=== PATIENT | female | born 1945 | race Caucasian/White ===

== ENCOUNTER → 2018-09-30 | Outpatient (CLI) | payer MEDICARE ==
--- NOTE | 2018-09-30 14:51 | CT ---
EXAMINATION TYPE: CT sinus wo con DATE OF EXAM: 09/30/2018 COMPARISON: NONE HISTORY: Swelling, mass of nasal sinus CT DLP: 553 mGycm. Automated Exposure Control for Dose Reduction was Utilized. TECHNIQUE: CT scan of the sinuses is performed without contrast, axial images are obtained, coronal r eformatted images are also reviewed. FINDINGS: Asymmetric density seen along the left lateral hard palate could simply relate to the patient's tongu e asymmetrically placed although [id number] limits characterization. Direct visualization is recom mended to exclude mucosal neoplasm. There is moderate circumferential mucosal thickening on the left and mild circumferential mucosal thi ckening on the right with high density debris filling the dependent aspects of the maxillary sinuses such as on series 3 image 6. This high density suggests either internal hemorrhage or atypical infect ion such as fungal infection. There is scant mucosal thickening of the sphenoid sinus and moderate mu cosal thickening in the ethmoid sinuses and right frontal sinuses with high-density debris also seen in the right frontal sinus. The mastoid air cells are well aerated. Orbits are symmetric. Evaluation of intracranial structures are suboptimal. There is occlusion of the bilateral ostiomeatal complexes by mucosal thickening. Frontal recesses are also occluded. There is leftward nasal septal deviation. Right greater than left middle nasal turbin ate kerri bullosa are seen. Mild inferior nasal turbinate mucosal hypertrophy is seen on the right. No Oracio cells are seen. IMPRESSION: 1. 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 High density debris is present dependently within the maxillary sinuses and frontal sinus indicative of either internal hemorrhage or atypical i nfection such as a fungal infection. Overall there is moderate pansinusitis. 2. Direct visualization of the oral cavity is recommended to exclude left hard palate mass, only part ially visualized secondary to [id number].
== END ==
LOC: RADCTMAIN 14:10
PROVIDERS: ATTEND Family Medicine
DX: J32.4 Chronic pansinusitis (principal); J34.89 Other specified disorders of nose and nasal sinuses
CPT/HCPCS: 70486

== ENCOUNTER → 2018-12-23 | Outpatient (CLI) | payer MEDICARE ==
--- NOTE | 2018-12-23 12:59 | US ---
EXAMINATION TYPE: US venous doppler duplex LE RT DATE OF EXAM: 12/23/2018 12:49 PM COMPARISON: NONE CLINICAL HISTORY: R60.0 Localized edema. Right leg swelling x 3 years. No hx DVT. Pt not on blood thi nners. SIDE PERFORMED: Right TECHNIQUE: The lower extremity deep venous system is examined utilizing real time linear array sonog miroslava with graded compression, doppler sonography and color-flow sonography. VESSELS IMAGED: External Iliac Vein (EIV) Common Femoral Vein Deep Femoral Vein Greater Saphenous Vein * Femoral Vein Popliteal Vein Small Saphenous Vein * Proximal Calf Veins (* superficial vessels) Grayscale, color doppler, spectral doppler imaging performed of the deep veins of the right lower ext remity. There is normal flow, compressibility, vascular waveforms. Right Leg: No evidence of DVT in the right lower extremity. IMPRESSION: No sonographic evidence of deep venous thrombosis within the right lower extremity.
== END | disposition home or self-care (01) ==
LOC: RADUSWWP 11:46
PROVIDERS: ATTEND Internal Medicine
DX: R60.0 Localized edema (principal)

== ENCOUNTER 2019-05-17 00:22 | Emergency (ER) | payer MEDICARE ==
[2019-05-17 01:16] LABS: Basophils # (A) 0.1 k/uL (0-0.2); Basophils % (A) 0 %; Eosinophils # (A) 0.2 k/uL (0-0.7); Eosinophils % (A) 1 %; HCT 40.3 % (34.0-46.0); HGB 13.2 gm/dL (11.4-16.0); Lymphocytes # (A) 1.8 k/uL (1.0-4.8); Lymphocytes % (A) 9 %; MCH 29.4 pg (25.0-35.0); MCHC 32.7 g/dL (31.0-37.0); MCV 90.1 fL (80.0-100.0); Mean Platelet Volume 6.5; Monocytes % (A) 5 %; Neutrophils # (A) 17.4 k/uL (1.3-7.7); Neutrophils % (A) 84 %; Platelet Count 273 k/uL (150-450); RBC 4.47 m/uL (3.80-5.40); RDW 13.1 % (11.5-15.5); WBC 20.6 k/uL (3.8-10.6)
--- NOTE | 2019-05-17 01:19 | ED ---
Abdominal Pain HPI - General Chief Complaint: Abdominal Pain Stated Complaint: rt abd pain Time Seen by Provider: 05/17/19 00:40 Source: patient Mode of arrival: wheelchair Limitations: no limitations - History of Present Illness Initial Comments: This patient is a 73-year-old woman who presents to be evaluated for abdominal pain. She states that it started around 3 PM today. She did not have any injury. She was at rest when the pain started. Patient states the pain will be sharp and shooting, moderately severe, and it only lasts for a second or 2 and resolves. She has not discovered any factors that make it get better or worse. She is not having any associated symptoms. No change in bowel movements or urination. No pain up into the chest or any radiation down to the legs. MD Complaint: abdominal pain Onset/Timin -: hour(s) Location: LLQ Radiation: none Migration to: no migration Severity: moderate Quality: sharp Consistency: intermittent Improves With: nothing Worsens With: nothing Associated Symptoms: denies other symptoms - Related Data Home Medications Medication Instructions Recorded Confirmed Albuterol Sulfate [Ventolin HFA] 1 - 2 puff INHALATION Q6H PRN 05/17/19 05/17/19 Atorvastatin [Lipitor] 10 mg PO DAILY 05/17/19 05/17/19 Beclomethasone Dip 80 Mcg/Puff 1 puff INHALATION 05/17/19 [Qvar 80 mcg] Cholecalciferol [Vitamin D3 (25 1,000 unit PO DAILY 05/17/19 05/17/19 Mcg = 1000 Iu)] amLODIPine [Norvasc] 10 mg PO DAILY 05/17/19 05/17/19 Allergies Allergy/AdvReac Type Severity Reaction Status Date / Time No Known Allergies Allergy Verified 05/17/19 00:32 Review of Systems ROS Statement: Those systems with pertinent positive or pertinent negative responses have been documented in the HPI. ROS Other: All systems not noted in ROS Statement are negative. Constitutional: Denies: fever, chills Respiratory: Denies: cough, dyspnea Cardiovascular: Denies: chest pain, palpitations, edema, syncope Gastrointestinal: Reports: abdominal pain. Denies: nausea, vomiting, diarrhea, constipation, melena, hematochezia Genitourinary: Denies: dysuria, hematuria Musculoskeletal: Denies: back pain Skin: Denies: rash Neurological: Denies: headache, weakness, numbness Past Medical History Past Medical History: Hypertension Additional Past Medical History / Comment(s): kidney disease History of Any Multi-Drug Resistant Organisms: None Reported Past Surgical History: Tonsillectomy Past Psychological History: No Psychological Hx Reported Smoking Status: Never smoker Past Alcohol Use History: Rare Past Drug Use History: None Reported General Exam Limitations: no limitations General appearance: alert, in no apparent distress Head exam: Present: atraumatic, normocephalic Eye exam: Present: normal appearance. Absent: scleral icterus, conjunctival injection Respiratory exam: Present: normal lung sounds bilaterally. Absent: respiratory distress, wheezes, rales, rhonchi, stridor Cardiovascular Exam: Present: regular rate, normal rhythm, normal heart sounds. Absent: systolic murmur, diastolic murmur, rubs, gallop GI/Abdominal exam: Present: soft. Absent: distended, tenderness, guarding, rebound, rigid, mass Extremities exam: Present: normal inspection, normal capillary refill. Absent: pedal edema, calf tenderness Back exam: Present: normal inspection. Absent: CVA tenderness (R), CVA tenderness (L) Neurological exam: Present: alert Skin exam: Present: warm, dry, intact, normal color. Absent: rash Course Vital Signs 05/17/19 05/17/19 00:28 03:04 Temperature 97.7 F 98.8 F Pulse Rate 97 76 Respiratory 20 16 Rate Blood Pressure 151/78 151/87 O2 Sat by Pulse 99 97 Oximetry Medical Decision Making - Medical Decision Making Patient is 73-year-old woman with left lower quadrant abdominal pain. On reevaluation, patient does state that the pain has improved. She is not having episodes of it as before. Patient does have some trace of blood in the urine, and the symptoms may be related to a possible stone. As she is now feeling well, and would like to go home we discussed appropriate follow-up and further care as well as return parameters - Lab Data Result diagrams: 05/17/19 00:43 05/17/19 00:43 Lab Results 05/17/19 05/17/19 05/17/19 Range/Units 00:43 00:43 00:51 WBC 20.6 H (3.8-10.6) k/uL RBC 4.47 (3.80-5.40) m/uL Hgb 13.2 (11.4-16.0) gm/dL Hct 40.3 (34.0-46.0) % MCV 90.1 (80.0-100.0) fL MCH 29.4 (25.0-35.0) pg MCHC 32.7 (31.0-37.0) g/dL RDW 13.1 (11.5-15.5) % Plt Count 273 (150-450) k/uL Neutrophils % 84 % Lymphocytes % 9 % Monocytes % 5 % Eosinophils % 1 % Basophils % 0 % Neutrophils # 17.4 H (1.3-7.7) k/uL Lymphocytes # 1.8 (1.0-4.8) k/uL Monocytes # 1.0 (0-1.0) k/uL Eosinophils # 0.2 (0-0.7) k/uL Basophils # 0.1 (0-0.2) k/uL Sodium 141 (137-145) mmol/L Potassium 4.5 (3.5-5.1) mmol/L Chloride 108 H (98-107) mmol/L Carbon Dioxide 23 (22-30) mmol/L Anion Gap 10 mmol/L BUN 33 H (7-17) mg/dL Creatinine 1.39 H (0.52-1.04) mg/dL Est GFR (CKD-EPI)AfAm 44 (>60 ml/min/1.73 sqM) Est GFR (CKD-EPI)NonAf 38 (>60 ml/min/1.73 sqM) Glucose 129 H (74-99) mg/dL Calcium 9.5 (8.4-10.2) mg/dL Total Bilirubin 0.8 (0.2-1.3) mg/dL AST 21 (14-36) U/L ALT 24 (9-52) U/L Alkaline Phosphatase 114 (38-126) U/L Total Protein 7.1 (6.3-8.2) g/dL Albumin 3.9 (3.5-5.0) g/dL Amylase 58 (30-110) U/L Lipase 84 (23-300) U/L Urine Color Yellow Urine Appearance Clear (Clear) Urine pH 5.0 (5.0-8.0) Ur Specific [place] 1.020 (1.001-1.035) Urine Protein Negative (Negative) Urine Glucose (UA) Negative (Negative) Urine Ketones Negative (Negative) Urine Blood Moderate H (Negative) Urine Nitrite Negative (Negative) Urine Bilirubin Negative (Negative) Urine Urobilinogen <2.0 (<2.0) mg/dL Ur Leukocyte Esterase Small H (Negative) Urine RBC 16 H (0-5) /hpf Urine WBC 3 (0-5) /hpf Ur Squamous Epith Cells 1 (0-4) /hpf Urine Bacteria Rare H (None) /hpf Urine Mucus Rare H (None) /hpf Disposition Clinical Impression: Abdominal pain Disposition: HOME SELF-CARE Condition: Good Instructions (If sedation given, give patient instructions): Abdominal Pain (ED) Is patient prescribed a controlled substance at d/c from ED?: No Referrals: Fredy Prater MD [Primary Care Provider] - 1-2 days Prieto Moctezuma MD [STAFF PHYSICIAN] - 1-2 days
[2019-05-17 01:25] LABS: Appearance,Urine Clear (Clear); Bacteria,Urine Rare /hpf; Bilirubin,Urine Negative (Negative); Blood,Urine Moderate (Negative); Color,Urine Yellow; Glucose,Urine (UA) Negative (Negative); Ketones,Urine Negative (Negative); Leukocyte Esterase,Urine Small (Negative); Mucus,Urine Rare /hpf; Nitrite,Urine Negative (Negative); Protein,Urine Negative (Negative); RBC,Urine 16 /hpf (0-5); Squamous Epithelial Cell,Urine 1 /hpf (0-4); Urobilinogen,Urine <2.0 mg/dL (<2.0); WBC,Urine 3 /hpf (0-5)
--- NOTE | 2019-05-17 01:32 | CT ---
EXAMINATION TYPE: CT abdomen pelvis wo con DATE OF EXAM: 05/17/2019 COMPARISON: None HISTORY: LLQ pain CT DLP: 1034.4 mGycm Automated exposure control for dose reduction was used. TECHNIQUE: Helical acquisition of images was performed from the lung bases through the pelvis. FINDINGS: Lung bases are clear. There is no pleural effusion. Heart appears normal. There is no pericardial eff usion. Liver spleen pancreas gallbladder appear normal. Bile ducts are not dilated. There is no adrenal mass. Stomach appears normal. Kidneys have normal size. There is 2 mm calculus in terpolar left kidney. There is a 1 mm calculus lower pole left kidney. The ureters are not dilated. T here are apparent left renal parapelvic multiple cysts. There is no retroperitoneal adenopathy. There is 3 mm calculus lower pole right kidney. Bladder distends smoothly. Uterus is anteverted. There is no free fluid in the pelvis. There is no in guinal hernia. There are numerous diverticula in the sigmoid colon. There is no sign of diverticuliti s. There is no ascites or free air. There is no sign of a bowel obstruction. There is no mesenteric e bertha. Appendix is small. Lumbar spine is intact. There is no compression fracture. The bony pelvis appears intact. IMPRESSION: SMALL BILATERAL NONOBSTRUCTING RENAL CALCULI. LEFT RENAL PARAPELVIC CYSTS. MODERATE SIGMOID DIVERTICULOSIS WITHOUT SIGN OF DIVERTICULITIS.
[2019-05-17 01:34] LABS: Albumin 3.9 g/dL (3.5-5.0); Calcium 9.5 mg/dL (8.4-10.2); Potassium 4.5 mmol/L (3.5-5.1); Total Bilirubin 0.8 mg/dL (0.2-1.3); Total Protein 7.1 g/dL (6.3-8.2)
[2019-05-17 03:05] VITALS: BP 151/87; PULSE 76; RESP 16; TEMP 98.8
[2019-05-17] MEDS ORDERED: ONDANSETRON 4 MG/2 ML VIAL IVP STA (03:15)
== END 2019-05-17 03:57 | disposition home or self-care (01) ==
LOC: EC 00:22
DX: R10.32 Left lower quadrant pain (principal); I10 Essential (primary) hypertension; Z79.899 Other long term (current) drug therapy
CPT/HCPCS: 36415; 80053; 82150; 83690; 85025; 81001; 74176; 99284; 96374; J2405

== ENCOUNTER 2019-08-12 12:41 | Inpatient (IN) | payer MEDICARE ==
[2019-08-12] MEDS ORDERED: IPRATROPIUM-ALBUTEROL 3 ML NEB INHALATION STA (13:46)
--- NOTE | 2019-08-12 13:50 | ED ---
SOB HPI - General Chief Complaint: Shortness of Breath Stated Complaint: CHARLES Time Seen by Provider: 08/12/19 13:20 Source: patient, EMS Mode of arrival: EMS Limitations: no limitations - History of Present Illness Initial Comments: This is a 73-year-old female with a history of COPD and a chronic cough who states she's had worsening cough over the last several weeks she has exertional dyspnea a sense nonproductive cough may be some white phlegm at times. Her chills sweats she does states she has anterior chest pain she believes secondary to coughing. She was sent here from her doctor's office she did receive a nebulized treatment as well as a Decadron shot at the office prior to arrival here. No other modifying factors MD Complaint: shortness of breath, cough - Related Data Home Medications Medication Instructions Recorded Confirmed Albuterol Sulfate [Ventolin HFA] 1 - 2 puff INHALATION Q6H PRN 05/17/19 08/12/19 Atorvastatin [Lipitor] 10 mg PO DAILY 05/17/19 08/12/19 Beclomethasone Dip 80 Mcg/Puff 1 puff INHALATION BID 05/17/19 08/12/19 [Qvar 80 mcg] Cholecalciferol [Vitamin D3 (25 1,000 unit PO DAILY 05/17/19 08/12/19 Mcg = 1000 Iu)] amLODIPine [Norvasc] 10 mg PO DAILY 05/17/19 08/12/19 Allergies Allergy/AdvReac Type Severity Reaction Status Date / Time No Known Allergies Allergy Verified 08/12/19 13:02 Review of Systems ROS Statement: Those systems with pertinent positive or pertinent negative responses have been documented in the HPI. ROS Other: All systems not noted in ROS Statement are negative. Past Medical History Past Medical History: Hypertension Additional Past Medical History / Comment(s): kidney disease History of Any Multi-Drug Resistant Organisms: None Reported Past Surgical History: Tonsillectomy Past Psychological History: No Psychological Hx Reported Smoking Status: Never smoker Past Alcohol Use History: Rare Past Drug Use History: None Reported General Exam - General Exam Comments Initial Comments: This is a well-developed well-nourished awake alert oriented 3 female Limitations: no limitations General appearance: alert, anxious Head exam: Present: atraumatic, normocephalic, normal inspection Eye exam: Present: normal appearance, PERRL, EOMI. Absent: scleral icterus, conjunctival injection, periorbital swelling ENT exam: Present: mucous membranes dry Neck exam: Present: normal inspection, full ROM, other (No stridor JVD or bruits). Absent: tenderness, meningismus, lymphadenopathy Respiratory exam: Present: wheezes, chest wall tenderness (Reproducible tenderness palpation along the costal sternal margins bilaterally), accessory muscle use, decreased breath sounds. Absent: respiratory distress, rales, rhonchi, stridor Cardiovascular Exam: Present: regular rate, normal rhythm, normal heart sounds. Absent: systolic murmur, diastolic murmur, rubs, gallop, clicks GI/Abdominal exam: Present: soft, normal bowel sounds. Absent: distended, tenderness, guarding, rebound, rigid Extremities exam: Present: normal inspection, full ROM, normal capillary refill. Absent: tenderness, pedal edema, joint swelling, calf tenderness Back exam: Present: normal inspection Neurological exam: Present: alert, oriented X3, CN II-XII intact Psychiatric exam: Present: normal affect, normal mood Skin exam: Present: warm, dry, intact, normal color. Absent: rash Course Vital Signs 08/12/19 08/12/19 08/12/19 12:58 14:30 14:40 Temperature 98.1 F Pulse Rate 80 92 94 Respiratory 20 Rate Blood Pressure 104/69 O2 Sat by Pulse 98 Oximetry 08/12/19 08/12/19 15:19 16:00 Temperature Pulse Rate 99 108 H Respiratory 24 20 Rate Blood Pressure 90/75 141/88 O2 Sat by Pulse 99 93 L Oximetry - Reevaluation(s) Reevaluation #1: 08/12/19 15:49 I did reevaluate the patient multiple occasions. She still has diminished breathing ability her saturation ranges from the mid to high 80s or low 90s. Was very anxious at one point and was hyperventilating. Having dyspnea even after administration of Ativan. X-rays are unremarkable. Medical Decision Making - Medical Decision Making Patient continues to have intermittent dyspnea with intermittent episodes of hypoxemia patient will be admitted with consultation by pulmonary medicine. - Lab Data Result diagrams: 08/12/19 14:05 08/12/19 14:05 Lab Results 08/12/19 08/12/19 08/12/19 Range/Units 14:05 14:05 14:05 WBC 14.7 H (3.8-10.6) k/uL RBC 4.30 (3.80-5.40) m/uL Hgb 12.7 (11.4-16.0) gm/dL Hct 38.1 (34.0-46.0) % MCV 88.8 (80.0-100.0) fL MCH 29.7 (25.0-35.0) pg MCHC 33.4 (31.0-37.0) g/dL RDW 13.2 (11.5-15.5) % Plt Count 308 (150-450) k/uL Neutrophils % 73 % Lymphocytes % 16 % Monocytes % 6 % Eosinophils % 3 % Basophils % 1 % Neutrophils # 10.7 H (1.3-7.7) k/uL Lymphocytes # 2.3 (1.0-4.8) k/uL Monocytes # 0.9 (0-1.0) k/uL Eosinophils # 0.5 (0-0.7) k/uL Basophils # 0.1 (0-0.2) k/uL PT 9.8 (9.0-12.0) sec INR 0.9 (<1.2) APTT 22.9 (22.0-30.0) sec D-Dimer 0.42 (<0.60) mg/L FEU Sodium 142 (137-145) mmol/L Potassium 4.0 (3.5-5.1) mmol/L Chloride 106 (98-107) mmol/L Carbon Dioxide 29 (22-30) mmol/L Anion Gap 7 mmol/L BUN 19 H (7-17) mg/dL Creatinine 1.35 H (0.52-1.04) mg/dL Est GFR (CKD-EPI)AfAm 45 (>60 ml/min/1.73 sqM) Est GFR (CKD-EPI)NonAf 39 (>60 ml/min/1.73 sqM) Glucose 105 H (74-99) mg/dL Calcium 9.5 (8.4-10.2) mg/dL Magnesium 2.1 (1.6-2.3) mg/dL Total Bilirubin 0.8 (0.2-1.3) mg/dL AST 20 (14-36) U/L ALT 15 (4-34) U/L Alkaline Phosphatase 123 (38-126) U/L Creatine Kinase 47 (30-135) U/L Troponin I (0.000-0.034) ng/mL NT-Pro-B Natriuret Pep pg/mL Total Protein 6.7 (6.3-8.2) g/dL Albumin 3.7 (3.5-5.0) g/dL 08/12/19 08/12/19 Range/Units 14:05 14:05 WBC (3.8-10.6) k/uL RBC (3.80-5.40) m/uL Hgb (11.4-16.0) gm/dL Hct (34.0-46.0) % MCV (80.0-100.0) fL MCH (25.0-35.0) pg MCHC (31.0-37.0) g/dL RDW (11.5-15.5) % Plt Count (150-450) k/uL Neutrophils % % Lymphocytes % % Monocytes % % Eosinophils % % Basophils % % Neutrophils # (1.3-7.7) k/uL Lymphocytes # (1.0-4.8) k/uL Monocytes # (0-1.0) k/uL Eosinophils # (0-0.7) k/uL Basophils # (0-0.2) k/uL PT (9.0-12.0) sec INR (<1.2) APTT (22.0-30.0) sec D-Dimer (<0.60) mg/L FEU Sodium (137-145) mmol/L Potassium (3.5-5.1) mmol/L Chloride (98-107) mmol/L Carbon Dioxide (22-30) mmol/L Anion Gap mmol/L BUN (7-17) mg/dL Creatinine (0.52-1.04) mg/dL Est GFR (CKD-EPI)AfAm (>60 ml/min/1.73 sqM) Est GFR (CKD-EPI)NonAf (>60 ml/min/1.73 sqM) Glucose (74-99) mg/dL Calcium (8.4-10.2) mg/dL Magnesium (1.6-2.3) mg/dL Total Bilirubin (0.2-1.3) mg/dL AST (14-36) U/L ALT (4-34) U/L Alkaline Phosphatase (38-126) U/L Creatine Kinase (30-135) U/L Troponin I <0.012 (0.000-0.034) ng/mL NT-Pro-B Natriuret Pep 194 pg/mL Total Protein (6.3-8.2) g/dL Albumin (3.5-5.0) g/dL - EKG Data -: EKG Interpreted by Me EKG Comments: Normal sinus rhythm of 82. Interval 154 QRS 80 QT since QTC 400/467 to QA changes - Radiology Data Radiology results: report reviewed (I did review the imaging and report no acute findings.), image reviewed Disposition Clinical Impression: Acute exacerbation of chronic obstructive pulmonary disease, Hyperventilation syndrome Disposition: ADMITTED IP TO THIS HOSP Condition: Fair Referrals: Fredy Prater MD [Primary Care Provider] - 1-2 days
[2019-08-12 14:39] LABS: Basophils # (A) 0.1 k/uL (0-0.2); Basophils % (A) 1 %; Eosinophils # (A) 0.5 k/uL (0-0.7); Eosinophils % (A) 3 %; HCT 38.1 % (34.0-46.0); HGB 12.7 gm/dL (11.4-16.0); Lymphocytes # (A) 2.3 k/uL (1.0-4.8); Lymphocytes % (A) 16 %; MCH 29.7 pg (25.0-35.0); MCHC 33.4 g/dL (31.0-37.0); MCV 88.8 fL (80.0-100.0); Mean Platelet Volume 8.2; Monocytes # (A) 0.9 k/uL (0-1.0); Monocytes % (A) 6 %; Neutrophils # (A) 10.7 k/uL (1.3-7.7); Neutrophils % (A) 73 %; Platelet Count 308 k/uL (150-450); RDW 13.2 % (11.5-15.5); WBC 14.7 k/uL (3.8-10.6)
[2019-08-12 14:47] LABS: Albumin 3.7 g/dL (3.5-5.0); Calcium 9.5 mg/dL (8.4-10.2); Magnesium 2.1 mg/dL (1.6-2.3); Total Bilirubin 0.8 mg/dL (0.2-1.3); Total Protein 6.7 g/dL (6.3-8.2)
--- NOTE | 2019-08-12 14:47 | XR ---
EXAMINATION TYPE: XR chest 2V DATE OF EXAM: 08/12/2019 COMPARISON: None HISTORY: 73-year-old female difficulty breathing, shortness of breath TECHNIQUE: PA and lateral views FINDINGS: Heart mildly enlarged. Aorta and pulmonary vasculature within normal limits. Some strandy atelectasis at the lower lungs. No consolidation or pleural effusion. IMPRESSION: Mild cardiomegaly without acute cardiopulmonary process.
[2019-08-12 14:57] LABS: D-Dimer 0.42 mg/L FEU (<0.60); INR 0.9 (<1.2); Partial Thromboplastin Time 22.9 sec (22.0-30.0); Prothrombin Time 9.8 sec (9.0-12.0)
[2019-08-12] MEDS ORDERED: LORazepam 2 MG/ML INJ IV STA (15:10)
[2019-08-12] MEDS: methylPREDNISolone SOD SUCCI 125 MG/2 ML VIAL IV SCH ×2 (17:55→23:20)
[2019-08-12 20:12] LABS: Glucose,Whole Blood 183 mg/dL (75-99)
[2019-08-12] MEDS: IPRATROPIUM-ALBUTEROL 3 ML NEB INHALATION SCH ×3 (20:34→23:21)
[2019-08-12] MEDS: FLUTICASONE 110 MCG INHALER INHALATION SCH (20:34)
[2019-08-13] MEDS: IPRATROPIUM-ALBUTEROL 3 ML NEB INHALATION SCH ×5 (04:30→21:16)
[2019-08-13] MEDS: methylPREDNISolone SOD SUCCI 125 MG/2 ML VIAL IV SCH ×4 (05:56→23:59)
[2019-08-13] MEDS: FLUTICASONE 110 MCG INHALER INHALATION SCH ×2 (07:23→07:24)
[2019-08-13 07:33] LABS: Glucose,Whole Blood 206 mg/dL (75-99)
[2019-08-13] MEDS: CHOLECALCIFEROL 1,000 UNIT TAB PO SCH (08:11)
[2019-08-13] MEDS: ATORVASTATIN 10 MG TAB PO SCH (08:11)
[2019-08-13] MEDS: amLODIPine 10 MG TAB PO SCH (08:11)
[2019-08-13 11:09] LABS: Glucose,Whole Blood 267 mg/dL (75-99)
[2019-08-13] MEDS ORDERED: IPRATROPIUM-ALBUTEROL 3 ML NEB INHALATION PRN (12:09)
[2019-08-13] MEDS ORDERED: AZITHROMYCIN 500 MG in SODIUM CHLORIDE 0.9% 250 ML IVPB SCH (12:15)
[2019-08-13] MEDS ORDERED: INSULIN ASPART (NovoLOG) 100 UNIT/ML VIAL SQ SCH (12:30)
[2019-08-13] MEDS: PANTOPRAZOLE 40 MG TABLET PO SCH (12:41)
[2019-08-13] MEDS: INSULIN ASPART (NovoLOG) 100 UNIT/ML VIAL SQ SCH ×3 (12:41→21:12)
[2019-08-13] MEDS: BUDESONIDE 1 MG/2 ML NEBU INHALATION SCH ×2 (13:11→21:16)
[2019-08-13] MEDS: BENZONATATE 100 MG CAP PO SCH ×2 (14:51→21:11)
[2019-08-13 17:08] LABS: Glucose,Whole Blood 218 mg/dL (75-99)
--- NOTE | 2019-08-13 18:02 | HP ---
HISTORY AND PHYSICAL DATE OF SERVICE: 08/13/2019. CHIEF COMPLAINT: Shortness of breath and sputum. HISTORY OF PRESENT ILLNESS: This 73-year-old woman with a past medical history of COPD, history of hypertension, history of kidney disease, kidney stones, being followed by Dr. Prater in the outpatient setting was complaining of shortness of breath for past 3 weeks. Because of lack of improvement, patient came to [facility] and was admitted for further evaluation and treatment. Chest x-ray showed no evidence of active pneumonia, pulmonary consultation in progress. There is no history of fever, rigors or chills. No history of headache, loss of consciousness, seizures at this time. PAST MEDICAL HISTORY: History of COPD, hypertension, history of kidney disease, kidney stones. MEDICATIONS: 1. Prednisone daily. 2. Norvasc 10 mg p.o. q.h.s. 3. Depo-Medrol 80 mg a.m. once. 4. QVAR 2 puffs b.i.d. 5. Lipitor 10 mg q.h.s. 6. Ventolin 2 puffs q.4 p.r.n. ALLERGIES: None. FAMILY HISTORY: No history of heart disease or strokes in the family. SOCIAL HISTORY: No history of smoking. Occasional alcohol intake. REVIEW OF SYSTEMS: ENT: No diminished vision. No diminished hearing. CARDIOVASCULAR: No angina or palpitations. RESPIRATORY: As mentioned earlier. GI no nausea or vomiting. as mentioned earlier. Nervous system: No numbness or weakness. ALLERGY/IMMUNOLOGY: No asthma or hayfever. MUSCULOSKELETAL as mentioned earlier. HEMATOLOGY/ONCOLOGY: No history of anemia. ENDOCRINE: No history of diabetes or hypothyroidism. CONSTITUTIONAL: As mentioned earlier. DERMATOLOGY: Negative. RHEUMATOLOGY: Negative. PSYCHIATRIC: As mentioned earlier. PHYSICAL EXAMINATION: Alert and oriented times four. Pulse 104. Blood pressure 140/63, respiratory rate 17, temperature 98.3, pulse ox 94% on room air. HEENT: Conjunctivae normal. NECK is no edema. No swelling. CARDIOVASCULAR: S1, S2 muffled. RESPIRATORY: Breath sounds diminished in the bases. A few scattered rhonchi and crackles. Expiratory wheezing also heard. Prolonged expiration is also heard. No bronchial breath sounds. Breathing efforts increased. ABDOMEN: Soft, nontender. No mass palpable. LEGS: No edema. No swelling. Nervous system: Higher functions as mentioned earlier. Moves all 4 limbs. No focal motor or sensory deficits. LYMPHATICS: No lymph nodes palpable in the neck, axillae or groin. SKIN: No ulcer, no rashes and no bleeding. JOINTS: No active deforming arthropathy. LAB STUDIES: WBC 14.2, hemoglobin 12.7, creatinine is 1.6. Accu-Cheks 183, 206 and 267. ASSESSMENT: 1. Chronic obstructive pulmonary disease acute exacerbation with acute purulent tracheobronchitis with failure of outpatient treatment. 2. 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 3. Creatinine possibly chronic kidney disease stage III. 4. Increased WBC. 5. Obesity with body mass of 40.2. 6. History of chronic obstructive pulmonary disease. 7. Hypertension. 8. History of kidney disease. 9. History of nephrolithiasis. 10.History of tonsillectomy. RECOMMENDATIONS AND DISCUSSION: In this 73-year-old woman who presented with multiple medical issues, we will monitor the patient closely, continue the current medications, management and symptomatic treatment. Recommend broad-spectrum IV antibiotics and bronchodilators, IV steroids. Monitor closely. Guarded prognosis because of multiple complex medical issues. Further recommendations to follow. A copy of this dictation being forwarded to Dr. Prater who is the primary physician. MMODL / IJN: [id number] /
[2019-08-13 19:05] LABS: Hemoglobin A1C 5.8 % (4.0-6.0)
--- NOTE | 2019-08-13 19:20 | CONS ---
CONSULTATION PULMONARY/CRITICAL CARE CONSULTATION: DATE OF SERVICE: 08/13/2019 This is a patient whom we are seeing for shortness of breath. A 73-year-old female who states apparently that she has a history of chronic bronchial asthma. The patient is a lifelong nonsmoker. She comes into the hospital brought in by EMS with 3 weeks worth of increasing cough, shortness of breath, chest tightness, wheezing and chest congestion with phlegm production. The phlegm is typically white. She does apparently have pain in the chest from coughing. In addition, she has chills and sweats. She apparently went to go see her primary doctor, Dr. Prater, and he sent her straight over to the emergency room to be evaluated. Prior to arriving in the ER, she apparently received Depo-Medrol shot by her doctor. She does not see a current [facility] doctor. Apparently Dr. Prater was going to have her see a treasury associate because this issue had been going on for such a long time. HOME MEDICATIONS: Reviewed. She is on albuterol, Lipitor, QVAR, vitamin D3 and amlodipine. ALLERGIES: Denied. MEDICAL HISTORY: Possible chronic bronchial asthma as well as hypertension. The patient also has a history of hyperlipidemia. It is unclear to me as to whether not these complaints are more acute or chronic. Much of what she says suggests acute but there may be a chronic component as well. She is not a particularly good historian in that regard. SURGICAL HISTORY: Includes tonsillectomy. SOCIAL HISTORY: Negative for tobacco use. She drinks alcohol rarely. No illicit drug use. Mother and father were healthy as it relates to family history. REVIEW OF SYSTEMS: CONSTITUTIONAL: Negative. NEUROLOGIC: Negative. HEENT: Negative. CARDIOVASCULAR: Negative. PULMONARY: Shortness of breath, chest tightness, wheezing, cough, chest congestion and white phlegm production. GI: Negative. : Negative. RHEUMATOLOGIC: Negative. IMMUNOLOGIC: Negative. ENDOCRINOLOGIC: Negative. DERMATOLOGIC: Negative. PHYSICAL EXAMINATION: Current vital signs are reviewed. Her temperature is 98.3, heart rate 88, respiratory rate 17, blood pressure 148/63, room air saturation 94%. Appears in no acute distress. No respiratory distress. No audible wheezing, use of accessory muscles or conversational dyspnea. HEENT examination is grossly unremarkable. Mucous membranes are moist. No supplemental oxygen. NECK: Supple full range of motion. No adenopathy or thyromegaly or neck vein distention. CARDIOVASCULAR examination reveals regular rhythm and rate. Heart rate 88. S1, S2 normal. LUNGS: Reveal a few scattered expiratory wheezes and rhonchi. Slight prolongation on forced maneuver. Wheezes are high-pitched. No crackles. Breath sounds equal bilaterally. ABDOMEN: Soft but obese. Bowel sounds are heard. EXTREMITIES are intact. No cyanosis, clubbing, or edema. SKIN: Without rash. NEUROLOGIC: Examination is brief but nonfocal. A chest x-ray here shows no acute cardiopulmonary abnormality. LABS: Reviewed. White count 14.7, hemoglobin 12.7, hematocrit 38.1, platelet count normal. PT/INR, PTT all normal. D-dimer normal. Sodium, potassium, chloride, CO2 all normal. Anion gap 7. BUN and creatinine were 19 and 1.35. Her N-terminal proBNP was 194. Troponin was less than 0.012. Influenza studies were negative. Microbiologic studies are negative for pending. Medications are reviewed. She is currently on amlodipine, Lipitor, Zithromax IV, Pulmicort, Rocephin, vitamin D3, Flovent inhaler, formoterol, updrafts with DuoNeb, Solu-Medrol 60 mg q.6h, and Ativan p.r.n. She is also on Protonix. ASSESSMENT: 1. Acute bronchitis with bronchospasm and bronchial inflammation versus occult asthma. 2. Lifelong nonsmoker. 3. History of hypertension. 4. Renal insufficiency. 5. Obesity. PLAN: Please see my orders. Will make sure she is on appropriate medications including short- acting beta agonist, short-acting muscarinic antagonist, long-acting beta agonist, inhaled corticosteroids, systemic corticosteroids and oral antibiotics. No pneumonia on chest x-ray. The patient should improve in a day or so. We will continue to follow. Her biggest issue is a cough. We will give her something for that. No additional recommendations are made. MMODL / IJN: [id number] /
[2019-08-13 20:20] LABS: Glucose,Whole Blood 175 mg/dL (75-99)
[2019-08-13] MEDS: FORMOTEROL FUMARATE 20 MCG/2 ML NEBU INHALATION SCH (21:16)
[2019-08-14] MEDS: methylPREDNISolone SOD SUCCI 125 MG/2 ML VIAL IV SCH ×4 (06:04→22:58)
[2019-08-14 07:15] LABS: Glucose,Whole Blood 187 mg/dL (75-99)
[2019-08-14] MEDS: amLODIPine 10 MG TAB PO SCH (08:09)
[2019-08-14] MEDS: CHOLECALCIFEROL 1,000 UNIT TAB PO SCH (08:09)
[2019-08-14] MEDS: AZITHROMYCIN 500 MG TAB PO SCH (08:09)
[2019-08-14] MEDS: ATORVASTATIN 10 MG TAB PO SCH (08:09)
[2019-08-14] MEDS: PANTOPRAZOLE 40 MG TABLET PO SCH (08:09)
[2019-08-14] MEDS: INSULIN ASPART (NovoLOG) 100 UNIT/ML VIAL SQ SCH ×4 (08:09→21:00)
[2019-08-14] MEDS: BENZONATATE 100 MG CAP PO SCH ×3 (08:09→22:59)
[2019-08-14 08:12] LABS: Calcium 10.1 mg/dL (8.4-10.2); Potassium 5.5 mmol/L (3.5-5.1)
[2019-08-14 08:21] LABS: Basophils % (A) 0 %; Eosinophils % (A) 0 %; HCT 39.3 % (34.0-46.0); HGB 12.7 gm/dL (11.4-16.0); Lymphocytes # (A) 1.3 k/uL (1.0-4.8); Lymphocytes % (A) 4 %; MCH 29.3 pg (25.0-35.0); MCHC 32.4 g/dL (31.0-37.0); MCV 90.6 fL (80.0-100.0); Monocytes # (A) 0.6 k/uL (0-1.0); Monocytes % (A) 2 %; Neutrophils # (A) 30.4 k/uL (1.3-7.7); Neutrophils % (A) 94 %; Platelet Count 324 k/uL (150-450); RBC 4.34 m/uL (3.80-5.40); RDW 13.4 % (11.5-15.5); WBC 32.4 k/uL (3.8-10.6)
[2019-08-14] MEDS ORDERED: NITROGLYCERIN SL TABS 0.4 MG TAB SUBLINGUAL PRN (09:00)
[2019-08-14] MEDS ORDERED: NITROGLYCERIN SL TABS 0.4 MG TAB SUBLINGUAL ONE (09:02)
[2019-08-14] MEDS ORDERED: METOPROLOL TARTRATE 5 MG/5 ML VIAL IVP PRN ×2 (09:11→09:25)
[2019-08-14] MEDS: BUDESONIDE 1 MG/2 ML NEBU INHALATION SCH ×2 (09:15→19:51)
[2019-08-14] MEDS: IPRATROPIUM-ALBUTEROL 3 ML NEB INHALATION SCH ×4 (09:15→19:34)
[2019-08-14] MEDS: FORMOTEROL FUMARATE 20 MCG/2 ML NEBU INHALATION SCH ×2 (09:16→19:52)
[2019-08-14] MEDS ORDERED: METOPROLOL TARTRATE 5 MG/5 ML VIAL IVP ONE (09:17)
[2019-08-14 09:19] LABS: Magnesium 2.4 mg/dL (1.6-2.3); Phosphorus 4.2 mg/dL (2.5-4.5)
[2019-08-14] MEDS ORDERED: DILTIAZEM 125 MG in SODIUM CHLORIDE 0.9% 100 ML IV SCH (11:45)
[2019-08-14 12:12] LABS: Glucose,Whole Blood 178 mg/dL (75-99)
[2019-08-14] MEDS ORDERED: HEPARIN SODIUM,PORCINE 5,000 UNIT/ML 1 ML VIAL IV PRN (13:14)
[2019-08-14] MEDS ORDERED: HEPARIN SODIUM,PORCINE 5,000 UNIT/ML 1 ML VIAL IV ONE (13:14)
[2019-08-14] MEDS ORDERED: HEPARIN SOD,PORK IN 0.45% NACL 25,000 UNIT in 0.45% NACL 1 250ML.BAG IV SCH (13:15)
[2019-08-14 13:34] LABS: Basophils % (A) 0 %; Eosinophils # (A) 0.2 k/uL (0-0.7); Eosinophils % (A) 1 %; HCT 40.4 % (34.0-46.0); HGB 12.7 gm/dL (11.4-16.0); Lymphocytes # (A) 1.1 k/uL (1.0-4.8); Lymphocytes % (A) 3 %; MCH 28.7 pg (25.0-35.0); MCHC 31.4 g/dL (31.0-37.0); MCV 91.4 fL (80.0-100.0); Mean Platelet Volume 9.1; Monocytes # (A) 0.6 k/uL (0-1.0); Monocytes % (A) 2 %; Neutrophils # (A) 31.9 k/uL (1.3-7.7); Neutrophils % (A) 94 %; Platelet Count 299 k/uL (150-450); RBC 4.42 m/uL (3.80-5.40); RDW 13.4 % (11.5-15.5); WBC 33.9 k/uL (3.8-10.6)
[2019-08-14 13:49] LABS: INR 0.9 (<1.2); Prothrombin Time 9.7 sec (9.0-12.0)
[2019-08-14 14:03] LABS: Partial Thromboplastin Time 20.1 sec (22.0-30.0)
--- NOTE | 2019-08-14 14:10 | P.PN ---
Subjective Progress Note Date: 08/14/19 Principal diagnosis: Acute bronchitis with bronchospasm and bronchial inflammation versus occult asthma. The patient is seen today 08/14/2019 in follow-up on the selective care unit. She was transferred due to tachyarrhythmias. Initially sinus tach possible septic atrial flutter. She is currently resting comfortably in bed. She denies any worsening shortness of breath, cough or congestion. She is breathing a bit easier today compared to yesterday. She has been treated with DuoNeb inhalations, Pulmicort and perform warm is inhalations, IV Solu-Medrol, antibiotics in the form of azithromycin. She is maintaining O2 saturations in the low 90s on room air. She's afebrile. Remains tachycardic. Blood pressure stable. She's been initiated on diltiazem drip at 10 mg per hour and received IV Lopressor. She's been initiated on a heparin drip. Objective - Vital Signs Vital signs: Vital Signs Temp 97.8 F 08/14/19 11:30 Pulse 141 H 08/14/19 12:30 Resp 20 08/14/19 11:30 BP 123/58 08/14/19 12:30 Pulse Ox 92 L 08/14/19 11:30 Intake & Output 08/13/19 08/14/19 08/14/19 18:59 06:59 18:59 Intake Total 300 590 240 Balance 300 590 240 Intake: Intake, IV Titration 300 Amount Azithromycin 500 mg In 250 Sodium Chloride 0.9% 250 ml @ 250 mls/hr IVPB DAILY [facility] Rx#:[id number] cefTRIAXone 1 gm In 50 Sodium Chloride 0.9% 50 ml @ 100 mls/hr IVPB Q24HR [facility] Rx#:[id number] Oral 590 240 Other: Voiding Method Toilet Toilet # Voids 4 2 2 - Exam GENERAL EXAM: Alert, active, pleasant 73-year-old female patient, on room air comfortable in no apparent distress. HEAD: Normocephalic. EYES: Normal reaction of pupils, equal size. NOSE: Clear with pink turbinates. THROAT: No erythema or exudates. NECK: No masses, no JVD. CHEST: No chest wall deformity. LUNGS: Equal air entry with end expiratory wheeze, diminished. CVS: S1 and S2 normal with tachycardia, flutter. ABDOMEN: No hepatosplenomegaly, normal bowel sounds, no guarding or rigidity. SPINE: No scoliosis or deformity SKIN: No rashes CENTRAL NERVOUS SYSTEM: No focal deficits, tone is normal in all 4 extremities. EXTREMITIES: There is no peripheral edema. No clubbing, no cyanosis. Peripher al pulses are intact. - Labs CBC & Chem 7: 08/14/19 10:11 08/14/19 07:14 Labs: Abnormal Lab Results - Last 24 Hours (Table) 08/13/19 08/13/19 08/14/19 Range/Units 17:07 20:19 07:14 WBC 32.4 H (3.8-10.6) k/uL Neutrophils # 30.4 H (1.3-7.7) k/uL APTT (22.0-30.0) sec Potassium (3.5-5.1) mmol/L BUN (7-17) mg/dL Creatinine (0.52-1.04) mg/dL Glucose (74-99) mg/dL POC Glucose (mg/dL) 218 H 175 H (75-99) mg/dL Magnesium (1.6-2.3) mg/dL TSH (0.465-4.680) mIU/L 08/14/19 08/14/19 08/14/19 Range/Units 07:14 07:14 07:14 WBC (3.8-10.6) k/uL Neutrophils # (1.3-7.7) k/uL APTT (22.0-30.0) sec Potassium 5.5 H (3.5-5.1) mmol/L BUN 40 H (7-17) mg/dL Creatinine 1.68 H (0.52-1.04) mg/dL Glucose 194 H (74-99) mg/dL POC Glucose (mg/dL) 187 H (75-99) mg/dL Magnesium 2.4 H (1.6-2.3) mg/dL TSH (0.465-4.680) mIU/L 08/14/19 08/14/19 08/14/19 Range/Units 09:11 10:11 10:11 WBC 33.9 H (3.8-10.6) k/uL Neutrophils # 31.9 H (1.3-7.7) k/uL APTT 20.1 L (22.0-30.0) sec Potassium (3.5-5.1) mmol/L BUN (7-17) mg/dL Creatinine (0.52-1.04) mg/dL Glucose (74-99) mg/dL POC Glucose (mg/dL) (75-99) mg/dL Magnesium (1.6-2.3) mg/dL TSH 0.368 L (0.465-4.680) mIU/L 08/14/19 Range/Units 11:51 WBC (3.8-10.6) k/uL Neutrophils # (1.3-7.7) k/uL APTT (22.0-30.0) sec Potassium (3.5-5.1) mmol/L BUN (7-17) mg/dL Creatinine (0.52-1.04) mg/dL Glucose (74-99) mg/dL POC Glucose (mg/dL) 178 H (75-99) mg/dL Magnesium (1.6-2.3) mg/dL TSH (0.465-4.680) mIU/L Assessment and Plan Assessment: 1 Acute bronchitis with bronchospasm bronchial inflammation versus occult asthma 2 atrial flutter with a rapid ventricular response 3 Right lung nonsmoker 4 hypertension 5 renal insufficiency 6 obesity Plan: The patient was seen and evaluated by Dr. Gaytan. We'll continue with her current pulmonary medications. Cardiology is on the case regarding her new onset atrial flutter with RVR and has been initiated on a diltiazem drip and a heparin drip. We'll continue to follow her here on the selective care unit. We will make further recommendations based on her clinical status. I, the cosigning physician, performed a history & physical examination of the patient. Lungs sounds end expiratory wheeze, diminished. Maintaining good O2 saturations in the 90s on room air. I discussed the assessment and plan of care with my nurse practitioner, Heidy Aleman. I attest to the above note as dictated by her.
[2019-08-14] MEDS: DILTIAZEM ORAL 30 MG TAB PO SCH ×2 (16:38→22:59)
[2019-08-14 16:54] LABS: Glucose,Whole Blood 199 mg/dL (75-99)
--- NOTE | 2019-08-14 18:36 | CONS ---
CONSULTATION CHIEF COMPLAINT: Palpitations. Traa is a 73-year-old lady with history of COPD, hypertension, renal disease, and dyslipidemia who was admitted to hospital with COPD exacerbation. Her predominant symptom was in the form of shortness of breath going on for the last 3 weeks, was not improving in the outpatient setting, hence, she is admitted. While on the floor, she developed sudden-onset shortness of breath and went into what appears like an atrial flutter with 2:1 conduction. She was in mild respiratory distress. We have evaluated her, did an EKG, started her on Cardizem drip. Subsequently, she converted back to sinus rhythm. She appears comfortable at rest. Patient is on intravenous heparin at the moment. I am going to stop the Cardizem and start her on oral Cardizem. If she is covered, we will start her on Eliquis or Xarelto. I will obtain a 2D echo on her to evaluate her LV function, a TSH to rule out hypo or hyperthyroidism. Troponin is negative. PAST MEDICAL HISTORY: Significant for hypertension and COPD along with dyslipidemia. MEDICATIONS: Medications at home include Norvasc 10 daily, Depo-Medrol, Lipitor, albuterol, and prednisone. ALLERGIES: There are no known drug allergies. FAMILY HISTORY: Negative for premature coronary artery disease. SOCIAL HISTORY: Negative for smoking, EtOH abuse, or drug abuse. REVIEW OF SYSTEMS: HEENT: Unremarkable. CARDIAC: As described above. RESPIRATORY: As described above. GI: Negative. GENITOURINARY: Negative. ALLERGY/IMMUNOLOGY: Negative. MUSCULOSKELETAL: Significant for arthritis. PSYCHOSOCIAL: Negative. ENDOCRINE: Negative. DERM: Negative. CONSTITUTIONAL: Negative. ONCOLOGICAL: Negative. Rest of the system review is not relevant. EXAM: The patient is comfortable at rest. Vital signs are stable. Chest exam reveals occasional rhonchi bilaterally with diminished air entry. Heart exam reveals first and second heart sounds. No gallop. Abdomen is soft. Exam of extremities did not reveal any edema. Peripheral pulses are felt. EKG shows sinus rhythm, normal axis, normal intervals. Earlier EKG showed atrial flutter with 2:1 conduction. ASSESSMENT: 1. Typical atrial flutter with rapid ventricular rate. 2. Chronic obstructive pulmonary disease exacerbation. PLAN: Will review the echocardiogram. Continue IV heparin. Switch her to oral anticoagulant. Switch her to p.o. Cardizem. MMODL / IJN: [id number] /
[2019-08-14 20:06] LABS: Glucose,Whole Blood 177 mg/dL (75-99)
--- NOTE | 2019-08-14 22:37 | PN ---
PROGRESS NOTE DATE OF SERVICE: 08/14/2019 This 73-year-old woman was admitted with COPD acute exacerbation as well as acute purulent tracheobronchitis, failure of outpatient treatment, also had developed atrial fibrillation with fast ventricular rate. This morning the patient was transferred to telemetry. Cardiology consulted and patient started on Cardizem drip. Patient is being closely monitored at this time. The patient probably had atrial flutter with 2:1 AV block as well. PAST MEDICAL HISTORY: Reviewed. REVIEW OF SYSTEMS: CARDIOVASCULAR SYSTEM: As mentioned earlier. RESPIRATORY: As mentioned earlier. GI: No nausea. : No dysuria. NERVOUS SYSTEM: No numbness or weakness. CURRENT MEDICATIONS: 1. DuoNeb q.i.d. and p.r.n. 2. Norvasc 10 mg daily. 3. Lipitor 10 mg. 4. Zithromax 500 mg. 5. Synthroid 200 mcg p.o. daily. 6. Pulmicort 1 mg b.i.d. 7. Cardizem CD. 8. Perforomist. 9. Heparin. 10.Solu-Medrol 60 IV q.6h. 11.Lopressor. 12.Nitrostat. 13.Protonix. Doses are reviewed. PHYSICAL EXAMINATION: Alert and oriented x3. Pulse 146, blood pressure is 136/60, respiration 20, temperature 97.7, pulse ox 96% on 2 L. HEENT: Conjunctivae normal. Oral mucosa moist. NECK: No jugular venous distention. No lymph node enlargement. CARDIOVASCULAR: S1, S2. RESPIRATORY: Diminished breath sounds at the bases. Bilateral scattered rhonchi and crackles. Expiratory wheezing. ABDOMEN: Soft, nontender. LEGS: No edema, no swelling. NERVOUS SYSTEM: No focal deficits. LABS: WBC 33.2, hemoglobin 12.7. Otherwise, other labs creatinine is 1.68. ASSESSMENT: 1. Chronic obstructive pulmonary disease acute exacerbation with acute purulent tracheobronchitis with failure of outpatient treatment. 2. Atrial flutter with rapid ventricular rate, 2:1 varying block, paroxysmal. 3. 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 4. Increased creatinine with possible chronic kidney disease stage III. 5. Increased WBC. Leukocytosis and leukemoid reaction. 6. Obesity with body mass index 40.2. 7. History of chronic obstructive pulmonary disease. 8. Hypertension. 9. History of kidney disease. 10.History of nephrolithiasis. 11.History of tonsillectomy. RECOMMENDATIONS AND DISCUSSION: In this 70-year-old woman who presented with multiple complex medical issues, we will monitor the patient closely, continue the current medication, continue symptomatic treatment. Otherwise, at this time I recommend to continue the bronchodilators. Continue with IV steroids. Continue with Cardizem. Closely follow with Cardiology and Pulmonology. Prognosis guarded. Otherwise, I would monitor the renal functions closely. Discussed with the patient who understands. Further recommendations to follow. MMODL / IJN: [id number] /
[2019-08-15 05:59] LABS: Glucose,Whole Blood 170 mg/dL (75-99)
[2019-08-15] MEDS: methylPREDNISolone SOD SUCCI 125 MG/2 ML VIAL IV SCH (06:43)
[2019-08-15] MEDS: INSULIN ASPART (NovoLOG) 100 UNIT/ML VIAL SQ SCH ×4 (06:44→21:00)
[2019-08-15] MEDS: PANTOPRAZOLE 40 MG TABLET PO SCH (06:44)
[2019-08-15 06:56] LABS: Basophils % (A) 0 %; Eosinophils % (A) 0 %; HGB 11.8 gm/dL (11.4-16.0); Lymphocytes # (A) 0.9 k/uL (1.0-4.8); Lymphocytes % (A) 4 %; MCH 28.5 pg (25.0-35.0); MCHC 31.9 g/dL (31.0-37.0); MCV 89.3 fL (80.0-100.0); Monocytes # (A) 0.6 k/uL (0-1.0); Monocytes % (A) 2 %; Neutrophils % (A) 94 %; Platelet Count 294 k/uL (150-450); RBC 4.14 m/uL (3.80-5.40); RDW 13.2 % (11.5-15.5); WBC 26.6 k/uL (3.8-10.6)
[2019-08-15 07:00] LABS: Calcium 9.2 mg/dL (8.4-10.2); Potassium 4.2 mmol/L (3.5-5.1)
[2019-08-15] MEDS: ATORVASTATIN 10 MG TAB PO SCH (07:45)
[2019-08-15] MEDS: CHOLECALCIFEROL 1,000 UNIT TAB PO SCH (07:45)
[2019-08-15] MEDS: DILTIAZEM ORAL 30 MG TAB PO SCH ×3 (07:45→21:00)
[2019-08-15] MEDS: BENZONATATE 100 MG CAP PO SCH ×3 (07:45→21:00)
[2019-08-15] MEDS: amLODIPine 10 MG TAB PO SCH (07:45)
[2019-08-15] MEDS: AZITHROMYCIN 500 MG TAB PO SCH (07:45)
[2019-08-15] MEDS: BUDESONIDE 1 MG/2 ML NEBU INHALATION SCH ×2 (08:44→23:45)
[2019-08-15] MEDS: FORMOTEROL FUMARATE 20 MCG/2 ML NEBU INHALATION SCH ×2 (08:49→23:45)
[2019-08-15] MEDS: IPRATROPIUM-ALBUTEROL 3 ML NEB INHALATION SCH ×5 (08:50→23:45)
[2019-08-15] MEDS: APIXABAN 5 MG TAB PO SCH ×2 (11:21→20:59)
--- NOTE | 2019-08-15 11:40 | P.PN ---
Subjective Progress Note Date: 08/15/19 Principal diagnosis: Acute bronchitis with bronchospasm and bronchial inflammation versus occult asthma. The patient is seen today 08/14/2019 in follow-up on the selective care unit. She was transferred due to tachyarrhythmias. Initially sinus tach possible septic atrial flutter. She is currently resting comfortably in bed. She denies any worsening shortness of breath, cough or congestion. She is breathing a bit easier today compared to yesterday. She has been treated with DuoNeb inhalations, Pulmicort and perform warm is inhalations, IV Solu-Medrol, antibiotics in the form of azithromycin. She is maintaining O2 saturations in the low 90s on room air. She's afebrile. Remains tachycardic. Blood pressure stable. She's been initiated on diltiazem drip at 10 mg per hour and received IV Lopressor. She's been initiated on a heparin drip. The patient is seen today 08/15/2019 in follow-up on the selective care unit. She is currently sitting up in a chair at the bedside. Awake and alert in no acute distress. She is maintaining O2 saturations in the 90s on room air. She's afebrile. White count 26.6. Hemoglobin 11.8. Creatinine 1.68. She is continued on DuoNeb inhalations, Pulmicort and Perforomist inhalations, prednisone. She's been transitioned from a heparin drip to Eliquis per cardiology. Objective - Vital Signs Vital signs: Vital Signs Temp 98.1 F 08/15/19 07:55 Pulse 72 08/15/19 08:58 Resp 20 08/15/19 07:55 BP 163/74 08/15/19 07:55 Pulse Ox 93 L 08/15/19 07:55 Intake & Output 08/14/19 08/15/19 08/15/19 18:59 06:59 18:59 Intake Total 840 416.316 Balance 840 416.316 Weight 104.3 kg Intake: Intake, IV Titration 176.316 Amount Heparin Sod,Pork in 0.45% 176.316 NaCl 25,000 unit In 0.45 % NaCl 1 250ml.bag @ 9.93 UNITS/KG/HR 9.999 mls/hr IV .Q24H [facility] Rx#: [id number] Oral 840 240 Other: Voiding Method Toilet Toilet # Voids 2 1 1 - Exam GENERAL EXAM: Alert, active, pleasant 73-year-old female patient, on room air comfortable in no apparent distress. HEAD: Normocephalic. EYES: Normal reaction of pupils, equal size. NOSE: Clear with pink turbinates. THROAT: No erythema or exudates. NECK: No masses, no JVD. CHEST: No chest wall deformity. LUNGS: Equal air entry with end expiratory wheeze, diminished. CVS: S1 and S2 normal with tachycardia, flutter. ABDOMEN: No hepatosplenomegaly, normal bowel sounds, no guarding or rigidity. SPINE: No scoliosis or deformity SKIN: No rashes CENTRAL NERVOUS SYSTEM: No focal deficits, tone is normal in all 4 extremities. EXTREMITIES: There is no peripheral edema. No clubbing, no cyanosis. Peripheral pulses are intact. - Labs CBC & Chem 7: 08/15/19 06:27 08/15/19 06:27 Labs: Abnormal Lab Results - Last 24 Hours (Table) 08/14/19 08/14/19 08/14/19 Range/Units 09:11 10:11 10:11 WBC 33.9 H (3.8-10.6) k/uL Neutrophils # 31.9 H (1.3-7.7) k/uL Lymphocytes # (1.0-4.8) k/uL APTT 20.1 L (22.0-30.0) sec Chloride (98-107) mmol/L BUN (7-17) mg/dL Creatinine (0.52-1.04) mg/dL Glucose (74-99) mg/dL POC Glucose (mg/dL) (75-99) mg/dL TSH 0.368 L (0.465-4.680) mIU/L 08/14/19 08/14/19 08/14/19 Range/Units 11:51 16:42 19:43 WBC (3.8-10.6) k/uL Neutrophils # (1.3-7.7) k/uL Lymphocytes # (1.0-4.8) k/uL APTT 65.3 H (22.0-30.0) sec Chloride (98-107) mmol/L BUN (7-17) mg/dL Creatinine (0.52-1.04) mg/dL Glucose (74-99) mg/dL POC Glucose (mg/dL) 178 H 199 H (75-99) mg/dL TSH (0.465-4.680) mIU/L 08/14/19 08/15/19 08/15/19 Range/Units 20:05 05:58 06:27 WBC 26.6 H (3.8-10.6) k/uL Neutrophils # 25.0 H (1.3-7.7) k/uL Lymphocytes # 0.9 L (1.0-4.8) k/uL APTT (22.0-30.0) sec Chloride (98-107) mmol/L BUN (7-17) mg/dL Creatinine (0.52-1.04) mg/dL Glucose (74-99) mg/dL POC Glucose (mg/dL) 177 H 170 H (75-99) mg/dL TSH (0.465-4.680) mIU/L 08/15/19 08/15/19 Range/Units 06:27 06:33 WBC (3.8-10.6) k/uL Neutrophils # (1.3-7.7) k/uL Lymphocytes # (1.0-4.8) k/uL APTT 78.6 H (22.0-30.0) sec Chloride 110 H (98-107) mmol/L BUN 49 H (7-17) mg/dL Creatinine 1.68 H (0.52-1.04) mg/dL Glucose 183 H (74-99) mg/dL POC Glucose (mg/dL) (75-99) mg/dL TSH (0.465-4.680) mIU/L Assessment and Plan Assessment: 1 Acute bronchitis with bronchospasm bronchial inflammation versus occult asthma 2 Atrial flutter with a rapid ventricular response 3 Lifelong nonsmoker 4 Hypertension 5 Renal insufficiency 6 Obesity Plan: The patient was seen and evaluated by Dr. Gaytan. We'll continue with her current pulmonary medications. She is improved from pulmonary standpoint. Transitioned to Eliquis. Rate control per cardiology. We will make further recommendations based on her clinical status. I, the cosigning physician, performed a history & physical examination of the patient. Lungs sounds end expiratory wheeze, diminished. Maintaining good O2 saturations in the 90s on room air. I discussed the assessment and plan of care with my nurse practitioner, Heidy Aleman. I attest to the above note as dictated by her.
[2019-08-15 11:53] LABS: Glucose,Whole Blood 160 mg/dL (75-99)
--- NOTE | 2019-08-15 12:48 | P.PN ---
Subjective Progress Note Date: 08/15/19 's is a pleasant 73-year-old female with history of COPD, hypertension, renal disease, hyperlipidemia, who was admitted to the hospital with COPD exacerbation and acute bronchitis. While the patient was on the medical floor, she developed a sudden onset of shortness of breath and went into atrial flutter with 2 to one conduction, typical. She was transferred to the cardiac unit and seen in consultation yesterday by Dr. Bravo. Patient was started on a Cardizem drip and subsequently converted to normal sinus rhythm and remains in a normal sinus rhythm this morning. Echocardiogram with Doppler study has been performed, results are yet pending. Overall feeling much better today. Blood pressure 138/60, heart rate in the 70s, 95% on room air. Objective - Vital Signs Vital signs: Vital Signs Temp 98.1 F 08/15/19 07:55 Pulse 74 08/15/19 12:00 Resp 20 08/15/19 12:00 BP 138/63 08/15/19 12:00 Pulse Ox 95 08/15/19 12:00 Intake & Output 08/14/19 08/15/19 08/15/19 18:59 06:59 18:59 Intake Total 840 416.316 Balance 840 416.316 Weight 104.3 kg Intake: Intake, IV Titration 176.316 Amount Heparin Sod,Pork in 0.45% 176.316 NaCl 25,000 unit In 0.45 % NaCl 1 250ml.bag @ 9.93 UNITS/KG/HR 9.999 mls/hr IV .Q24H [facility] Rx#: [id number] Oral 840 240 Other: Voiding Method Toilet Toilet # Voids 2 1 1 - Exam GENERAL EXAM: Alert, active, pleasant 73-year-old female patient, on room air comfortable in no apparent distress. HEAD: Normocephalic. EYES: Normal reaction of pupils, equal size. NOSE: Clear with pink turbinates. THROAT: No erythema or exudates. NECK: No masses, no JVD. CHEST: No chest wall deformity. LUNGS: Equal air entry with end expiratory wheeze, diminished. CVS: S1 and S2 normal with tachycardia, flutter. ABDOMEN: No hepatosplenomegaly, normal bowel sounds, no guarding or rigidity. SPINE: No scoliosis or deformity SKIN: No rashes CENTRAL NERVOUS SYSTEM: No focal deficits, tone is normal in all 4 extremities. EXTREMITIES: There is no peripheral edema. No clubbing, no cyanosis. Peripheral pulses are intact. - Labs CBC & Chem 7: 08/15/19 06:27 08/15/19 06:27 Labs: Abnormal Lab Results - Last 24 Hours (Table) 08/14/19 08/14/19 08/14/19 Range/Units 09:11 10:11 10:11 WBC 33.9 H (3.8-10.6) k/uL Neutrophils # 31.9 H (1.3-7.7) k/uL Lymphocytes # (1.0-4.8) k/uL APTT 20.1 L (22.0-30.0) sec Chloride (98-107) mmol/L BUN (7-17) mg/dL Creatinine (0.52-1.04) mg/dL Glucose (74-99) mg/dL POC Glucose (mg/dL) (75-99) mg/dL TSH 0.368 L (0.465-4.680) mIU/L 08/14/19 08/14/19 08/14/19 Range/Units 16:42 19:43 20:05 WBC (3.8-10.6) k/uL Neutrophils # (1.3-7.7) k/uL Lymphocytes # (1.0-4.8) k/uL APTT 65.3 H (22.0-30.0) sec Chloride (98-107) mmol/L BUN (7-17) mg/dL Creatinine (0.52-1.04) mg/dL Glucose (74-99) mg/dL POC Glucose (mg/dL) 199 H 177 H (75-99) mg/dL TSH (0.465-4.680) mIU/L 08/15/19 08/15/19 08/15/19 Range/Units 05:58 06:27 06:27 WBC 26.6 H (3.8-10.6) k/uL Neutrophils # 25.0 H (1.3-7.7) k/uL Lymphocytes # 0.9 L (1.0-4.8) k/uL APTT (22.0-30.0) sec Chloride 110 H (98-107) mmol/L BUN 49 H (7-17) mg/dL Creatinine 1.68 H (0.52-1.04) mg/dL Glucose 183 H (74-99) mg/dL POC Glucose (mg/dL) 170 H (75-99) mg/dL TSH (0.465-4.680) mIU/L 08/15/19 08/15/19 Range/Units 06:33 11:39 WBC (3.8-10.6) k/uL Neutrophils # (1.3-7.7) k/uL Lymphocytes # (1.0-4.8) k/uL APTT 78.6 H (22.0-30.0) sec Chloride (98-107) mmol/L BUN (7-17) mg/dL Creatinine (0.52-1.04) mg/dL Glucose (74-99) mg/dL POC Glucose (mg/dL) 160 H (75-99) mg/dL TSH (0.465-4.680) mIU/L Assessment and Plan Plan: Assessment: 1 COPD exacerbation with Acute bronchitis with bronchospasm bronchial inflammation versus occult asthma 2 atrial flutter with a rapid ventricular response, typical, currently in normal sinus rhythm 3 Right lung nonsmoker 4 hypertension 5 renal insufficiency 6 obesity Plan IV heparin has been discontinued, patient has been initiated on oral anticoagulation. Continue current dose of beta william. DNP note has been reviewed, I agree with a documented findings and plan of care. Patient was seen and examined.
[2019-08-15 16:50] LABS: Glucose,Whole Blood 192 mg/dL (75-99)
[2019-08-15 20:34] LABS: Glucose,Whole Blood 191 mg/dL (75-99)
[2019-08-15 21:46] VITALS: RESP 18
[2019-08-16 06:06] LABS: Glucose,Whole Blood 149 mg/dL (75-99)
[2019-08-16] MEDS: INSULIN ASPART (NovoLOG) 100 UNIT/ML VIAL SQ SCH ×2 (06:31→12:10)
[2019-08-16] MEDS: PANTOPRAZOLE 40 MG TABLET PO SCH (06:31)
[2019-08-16 07:57] LABS: Basophils # (A) 0.1 k/uL (0-0.2); Basophils % (A) 0 %; Eosinophils % (A) 0 %; HGB 12.3 gm/dL (11.4-16.0); Lymphocytes # (A) 0.8 k/uL (1.0-4.8); Lymphocytes % (A) 4 %; MCH 29.3 pg (25.0-35.0); MCHC 32.4 g/dL (31.0-37.0); MCV 90.5 fL (80.0-100.0); Mean Platelet Volume 8.6; Monocytes # (A) 0.8 k/uL (0-1.0); Monocytes % (A) 4 %; Neutrophils % (A) 91 %; Platelet Count 305 k/uL (150-450); RBC 4.19 m/uL (3.80-5.40); RDW 13.2 % (11.5-15.5); WBC 18.7 k/uL (3.8-10.6)
[2019-08-16 08:11] LABS: Calcium 8.9 mg/dL (8.4-10.2); Potassium 4.3 mmol/L (3.5-5.1)
[2019-08-16] MEDS: ATORVASTATIN 10 MG TAB PO SCH (08:55)
[2019-08-16] MEDS: amLODIPine 10 MG TAB PO SCH (08:55)
[2019-08-16] MEDS: AZITHROMYCIN 500 MG TAB PO SCH (08:55)
[2019-08-16] MEDS: CHOLECALCIFEROL 1,000 UNIT TAB PO SCH (08:55)
[2019-08-16] MEDS: APIXABAN 5 MG TAB PO SCH (08:55)
[2019-08-16] MEDS: BENZONATATE 100 MG CAP PO SCH (08:55)
[2019-08-16] MEDS: DILTIAZEM ORAL 30 MG TAB PO SCH (08:55)
[2019-08-16] MEDS ORDERED: predniSONE 10 MG TAB PO SCH (09:00)
[2019-08-16] MEDS: BUDESONIDE 1 MG/2 ML NEBU INHALATION SCH (09:04)
[2019-08-16] MEDS: FORMOTEROL FUMARATE 20 MCG/2 ML NEBU INHALATION SCH (09:04)
[2019-08-16] MEDS: IPRATROPIUM-ALBUTEROL 3 ML NEB INHALATION SCH ×2 (09:05→12:05)
--- NOTE | 2019-08-16 11:18 | P.PN ---
Subjective Progress Note Date: 08/16/19 's is a pleasant 73-year-old female with history of COPD, hypertension, renal disease, hyperlipidemia, who was admitted to the hospital with COPD exacerbation and acute bronchitis. While the patient was on the medical floor, she developed a sudden onset of shortness of breath and went into atrial flutter with 2 to one conduction, typical. She was transferred to the cardiac unit and seen in consultation yesterday by Dr. Bravo. Patient was started on a Cardizem drip and subsequently converted to normal sinus rhythm and remains in a normal sinus rhythm this morning. Echocardiogram with Doppler study has been performed, results are yet pending. Overall feeling much better today. Blood pressure 138/60, heart rate in the 70s, 95% on room air. 08/16/2019 Patient seen and examined this morning, sitting up in her chair at bedside. Feels well, no complaints.blood pressure 92/50 with a heart rate in the 90s, 93% on 2 L of oxygen. We will add a small dose of beta william to her medication regime. She may be able to be discharged home once cleared by primary, we'll make her a follow-up appointment in the office post discharge. Objective - Vital Signs Vital signs: Vital Signs Temp 97.7 F 08/16/19 07:37 Pulse 84 08/16/19 09:31 Resp 18 08/16/19 09:02 BP 147/71 08/16/19 07:37 Pulse Ox 98 08/16/19 07:37 Intake & Output 08/15/19 08/16/19 08/16/19 18:59 06:59 18:59 Intake Total 896.316 250 Balance 896.316 250 Weight 105.1 kg Intake: IV 10 Invasive Line 1 10 Intake, IV Titration 176.316 Amount Heparin Sod,Pork in 0.45% 176.316 NaCl 25,000 unit In 0.45 % NaCl 1 250ml.bag @ 9.93 UNITS/KG/HR 9.999 mls/hr IV .Q24H ELIDA Rx#: [id number] Oral 720 240 Other: Voiding Method Toilet Toilet # Voids 4 1 # Bowel Movements 1 - Exam GENERAL EXAM: Alert, active, pleasant 73-year-old female patient, on room air comfortable in no apparent distress. HEAD: Normocephalic. EYES: Normal reaction of pupils, equal size. NOSE: Clear with pink turbinates. THROAT: No erythema or exudates. NECK: No masses, no JVD. CHEST: No chest wall deformity. LUNGS: Equal air entry with end expiratory wheeze, diminished. CVS: S1 and S2 normal with tachycardia, flutter. ABDOMEN: No hepatosplenomegaly, normal bowel sounds, no guarding or rigidity. SPINE: No scoliosis or deformity SKIN: No rashes CENTRAL NERVOUS SYSTEM: No focal deficits, tone is normal in all 4 extremities. EXTREMITIES: There is no peripheral edema. No clubbing, no cyanosis. Peripheral pulses are intact. - Labs CBC & Chem 7: 08/16/19 06:05 08/16/19 06:05 Labs: Abnormal Lab Results - Last 24 Hours (Table) 08/15/19 08/15/19 08/15/19 Range/Units 11:39 16:44 20:25 WBC (3.8-10.6) k/uL Neutrophils # (1.3-7.7) k/uL Lymphocytes # (1.0-4.8) k/uL Chloride (98-107) mmol/L BUN (7-17) mg/dL Creatinine (0.52-1.04) mg/dL Glucose (74-99) mg/dL POC Glucose (mg/dL) 160 H 192 H 191 H (75-99) mg/dL 08/16/19 08/16/19 08/16/19 Range/Units 06:05 06:05 06:05 WBC 18.7 H (3.8-10.6) k/uL Neutrophils # 17.0 H (1.3-7.7) k/uL Lymphocytes # 0.8 L (1.0-4.8) k/uL Chloride 110 H (98-107) mmol/L BUN 51 H (7-17) mg/dL Creatinine 1.60 H (0.52-1.04) mg/dL Glucose 145 H (74-99) mg/dL POC Glucose (mg/dL) 149 H (75-99) mg/dL Assessment and Plan Plan: Assessment: 1 COPD exacerbation with Acute bronchitis with bronchospasm bronchial inflammation versus occult asthma 2 atrial flutter with a rapid ventricular response, typical, currently in normal sinus rhythm 3 Right lung nonsmoker 4 hypertension 5 renal insufficiency 6 obesity Plan we will add Lopressor to the patient's medication regime, continue calcium channel wliliam and Eliquis. She may be able to be discharged home from our standpoint to follow-up in the office post discharge. DNP note has been reviewed, I agree with a documented findings and plan of care. Patient was seen and examined.
[2019-08-16 11:53] LABS: Glucose,Whole Blood 133 mg/dL (75-99)
[2019-08-16 13:12] VITALS: PULSE 76
[2019-08-16 13:13] VITALS: BP 136/67; TEMP 98.2
--- NOTE | 2019-08-16 15:05 | P.PN ---
Subjective 73-year-old female patient was Hospital as for an acute asthmaexacerbation. She is feeling better. She is less short of breath. She is not a smoker. She has history of chronic bronchial asthma. She lifelong nonsmoker. She has been maintained on Qvar and Ventolin rescue inhaler massively basis. No exposure to secondhand cigarette. She is feeling better. She is obese. She has also history of hypertension and hyperlipidemia. She is on room air oxygen. She has developed atrial flutter with rapid ventricular response during this current hospital stay and she is back to normal sinus rhythm. Lopressor was added and she was also started on long-term anticoagulation with Eliquis. She is going to be followed up by cardiology. She has chronic kidney disease in the creatinine is at 1.6. Objective - Vital Signs Vital signs: Vital Signs Temp 98.2 F 08/16/19 12:00 Pulse 76 08/16/19 12:00 Resp 18 08/16/19 12:00 BP 136/67 08/16/19 12:00 Pulse Ox 96 08/16/19 12:00 Intake & Output 08/15/19 08/16/19 08/16/19 18:59 06:59 18:59 Intake Total 985.553 8277 Balance 927.196 5191 Weight 105.1 kg Intake: IV 20 Invasive Line 1 20 Intake, IV Titration 176.316 Amount Heparin Sod,Pork in 0.45% 176.316 NaCl 25,000 unit In 0.45 % NaCl 1 250ml.bag @ 9.93 UNITS/KG/HR 9.999 mls/hr IV .Q24H ELIDA Rx#: [id number] Oral 720 1100 Other: Voiding Method Toilet Toilet # Voids 4 1 1 # Bowel Movements 1 - Exam GENERAL EXAM: Alert, active, pleasant 73-year-old female patient, on room air comfortable in no apparent distress. HEAD: Normocephalic. EYES: Normal reaction of pupils, equal size. NOSE: Clear with pink turbinates. THROAT: No erythema or exudates. NECK: No masses, no JVD. CHEST: No chest wall deformity. LUNGS: Equal air entry with end expiratory wheeze, diminished. CVS: S1 and S2 normal with tachycardia, flutter. ABDOMEN: No hepatosplenomegaly, normal bowel sounds, no guarding or rigidity. SPINE: No scoliosis or deformity SKIN: No rashes CENTRAL NERVOUS SYSTEM: No focal deficits, tone is normal in all 4 extremities. EXTREMITIES: There is no peripheral edema. No clubbing, no cyanosis. Periphe ral pulses are intact. - Labs CBC & Chem 7: 08/16/19 06:05 08/16/19 06:05 Labs: Abnormal Lab Results - Last 24 Hours (Table) 08/15/19 08/15/19 08/16/19 Range/Units 16:44 20:25 06:05 WBC 18.7 H (3.8-10.6) k/uL Neutrophils # 17.0 H (1.3-7.7) k/uL Lymphocytes # 0.8 L (1.0-4.8) k/uL Chloride (98-107) mmol/L BUN (7-17) mg/dL Creatinine (0.52-1.04) mg/dL Glucose (74-99) mg/dL POC Glucose (mg/dL) 192 H 191 H (75-99) mg/dL 08/16/19 08/16/19 08/16/19 Range/Units 06:05 06:05 11:34 WBC (3.8-10.6) k/uL Neutrophils # (1.3-7.7) k/uL Lymphocytes # (1.0-4.8) k/uL Chloride 110 H (98-107) mmol/L BUN 51 H (7-17) mg/dL Creatinine 1.60 H (0.52-1.04) mg/dL Glucose 145 H (74-99) mg/dL POC Glucose (mg/dL) 149 H 133 H (75-99) mg/dL Assessment and Plan Plan: 1 Acute bronchitis with bronchospasm bronchial inflammation versus occult asthma 2 Atrial flutter with a rapid ventricular response my currently back to normal sinus rhythm on beta blockers and coagulation with Eliquis 3 Lifelong nonsmoker 4 Hypertension 5 chronic stage III kidney disease and a creatinine stable at 1.6 6 Obesity 7 acute leukocytosis, improving The patient can possibly be discharged home today on a prednisone burst taper in addition to Qvar and Ventolin rescue inhaler. Arranging a nebulizer machine may be also of use in regards to her asthma management. She is back into normal sinus rhythm. She is on metoprolol. She is on Eliquis. Her rhythm is back to sinus.
[2019-08-16] MEDS ORDERED: METOPROLOL TARTRATE 25 MG TAB PO SCH (21:00)
--- NOTE | 2019-08-18 06:58 | DS ---
DISCHARGE SUMMARY DATE OF ADMISSION: 08/12/2019 DATE OF DISCHARGE: 08/16/2019 FINAL DIAGNOSES: 1. Acute chronic obstructive pulmonary disease exacerbation. 2. Paroxysmal atrial flutter with 2:1 block, back in sinus rhythm. 3. Essential hypertension. 4. Chronic kidney disease, stage 3, possibly from nephrosclerosis. CONSULTATIONS: 1. Dr. Ladi Bravo and others from [facility]. 2. Dr. Gaytan and colleagues from [facility]monary. HOSPITAL COURSE: The patient presented with worsening cough, shortness of breath, some white phlegm, found to have COPD exacerbation treated with bronchodilators and steroids. Feeling much better by the time of discharge. Patient also went into atrial flutter with 2:1 block, put on a Cardizem drip. Did revert to sinus rhythm. The patient is put on Eliquis and okayed by Cardiology to be discharged. On the day of discharge, feeling better. PHYSICAL EXAMINATION: On examination, temperature 98.2, pulse 76, respiration 18, blood pressure 136/67, pulse ox 96% on room air. LUNGS: Improved air entry. CARDIOVASCULAR: First and second sounds normal. INVESTIGATIONS: White count 18.7, hemoglobin 12.3, BUN 51, creatinine 1.60. DISCHARGE MEDICATIONS: 1. Ventolin HFA 2 puffs q.4 p.r.n. 2. Lipitor 10 mg at bedtime. 3. Qvar 80 mcg 2 puffs b.i.d. 4. Norvasc 10 mg at bedtime. 5. Eliquis 5 mg b.i.d. 6. Zithromax 500 mg p.o. daily. 7. Cardizem 30 mg p.o. t.i.d. 8. DuoNeb q.i.d. 9. Lopressor 25 mg b.i.d. 10.Prednisone taper. Follow up with Dr. Prater on 08/25/2019; Dr. Gaytan on 09/07/2019; Dr. Ladi Bravo on 08/26/2019. MMODL / IJN: [id number] /
--- NOTE | 2019-08-19 08:09 | CDI ---
Documentation Clarification Form Date: 08/19/2019 From: Mandie Marquez Phone: If you have a question about this query, please contact Jigna Sampson, Recycle Driver at [phone] between 8am and 5pm. Admit Date: 08/14/19 Discharge Date:08/16/19 Patient Name: Garima Visit Number: [id number] ATTENTION: The Clinical Documentation Specialists (CDI) and [facility] Coding Staff appreciate your assistance in clarifying documentation. Please respond to the clarification below the line at the bottom and electronically sign. The CDI & [facility] Coding staff will review the response and follow-up if needed. Please note: Queries are made part of the Legal Health Record. If you have any questions, please contact the author of this message via ITS. Dear Dr. Gaytan Acute bronchitis with bronchospasm and bronchial inflammation versus occult asthma is documented in Dr. Gaytan's consult note and progress notes and in the cardiology progress notes. History/risk factors: Acute bronchitis, Obesity, COPD Clinical Indicators: Wheezing, chest tightness, shortness of breath, increased coughing Radiology: Mild cardiomegaly without acute cardiopulmonary process Vital Signs: T. 98.1, P. 80, R. 20, BP 104/69, Pulse ox. 98, 98,93 in ED, Dropped to 91 on 08/13 and 89 on Medication: Duoneb treatments, Pulmicort, IV Soul-Medrol In your professional opinion, can you please further specify the following, if known? Asthma Ruled Out Asthma Ruled In With Acute Exacerbation Status asthmaticus Other, please specify ___ Unable to determine Severity Mild intermittent Mild persistent Moderate persistent Severe persistent Other, please specify ____ Unable to determine Form or Type Cough variant Childhood Exercise induced bronchospasm Extrinsic allergic Idiosyncratic Intrinsic nonallergic Late-onset Mixed Other, please specify____ Unable to determine MTDD
--- NOTE | 2019-08-19 08:32 | CDI ---
Documentation Clarification Form Date: 08/19/19 From: Mandie Marquez Phone: If you have a question about this query, please contact Jigna Sampson, Awake Overnight Monitor at [phone] between 8am and 5pm. Admit Date: 08/14/19 Discharge Date: 08/16/19 Patient Name: Tara Phipps Visit Number: [id number] ATTENTION: The Clinical Documentation Specialists (CDI) and [facility] Coding Staff appreciate your assistance in clarifying documentation. Please respond to the clarification below the line at the bottom and electronically sign. The CDI & [facility] Coding staff will review the response and follow-up if needed. Please note: Queries are made part of the Legal Health Record. If you have any questions, please contact the author of this message via ITS. Dear Dr. 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 History/Risk Factors: Steroid use (home med) and IV steroids Clinical Indicators: Elevated blood glucose Lab: Glucose 105 on admission then ranged from 145 to 194. POC glucose: 133 - 218 In order to capture the severity of Illness and necessary documentation specificity, please clarify: DM Type 2 Drug/chemical induced DM (document the drug/chemical) Other, please specify Unable to Determine Unable to determine MTDD
--- NOTE | 2019-08-19 12:29 | ECHOF ---
Referral Reason:aflutter MEASUREMENTS -------- HEIGHT: 157.5 cm WEIGHT: 100.7 kg BP: RVIDd: 2.9 cm (< 3.3) IVSd: 1.5 cm (0.6 - 1.1) LVIDd: 4.0 cm (3.9 - 5.3) LVPWd: 1.7 cm (0.6 - 1.1) IVSs: 1.9 cm LVIDs: 1.6 cm LVPWs: 2.1 cm LAESV Index (A-L): 22.78 ml/m Ao Diam: 2.9 cm (2.0 - 3.7) AV Cusp: 2.0 cm (1.5 - 2.6) LA Diam: 3.9 cm (2.7 - 3.8) MV EXCURSION: 18.742 mm (> 18.000) MV EF SLOPE: 113 mm/s (70 - 150) EPSS: 0.5 cm MV E Harshal: 1.06 m/s MV DecT: 184 ms MV A Harshal: 1.38 m/s MV E/A Ratio: 0.77 AV maxP.89 mmHg AV meanP.58 mmHg RAP: 5.00 mmHg RVSP: 28.15 mmHg FINDINGS -------- Sinus rhythm. This was a technically adequate study. The left ventricular size is normal. There is moderate concentric left ventricular hypertrophy. O verall left ventricular systolic function is normal with, an EF between 55 - 60 %. Normal LAP. Grad e 1 Diastolic Dysfunction. The right ventricle is normal in size. The left atrial size is normal. Normal LA size by volume 22+/-6 ml/m2. The right atrial size is normal. Aortic valve is trileaflet and is mildly thickened. The mitral valve is normal. Mild mitral regurgitation is present. The tricuspid valve appears structurally normal. Mild tricuspid regurgitation present. Right vent ricular systolic pressure is normal at < 35 mmHg. There is no pulmonic regurgitation present. The aortic root size is normal. Normal inferior vena cava with normal inspiratory collapse consistent with estimated right atrial pre ssure of 5 mmHg. There is no pericardial effusion. CONCLUSIONS -------- 1. Sinus rhythm. 2. This was a technically adequate study. 3. The left ventricular size is normal. 4. There is moderate concentric left ventricular hypertrophy. 5. Overall left ventricular systolic function is normal with, an EF between 55 - 60 %. 6. Normal LAP. Grade 1 Diastolic Dysfunction. 7. The right ventricle is normal in size. 8. The left atrial size is normal. 9. Normal LA size by volume 22+/-6 ml/m2. 10. The right atrial size is normal. 11. Aortic valve is trileaflet and is mildly thickened. 12. The mitral valve is normal. 13. Mild mitral regurgitation is present. 14. The tricuspid valve appears structurally normal. 15. Mild tricuspid regurgitation present. 16. Right ventricular systolic pressure is normal at < 35 mmHg. 17. There is no pulmonic regurgitation present. 18. The aortic root size is normal. 19. Normal inferior vena cava with normal inspiratory collapse consistent with estimated right atrial pressure of 5 mmHg. 20. There is no pericardial effusion. RECEPTIONIST NURSE: Sachi Mitchell RDCS
--- NOTE | 2019-08-26 11:21 | CDI ---
Documentation Clarification Form Date: 08/26/19 From: Mandie Marquez Phone: If you have a question about this query, please contact Jigna Sampson, Tapping Machine Operator at [phone] between 8am and 5pm. Admit Date: 08/14/19 Discharge Date:08/16/19 Patient Name: Tara Painting Visit Number: [id number] ATTENTION: The Clinical Documentation Specialists (CDI) and [facility] Coding Staff appreciate your assistance in clarifying documentation. Please respond to the clarification below the line at the bottom and electronically sign. The CDI & [facility] Coding staff will review the response and follow-up if needed. Please note: Queries are made part of the Legal Health Record. If you have any questions, please contact the author of this message via ITS. Dear Dr. Briseno Acute bronchitis with bronchospasm and bronchial inflammation versus occult asthma is documented in Dr. Gaytan's consult note and progress notes and in the cardiology progress notes. History/risk factors: Acute bronchitis, Obesity, COPD Clinical Indicators: Wheezing, chest tightness, shortness of breath, increased coughing Radiology: Mild cardiomegaly without acute cardiopulmonary process Vital Signs: T. 98.1, P. 80, R. 20, BP 104/69, Pulse ox. 98, 98,93 in ED, Dropped to 91 on 08/13 and 89 on Medication: Duoneb treatments, Pulmicort, IV Soul-Medrol In your professional opinion, can you please further specify the following, if known? Asthma Ruled Out Asthma Ruled In With Acute Exacerbation Status asthmaticus Other, please specify ___ Unable to determine Severity Mild intermittent Mild persistent Moderate persistent Severe persistent Other, please specify ____ Unable to determine Form or Type Cough variant Childhood Exercise induced bronchospasm Extrinsic allergic Idiosyncratic Intrinsic nonallergic Late-onset Mixed Other, please specify____ Unable to determine MTDD
--- NOTE | 2019-09-02 10:55 | CDI ---
Documentation Clarification Form Date: 09/02/19 From: Phone: If you have a question about this query, please contact Jigna Sampson Shellfish Sorter at [phone] between 8am and 5pm. Admit Date: Discharge Date: Patient Name: Visit Number: ATTENTION: The Clinical Documentation Specialists (CDI) and [facility] Coding Staff appreciate your assistance in clarifying documentation. Please respond to the clarification below the line at the bottom and electronically sign. The CDI & [facility] Coding staff will review the response and follow-up if needed. Please note: Queries are made part of the Legal Health Record. If you have any questions, please contact the author of this message via ITS. Dear Dr. Briseno Thank you for signing the previous query. Please document a response before signing this query. Acute bronchitis with bronchospasm and bronchial inflammation versus occult asthma is documented in Dr. Gaytan's consult note and progress notes and in the cardiology progress notes. History/risk factors: Acute bronchitis, Obesity, COPD Clinical Indicators: Wheezing, chest tightness, shortness of breath, increased coughing Radiology: Mild cardiomegaly without acute cardiopulmonary process Vital Signs: T. 98.1, P. 80, R. 20, BP 104/69, Pulse ox. 98, 98,93 in ED, Dropped to 91 on 08/13 and 89 on Medication: Duoneb ttreatments, Pulmicort, IV Soul-Medrol In your professional opinion, can you please further specify the following, if known? Asthma Ruled Out Asthma Ruled In With Acute Exacerbation Status asthmaticus Other, please specify ___ Unable to determine Severity Mild intermittent Mild persistent Moderate persistent Severe persistent Other, please specify ____ Unable to determine Form or Type Cough variant Childhood Exercise induced bronchospasm Extrinsic allergic Idiosyncratic Intrinsic nonallergic Late-onset Mixed Other, please specify____ Unable to determine MTDD
--- NOTE | 2019-09-09 11:47 | CDI ---
Documentation Clarification Form Date: 09/09/19 From: Mandie Marquez Phone: If you have a question about this query, please contact Jigna Sampson, Hairspring Truer at [phone] between 8am and 5pm. Admit Date: 08/14/19 Discharge Date:08/16/19 Patient Name: Tara Painting Visit Number: [id number] ATTENTION: The Clinical Documentation Specialists (CDI) and [facility] Coding Staff appreciate your assistance in clarifying documentation. Please respond to the clarification below the line at the bottom and electronically sign. The CDI & [facility] Coding staff will review the response and follow-up if needed. Please note: Queries are made part of the Legal Health Record. If you have any questions, please contact the author of this message via ITS. Dear Dr. Briseno Acute bronchitis with bronchospasm and bronchial inflammation versus occult asthma is documented in Dr. Gaytan's consult note and progress notes and in the cardiology progress notes. History/risk factors: Acute bronchitis, Obesity, COPD Clinical Indicators: Wheezing, chest tightness, shortness of breath, increased coughing Radiology: Mild cardiomegaly without acute cardiopulmonary process Vital Signs: T. 98.1, P. 80, R. 20, BP 104/69, Pulse ox. 98, 98,93 in ED, Dropped to 91 on 08/13 and 89 on Medication: Duoneb treatments, Pulmicort, IV Soul-Medrol In your professional opinion, can you please further specify the following, if known? Asthma Ruled Out Asthma Ruled In With Acute Exacerbation Status asthmaticus Other, please specify ___ Unable to determine Severity Mild intermittent Mild persistent Moderate persistent Severe persistent Other, please specify ____ Unable to determine Form or Type Cough variant Childhood Exercise induced bronchospasm Extrinsic allergic Idiosyncratic Intrinsic nonallergic Late-onset Mixed Other, please specify____ Unable to determine acute exacerbation, mild asthma, type unable to determine MTDD
== END 2019-08-16 16:16 | disposition home or self-care (01) | DRG 191 ==
LOC: EC 12:41 → 5NMEDONC 16:14 → OBSVTOIN 08-14 08:06 → 3SCARD 08-14 11:11
PROVIDERS: ADMIT Hospitalist; ATTEND Hospitalist
DX: J44.1 Chronic obstructive pulmonary disease with (acute) exacerbation (principal); I48.3 Typical atrial flutter; Z68.41 Body mass index [BMI] 40.0-44.9, adult; J45.901 Unspecified asthma with (acute) exacerbation; J44.0 Chronic obstructive pulmonary disease with (acute) lower respiratory infection; I44.1 Atrioventricular block, second degree; N18.3 Chronic kidney disease, stage 3 (moderate); D72.823 Leukemoid reaction; E66.9 Obesity, unspecified; E78.5 Hyperlipidemia, unspecified; I12.9 Hypertensive chronic kidney disease with stage 1 through stage 4 chronic kidney disease, or unspecified chronic kidney disease; J20.9 Acute bronchitis, unspecified; R06.03 Acute respiratory distress; Z87.442 Personal history of urinary calculi; Z79.52 Long term (current) use of systemic steroids; Z79.899 Other long term (current) drug therapy; I48.91 Unspecified atrial fibrillation
CPT/HCPCS: 36415; 71046; 80048; 80053; 82550; 83036; 83735; 83880; 84100; 84443; 84484; 85025; 85379; 85610; 85730; 87502; 93005; 93306; 94640; 94760; 96374; 99285

== ENCOUNTER 2020-05-18 14:41 | Emergency (ER) | payer MEDICARE ==
[2020-05-18 14:55] VITALS: PULSE 82; TEMP 97.9
[2020-05-18] MEDS ORDERED: SODIUM CHLORIDE 0.9% 500 ML 500 ML IV STA (15:10)
[2020-05-18] MEDS ORDERED: KETOROLAC 15 MG/ML 1 ML VIAL IVP STA (15:10)
[2020-05-18] MEDS ORDERED: ONDANSETRON 4 MG/2 ML VIAL IVP STA (15:10)
--- NOTE | 2020-05-18 15:38 | ED ---
Abdominal Pain HPI - General Chief Complaint: Abdominal Pain Stated Complaint: R Abd Pain Time Seen by Provider: 05/18/20 15:00 Source: patient Mode of arrival: ambulatory Limitations: no limitations - History of Present Illness Initial Comments: Patient is a 74-year-old female presenting to the emergency Department with complaints of right-sided abdominal pain 2 days. Patient states it started approximately 4 AM in the morning 2 days ago, it did wake her up from sleep. Patient describes the pain is in the right lower quadrant, without radiation. She states she has been trying Tylenol which does seem to help with the pain but then the pain comes right back. She currently rates the pain a 5/10. She took a Tylenol approximately one hour ago. She states it has been consistent. She states [place] to get out of the vehicle secondary to severe pain. Patient states she is also been dealing with some constipation for the past 3-4 days, she did have a very small bowel movement this morning. She has been taking laxatives for the last 2 days. Patient also noticed some hematuria yesterday. She denies any frequency or dysuria. She denies any abdominal surgeries in her past. She does admit to nausea, no vomiting. She has no further complaints at this time. Upon arrival to the ER, her vitals are stable. - Related Data Home Medications Medication Instructions Recorded Confirmed Albuterol Sulfate [Ventolin HFA] 2 puff INHALATION RT-Q4H PRN 05/17/19 08/12/19 Atorvastatin [Lipitor] 10 mg PO HS 05/17/19 08/12/19 Beclomethasone Dip 80 Mcg/Puff 2 puff INHALATION RT-BID 05/17/19 08/12/19 [Qvar 80 mcg] amLODIPine [Norvasc] 10 mg PO HS 05/17/19 08/12/19 Previous Rx's Medication Instructions Recorded Apixaban [Eliquis] 5 mg PO BID #60 tab 08/16/19 Azithromycin [Zithromax] 500 mg PO DAILY #3 tab 08/16/19 Diltiazem Oral [Cardizem*] 30 mg PO TID #90 tab 08/16/19 Ipratropium-Albuterol Nebulize 3 ml INHALATION QID 30 Days #6 box 08/16/19 [Duoneb 0.5 mg-3 mg/3 ml Soln] Metoprolol Tartrate [Lopressor] 25 mg PO BID #60 tab 08/16/19 predniSONE 0 mg PO DIRECTED #12 tab 08/16/19 Cephalexin [Keflex] 500 mg PO BID 5 Days #10 cap 05/18/20 Allergies Allergy/AdvReac Type Severity Reaction Status Date / Time No Known Allergies Allergy Verified 05/18/20 14:55 Review of Systems ROS Statement: Those systems with pertinent positive or pertinent negative responses have been documented in the HPI. ROS Other: All systems not noted in ROS Statement are negative. Past Medical History Past Medical History: COPD, Hypertension Additional Past Medical History / Comment(s): kidney disease, kidney stones History of Any Multi-Drug Resistant Organisms: None Reported Past Surgical History: Tonsillectomy Past Anesthesia/Blood Transfusion Reactions: No Reported Reaction Past Psychological History: No Psychological Hx Reported Smoking Status: Never smoker Past Alcohol Use History: Rare Past Drug Use History: None Reported General Exam - General Exam Comments Initial Comments: GENERAL: Patient is well-developed and well-nourished. Patient is nontoxic and in no acute distress. HEAD: Atraumatic, normocephalic. EYES: Pupils equal round and reactive to light, extraocular movements intact, sclera anicteric, conjunctiva are normal. Eyelids were unremarkable. ENT: TMs normal, nares patent, oropharynx clear without exudates. Moist mucous membranes. NECK: Normal range of motion, supple without lymphadenopathy or JVD. LUNGS: Unlabored respirations. Breath sounds clear to auscultation bilaterally and equal. No wheezes rales or rhonchi. HEART: Regular rate and rhythm without murmurs, rubs or gallops. ABDOMEN: Tender to palpation suprapubic and right lower quadrant. Soft, hypoactive bowel sounds. No guarding, no rebound. No masses appreciated. : Deferred MUSCULOSKELETAL: Normal extremities with adequate strength and normal range of motion, no pitting or edema. No clubbing or cyanosis. NEUROLOGICAL: Patient is alert and oriented x 3. Motor and sensory are also intact. Cranial nerves II through XII grossly intact. Symmetrical smile. Normal speech, normal gait. PSYCH: Normal mood, normal affect. SKIN: Warm, Dry, normal turgor, no rashes or lesions noted. Limitations: no limitations Course Vital Signs 05/18/20 05/18/20 14:51 17:04 Temperature 97.9 F Pulse Rate 82 82 Respiratory 18 16 Rate Blood Pressure 148/72 173/74 O2 Sat by Pulse 99 97 Oximetry Medical Decision Making - Medical Decision Making Patient is a 74-year-old female here for right lower quadrant pain has been increasing over the past 2 days. She also admits to hematuria yesterday. Denies history of abdominal surgeries. Her vital signs are stable. Patient does have a leukocytosis Of 17.3, she states she has been having elevated white blood cells for the past few months and is set to see a specialist at the end of this month. Patient's kidney function is also elevated with BUN 43, creatinine at 2.24, GFR is 21. Patient states she does have kidney disease and states she normally gets her labs checked at a different lab. She believes these numbers are stable for her. Lactic acid is normal at 1.0, lipase is normal, urine does show a large amount of RBC's, small amount of WBCs, rare bacteria. I did do CT of the abdomen which shows no evidence of acute appendicitis, no diverticulitis, no acute abnormalities seen. Patient was given some fluids and Toradol. She is remained comfortable in the ER. She states her pain is very minimal at this time. I discussed these findings with the patient and discussed that she could have a possible UTI that is causing her symptoms. She will be started on keflex. I discussed with patient the option of being admitted for her elevated kidney function and receiving fluids and see a GI specialist to this or she may be discharged home and will follow up outpatient. Patient states she does not want to stay in the hospital. She will follow-up with her doctor. Patient states she will come back if her symptoms worsen. Strict return parameters were discussed with the patient she verbalized understanding. She is stable for discharge. Patient is agreement with this plan of care. Case discussed with Dr. Thomas. - Lab Data Result diagrams: 05/18/20 15:05/18/20 15: Lab Results 05/18/20 05/18/20 05/18/20 Range/Units 15: 15: 15:09 WBC 17.3 H (3.8-10.6) k/uL RBC 4.20 (3.80-5.40) m/uL Hgb 12.4 (11.4-16.0) gm/dL Hct 37.8 (34.0-46.0) % MCV 89.9 (80.0-100.0) fL MCH 29.5 (25.0-35.0) pg MCHC 32.8 (31.0-37.0) g/dL RDW 13.1 (11.5-15.5) % Plt Count 267 (150-450) k/uL Neutrophils % 83 % Lymphocytes % 8 % Monocytes % 6 % Eosinophils % 2 % Basophils % 0 % Neutrophils # 14.4 H (1.3-7.7) k/uL Lymphocytes # 1.3 (1.0-4.8) k/uL Monocytes # 1.0 (0-1.0) k/uL Eosinophils # 0.4 (0-0.7) k/uL Basophils # 0.1 (0-0.2) k/uL PT (9.0-12.0) sec INR (<1.2) APTT (22.0-30.0) sec Sodium 139 (137-145) mmol/L Potassium 4.5 (3.5-5.1) mmol/L Chloride 106 (98-107) mmol/L Carbon Dioxide 26 (22-30) mmol/L Anion Gap 7 mmol/L BUN 43 H (7-17) mg/dL Creatinine 2.24 H (0.52-1.04) mg/dL Est GFR (CKD-EPI)AfAm 24 (>60 ml/min/1.73 sqM) Est GFR (CKD-EPI)NonAf 21 (>60 ml/min/1.73 sqM) Glucose 139 H (74-99) mg/dL Plasma Lactic Acid Michael (0.7-2.0) mmol/L Calcium 9.0 (8.4-10.2) mg/dL Total Bilirubin 0.5 (0.2-1.3) mg/dL AST 24 (14-36) U/L ALT 15 (4-34) U/L Alkaline Phosphatase 107 (38-126) U/L Total Protein 6.5 (6.3-8.2) g/dL Albumin 3.7 (3.5-5.0) g/dL Lipase 70 (23-300) U/L Urine Color Yellow Urine Appearance Cloudy H (Clear) Urine pH 5.0 (5.0-8.0) Ur Specific [place] 1.022 (1.001-1.035) Urine Protein Trace H (Negative) Urine Glucose (UA) Negative (Negative) Urine Ketones Negative (Negative) Urine Blood Large H (Negative) Urine Nitrite Negative (Negative) Urine Bilirubin Negative (Negative) Urine Urobilinogen <2.0 (<2.0) mg/dL Ur Leukocyte Esterase Small H (Negative) Urine RBC >182 H (0-5) /hpf Urine WBC 7 H (0-5) /hpf Ur Squamous Epith Cells 2 (0-4) /hpf Urine Bacteria Rare H (None) /hpf Hyaline Casts 1 (0-2) /lpf Urine Mucus Rare H (None) /hpf Urine Yeast (Budding) Rare H (None) /hpf 05/18/20 05/18/20 Range/Units 15:10 15:10 WBC (3.8-10.6) k/uL RBC (3.80-5.40) m/uL Hgb (11.4-16.0) gm/dL Hct (34.0-46.0) % MCV (80.0-100.0) fL MCH (25.0-35.0) pg MCHC (31.0-37.0) g/dL RDW (11.5-15.5) % Plt Count (150-450) k/uL Neutrophils % % Lymphocytes % % Monocytes % % Eosinophils % % Basophils % % Neutrophils # (1.3-7.7) k/uL Lymphocytes # (1.0-4.8) k/uL Monocytes # (0-1.0) k/uL Eosinophils # (0-0.7) k/uL Basophils # (0-0.2) k/uL PT 9.9 (9.0-12.0) sec INR 0.9 (<1.2) APTT 25.1 (22.0-30.0) sec Sodium (137-145) mmol/L Potassium (3.5-5.1) mmol/L Chloride (98-107) mmol/L Carbon Dioxide (22-30) mmol/L Anion Gap mmol/L BUN (7-17) mg/dL Creatinine (0.52-1.04) mg/dL Est GFR (CKD-EPI)AfAm (>60 ml/min/1.73 sqM) Est GFR (CKD-EPI)NonAf (>60 ml/min/1.73 sqM) Glucose (74-99) mg/dL Plasma Lactic Acid Michael 1.0 (0.7-2.0) mmol/L Calcium (8.4-10.2) mg/dL Total Bilirubin (0.2-1.3) mg/dL AST (14-36) U/L ALT (4-34) U/L Alkaline Phosphatase (38-126) U/L Total Protein (6.3-8.2) g/dL Albumin (3.5-5.0) g/dL Lipase (23-300) U/L Urine Color Urine Appearance (Clear) Urine pH (5.0-8.0) Ur Specific [place] (1.001-1.035) Urine Protein (Negative) Urine Glucose (UA) (Negative) Urine Ketones (Negative) Urine Blood (Negative) Urine Nitrite (Negative) Urine Bilirubin (Negative) Urine Urobilinogen (<2.0) mg/dL Ur Leukocyte Esterase (Negative) Urine RBC (0-5) /hpf Urine WBC (0-5) /hpf Ur Squamous Epith Cells (0-4) /hpf Urine Bacteria (None) /hpf Hyaline Casts (0-2) /lpf Urine Mucus (None) /hpf Urine Yeast (Budding) (None) /hpf Disposition Clinical Impression: Abdominal pain, UTI (urinary tract infection) Disposition: HOME SELF-CARE Condition: Stable Instructions (If sedation given, give patient instructions): Abdominal Pain (ED) Additional Instructions: Please return to the Emergency Department if symptoms worsen or any other concerns. Take antibiotic as prescribed. May continue with Motrin or Tylenol for discomfort. Increase water intake to help with constipation. Follow-up with PCP in 1-3 days as discussed. Prescriptions: Cephalexin [Keflex] 500 mg PO BID 5 Days #10 cap Is patient prescribed a controlled substance at d/c from ED?: No Referrals: Fredy Prater MD [Primary Care Provider] - 1-2 days
[2020-05-18 15:44] LABS: Basophils # (A) 0.1 k/uL (0-0.2); Basophils % (A) 0 %; Eosinophils # (A) 0.4 k/uL (0-0.7); Eosinophils % (A) 2 %; HCT 37.8 % (34.0-46.0); HGB 12.4 gm/dL (11.4-16.0); Lymphocytes # (A) 1.3 k/uL (1.0-4.8); Lymphocytes % (A) 8 %; MCH 29.5 pg (25.0-35.0); MCHC 32.8 g/dL (31.0-37.0); MCV 89.9 fL (80.0-100.0); Mean Platelet Volume 7.6; Monocytes % (A) 6 %; Neutrophils # (A) 14.4 k/uL (1.3-7.7); Neutrophils % (A) 83 %; Platelet Count 267 k/uL (150-450); RDW 13.1 % (11.5-15.5); WBC 17.3 k/uL (3.8-10.6)
[2020-05-18 15:56] LABS: INR 0.9 (<1.2); Partial Thromboplastin Time 25.1 sec (22.0-30.0); Prothrombin Time 9.9 sec (9.0-12.0)
[2020-05-18 15:57] LABS: Albumin 3.7 g/dL (3.5-5.0); Potassium 4.5 mmol/L (3.5-5.1); Total Bilirubin 0.5 mg/dL (0.2-1.3); Total Protein 6.5 g/dL (6.3-8.2)
[2020-05-18 16:09] LABS: Appearance,Urine Cloudy (Clear); Bacteria,Urine Rare /hpf; Bilirubin,Urine Negative (Negative); Blood,Urine Large (Negative); Budding Yeast,Urine Rare /hpf; Color,Urine Yellow; Glucose,Urine (UA) Negative (Negative); Hyaline Casts,Urine 1 /lpf (0-2); Ketones,Urine Negative (Negative); Leukocyte Esterase,Urine Small (Negative); Mucus,Urine Rare /hpf; Nitrite,Urine Negative (Negative); Protein,Urine Trace (Negative); RBC,Urine >182 /hpf (0-5); Specific Gravity,Urine 1.022 (1.001-1.035); Squamous Epithelial Cell,Urine 2 /hpf (0-4); Urobilinogen,Urine <2.0 mg/dL (<2.0); WBC,Urine 7 /hpf (0-5)
--- NOTE | 2020-05-18 16:24 | CT ---
EXAMINATION TYPE: CT abdomen pelvis wo con DATE OF EXAM: 05/18/2020 HISTORY: RLQ pain CT DLP: 1321 mGycm. Automated Exposure Control for Dose Reduction was Utilized. TECHNIQUE: CT scan of the abdomen and pelvis is performed without oral or IV contrast. COMPARISON: CT abdomen and pelvis May 17, 2019 FINDINGS: Within the limitations of a non-contrast study, the following observations are made. LUNG BASES: Mild cardiomegaly. LIVER/GB: No significant abnormality is appreciated. PANCREAS: Mild to moderate generalized atrophy involving inferior head and uncinate process. SPLEEN: No significant abnormality is seen. ADRENALS: No significant abnormality is seen. KIDNEYS: There are suspected nonobstructing left renal calculi with roughly 5 scattered calculi measu ring up to 3 mm in size on current study. No right-sided renal calculi. Mild fullness of bilateral pe lvises without calyceal dilatation. Additional simple appearing parapelvic cysts in the left kidney c entrally are present. No hydroureter or obstructing ureteral calculi. BOWEL: Slightly suboptimal evaluation without enteric contrast. No suspicious small or large bowel di latation. Distal colonic diverticula greatest in the sigmoid colon. No CT evidence for acute divertic ulitis. Normal-appearing appendix from cecum right pelvis posteriorly coronal image 61. GENITAL ORGANS: Anteverted uterus. Occasional scattered pelvic phleboliths. LYMPH NODES: No greater than 1cm abdominal or pelvic lymph nodes are appreciated. OSSEOUS STRUCTURES: [id number] axial joint space loss in both hips with mild acetabular spurrin g. Moderate multilevel spurring the visualized thoracic spine. OTHER: No significant additional abnormality is seen. IMPRESSION: No CT evidence for acute appendicitis. No suspicious new or acute findings present.
[2020-05-18] MEDS ORDERED: cefTRIAXone IN SWFI 1,000 MG/10 ML SYRINGE IVP STA (17:00)
[2020-05-18 17:13] VITALS: BP 173/74; RESP 16
== END 2020-05-18 17:16 | disposition home or self-care (01) ==
LOC: EC 14:41
DX: N39.0 Urinary tract infection, site not specified (principal); D72.829 Elevated white blood cell count, unspecified; I10 Essential (primary) hypertension; J44.9 Chronic obstructive pulmonary disease, unspecified; R79.89 Other specified abnormal findings of blood chemistry; Z79.51 Long term (current) use of inhaled steroids; Z79.899 Other long term (current) drug therapy; Z87.442 Personal history of urinary calculi
CPT/HCPCS: 36415; 80053; 83605; 83690; 85025; 85610; 85730; 81001; 74176; 99284; 96374; 96375 ×2; 96361 ×2; J2405; J0696; J1885

== ENCOUNTER 2020-10-06 18:55 | Inpatient (IN) | payer MEDICARE ==
[2020-10-06] MEDS ORDERED: ACETAMINOPHEN TAB 500 MG TAB PO STA (19:40)
[2020-10-06 19:58] LABS: Basophils % (A) 0 %; Eosinophils # (A) 0.3 k/uL (0-0.7); Eosinophils % (A) 2 %; HCT 36.1 % (34.0-46.0); HGB 11.8 gm/dL (11.4-16.0); Lymphocytes # (A) 0.4 k/uL (1.0-4.8); Lymphocytes % (A) 2 %; MCH 28.4 pg (25.0-35.0); MCHC 32.8 g/dL (31.0-37.0); MCV 86.6 fL (80.0-100.0); Mean Platelet Volume 7.8; Monocytes # (A) 0.6 k/uL (0-1.0); Monocytes % (A) 3 %; Neutrophils # (A) 16.6 k/uL (1.3-7.7); Neutrophils % (A) 93 %; Platelet Count 203 k/uL (150-450); RBC 4.17 m/uL (3.80-5.40); RDW 13.6 % (11.5-15.5); WBC 17.9 k/uL (3.8-10.6)
[2020-10-06 20:02] LABS: Appearance,Urine Clear (Clear); Bacteria,Urine Rare /hpf; Bilirubin,Urine Negative (Negative); Blood,Urine Large (Negative); Color,Urine Yellow; Glucose,Urine (UA) Negative (Negative); Ketones,Urine Trace (Negative); Leukocyte Esterase,Urine Moderate (Negative); Nitrite,Urine Negative (Negative); PH, Urine 6.5 (5.0-8.0); Protein,Urine 1+ (Negative); RBC,Urine >182 /hpf (0-5); Specific Gravity,Urine 1.012 (1.001-1.035); Squamous Epithelial Cell,Urine 1 /hpf (0-4); Urobilinogen,Urine <2.0 mg/dL (<2.0); WBC,Urine 39 /hpf (0-5)
[2020-10-06] MEDS: SODIUM CHLORIDE 0.9% 500 ML 500 ML IV SCH (20:04)
[2020-10-06 20:07] LABS: INR 1.1 (<1.2); Partial Thromboplastin Time 24.1 sec (22.0-30.0); Prothrombin Time 11.2 sec (9.0-12.0)
[2020-10-06 20:11] LABS: Albumin 3.4 g/dL (3.5-5.0); Calcium 8.8 mg/dL (8.4-10.2); Potassium 3.7 mmol/L (3.5-5.1); Total Bilirubin 0.8 mg/dL (0.2-1.3); Total Protein 6.2 g/dL (6.3-8.2)
[2020-10-06 20:42] LABS: SARS-CoV-2 RNA Rapid Abbott Not Detected (Not Detectd)
--- NOTE | 2020-10-06 20:42 | XR ---
EXAMINATION TYPE: XR chest 1V portable DATE OF EXAM: 10/06/2020 COMPARISON: 08/12/2019. HISTORY: Fever and cough. TECHNIQUE: Single frontal view of the chest is obtained. FINDINGS: There is suggestion of small left pleural effusion with adjacent opacity. No pneumothorax seen. The cardiac silhouette size is within normal limits. The osseous structures are intact. IMPRESSION: Probable small left pleural effusion with adjacent atelectasis versus infiltrate.
[2020-10-06] MEDS ORDERED: ONDANSETRON 4 MG/2 ML VIAL IVP PRN (20:56)
[2020-10-06] MEDS ORDERED: NALOXONE 0.4 MG/ML 1 ML VIAL IV PRN (20:56)
[2020-10-06] MEDS ORDERED: AZITHROMYCIN 500 MG in SODIUM CHLORIDE 0.9% 250 ML IVPB STA (20:58)
--- NOTE | 2020-10-06 20:58 | ED ---
General Adult HPI - General Chief complaint: Fever Stated complaint: SOB, Nausea Time Seen by Provider: 10/06/20 19:07 Source: patient, EMS Mode of arrival: EMS Limitations: no limitations - History of Present Illness Initial comments: 74-year-old female patient presents to the emergency department today for evaluation of chills, nausea, urinary incontinence. States she isn't feeling poorly since Friday after receiving her first COVID-19 vaccine. Patient has any cough or congestion. Denies sore throat. Denies any significant abdominal pain. States she is having burning at the end of very urination. States she's had 15 episodes of urinary incontinence which is quite unusual for her. Denies any diarrhea. Denies any rash. Patient denies any recent shortness of breath, chest pain, constipation, back pain, numbness, tingling, dizziness, weakness, headache, visual changes, or any other complaints. - Related Data Home Medications Medication Instructions Recorded Confirmed Albuterol Sulfate [Ventolin HFA] 2 puff INHALATION RT-Q4H PRN 05/17/19 08/12/19 Atorvastatin [Lipitor] 10 mg PO HS 05/17/19 08/12/19 Beclomethasone Dip 80 Mcg/Puff 2 puff INHALATION RT-BID 05/17/19 08/12/19 [Qvar 80 mcg] amLODIPine [Norvasc] 10 mg PO HS 05/17/19 08/12/19 Previous Rx's Medication Instructions Recorded Apixaban [Eliquis] 5 mg PO BID #60 tab 08/16/19 Azithromycin [Zithromax] 500 mg PO DAILY #3 tab 08/16/19 Diltiazem Oral [Cardizem*] 30 mg PO TID #90 tab 08/16/19 Ipratropium-Albuterol Nebulize 3 ml INHALATION QID 30 Days #6 box 08/16/19 [Duoneb 0.5 mg-3 mg/3 ml Soln] Metoprolol Tartrate [Lopressor] 25 mg PO BID #60 tab 08/16/19 predniSONE 0 mg PO DIRECTED #12 tab 08/16/19 Cephalexin [Keflex] 500 mg PO BID 5 Days #10 cap 05/18/20 Allergies Allergy/AdvReac Type Severity Reaction Status Date / Time No Known Allergies Allergy Verified 10/06/20 19:07 Review of Systems ROS Statement: Those systems with pertinent positive or pertinent negative responses have been documented in the HPI. ROS Other: All systems not noted in ROS Statement are negative. Past Medical History Past Medical History: COPD, Hypertension Additional Past Medical History / Comment(s): kidney disease, kidney stones History of Any Multi-Drug Resistant Organisms: None Reported Past Surgical History: Tonsillectomy Past Anesthesia/Blood Transfusion Reactions: No Reported Reaction Past Psychological History: No Psychological Hx Reported Smoking Status: Never smoker Past Alcohol Use History: Rare Past Drug Use History: None Reported General Exam Limitations: no limitations General appearance: alert, in no apparent distress, other (This is a well- developed, well-nourished adult female patient in no acute distress. Vital signs upon presentation are temperature 104.0F, pulse 118, respirations 18, blood pressure 189/88, pulse ox 94% on room air.) Eye exam: Present: normal appearance, PERRL, EOMI. Absent: scleral icterus, conjunctival injection, periorbital swelling ENT exam: Present: normal exam, normal oropharynx, mucous membranes moist Respiratory exam: Present: normal lung sounds bilaterally. Absent: respiratory distress, wheezes, rales, rhonchi, stridor Cardiovascular Exam: Present: normal rhythm, tachycardia, normal heart sounds. Absent: systolic murmur, diastolic murmur, rubs, gallop, clicks GI/Abdominal exam: Present: soft, normal bowel sounds. Absent: distended, tenderness, guarding, rebound, rigid Neurological exam: Present: alert, oriented X3, CN II-XII intact Psychiatric exam: Present: normal affect, normal mood Skin exam: Present: warm, dry, intact, normal color. Absent: rash Course Vital Signs 10/06/20 10/06/20 10/06/20 19:07 20:12 20:56 Temperature 104 F H 100.6 F H Pulse Rate 118 H 99 92 Respiratory 18 22 22 Rate Blood Pressure 189/88 165/88 168/70 O2 Sat by Pulse 94 L 95 95 Oximetry EKG Findings - EKG Comments: EKG Findings:: EKG obtained at 1953 shows sinus tachycardia with a ventricular rate of 101, VA interval of 144, QRS duration 78, QT 348, QTC 451. No evidence of ST elevation or depression. Medical Decision Making - Medical Decision Making 74-year-old female patient presented to the emergency department today for evaluation of shaking chills, urinary incontinence, dysuria, nausea. Physical examination did reveal soft nontender abdomen. Lungs were clear to auscultation. Initial vital signs showed temperature elevated at 104.0F, she was probably tachycardic at 118. EKG was unremarkable. Labs reviewed and did reveal white blood cell count is 17.4, lactic acid is normal, kidney function is stable, urinalysis did show increased red and white cells consistent with UTI. Chest x-ray showed possible left lower lobe infiltrate and pleural effusion. We will admit to the hospital and treated for pneumonia and UTI. Did discuss all findings and results with the patient she is agreeable with this plan. Case discussed with my attending Dr. Champagne. - Lab Data Result diagrams: 10/06/20 19:47 10/06/20 19:47 Lab Results 10/06/20 10/06/20 10/06/20 Range/Units 19:47 19:47 19:47 WBC 17.9 H (3.8-10.6) k/uL RBC 4.17 (3.80-5.40) m/uL Hgb 11.8 (11.4-16.0) gm/dL Hct 36.1 (34.0-46.0) % MCV 86.6 (80.0-100.0) fL MCH 28.4 (25.0-35.0) pg MCHC 32.8 (31.0-37.0) g/dL RDW 13.6 (11.5-15.5) % Plt Count 203 (150-450) k/uL MPV 7.8 Neutrophils % 93 % Lymphocytes % 2 % Monocytes % 3 % Eosinophils % 2 % Basophils % 0 % Neutrophils # 16.6 H (1.3-7.7) k/uL Lymphocytes # 0.4 L (1.0-4.8) k/uL Monocytes # 0.6 (0-1.0) k/uL Eosinophils # 0.3 (0-0.7) k/uL Basophils # 0.0 (0-0.2) k/uL PT 11.2 (9.0-12.0) sec INR 1.1 (<1.2) APTT 24.1 (22.0-30.0) sec Sodium (137-145) mmol/L Potassium (3.5-5.1) mmol/L Chloride (98-107) mmol/L Carbon Dioxide (22-30) mmol/L Anion Gap mmol/L BUN (7-17) mg/dL Creatinine (0.52-1.04) mg/dL Est GFR (CKD-EPI)AfAm (>60 ml/min/1.73 sqM) Est GFR (CKD-EPI)NonAf (>60 ml/min/1.73 sqM) Glucose (74-99) mg/dL Plasma Lactic Acid Michael (0.7-2.0) mmol/L Calcium (8.4-10.2) mg/dL Total Bilirubin (0.2-1.3) mg/dL AST (14-36) U/L ALT (4-34) U/L Alkaline Phosphatase (38-126) U/L Total Protein (6.3-8.2) g/dL Albumin (3.5-5.0) g/dL Urine Color Yellow Urine Appearance Clear (Clear) Urine pH 6.5 (5.0-8.0) Ur Specific [place] 1.012 (1.001-1.035) Urine Protein 1+ H (Negative) Urine Glucose (UA) Negative (Negative) Urine Ketones Trace H (Negative) Urine Blood Large H (Negative) Urine Nitrite Negative (Negative) Urine Bilirubin Negative (Negative) Urine Urobilinogen <2.0 (<2.0) mg/dL Ur Leukocyte Esterase Moderate H (Negative) Urine RBC >182 H (0-5) /hpf Urine WBC 39 H (0-5) /hpf Ur Squamous Epith Cells 1 (0-4) /hpf Urine Bacteria Rare H (None) /hpf Coronavirus (PCR) (Not Detectd) Influenza Type A RNA (Not Detectd) Influenza Type B (PCR) (Not Detectd) 10/06/20 10/06/20 10/06/20 Range/Units 19:47 19:47 20:11 WBC (3.8-10.6) k/uL RBC (3.80-5.40) m/uL Hgb (11.4-16.0) gm/dL Hct (34.0-46.0) % MCV (80.0-100.0) fL MCH (25.0-35.0) pg MCHC (31.0-37.0) g/dL RDW (11.5-15.5) % Plt Count (150-450) k/uL MPV Neutrophils % % Lymphocytes % % Monocytes % % Eosinophils % % Basophils % % Neutrophils # (1.3-7.7) k/uL Lymphocytes # (1.0-4.8) k/uL Monocytes # (0-1.0) k/uL Eosinophils # (0-0.7) k/uL Basophils # (0-0.2) k/uL PT (9.0-12.0) sec INR (<1.2) APTT (22.0-30.0) sec Sodium 138 (137-145) mmol/L Potassium 3.7 (3.5-5.1) mmol/L Chloride 106 (98-107) mmol/L Carbon Dioxide 24 (22-30) mmol/L Anion Gap 8 mmol/L BUN 25 H (7-17) mg/dL Creatinine 1.51 H (0.52-1.04) mg/dL Est GFR (CKD-EPI)AfAm 39 (>60 ml/min/1.73 sqM) Est GFR (CKD-EPI)NonAf 34 (>60 ml/min/1.73 sqM) Glucose 163 H (74-99) mg/dL Plasma Lactic Acid Michael 1.2 (0.7-2.0) mmol/L Calcium 8.8 (8.4-10.2) mg/dL Total Bilirubin 0.8 (0.2-1.3) mg/dL AST 33 (14-36) U/L ALT 29 (4-34) U/L Alkaline Phosphatase 93 (38-126) U/L Total Protein 6.2 L (6.3-8.2) g/dL Albumin 3.4 L (3.5-5.0) g/dL Urine Color Urine Appearance (Clear) Urine pH (5.0-8.0) Ur Specific [place] (1.001-1.035) Urine Protein (Negative) Urine Glucose (UA) (Negative) Urine Ketones (Negative) Urine Blood (Negative) Urine Nitrite (Negative) Urine Bilirubin (Negative) Urine Urobilinogen (<2.0) mg/dL Ur Leukocyte Esterase (Negative) Urine RBC (0-5) /hpf Urine WBC (0-5) /hpf Ur Squamous Epith Cells (0-4) /hpf Urine Bacteria (None) /hpf Coronavirus (PCR) Not Detected (Not Detectd) Influenza Type A RNA Not Detected (Not Detectd) Influenza Type B (PCR) Not Detected (Not Detectd) - Radiology Data Radiology results: report reviewed, image reviewed One view x-ray of the chest is obtained. Report reviewed in its entirety. Impression by Dr. Velez shows probable small left pleural effusion with adjacent atelectasis versus infiltrate. Disposition Clinical Impression: Sepsis, Pneumonia, UTI (urinary tract infection) Disposition: ADMITTED IP TO THIS [facility] Condition: Serious Referrals: Fredy Prater MD [Primary Care Provider] - 1-2 days Decision to Admit Reason: Admit from EC Decision Date: 10/06/20 Decision Time: 20:59
[2020-10-06] MEDS: SODIUM CHLORIDE 0.9% 1,000 ML IV SCH (21:16)
[2020-10-06] MEDS ORDERED: hydrALAZINE HCL 25 MG TAB PO PRN (21:58)
[2020-10-07] MEDS: ALBUTEROL HFA INHALER INHALATION PRN ×2 (08:26→11:32)
[2020-10-07] MEDS: FLUTICASONE 110 MCG INHALER INHALATION SCH ×2 (08:26→21:13)
[2020-10-07 08:56] LABS: HCT 31.8 % (37.2-46.3); HGB 9.9 g/dL (12.0-15.0); MCH 28.7 pg (27.0-32.0); MCHC 31.1 g/dL (32.0-37.0); MCV 92.2 fL (80.0-97.0); Mean Platelet Volume 11.3 fL (9.5-12.2); Platelet Count 182 X 10*3/uL (140-440); RBC 3.45 X 10*6/uL (4.10-5.20); RDW 13.6 % (11.5-14.5); WBC 15.71 X 10*3/uL (4.50-10.00)
[2020-10-07] MEDS ORDERED: APIXABAN 5 MG TAB PO SCH (09:00)
[2020-10-07] MEDS ORDERED: amLODIPine 10 MG TAB PO SCH (09:00)
[2020-10-07 09:27] LABS: African American GFR (CKD) 33.8 (60.0-200.0); Anion Gap 6.7 mmol/L (4.00-12.00); BUN/Creat Ratio 14.12 Ratio (12.00-20.00); Calcium 8.5 mg/dL (8.7-10.3); Carbon Dioxide 27.3 mmol/L (21.6-31.8); Non-African American GFR(CKD) 29.2 (60.0-200.0); Potassium 3.8 mmol/L (3.5-5.5)
[2020-10-07] MEDS: CHOLECALCIFEROL 25 MCG (1000 IU) TABLET PO SCH (09:35)
[2020-10-07] MEDS: FAMOTIDINE 20 MG/2 ML VIAL IV SCH ×2 (09:35→21:23)
[2020-10-07] MEDS: ACETAMINOPHEN TAB 325 MG TAB PO PRN ×2 (09:41→16:47)
[2020-10-07] MEDS: SODIUM CHLORIDE 0.9% 1,000 ML IV SCH ×2 (09:42→18:33)
[2020-10-07 09:43] LABS: Basophils # (A) 0.05 X 10*3/uL (0.00-0.10); Basophils % (A) 0.3 %; Eosinophils # (A) 0.04 X 10*3/uL (0.04-0.35); Eosinophils % (A) 0.3 %; Lymphocytes # (A) 2.13 X 10*3/uL (0.90-5.00); Lymphocytes % (A) 13.6 %; Monocytes # (A) 1.73 X 10*3/uL (0.20-1.00); Neutrophils # (A) 11.69 X 10*3/uL (1.80-7.70); Neutrophils % (A) 74.4 %
--- NOTE | 2020-10-07 12:06 | P.CNPUL ---
History of Present Illness Consult date: 10/07/20 Requesting physician: Anton Austin Reason for consult: dyspnea, abnormal CXR/CT Chief complaint: Chills, nausea vomiting urinary incontinence History of present illness: This is a very pleasant 74-year-old female patient with a known history of hypertension, hyperlipidemia, paroxysmal atrial flutter, anticoagulated with Eliquis, chronic kidney disease stage III suspect nephrosclerosis. She also has a history of mild regimen chronic bronchial asthma and follows with Dr. Gaytan in our office for the same. She is maintained on Qvar and albuterol. Earlier this week on 10/03/2020 she received her first CoVID 19 vaccine by [facility] approximate 4:00. Later that same night she developed chills and shaking the next day she had diarrhea and urinary frequency and incontinence, the following day she also developed nausea vomiting and febrile illness. She presented here to the emergency room yesterday for the same. Chest x-ray revealed a small left pleural effusion with adjacent atelectasis/infiltrate. Urinalysis did reveal large blood, moderate leukocytes, 39 WBCs. Marie virus by PCR not detected. Influenza screen negative. White count 15.7. Hemoglobin 9.9. Neutrophils 11.6. Sodium 144. Potassium 3.8. Creatinine 1.7. Lactic acid 1.2. She did present with a T-max of 104. Currently afebrile. She is seen today in consultation on the regular medical floor. She is currently sitting up at the bedside. Awake and alert in no acute distress. Feeling a bit better today c ompared to yesterday. She does have some generalized fatigue and weakness. Shortness of breath with exertion. She is maintaining O2 saturations in the mid 90s on 2 L/m per nasal cannula. Hemodynamically stable. She's been initiated on ceftriaxone and azithromycin. 0.9 normal saline at 100 ML's per hour. Remains on Eliquis. Review of Systems REVIEW OF SYSTEMS: CONSTITUTIONAL: Generalized fatigue, weakness Denies any recent significant weight loss or weight gain. EYES: Denies change in vision. EARS, NOSE, MOUTH, THROAT: Denies headaches, denies sore throat. CARDIOVASCULAR: Denies chest pain, palpitations or syncopal episodes. RESPIRATORY: Positive for shortness of breath, cough, congestion no hemoptysis. GASTROINTESTINAL: Positive for nausea, vomiting, diarrhea GENITOURINARY: Positive for frequency, incontinence MUSKULOSKELETAL: Denies pain, denies swelling. INTEGUMENTARY: Denies rash, denies eczema. NEUROLOGICAL: Denies recent memory loss, no recent seizure activity. PSYCHIATRIC: Denies anxiety, denies depression. HEMATOLOGIC/LYMPHATIC: Denies anemia, denies enlarged lymph nodes. Past Medical History Past Medical History: COPD, Hypertension Additional Past Medical History / Comment(s): stage 3 kidney disease, kidney stones History of Any Multi-Drug Resistant Organisms: None Reported Past Surgical History: No Surgical Hx Reported, Tonsillectomy Past Anesthesia/Blood Transfusion Reactions: No Reported Reaction Past Psychological History: No Psychological Hx Reported Smoking Status: Never smoker Past Alcohol Use History: Rare Past Drug Use History: None Reported Medications and Allergies Home Medications Medication Instructions Recorded Confirmed Type Albuterol Sulfate [Ventolin HFA] 2 puff INHALATION RT-Q4H PRN 05/17/19 10/06/20 History Atorvastatin [Lipitor] 10 mg PO HS 05/17/19 10/06/20 History Beclomethasone Dip 80 Mcg/Puff 2 puff INHALATION RT-BID 05/17/19 10/06/20 History [Qvar 80 mcg] amLODIPine [Norvasc] 10 mg PO DAILY 05/17/19 10/06/20 History Apixaban [Eliquis] 5 mg PO BID #60 tab 08/16/19 10/06/20 Rx Calcitriol [Rocaltrol] 0.25 mcg PO FR 10/06/20 10/06/20 History Cefuroxime Axetil [Ceftin] 500 mg PO BID 10/06/20 10/06/20 History Cholecalciferol [Vitamin D3 (25 25 mcg PO DAILY 10/06/20 10/06/20 History Mcg = 1000 Iu)] Allergies Allergy/AdvReac Type Severity Reaction Status Date / Time No Known Allergies Allergy Verified 10/06/20 21:16 Physical Exam Vitals: Vital Signs Temp Pulse Pulse Resp BP BP Pulse Ox 10/07/20 07:59 98.4 F 79 20 122/65 95 10/07/20 02:00 98.1 F 81 18 121/71 96 10/06/20 22:35 98.1 F 89 18 105/66 98 10/06/20 22:00 99.9 F H 88 22 158/68 96 10/06/20 20:56 100.6 F H 92 22 168/70 95 10/06/20 20:12 99 22 165/88 95 10/06/20 19:07 104 F H 118 H 18 189/88 94 L Intake and Output 10/06/20 10/07/20 10/07/20 22:59 06:59 14:59 Other: Voiding Method Toilet Toilet Diaper Bedside Commode Incontinent # Voids 2 Weight 104.326 kg GENERAL EXAM: Alert, pleasant, morbidly obese 74-year-old female patient, on 2 L, comfortable in no apparent distress. HEAD: Normocephalic. EYES: Normal reaction of pupils, equal size. NOSE: Clear with pink turbinates. THROAT: No erythema or exudates. NECK: No masses, no JVD. CHEST: No chest wall deformity. LUNGS: Equal air entry with crackles in the left base. CVS: S1 and S2 normal with no audible murmur, regular rhythm. ABDOMEN: No hepatosplenomegaly, normal bowel sounds, no guarding or rigidity. SPINE: No scoliosis or deformity SKIN: No rashes CENTRAL NERVOUS SYSTEM: No focal deficits, tone is normal in all 4 extremities. EXTREMITIES: There is no peripheral edema. No clubbing, no cyanosis. Peripheral pulses are intact. Results - Laboratory Findings CBC and BMP: 10/07/20 05:49 10/07/20 05:49 PT/INR, D-dimer PT 11.2 sec (9.0-12.0) 10/06/20 19:47 INR 1.1 (<1.2) 10/06/20 19:47 Abnormal lab findings: Abnormal Labs 10/06/20 10/06/20 10/06/20 19:47 19:47 19:47 WBC 17.9 H RBC Hgb Hct MCHC Immature Gran # Neutrophils # 16.6 H Lymphocytes # 0.4 L Monocytes # Chloride BUN 25 H Creatinine 1.51 H Est GFR (CKD-EPI)AfAm Est GFR (CKD-EPI)NonAf Glucose 163 H Calcium Total Protein 6.2 L Albumin 3.4 L Urine Protein 1+ H Urine Ketones Trace H Urine Blood Large H Ur Leukocyte Esterase Moderate H Urine RBC >182 H Urine WBC 39 H Urine Bacteria Rare H 10/07/20 10/07/20 05:49 05:49 WBC 15.71 H RBC 3.45 L Hgb 9.9 L Hct 31.8 L MCHC 31.1 L Immature Gran # 0.07 H Neutrophils # 11.69 H Lymphocytes # Monocytes # 1.73 H Chloride 110 H BUN Creatinine 1.7 H Est GFR (CKD-EPI)AfAm 33.8 L Est GFR (CKD-EPI)NonAf 29.2 L Glucose Calcium 8.5 L Total Protein Albumin Urine Protein Urine Ketones Urine Blood Ur Leukocyte Esterase Urine RBC Urine WBC Urine Bacteria - Diagnostic Findings Chest x-ray: image reviewed (Left pleural effusion with associated atelectasis/infiltrate) Assessment and Plan Assessment: 1 Acute hypoxic respiratory failure secondary to an acute left lower lobe pneumonia, community-acquired 2 Acute urinary tract infection, cultures pending 3 Acute reaction to chronic virus vaccine 4 Febrile illness secondary to above 5 Leukocytosis secondary to above 6 Acute on chronic kidney disease 7 Morbid obesity 8 Mild intermittent chronic bronchial asthma 9 Hypertension 10 History of paroxysmal atrial flutter, anticoagulated with Eliquis 11 Hyperlipidemia Plan: The patient was seen and evaluated by Dr. Gaytan Chest x-ray and labs reviewed Continue ceftriaxone and azithromycin Continue bronchodilators Continue fluid resuscitation Follow-up chest x-ray in a.m. We will continue to follow and make further recommendations based on her clinical status I, the cosigning physician, performed a history & physical examination of the patient. Lungs sounds with crackles in the left lung base. Maintaining good O2 saturations in the 90s on 2 L/m per nasal canula. I discussed the assessment and plan of care with my nurse practitioner, Heidy Aleman. I attest to the above consultation as dictated by her. Time with Patient: Greater than 30
[2020-10-07] MEDS ORDERED: ALBUTEROL HFA INHALER INHALATION PRN (12:07)
--- NOTE | 2020-10-07 13:43 | P.HPIM ---
History of Present Illness 74-year-old pleasant female came in with complaints of of fever chills increased urinary urgency frequency dysuria found to have abnormal urine analysis which is consistent with urinary tract infection patient was also complaining of cough unable to bring up much of the sputum was complaining of generalized body aches. Patient symptoms has been going on for last 4 days following the coronavirus vaccination. Patient also complaining of pain in the right mastoid bone area that is behind the ear appeared to have an area of infection as well. Does have tenderness in that area. Patient was started on Rocephin and azithromycin subsequently admitted. Patient is presently on 2 L of oxygen doesn't usually use oxygen at home. Patient has chronic kidney disease with baseline creatinine of around 1.5 present creatinine is around 1.7. Does have history of atrial fibrillation on Eliquis. Review of Systems REVIEW OF SYSTEMS: CONSTITUTIONAL: As mentioned in HPI HEENT: No recent visual problems or hearing problems. Denied any sore throat. CARDIOVASCULAR: No chest pain, orthopnea, PND, no palpitations, no syncope. PULMONARY: No shortness of breath, no cough, no hemoptysis. GASTROINTESTINAL: No diarrhea, no nausea, no vomiting, no abdominal pain. NEUROLOGICAL: No headaches, no weakness, no numbness. HEMATOLOGICAL: Denies any bleeding or petechiae. GENITOURINARY: As mentioned in HPI MUSCULOSKELETAL/RHEUMATOLOGICAL: Denies any joint pain, swelling, or any muscle pain. ENDOCRINE: Denies any polyuria or polydipsia. The rest of the 14-point review of systems is negative. Past Medical History Past Medical History: COPD, Hypertension Additional Past Medical History / Comment(s): stage 3 kidney disease, kidney stones History of Any Multi-Drug Resistant Organisms: None Reported Past Surgical History: No Surgical Hx Reported, Tonsillectomy Past Anesthesia/Blood Transfusion Reactions: No Reported Reaction Past Psychological History: No Psychological Hx Reported Smoking Status: Never smoker Past Alcohol Use History: Rare Past Drug Use History: None Reported Medications and Allergies Home Medications Medication Instructions Recorded Confirmed Type Albuterol Sulfate [Ventolin HFA] 2 puff INHALATION RT-Q4H PRN 05/17/19 10/06/20 History Atorvastatin [Lipitor] 10 mg PO HS 05/17/19 10/06/20 History Beclomethasone Dip 80 Mcg/Puff 2 puff INHALATION RT-BID 05/17/19 10/06/20 History [Qvar 80 mcg] amLODIPine [Norvasc] 10 mg PO DAILY 05/17/19 10/06/20 History Apixaban [Eliquis] 5 mg PO BID #60 tab 08/16/19 10/06/20 Rx Calcitriol [Rocaltrol] 0.25 mcg PO FR 10/06/20 10/06/20 History Cefuroxime Axetil [Ceftin] 500 mg PO BID 10/06/20 10/06/20 History Cholecalciferol [Vitamin D3 (25 25 mcg PO DAILY 10/06/20 10/06/20 History Mcg = 1000 Iu)] Allergies Allergy/AdvReac Type Severity Reaction Status Date / Time No Known Allergies Allergy Verified 10/06/20 21:16 Physical Exam Vitals: Vital Signs Temp Pulse Pulse Resp BP BP Pulse Ox 10/07/20 07:59 98.4 F 79 20 122/65 95 10/07/20 02:00 98.1 F 81 18 121/71 96 10/06/20 22:35 98.1 F 89 18 105/66 98 10/06/20 22:00 99.9 F H 88 22 158/68 96 10/06/20 20:56 100.6 F H 92 22 168/70 95 10/06/20 20:12 99 22 165/88 95 10/06/20 19:07 104 F H 118 H 18 189/88 94 L Intake and Output 10/06/20 10/07/20 10/07/20 22:59 06:59 14:59 Other: Voiding Method Toilet Toilet Diaper Bedside Commode Incontinent # Voids 2 Weight 104.326 kg PHYSICAL EXAMINATION: GENERAL: The patient is alert and oriented x3, not in any acute distress. Well developed, well nourished. HEENT: Pupils are round and equally reacting to light. EOMI. No scleral icterus. No conjunctival pallor. Normocephalic, atraumatic. No pharyngeal erythema. No thyromegaly. CARDIOVASCULAR: S1 and S2 present. No murmurs, rubs, or gallops. PULMONARY: Chest is clear to auscultation, no wheezing or crackles. ABDOMEN: Soft, nontender, nondistended, normoactive bowel sounds. No palpable organomegaly. MUSCULOSKELETAL: No joint swelling or deformity. EXTREMITIES: No cyanosis, clubbing, or pedal edema. NEUROLOGICAL: Gross neurological examination did not reveal any focal deficits. SKIN: No rashes. Results CBC & Chem 7: 10/07/20 05:49 10/07/20 05:49 Labs: Abnormal Lab Results - Last 24 Hours (Table) 10/06/20 10/06/20 10/06/20 Range/Units 19:47 19:47 19:47 WBC 17.9 H (3.8-10.6) k/uL RBC (4.10-5.20) X 10*6/uL Hgb (12.0-15.0) g/dL Hct (37.2-46.3) % MCHC (32.0-37.0) g/dL Immature Gran # (0.00-0.04) X 10*3/uL Neutrophils # 16.6 H (1.3-7.7) k/uL Lymphocytes # 0.4 L (1.0-4.8) k/uL Monocytes # (0.20-1.00) X 10*3/uL Chloride (96-109) mmol/L BUN 25 H (7-17) mg/dL Creatinine 1.51 H (0.52-1.04) mg/dL Est GFR (CKD-EPI)AfAm (60.0-200.0) Est GFR (CKD-EPI)NonAf (60.0-200.0) Glucose 163 H (74-99) mg/dL Calcium (8.7-10.3) mg/dL Total Protein 6.2 L (6.3-8.2) g/dL Albumin 3.4 L (3.5-5.0) g/dL Urine Protein 1+ H (Negative) Urine Ketones Trace H (Negative) Urine Blood Large H (Negative) Ur Leukocyte Esterase Moderate H (Negative) Urine RBC >182 H (0-5) /hpf Urine WBC 39 H (0-5) /hpf Urine Bacteria Rare H (None) /hpf 10/07/20 10/07/20 Range/Units 05:49 05:49 WBC 15.71 H (3.8-10.6) k/uL RBC 3.45 L (4.10-5.20) X 10*6/uL Hgb 9.9 L (12.0-15.0) g/dL Hct 31.8 L (37.2-46.3) % MCHC 31.1 L (32.0-37.0) g/dL Immature Gran # 0.07 H (0.00-0.04) X 10*3/uL Neutrophils # 11.69 H (1.3-7.7) k/uL Lymphocytes # (1.0-4.8) k/uL Monocytes # 1.73 H (0.20-1.00) X 10*3/uL Chloride 110 H (96-109) mmol/L BUN (7-17) mg/dL Creatinine 1.7 H (0.52-1.04) mg/dL Est GFR (CKD-EPI)AfAm 33.8 L (60.0-200.0) Est GFR (CKD-EPI)NonAf 29.2 L (60.0-200.0) Glucose (74-99) mg/dL Calcium 8.5 L (8.7-10.3) mg/dL Total Protein (6.3-8.2) g/dL Albumin (3.5-5.0) g/dL Urine Protein (Negative) Urine Ketones (Negative) Urine Blood (Negative) Ur Leukocyte Esterase (Negative) Urine RBC (0-5) /hpf Urine WBC (0-5) /hpf Urine Bacteria (None) /hpf Microbiology - Last 24 Hours (Table) 10/06/20 19:47 Blood Culture - Final Blood 10/06/20 19:47 Urine Culture - Preliminary Urine,Clean Catch Thrombosis Risk Factor Assmnt - Choose All That Apply Each Risk Factor Represents 2 Points: Age 61-74 years Thrombosis Risk Factor Assessment Total Risk Factor Score: 2 Thrombosis Risk Factor Assessment Level: Low Risk Assessment and Plan Plan: -Sepsis: Most probably secondary to urinary tract infection patient has gram- negative bacteremia although right lower lobe pneumonia cannot be ruled out and there may be an area infection as well. We'll repeat the blood cultures today and tomorrow morning continue with Rocephin 1 g. Along with azithromycin. - acute renal failure secondary to sepsis. We'll azotemia. Patient will be continued on IV fluids -Chronic kidney disease stage III -Proximal A. fib flutter patient is presently anticoagulated and on Eliquis the day presently rate controlled patient will be continued on home medications -Chronic intermittent mild bronchial asthma not in acute exacerbation - obesity -Acute hypoxic respiratory failure may be related to pneumonia -DVT prophylaxis heparin
[2020-10-07] MEDS: IPRATROPIUM-ALBUTEROL 3 ML NEB INHALATION SCH ×2 (16:34→21:13)
[2020-10-07] MEDS ORDERED: AZITHROMYCIN 500 MG in SODIUM CHLORIDE 0.9% 250 ML IVPB SCH (21:00)
[2020-10-07] MEDS: APIXABAN 2.5 MG TABLET PO SCH (21:22)
[2020-10-07] MEDS: ATORVASTATIN 10 MG TAB PO SCH (21:22)
[2020-10-07] MEDS: HEPARIN SODIUM,PORCINE 5,000 UNIT/ML 1 ML VIAL SQ SCH (21:23)
[2020-10-08] MEDS: SODIUM CHLORIDE 0.9% 1,000 ML IV SCH ×3 (01:05→19:57)
[2020-10-08] MEDS: ACETAMINOPHEN TAB 325 MG TAB PO PRN ×2 (01:09→19:57)
[2020-10-08] MEDS: FLUTICASONE 110 MCG INHALER INHALATION SCH ×2 (07:16→19:53)
[2020-10-08] MEDS: IPRATROPIUM-ALBUTEROL 3 ML NEB INHALATION SCH ×4 (07:16→19:52)
[2020-10-08] MEDS: APIXABAN 2.5 MG TABLET PO SCH ×2 (07:53→19:57)
[2020-10-08] MEDS: CHOLECALCIFEROL 25 MCG (1000 IU) TABLET PO SCH (07:54)
[2020-10-08] MEDS: FAMOTIDINE 20 MG/2 ML VIAL IV SCH (07:54)
[2020-10-08] MEDS: HEPARIN SODIUM,PORCINE 5,000 UNIT/ML 1 ML VIAL SQ SCH (07:56)
--- NOTE | 2020-10-08 13:52 | P.PN ---
Subjective Progress Note Date: 10/08/20 74-year-old pleasant female came in with complaints of of fever chills increased urinary urgency frequency dysuria found to have abnormal urine analysis which is consistent with urinary tract infection patient was also complaining of cough unable to bring up much of the sputum was complaining of generalized body aches. Patient symptoms has been going on for last 4 days following the coronavirus vaccination. Patient also complaining of pain in the right mastoid bone area that is behind the ear appeared to have an area of infection as well. Does have tenderness in that area. Patient was started on Rocephin and azithromycin subsequently admitted. Patient is presently on 2 L of oxygen doesn't usually use oxygen at home. Patient has chronic kidney disease with baseline creatinine of around 1.5 present creatinine is around 1.7. Does have history of atrial fibrillation on Eliquis. 10/08/2020 Fever 101.0 earlier this morning. Blood culture growing gram-negative bacilli, she is currently covered with Rocephin. White count coming down 15.1. Hemodynamically stable. Chest x-ray showing small left pleural effusion with adjacent atelectasis, remains on 2 L nasal cannula saturating above 90%, she is on azithromycin in addition to the Rocephin. REVIEW OF SYSTEMS: CONSTITUTIONAL: As mentioned in HPI HEENT: No recent visual problems or hearing problems. CARDIOVASCULAR: No chest pain, orthopnea, PND, no palpitations, PULMONARY: No shortness of breath, no cough, no hemoptysis. GASTROINTESTINAL: No diarrhea, no nausea, no vomiting, no abdominal pain. GENITOURINARY: As mentioned in HPI Objective - Vital Signs Vital signs: Vital Signs Temp 99.0 F 10/08/20 08:00 Pulse 92 10/08/20 11:08 Resp 18 10/08/20 08:00 BP 143/79 10/08/20 08:00 Pulse Ox 90 L 10/08/20 08:00 Intake & Output 10/07/20 10/08/20 10/08/20 18:59 06:59 18:59 Intake Total 320 1370 Balance 320 1370 Intake: Intake, IV Titration 1050 Amount Azithromycin 500 mg In 250 Sodium Chloride 0.9% 250 ml @ 250 mls/hr IVPB HS [facility] Rx#:[id number] Sodium Chloride 0.9% 1, 800 000 ml @ 100 mls/hr IV . Q10H [facility] Rx#:[id number] Oral 320 320 Other: Voiding Method Toilet Bedside Commode # Voids 2 2 # Bowel Movements 1 1 - Exam GENERAL: The patient is alert and oriented x3, not in any acute distress. Well developed, well nourished. HEENT: Pupils are round and equally reacting to light. EOMI. No scleral icterus. No conjunctival pallor. Normocephalic, atraumatic. No pharyngeal erythema. No thyromegaly. CARDIOVASCULAR: S1 and S2 present. No murmurs, rubs, or gallops. PULMONARY: Chest is clear to auscultation, no wheezing or crackles. ABDOMEN: Soft, nontender, nondistended, normoactive bowel sounds. No palpable organomegaly. MUSCULOSKELETAL: No joint swelling or deformity. EXTREMITIES: No cyanosis, clubbing, or pedal edema. NEUROLOGICAL: Gross neurological examination did not reveal any focal deficits. SKIN: No rashes. - Labs CBC & Chem 7: 10/07/20 05:49 10/07/20 05:49 Labs: Microbiology - Last 24 Hours (Table) 10/06/20 19:47 Blood Culture Gram Stain - Preliminary Blood 10/06/20 19:47 Blood Culture - Final Blood 10/06/20 19:47 Blood Culture Gram Stain - Preliminary Blood Blood Culture - Preliminary Gram Neg Bacilli 10/06/20 19:47 Urine Culture - Final Urine,Clean Catch 10/06/20 19:47 Blood Culture - Final Blood Assessment and Plan Assessment: -Sepsis: Most probably secondary to urinary tract infection patient has gram- negative bacteremia possibly due to right-sided pneumonia, urine culture appears to be negative. Continue antimicrobial therapy with Rocephin and azithromycin, we will consult infectious disease. -Chronic kidney disease stage III -Proximal A. fib flutter patient is presently anticoagulated and on Eliquis the day presently rate controlled patient will be continued on home medications -Chronic intermittent mild bronchial asthma not in acute exacerbation - obesity -Acute hypoxic respiratory failure may be related to pneumonia -DVT prophylaxis heparin
--- NOTE | 2020-10-08 14:10 | P.PN ---
Subjective Progress Note Date: 10/08/20 Principal diagnosis: Acute hypoxic respiratory failure secondary to acute left lower lobe pneumonia, community-acquired This is a very pleasant 74-year-old female patient with a known history of hypertension, hyperlipidemia, paroxysmal atrial flutter, anticoagulated with Eliquis, chronic kidney disease stage III suspect nephrosclerosis. She also has a history of mild regimen chronic bronchial asthma and follows with Dr. Gaytan in our office for the same. She is maintained on Qvar and albuterol. Earlier this week on 10/03/2020 she received her first CoVID 19 vaccine by [facility] approximate 4:00. Later that same night she developed chills and shaking the next day she had diarrhea and urinary frequency and incontinence, the following day she also developed nausea vomiting and febrile illness. She presented here to the emergency room yesterday for the same. Chest x-ray revealed a small left pleural effusion with adjacent atelectasis/infiltrate. Urinalysis did reveal large blood, moderate leukocytes, 39 WBCs. Marie virus by PCR not detected. Influenza screen negative. White count 15.7. Hemoglobin 9.9. Neutrophils 11.6. Sodium 144. Potassium 3.8. Creatinine 1.7. Lactic acid 1.2. She did present with a T-max of 104. Currently afebrile. She is seen today in consultation on the regular medical floor. She is currently sitting up at the bedside. Awake and alert in no acute distress. Feeling a bit better today compared to yesterday. She does have some generalized fatigue and weakness. Shortness of breath with exertion. She is maintaining O2 saturations in the mid 90s on 2 L/m per nasal cannula. Hemodynamically stable. She's been initiated on ceftriaxone and azithromycin. 0.9 normal saline at 100 ML's per hour. Remains on Eliquis. The patient is seen today 10/08/2020 in follow-up on the regular medical floor. She is currently sitting up in a chair at the bedside. Awake and alert in no acute distress. Doing quite a bit better today compared to yesterday. Currently on room air. O2 saturation in the 90s. Temperature 99.0. H emodynamically stable. Blood cultures positive for gram-negative bacilli. Urine culture pending. She remains on ceftriaxone and azithromycin. Continued on bronchodilators. Anticoagulated with Eliquis. Objective - Vital Signs Vital signs: Vital Signs Temp 99.0 F 10/08/20 08:00 Pulse 92 10/08/20 11:08 Resp 18 10/08/20 08:00 BP 143/79 10/08/20 08:00 Pulse Ox 90 L 10/08/20 08:00 Intake & Output 10/07/20 10/08/20 10/08/20 18:59 06:59 18:59 Intake Total 320 1370 Balance 320 1370 Intake: Intake, IV Titration 1050 Amount Azithromycin 500 mg In 250 Sodium Chloride 0.9% 250 ml @ 250 mls/hr IVPB HS [facility] Rx#:[id number] Sodium Chloride 0.9% 1, 800 000 ml @ 100 mls/hr IV . Q10H [facility] Rx#:[id number] Oral 320 320 Other: Voiding Method Toilet Bedside Commode # Voids 2 2 # Bowel Movements 1 1 - Exam GENERAL EXAM: Alert, pleasant, morbidly obese 74-year-old female patient, on room air, comfortable in no apparent distress. HEAD: Normocephalic. EYES: Normal reaction of pupils, equal size. NOSE: Clear with pink turbinates. THROAT: No erythema or exudates. NECK: No masses, no JVD. CHEST: No chest wall deformity. LUNGS: Equal air entry with crackles in the left base. CVS: S1 and S2 normal with no audible murmur, regular rhythm. ABDOMEN: No hepatosplenomegaly, normal bowel sounds, no guarding or rigidity. SPINE: No scoliosis or deformity SKIN: No rashes CENTRAL NERVOUS SYSTEM: No focal deficits, tone is normal in all 4 extremities. EXTREMITIES: There is no peripheral edema. No clubbing, no cyanosis. Peripheral pulses are intact. - Labs CBC & Chem 7: 10/07/20 05:49 10/07/20 05:49 Labs: Microbiology - Last 24 Hours (Table) 10/06/20 19:47 Blood Culture Gram Stain - Preliminary Blood 10/06/20 19:47 Blood Culture - Final Blood 10/06/20 19:47 Blood Culture Gram Stain - Preliminary Blood Blood Culture - Preliminary Gram Neg Bacilli 10/06/20 19:47 Urine Culture - Final Urine,Clean Catch 10/06/20 19:47 Blood Culture - Final Blood Assessment and Plan Assessment: 1 Acute hypoxic respiratory failure secondary to an acute left lower lobe pneumonia, community-acquired 2 Acute urinary tract infection, cultures pending 3 Bacteremia secondary to gram-negative bacilli 4 Febrile illness secondary to above 5 Leukocytosis secondary to above 6 Acute on chronic kidney disease 7 Morbid obesity 8 Mild intermittent chronic bronchial asthma 9 Hypertension 10 History of paroxysmal atrial flutter, anticoagulated with Eliquis 11 Hyperlipidemia Plan: The patient was seen and evaluated by Dr. Gaytan Continue ceftriaxone and azithromycin Continue bronchodilators Follow-up chest x-ray in a.m. We will continue to follow. I, the cosigning physician, performed a history & physical examination of the patient. Lungs sounds with crackles in the left lung base. Maintaining good O2 saturations in the 90s on room air. I discussed the assessment and plan of care with my nurse practitioner, Heidy Aleman. I attest to the above note as dictated by her.
[2020-10-08] MEDS: ATORVASTATIN 10 MG TAB PO SCH (19:57)
[2020-10-08] MEDS ORDERED: AZITHROMYCIN 500 MG TAB PO SCH (21:00)
--- NOTE | 2020-10-09 07:07 | CONS ---
CONSULTATION DATE OF SERVICE: 10/08/2020 REASON FOR CONSULTATION: Bacteremia. HISTORY OF PRESENT ILLNESS: The patient is a 74 -year-old female who presented to the ER at [facility] 2 days ago for evaluation of chills, nausea, suprapubic discomfort, and urine incontinence. The patient's symptoms have been going on since Friday after the patient received her 1st dose of COVID-19 and the patient thought her symptoms were related to it. The patient denies having any headache or URI symptoms. No chest pain, shortness of breath, cough and no diarrhea. She did have worsening urinary symptom as mentioned above. With these symptoms, the patient was evaluated by the ER physician. On arrival to the ER, the patient did have fever of 104 degrees Fahrenheit. The patient did have a white count of 17.9 and repeat is 15.7. Creatinine has been mildly elevated. Liver enzymes are normal. Urine was positive. Marie and influenza PCR was negative. The patient was started on IV Rocephin. The patient did have a chest x-ray, a small left pleural effusion with blood culture coming back positive. Infectious Disease was consulted for further management of antibiotic therapy. REVIEW OF SYSTEMS: Positive points have been mentioned in HPI. Rest of systems are negative. PAST MEDICAL HISTORY: COPD, hypertension, kidney stone. PAST SURGICAL HISTORY: Tonsillectomy. SOCIAL HISTORY: Denies smoking, drinking or drug use. FAMILY HISTORY: No pertinent findings noticed. ALLERGIES: No known drug allergies. MEDICATIONS: The patient is currently on Tylenol, Ventolin, DuoNeb, Eliquis, Lipitor, Zithromax, Rocephin, vitamin D3, Pepcid, Flovent, Narcan, Zofran and IV fluid. PHYSICAL EXAMINATION: VITAL SIGNS: Blood pressure 167/82 with a pulse of 92, temperature 99.1, she is 91% on room air. GENERAL DESCRIPTION:She is an elderly female lying in bed in no distress. HEENT: Examination shows no pallor or scleral icterus. Oral mucous membrane is dry. NECK: Trachea central, no thyromegaly. LUNGS: Unlabored breathing, clear to auscultation. No wheeze or crackle. HEART: S1, S2. Regular rate and rhythm. ABDOMEN: Soft, no tenderness. EXTREMITIES: No edema of the feet. SKIN: Examination shows no rash or mass palpable. NEUROLOGICAL: Patient is awake, alert, oriented. Mood and affect normal. LABS: Hemoglobin 9.1, white count 15.71. BUN of 24, creatinine 1.7. Urine was positive. Marie PCR was negative. Blood and urine with E coli. DIAGNOSTIC IMPRESSION: Patient with an E coli bacteremia secondary to urinary source. Clinically doubt pneumonia or any other obvious focus of infection. PLAN: 1. We will check an ultrasound of the kidney and bladder to make sure no evidence of any structural abnormality. 2. Continue the patient on Rocephin however discontinue Zithromax. 3. We will follow on clinical condition and further adjust medication if needed. Thank you for this consultation. Will follow this patient along with you. MMODL / IJN: [id number] /
[2020-10-09] MEDS: FLUTICASONE 110 MCG INHALER INHALATION SCH ×2 (08:09→19:41)
[2020-10-09] MEDS: IPRATROPIUM-ALBUTEROL 3 ML NEB INHALATION SCH ×4 (08:09→19:41)
--- NOTE | 2020-10-09 08:16 | XR ---
EXAMINATION TYPE: XR chest 1V portable DATE OF EXAM: 10/09/2020 COMPARISON: Chest x-ray 10/06/[address] scan 05/18/2020 HISTORY: Left lower lobe pneumonia TECHNIQUE: Single frontal view of the chest is obtained. FINDINGS: Some patchy density present at the right lung base. No pneumothorax or evident effusion. C ardiac mediastinal silhouette shows a similar appearance, there is a prominent epicardial fat pad. Ao rta is dense. Interstitium somewhat increased towards the lung bases. Bone mineralization is stable, there is thoracic spondylosis. Question some retrocardiac density. IMPRESSION: Correlate for lower lobe pneumonia
--- NOTE | 2020-10-09 08:18 | US ---
EXAMINATION TYPE: US kidneys/renal and bladder DATE OF EXAM: 10/09/2020 COMPARISON: NONE CLINICAL HISTORY: uti and bacteremia. UTI, bacteremia EXAM MEASUREMENTS: Right Kidney: 10.7 x 4.1 x 4.1 cm Left Kidney: 10.1 x 5.7 x 4.2 cm *Technical limitations due to patient's body habitus and overlying bowel content Right Kidney: no evidence of hydronephrosis Left Kidney: lobulated, no evidence of hydronephrosis Bladder: appears wnl Bilateral Jets seen: no Kidneys show normal cortical medullary differentiation. Urinary bladder is anechoic. IMPRESSION: No significant abnormality is evident.
[2020-10-09] MEDS ORDERED: METOPROLOL TARTRATE 5 MG/5 ML VIAL IVP STA (08:21)
[2020-10-09] MEDS ORDERED: METOPROLOL TARTRATE 5 MG/5 ML VIAL IVP ONE ×2 (08:24→11:01)
[2020-10-09] MEDS: METOPROLOL TARTRATE 25 MG TAB PO SCH ×2 (08:31→09:17)
--- NOTE | 2020-10-09 08:40 | P.PN ---
Progress Note - Text Progress Note Date: 10/09/20 Rapid response called on patient for tachycardia. Once I arrived to the room, patient was awake and alert. Nursing staff informed me that heart rate went up to 170. Patient is pretty much asymptomatic but reports having a bad night last night and not feeling well. Heart rate on the monitor 170 with a flutter and rapid ventricular response. Patient denies any chest pain or palpitation. I advised to give the patient 5 mg of IV metoprolol and obtain a 12-lead EKG. Appetite EKG machine arrived heart rate dropped to low 100s with sinus tachycardia. Patient remained hemodynamically stable. I advised to hold off on giving IV metoprolol and start metoprolol 25 mg twice daily. 12-lead EKG reviewed. Advised to obtain magnesium level. Start telemetry monitoring. Consider repeat echocardiogram and cardiology consultation. Patient is on anticoagulation with Eliquis. Advised nursing staff to update attending physician about this event. Overall patient is stable at this time.
[2020-10-09] MEDS: CHOLECALCIFEROL 25 MCG (1000 IU) TABLET PO SCH (09:17)
[2020-10-09] MEDS: APIXABAN 2.5 MG TABLET PO SCH ×2 (09:17→20:43)
[2020-10-09] MEDS: FAMOTIDINE 20 MG TAB PO SCH (09:17)
[2020-10-09] MEDS: SODIUM CHLORIDE 0.9% 1,000 ML IV SCH ×2 (09:18→20:43)
[2020-10-09] MEDS ORDERED: METOPROLOL TARTRATE 25 MG TAB PO STA ×2 (10:28→10:29)
[2020-10-09] MEDS ORDERED: DILTIAZEM DRIP BOLUS FROM BAG 1 MG SOLN IV ONE (10:29)
[2020-10-09] MEDS ORDERED: DILTIAZEM 125 MG in SODIUM CHLORIDE 0.9% 100 ML IV SCH (10:30)
[2020-10-09 11:05] LABS: HCT 31.3 % (37.2-46.3); HGB 9.8 g/dL (12.0-15.0); MCH 28.3 pg (27.0-32.0); MCHC 31.3 g/dL (32.0-37.0); MCV 90.5 fL (80.0-97.0); Mean Platelet Volume 11.1 fL (9.5-12.2); Platelet Count 209 X 10*3/uL (140-440); RBC 3.46 X 10*6/uL (4.10-5.20); RDW 13.6 % (11.5-14.5); WBC 10.19 X 10*3/uL (4.50-10.00)
[2020-10-09 11:19] LABS: African American GFR (CKD) 46.8 (60.0-200.0); Anion Gap 5.6 mmol/L (4.00-12.00); BUN/Creat Ratio 12.31 Ratio (12.00-20.00); Calcium 8.5 mg/dL (8.7-10.3); Carbon Dioxide 27.4 mmol/L (21.6-31.8); Non-African American GFR(CKD) 40.4 (60.0-200.0); Potassium 4.2 mmol/L (3.5-5.5)
[2020-10-09] MEDS: DILTIAZEM ORAL 30 MG TAB PO SCH ×3 (11:43→20:43)
--- NOTE | 2020-10-09 12:20 | P.CRDCN ---
History of Present Illness Consult date: 10/09/20 Chief complaint: Not feeling well History of present illness: This is a pleasant 74-year-old female patient who sees Dr. Bravo in the office on regular basis with a past medical history significant for hypertension and dyslipidemia and paroxysmal atrial fibrillation presented to the hospital complaining of fever and chills and dysuria and she was found to have abnormal urine analysis where she was diagnosed with UTI. Beside that she was diagnosed with pneumonia and she currently under the care of the pulmonary critical care team. During her hospital stay she went into atrial fibrillation with RVR. She is known to have paroxysmal atrial fibrillation and she is on oral anticoagulation. The patient denies having any feeling of heart racing or fluttering and no dizziness or lightheadedness and no syncope. No symptoms of chest pain or chest discomfort. Unfortunately currently she is on the fourth floor where she cannot receive any IV medication and currently she is in atrial fibrillation with heart rate around 150 bpm. She is on beta william which we continued and we are going to start her on oral calcium channel william with Cardizem. We will continue the current medical regimen with oral anticoagulation. She underwent an echocardiogram in 2019 and that revealed normal left ventricle systolic function with an ejection fraction of 55% without any significant valvular abnormalities. Her atrial fibrillation likely to be triggered by the sepsis and the pneumonia. Past Medical History Past Medical History: COPD, Hypertension Additional Past Medical History / Comment(s): stage 3 kidney disease, kidney stones History of Any Multi-Drug Resistant Organisms: None Reported Past Surgical History: No Surgical Hx Reported, Tonsillectomy Past Anesthesia/Blood Transfusion Reactions: No Reported Reaction Past Psychological History: No Psychological Hx Reported Smoking Status: Never smoker Past Alcohol Use History: Rare Past Drug Use History: None Reported Medications and Allergies Home Medications Medication Instructions Recorded Confirmed Type Albuterol Sulfate [Ventolin HFA] 2 puff INHALATION RT-Q4H PRN 05/17/19 10/06/20 History Atorvastatin [Lipitor] 10 mg PO HS 05/17/19 10/06/20 History Beclomethasone Dip 80 Mcg/Puff 2 puff INHALATION RT-BID 05/17/19 10/06/20 History [Qvar 80 mcg] amLODIPine [Norvasc] 10 mg PO DAILY 05/17/19 10/06/20 History Apixaban [Eliquis] 5 mg PO BID #60 tab 08/16/19 10/06/20 Rx Calcitriol [Rocaltrol] 0.25 mcg PO FR 10/06/20 10/06/20 History Cefuroxime Axetil [Ceftin] 500 mg PO BID 10/06/20 10/06/20 History Cholecalciferol [Vitamin D3 (25 25 mcg PO DAILY 10/06/20 10/06/20 History Mcg = 1000 Iu)] Allergies Allergy/AdvReac Type Severity Reaction Status Date / Time No Known Allergies Allergy Verified 10/06/20 21:16 Physical Exam Vitals: Vital Signs Temp Pulse Pulse Pulse Pulse Resp BP 10/09/20 11:45 152 H 143/81 10/09/20 11:25 153 H 128/86 10/09/20 11:15 152 H 138/88 10/09/20 11:08 150 H 146/101 10/09/20 11:01 151 H 150/97 10/09/20 10:58 152 H 138/90 10/09/20 10:51 151 H 138/90 10/09/20 10:44 98.4 F 150 H 20 142/88 10/09/20 10:41 151 H 145/97 10/09/20 10:39 98.4 F 150 H 142/88 10/09/20 10:00 76 16 129/60 10/09/20 08:15 179 H 10/09/20 08:00 98.4 F 173 H 16 151/79 10/09/20 01:11 152 H 146/87 10/09/20 01:04 98.3 F 90 18 147/78 10/08/20 20:05 96 10/08/20 19:53 92 10/08/20 19:50 105 H 97 18 10/08/20 19:02 99.1 F 105 H 18 167/82 10/08/20 16:26 96 10/08/20 16:17 96 10/08/20 14:00 99.4 F 100 19 157/78 Pulse Ox 10/09/20 11:45 93 L 10/09/20 11:25 93 L 10/09/20 11:15 93 L 10/09/20 11:08 93 L 10/09/20 11:01 93 L 10/09/20 10:58 10/09/20 10:51 93 L 10/09/20 10:44 94 L 10/09/20 10:41 93 L 10/09/20 10:39 93 L 10/09/20 10:00 92 L 10/09/20 08:15 10/09/20 08:00 97 10/09/20 01:11 92 L 10/09/20 01:04 91 L 10/08/20 20:05 10/08/20 19:53 10/08/20 19:50 10/08/20 19:02 91 L 10/08/20 16:26 10/08/20 16:17 10/08/20 14:00 95 Intake and Output 10/08/20 10/09/20 10/09/20 22:59 06:59 14:59 Other: Voiding Method Toilet Bedside Commode # Voids 3 # Bowel Movements 1 - Constitutional General appearance: no acute distress - Respiratory Respiratory: bilateral: CTA - Cardiovascular Rhythm: irregularly irregular Heart sounds: normal: S1, S2 Results 10/09/20 06:48 10/09/20 06:48 CBC 10/09/20 Range/Units 06:48 WBC 10.19 H (4.50-10.00) X 10*3/uL RBC 3.46 L (4.10-5.20) X 10*6/uL Hgb 9.8 L (12.0-15.0) g/dL Hct 31.3 L (37.2-46.3) % Plt Count 209 (140-440) X 10*3/uL Comprehensive Metabolic Panel 10/09/20 Range/Units 06:48 Sodium 143 (135-145) mmol/L Potassium 4.2 (3.5-5.5) mmol/L Chloride 110 H (96-109) mmol/L Carbon Dioxide 27.4 (21.6-31.8) mmol/L BUN 16.0 (9.0-27.0) mg/dL Creatinine 1.3 (0.6-1.5) mg/dL Glucose 102 (70-110) mg/dL Calcium 8.5 L (8.7-10.3) mg/dL Current Medications Generic Name Dose Route Start Last Admin Trade Name Freq PRN Reason Stop Dose Admin Acetaminophen 650 mg 10/06/20 20:56 10/08/20 19:57 Acetaminophen Tab 325 Mg Tab PO 650 mg Q6HR PRN Administration Mild Pain or Fever > 100.5 Albuterol Sulfate 2 puff 10/07/20 12:07 Albuterol Hfa Inhaler INHALATION RT-Q2H PRN Shortness Of Breath Albuterol/Ipratropium 3 ml 10/07/20 16:00 10/09/20 11:16 Ipratropium-Albuterol 3 Ml Neb INHALATION Not Given RT-QID ELIDA Apixaban 2.5 mg 10/07/20 21:00 10/09/20 09:17 Apixaban 2.5 Mg Tablet PO 2.5 mg BID ELIDA Administration Atorvastatin Calcium 10 mg 10/07/20 21:00 10/08/20 19:57 Atorvastatin 10 Mg Tab PO 10 mg HS ELIDA Administration Calcitriol 0.25 mcg 10/13/20 09:00 Calcitriol 0.25 Mcg Cap PO Fr@0900 ELIDA Cholecalciferol 25 mcg 10/07/20 09:00 10/09/20 09:17 Cholecalciferol 25 Mcg (1000 Iu) Tablet PO 25 mcg DAILY ELIDA Administration Diltiazem HCl 30 mg 10/09/20 11:30 10/09/20 11:43 Diltiazem Oral 30 Mg Tab PO 30 mg TID ELIDA Administration Famotidine 20 mg 10/09/20 09:00 10/09/20 09:17 Famotidine 20 Mg Tab PO 20 mg DAILY ELIDA Administration Fluticasone Propionate 2 puff 10/07/20 08:00 10/09/20 08:09 Fluticasone 110 Mcg Inhaler INHALATION Not Given RT-BID ELIDA Sodium Chloride 1,000 mls @ 100 mls/hr 10/06/20 21:00 10/09/20 09:18 Saline 0.9% IV 100 mls/hr .Q10H ELIDA Administration Ceftriaxone Sodium 1 gm/ 50 mls @ 100 mls/hr 10/07/20 09:00 10/09/20 09:17 Sodium Chloride IVPB 100 mls/hr Q24HR ELIDA Administration Metoprolol Tartrate 50 mg 10/09/20 21:00 Metoprolol Tartrate 50 Mg Tab PO BID ELIDA Naloxone HCl 0.2 mg 10/06/20 20:56 Naloxone 0.4 Mg/Ml 1 Ml Vial IV Q2M PRN Opioid Reversal Ondansetron HCl 4 mg 10/06/20 20:56 Ondansetron 4 Mg/2 Ml Vial IVP Q8HR PRN Nausea And Vomiting Intake and Output 10/08/20 10/09/20 10/09/20 22:59 06:59 14:59 Other: Voiding Method Toilet Bedside Commode # Voids 3 # Bowel Movements 1 10/09/20 06:48 10/09/20 06:48 Assessment and Plan Assessment: Assessment #1 urinary tract infection #2 pneumonia #3 atrial fibrillation with rapid ventricular response #4 known paroxysmal atrial fibrillation #5 multiple comorbid conditions Plan #1 continue oral anticoagulation #2 add calcium channel william with Cardizem #3 continue beta william #4 if the patient transferred to [facility]. we possibly can start her on Cardizem IV and DC Cardizem by mouth #5 recent echo showed normal LV function
--- NOTE | 2020-10-09 12:47 | P.PN ---
Subjective Progress Note Date: 10/09/20 This is a very pleasant 74-year-old female patient with a known history of hypertension, hyperlipidemia, paroxysmal atrial flutter, anticoagulated with Eliquis, chronic kidney disease stage III suspect nephrosclerosis. She also has a history of mild regimen chronic bronchial asthma and follows with Dr. Gaytan in our office for the same. She is maintained on Qvar and albuterol. Earlier this week on 10/03/2020 she received her first CoVID 19 vaccine by [facility] approximate 4:00. Later that same night she developed chills and shaking the next day she had diarrhea and urinary frequency and incontinence, the following day she also developed nausea vomiting and febrile illness. She presented here to the emergency room yesterday for the same. Chest x-ray revealed a small left pleural effusion with adjacent atelectasis/infiltrate. Urinalysis did reveal large blood, moderate leukocytes, 39 WBCs. Marie virus by PCR not detected. Influenza screen negative. White count 15.7. Hemoglobin 9.9. Neutrophils 11.6. Sodium 144. Potassium 3.8. Creatinine 1.7. Lactic acid 1.2. She did present with a T-max of 104. Currently afebrile. She is seen today in consultation on the regular medical floor. She is currently sitting up at the bedside. Awake and alert in no acute distress. Feeling a bit better today compared to yesterday. She does have some generalized fatigue and weakness. Shortness of breath with exertion. She is maintaining O2 saturations in the mid 90s on 2 L/m per nasal cannula. Hemodynamically stable. She's been initiated on ceftriaxone and azithromycin. 0.9 normal saline at 100 ML's per hour. Remains on Eliquis. The patient is seen today 10/08/2020 in follow-up on the regular medical floor. She is currently sitting up in a chair at the bedside. Awake and alert in no acute distress. Doing quite a bit better today compared to yesterday. Currently on room air. O2 saturation in the 90s. Temperature 99.0. Hemodynamically stable. Blood cultures positive for gram-negative bacilli. Urine culture pending. She remains on ceftriaxone and azithromycin. Continued on bronchodilators. Anticoagulated with Eliquis. On today's evaluation of , the patient is doing well. The patient is bacteremic with E. coli. This is likely secondary to underlying urine checked infection. Blood culture was positive for E. coli and the patient on Rocephin. Subsequent blood cultures came back negative from 10/08/2020. She is hemodynamically stable on no pressors. She is having a white cell count of 10.1 which is lower compared to yesterday and the highest white cell count was at 17.9. Electrolytes are all within normal limits. Creatinine is at 1.3 which is lower compared to 1.7 from yesterday. The urine analysis was abnormal consistent with UTI. The chest x-ray showed some atelectatic changes and small effusion the lung bases bilaterally. Underlying left lower lobe pneumonia cannot be completely excluded. Currently she is on oxygen at 2 L with a pulse is 93%. She is tachycardic and she has been persistently tachycardic since 8:30 this morning and heart rate is around 150. She has previous history of atrial flutter and she is demented on Eliquis. She was given metoprolol 5 mg IV push and she is also on Cardizem 30 mg by mouth 3 times a day and her maintenance and she was also started on metoprolol 50 mg by mouth twice a day. Objective - Vital Signs Vital signs: Vital Signs Temp 98.4 F 10/09/20 10:44 Pulse 152 H 10/09/20 11:45 Resp 20 10/09/20 10:44 BP 143/81 10/09/20 11:45 Pulse Ox 93 L 10/09/20 11:45 Intake & Output 10/08/20 10/09/20 10/09/20 18:59 06:59 18:59 Other: Voiding Method Toilet Bedside Commode # Voids 3 3 # Bowel Movements 1 - Exam GENERAL EXAM: Alert, pleasant, morbidly obese 74-year-old female patient, on room air, comfortable in no apparent distress. HEAD: Normocephalic. EYES: Normal reaction of pupils, equal size. NOSE: Clear with pink turbinates. THROAT: No erythema or exudates. NECK: No masses, no JVD. CHEST: No chest wall deformity. LUNGS: Equal air entry with crackles in the left base. CVS: S1 and S2 normal with no audible murmur, regular rhythm. Patient is quite tachycardic with a heart rate in the 150 range probably a flutter rhythm. ABDOMEN: No hepatosplenomegaly, normal bowel sounds, no guarding or rigidity. SPINE: No scoliosis or deformity SKIN: No rashes CENTRAL NERVOUS SYSTEM: No focal deficits, tone is normal in all 4 extremities. EXTREMITIES: There is no peripheral edema. No clubbing, no cyanosis. Peripheral pulses are intact. - Labs CBC & Chem 7: 10/09/20 06:48 10/09/20 06:48 Labs: Abnormal Lab Results - Last 24 Hours (Table) 10/09/20 10/09/20 Range/Units 06:48 06:48 WBC 10.19 H (4.50-10.00) X 10*3/uL RBC 3.46 L (4.10-5.20) X 10*6/uL Hgb 9.8 L (12.0-15.0) g/dL Hct 31.3 L (37.2-46.3) % MCHC 31.3 L (32.0-37.0) g/dL Chloride 110 H (96-109) mmol/L Est GFR (CKD-EPI)AfAm 46.8 L (60.0-200.0) Est GFR (CKD-EPI)NonAf 40.4 L (60.0-200.0) Calcium 8.5 L (8.7-10.3) mg/dL Microbiology - Last 24 Hours (Table) 10/08/20 06:23 Blood Culture - Preliminary Blood No Growth after 24 hours 10/06/20 19:47 Blood Culture Gram Stain - Final Blood Blood Culture - Final Escherichia coli 10/06/20 19:47 Blood Culture Gram Stain - Final Blood Blood Culture - Final Escherichia coli 10/07/20 13:03 Blood Culture - Preliminary Blood No Growth after 24 hours Assessment and Plan Plan: 1 Acute hypoxic respiratory failure secondary to an acute left lower lobe pn e[place], community-acquired 2 Acute urinary tract infection, with secondary bacteremia and sepsis. The patient has E. coli bacteremia. 3 sepsis secondary to E. coli 4 COPD and chronic dyspnea 5 Leukocytosis secondary to above, improving 6 Acute on chronic kidney disease, improving 7 Morbid obesity 8 Mild intermittent chronic bronchial asthma 9 Hypertension 10 History of paroxysmal atrial flutter, anticoagulated with Eliquis 11 Hyperlipidemia 12 atrial flutter with rapid ventricular response currently on combination of Cardizem oral, metoprolol orally and long-term and coagulation with Eliquis. Plan: Continue ceftriaxone Continue metoprolol, Cardizem and anticoagulation for now and the patient would have a cardiology consultation. Recommend transferring this patient to 3 [address]. for a clinical research monitor and starting the patient on drips including possibly a Cardizem drip especially if her heart rate remains unchanged. He Continue bronchodilators Follow-up chest x-ray in a.m. We will continue to follow.
--- NOTE | 2020-10-09 14:38 | P.PN ---
Subjective Progress Note Date: 10/09/20 HISTORY OF PRESENT ILLNESS This is a 74-year-old female treated for bacteremia. Patient was here 2 days a go for chills nausea suprapubic discomfort and urine incontinence. Symptoms were ongoing since her first Covid vaccine on Friday and it was thought at the time of symptoms related to that. Patient denies having any chest pain, shortness of breath cough. In the emergency center she was found to have a fever for 104 and leukocytosis 17.9. Chronic virus and influenza PCR were negative. Patient was started on Rocephin. Patient denies any new complaints today. A team was called due to tachycardia, A. fib with RVR. Renal ultrasound showed no significant abnormality. Repeat chest x-ray reveals possible lower lobe pneumonia. Patient has now been afebrile greater than 24 hours. Heart rate 153, blood pressure 143/81, pulse ox 93% on 2 L nasal cannula. Continued improvement of leukocytosis at 10.1. Creatinine improved at 1.3. Repeat cultures from October 07 and are both showing no growth. PHYSICAL EXAMINATION Gen: This is a 74-year-old female. She is resting in bed and appears to be comfortable. HEENT: Head is atraumatic, normocephalic. Pupils equal, round. Sclerae is anicteric. NECK: Supple. LUNGS: Clear to auscultation. No wheezes or rhonchi. No intercostal retractions. HEART: Regular rate and rhythm. ABDOMEN: Soft. Bowel sounds are present. No masses. No tenderness. EXTREMITIES: No pedal edema. NEUROLOGICAL: Patient is awake, alert and oriented. ASSESSMENT E. coli bacteremia and sepsis secondary to urinary tract infection Left lower lobe pneumonia Acute kidney injury A. fib with RVR PLAN Continue Rocephin 1 g IV piggyback daily Continue supportive care Further recommendations as patient progresses. The above dictated assessment and findings were discussed with Dr. Carreno. The impression and plan of care have been directed as dictated. Polly Kimble nurse practitioner acting as scribe for Dr. Carreno. Objective - Vital Signs Vital signs: Vital Signs Temp 98.4 F 10/09/20 08:00 Pulse 76 10/09/20 10:00 Resp 16 10/09/20 10:00 BP 129/60 10/09/20 10:00 Pulse Ox 92 L 10/09/20 10:00 Intake & Output 10/08/20 10/09/20 10/09/20 18:59 06:59 18:59 Other: Voiding Method Toilet Bedside Commode # Voids 3 3 # Bowel Movements 1 - Labs CBC & Chem 7: 10/09/20 06:48 10/09/20 06:48 Labs: Microbiology - Last 24 Hours (Table) 10/08/20 06:23 Blood Culture - Preliminary Blood No Growth after 24 hours 10/06/20 19:47 Blood Culture Gram Stain - Final Blood Blood Culture - Final Escherichia coli 10/06/20 19:47 Blood Culture Gram Stain - Final Blood Blood Culture - Final Escherichia coli 10/07/20 13:03 Blood Culture - Preliminary Blood No Growth after 24 hours
--- NOTE | 2020-10-09 20:16 | PN ---
PROGRESS NOTE DATE OF SERVICE: 10/09/2020 This 74-year-old woman who was admitted with sepsis and possible UTI also had E coli bacteremia. The patient also had an irregular cardiac rhythm, most likely atrial fibrillation with rapid ventricular response. The patient was given beta blockers initially and the patient was started on Cardizem. The patient will be transferred to a telemetry unit at this time. Past medical reviewed. REVIEW OF SYSTEMS: CARDIOVASCULAR SYSTEM: As mentioned earlier. RESPIRATORY SYSTEM: As mentioned earlier. GI: As mentioned earlier. : No dysuria or retention. NERVOUS SYSTEM: No numbness, weakness. CURRENT MEDICATIONS: Reviewed. They include Ventolin, DuoNeb, Eliquis, Lipitor. Rocaltrol, Rocephin, Flovent. Doses are reviewed. PHYSICAL EXAMINATION: Patient is alert and oriented x3. Pulse 159, irregular, blood pressure 136/79, respirations 16, temperature 99 degrees, pulse ox 98% on 2 L. HEENT: Conjunctivae normal. NECK: No jugular venous distention. CARDIOVASCULAR SYSTEM: S1, S2 muffled. RESPIRATORY SYSTEM: Breath sounds diminished at the bases. A few scattered rhonchi and crackles. ABDOMEN: Soft, non-tender. NERVOUS SYSTEM: No focal deficit. LABS: WBC 10.9, hemoglobin 9.8. Cultures noted. ASSESSMENT: 1. Acute urinary tract infection with Escherichia coli sepsis. 2. Atrial fibrillation with fast ventricular rate. 3. Chronic kidney disease, stage 3. 4. Paroxysmal atrial flutter/fibrillation. 5. Chronic intermittent mild bronchial asthma. 6. Obesity with body mass index of 42.1. 7. Acute hypoxic respiratory failure. 8. Increased white count. 9. Anemia, normocytic. 10.Mild acute renal failure, present on admission. 11.FULL CODE. RECOMMENDATIONS AND DISCUSSION: In this 74-year-old woman who presented with multiple complex medical issues, we will monitor the patient closely, continue the current medications, continue symptomatic treatment. We will continue with Rocephin. The most recent cultures are negative. Otherwise, beta blockers, Cardizem. The patient is already on Eliquis. I would also recommend repeat labs. Closely monitor with Cardiology. I would recommend TSH, also. Guarded prognosis. Further recommendations to follow. MMODL / IJN: [id number] /
[2020-10-09] MEDS: METOPROLOL TARTRATE 50 MG TAB PO SCH (20:43)
[2020-10-09] MEDS: ATORVASTATIN 10 MG TAB PO SCH (20:43)
[2020-10-10] MEDS: SODIUM CHLORIDE 0.9% 1,000 ML IV SCH ×3 (04:58→19:49)
[2020-10-10] MEDS: IPRATROPIUM-ALBUTEROL 3 ML NEB INHALATION SCH (07:33)
[2020-10-10] MEDS: FLUTICASONE 110 MCG INHALER INHALATION SCH (07:33)
[2020-10-10 07:40] LABS: Basophils # (A) 0.1 k/uL (0-0.2); Basophils % (A) 1 %; Eosinophils # (A) 0.2 k/uL (0-0.7); Eosinophils % (A) 3 %; HCT 31.9 % (34.0-46.0); HGB 10.2 gm/dL (11.4-16.0); Lymphocytes # (A) 1.8 k/uL (1.0-4.8); Lymphocytes % (A) 20 %; MCH 28.2 pg (25.0-35.0); MCHC 32.1 g/dL (31.0-37.0); MCV 87.9 fL (80.0-100.0); Mean Platelet Volume 7.9; Monocytes # (A) 0.9 k/uL (0-1.0); Monocytes % (A) 9 %; Neutrophils % (A) 66 %; Platelet Count 214 k/uL (150-450); RBC 3.63 m/uL (3.80-5.40); RDW 13.4 % (11.5-15.5); WBC 9.2 k/uL (3.8-10.6)
[2020-10-10 07:51] LABS: Calcium 8.6 mg/dL (8.4-10.2); Potassium 4.3 mmol/L (3.5-5.1)
[2020-10-10] MEDS: METOPROLOL TARTRATE 50 MG TAB PO SCH ×2 (09:23→19:48)
[2020-10-10] MEDS: DILTIAZEM ORAL 30 MG TAB PO SCH (09:23)
[2020-10-10] MEDS: APIXABAN 2.5 MG TABLET PO SCH (09:23)
[2020-10-10] MEDS: FAMOTIDINE 20 MG TAB PO SCH (09:23)
[2020-10-10] MEDS: CHOLECALCIFEROL 25 MCG (1000 IU) TABLET PO SCH (09:23)
--- NOTE | 2020-10-10 10:23 | P.PN ---
Subjective Progress Note Date: 10/10/20 This is a very pleasant 74-year-old female patient with a known history of hypertension, hyperlipidemia, paroxysmal atrial flutter, anticoagulated with Eliquis, chronic kidney disease stage III suspect nephrosclerosis. She also has a history of mild regimen chronic bronchial asthma and follows with Dr. Gaytan in our office for the same. She is maintained on Qvar and albuterol. Earlier this week on 10/03/2020 she received her first CoVID 19 vaccine by [facility] approximate 4:00. Later that same night she developed chills and shaking the next day she had diarrhea and urinary frequency and incontinence, the following day she also developed nausea vomiting and febrile illness. She presented here to the emergency room yesterday for the same. Chest x-ray revealed a small left pleural effusion with adjacent atelectasis/infiltrate. Urinalysis did reveal large blood, moderate leukocytes, 39 WBCs. Marie virus by PCR not detected. Influenza screen negative. White count 15.7. Hemoglobin 9.9. Neutrophils 11.6. Sodium 144. Potassium 3.8. Creatinine 1.7. Lactic acid 1.2. She did present with a T-max of 104. Currently afebrile. She is seen today in consultation on the regular medical floor. She is currently sitting up at the bedside. Awake and alert in no acute distress. Feeling a bit better today compared to yesterday. She does have some generalized fatigue and weakness. Shortness of breath with exertion. She is maintaining O2 saturations in the mid 90s on 2 L/m per nasal cannula. Hemodynamically stable. She's been initiated on ceftriaxone and azithromycin. 0.9 normal saline at 100 ML's per hour. Remains on Eliquis. The patient is seen today 10/08/2020 in follow-up on the regular medical floor. She is currently sitting up in a chair at the bedside. Awake and alert in no acute distress. Doing quite a bit better today compared to yesterday. Currently on room air. O2 saturation in the 90s. Temperature 99.0. Hemodynamically stable. Blood cultures positive for gram-negative bacilli. Urine culture pending. She remains on ceftriaxone and azithromycin. Continued on bronchodilators. Anticoagulated with Eliquis. On today's evaluation of 10/09, the patient is doing well. The patient is bacteremic with E. coli. This is likely secondary to underlying urine checked infection. Blood culture was positive for E. coli and the patient on Rocephin. Subsequent blood cultures came back negative from 10/08/2020. She is hemodynamically stable on no pressors. She is having a white cell count of 10.1 which is lower compared to yesterday and the highest white cell count was at 17.9. Electrolytes are all within normal limits. Creatinine is at 1.3 which is lower compared to 1.7 from yesterday. The urine analysis was abnormal consistent with UTI. The chest x-ray showed some atelectatic changes and small effusion the lung bases bilaterally. Underlying left lower lobe pneumonia cannot be completely excluded. Currently she is on oxygen at 2 L with a pulse is 93%. She is tachycardic and she has been persistently tachycardic since 8:30 this morning and heart rate is around 150. She has previous history of atrial flutter and she is on Eliquis. She was given metoprolol 5 mg IV push and she is also on Cardizem 30 mg by mouth 3 times a day and her maintenance and she was also started on metoprolol 50 mg by mouth twice a day. On today's evaluation of 10/10/2020 I'm seeing the patient for a follow-up. As mentioned earlier, the patient had an E. coli sepsis and the patient remains on Rocephin for now and she is hemodynamically stable and she is on room air oxygen. Blood work from today showed improvement in the white cell count which is down to 9.2 with a hemoglobin of 10.2. Renal function is stable with a creatinine of 1.4 and a serum bicarb is 27. Her troponins were negative and the TSH is at 2.5. Note that these were checked as the patient went into a A. fib/flutter rhythm yesterday. Cardiology is also on the case and the patient is currently on a combination of Cardizem 30 mg by mouth 3 times a day and metoprolol 25 mg 50 mg by mouth twice a day. Her current rhythm is sinus and the patient has limited also on long-term anticoagulation with Eliquis. Her current heart rate is between 50 and 57.. No new complaints. She is using incentive spirometer. No nausea. No vomiting. No diarrhea. No abdominal cosmo n. Objective - Vital Signs Vital signs: Vital Signs Temp 98.7 F 10/10/20 03:32 Pulse 67 10/10/20 03:32 Resp 16 10/10/20 03:32 BP 134/74 10/10/20 03:32 Pulse Ox 99 10/10/20 03:32 Intake & Output 10/09/20 10/10/20 10/10/20 18:59 06:59 18:59 Intake Total 120 120 Balance 120 120 Weight 105.5 kg Intake: Oral 120 120 Other: Voiding Method Toilet # Voids 2 1 # Bowel Movements 1 - Exam GENERAL EXAM: Alert, pleasant, morbidly obese 74-year-old female patient, on room air, comfortable in no apparent distress. HEAD: Normocephalic. EYES: Normal reaction of pupils, equal size. NOSE: Clear with pink turbinates. THROAT: No erythema or exudates. NECK: No masses, no JVD. CHEST: No chest wall deformity. LUNGS: Equal air entry with crackles in the left base. CVS: S1 and S2 normal with no audible murmur, regular rhythm. Patient is quite tachycardic with a heart rate in sinus and the mid 50s ABDOMEN: No hepatosplenomegaly, normal bowel sounds, no guarding or rigidity. SPINE: No scoliosis or deformity SKIN: No rashes CENTRAL NERVOUS SYSTEM: No focal deficits, tone is normal in all 4 extremities. EXTREMITIES: There is no peripheral edema. No clubbing, no cyanosis. Peripheral pulses are intact. - Labs CBC & Chem 7: 10/10/20 06:57 10/10/20 06:57 Labs: Abnormal Lab Results - Last 24 Hours (Table) 10/09/20 10/09/20 10/10/20 Range/Units 06:48 06:48 06:57 WBC 10.19 H (4.50-10.00) X 10*3/uL RBC 3.46 L 3.63 L (4.10-5.20) X 10*6/uL Hgb 9.8 L 10.2 L (12.0-15.0) g/dL Hct 31.3 L 31.9 L (37.2-46.3) % MCHC 31.3 L (32.0-37.0) g/dL Chloride 110 H (96-109) mmol/L BUN (7-17) mg/dL Creatinine (0.52-1.04) mg/dL Est GFR (CKD-EPI)AfAm 46.8 L (60.0-200.0) Est GFR (CKD-EPI)NonAf 40.4 L (60.0-200.0) Glucose (74-99) mg/dL Calcium 8.5 L (8.7-10.3) mg/dL 10/10/20 Range/Units 06:57 WBC (4.50-10.00) X 10*3/uL RBC (4.10-5.20) X 10*6/uL Hgb (12.0-15.0) g/dL Hct (37.2-46.3) % MCHC (32.0-37.0) g/dL Chloride 108 H (96-109) mmol/L BUN 18 H (7-17) mg/dL Creatinine 1.42 H (0.52-1.04) mg/dL Est GFR (CKD-EPI)AfAm (60.0-200.0) Est GFR (CKD-EPI)NonAf (60.0-200.0) Glucose 100 H (74-99) mg/dL Calcium (8.7-10.3) mg/dL Microbiology - Last 24 Hours (Table) 10/08/20 06:23 Blood Culture - Preliminary Blood No Growth after 48 hours 10/07/20 13:03 Blood Culture - Preliminary Blood No Growth after 48 hours Assessment and Plan Plan: 1 Acute hypoxic respiratory failure secondary to an acute left lower lobe pneumonia, community-acquired, recovered and the patient is currently on room air oxygen 2 Acute urinary tract infection, with secondary bacteremia and sepsis. The patient has E. coli bacteremia. No signs of septicemia and the patient is currently on IV Rocephin 3 sepsis secondary to E. coli 4 COPD and chronic dyspnea 5 Leukocytosis secondary to above, improving, the white cell count is dropped down to 9.2 6 Acute on chronic kidney disease, improving, creatinine stable for now 7 Morbid obesity 8 Mild intermittent chronic bronchial asthma 9 Hypertension 10 History of paroxysmal atrial flutter, anticoagulated with Eliquis 11 Hyperlipidemia 12 atrial flutter with rapid ventricular response currently on combination of Cardizem oral, metoprolol orally and long-term and coagulation with Eliquis. This occurred yesterday on 10/09/2020 and currently the patient is back to normal sinus rhythm and rate is controlled with a combination of metoprolol 50 mg twice a day, Cardizem 30 mg 3 times a day and the patient is on long-term anticoagulation with Eliquis. Echocardiogram was done today and the results are still pending. Thyroid function tests was normal. Troponins were negative. Plan: Continue ceftriaxone Continue metoprolol, Cardizem and anticoagulation for now and the patient would have a cardiology consultation. Awaiting the results of the echocardiogram Discontinue the bronchodilators Interrogated incentive spirometer Abdomen is stable at 1.4 and there may be an indication of a chronic kidney insufficiency/chronic kidney disease Patient is currently on room air oxygen Presentation this patient to oral antibiotics in the time of discharge to compl ete a 2 week course. We will continue to follow.
--- NOTE | 2020-10-10 12:00 | ECHOF ---
Referral Reason:afib MEASUREMENTS -------- HEIGHT: 157.5 cm WEIGHT: 105.2 kg BP: 134/74 RVIDd: 3.2 cm (< 3.3) IVSd: 1.3 cm (0.6 - 1.1) LVIDd: 4.6 cm (3.9 - 5.3) LVPWd: 1.4 cm (0.6 - 1.1) IVSs: 1.6 cm LVIDs: 2.8 cm LVPWs: 1.6 cm LA Diam: 3.9 cm (2.7 - 3.8) LAESV Index (A-L): 30.17 ml/m Ao Diam: 2.7 cm (2.0 - 3.7) AV Cusp: 1.5 cm (1.5 - 2.6) LA Diam: 4.4 cm (2.7 - 3.8) MV EXCURSION: 16.790 mm (> 18.000) MV EF SLOPE: 62 mm/s (70 - 150) EPSS: 0.7 cm MV E Harshal: 0.69 m/s MV DecT: 255 ms MV A Harshal: 1.02 m/s MV E/A Ratio: 0.68 RAP: 5.00 mmHg RVSP: 35.66 mmHg FINDINGS -------- Sinus rhythm. This was a technically good study. The left ventricular size is normal. There is mild concentric left ventricular hypertrophy. Overa ll left ventricular systolic function is low-normal with, an EF between 50 - 55 %. The right ventricle is normal in size. LA is midly dilated 29-33ml/m2. The right atrial size is normal. The aortic valve is trileaflet, and appears structurally normal. No aortic stenosis or regurgitation. [id number] mitral regurgitation is present. Right ventricular systolic pressure is normal at < 35 mmHg. There is mild pulmonary hypertension. The right ventricular systolic pressure, as measured by Doppler, is 35.66mmHg. There is no pulmonic regurgitation present. The aortic root size is normal. Echo free space represents a pericardial fat pad. CONCLUSIONS -------- 1. The left ventricular size is normal. 2. There is mild concentric left ventricular hypertrophy. 3. Overall left ventricular systolic function is low-normal with, an EF between 50 - 55 %. 4. The right ventricle is normal in size. 5. LA is midly dilated 29-33ml/m2. 6. The right atrial size is normal. 7. [id number] mitral regurgitation is present. 8. Right ventricular systolic pressure is normal at < 35 mmHg. 9. There is mild pulmonary hypertension. 10. The right ventricular systolic pressure, as measured by Doppler, is 35.66mmHg. 11. There is no pulmonic regurgitation present. 12. Echo free space represents a pericardial fat pad. PUBLIC BATH ATTENDANT: Love Burks RDCS
--- NOTE | 2020-10-10 14:22 | P.PN ---
Subjective This is a pleasant 74-year-old female past medical history significant for paroxysmal atrial fibrillation on long-term anticoagulation, hypertension and dyslipidemia. She follows in the office with Dr. Bravo. She was transferred to secondary to afib with RVR. Cardizem and lopressor were added. She has converted to SR. She is maintaining sinus mechanism with heart rates in the 60's. Blood pressure 136/76. She denies chest pain, shortness of breath, dizziness or palpitations. Repeat echocardiogram obtained reveals preserved LV systolic function with EF 50-55%, mild-moderate MR. GENERAL: Well-appearing, well-nourished and in no acute distress. NECK: Supple without JVD or thyromegaly. LUNGS: Breath sounds clear to auscultation bilaterally. Respiration equal and unlabored. No wheezes, rales or rhonchi. HEART: Regular rate and rhythm with soft systolic ejection murmur at the base, no rubs or gallops. S1 and S2 heard. EXTREMITIES: Normal range of motion, no edema. No clubbing or cyanosis. Peripheral pulses intact. ASSESSMENT Paroxysmal atrial fibrillation with rapid ventricular response anticoagulated on Eliquis, currently maintaining sinus mechanism Pneumonia Urinary tract infection Sepsis Hypertension Dyslipidemia PLAN She is continuing to maintain sinus mechanism. Heart rates in the 60-70's. Discontinue cardizem and increase lopressor to 100 mg BID. Continue eliquis for thromboembolic protection. Nurse Practitioner note has been reviewed, I agree with a documented findings and plan of care. Patient was seen and examined. Objective - Vital Signs Vital signs: Vital Signs Temp 97.9 F 10/10/20 12:00 Pulse 68 10/10/20 12:53 Resp 16 10/10/20 12:53 BP 136/76 10/10/20 12:00 Pulse Ox 95 10/10/20 12:00 Intake & Output 10/09/20 10/10/20 10/10/20 18:59 06:59 18:59 Intake Total 120 600 Output Total 500 Balance 120 100 Weight 105.5 kg Intake: Oral 120 600 Output: Urine 500 Other: Voiding Method Toilet Toilet # Voids 2 1 # Bowel Movements 1 - Labs CBC & Chem 7: 10/10/20 06:57 10/10/20 06:57 Labs: Abnormal Lab Results - Last 24 Hours (Table) 10/10/20 10/10/20 Range/Units 06:57 06:57 RBC 3.63 L (3.80-5.40) m/uL Hgb 10.2 L (11.4-16.0) gm/dL Hct 31.9 L (34.0-46.0) % Chloride 108 H (98-107) mmol/L BUN 18 H (7-17) mg/dL Creatinine 1.42 H (0.52-1.04) mg/dL Glucose 100 H (74-99) mg/dL Microbiology - Last 24 Hours (Table) 10/08/20 06:23 Blood Culture - Preliminary Blood No Growth after 48 hours 10/07/20 13:03 Blood Culture - Preliminary Blood No Growth after 48 hours
--- NOTE | 2020-10-10 15:45 | P.PN ---
Subjective Progress Note Date: 10/10/20 This is a 74-year-old female who was recently admitted with sepsis and possible acute urinary tract infection also had E. coli bacteremia and is being closely monitored. Patient had atrial fibrillation with rapid ventricular response noted on the EKG along with telemetry and was transferred to the selected unit. Patient was started on IV Cardizem and given beta blockers. Cardiology following closely. Patient is currently on metoprolol 100 mg twice daily and currently in normal sinus rhythm. Patient is maintained on IV antibiotics in the form of ceftriaxone and urine culture showing no growth for 18 hours. Most recent blood cultures have been negative. Factious disease along with pulmonary and cardiology following. Patient does have incentive spirometer at the bedside and instructed to continue using at least 10 times every hour while awake. Case management following an patient states she would like to call home upon discharge and denies any further needs. Patient is maintained on anticoagulant and will continue at this time. Patient does live with family. Review of systems: Constitutional: No reports of fatigue, fever, or chills Cardiovascular: No reports of chest pain or palpitations Respiratory: No reports of worsening shortness of breath or cough GI: No reports of nausea, vomiting, or diarrhea : No reports of dysuria or retention Neurovascular: No reports of weakness or numbness All medications have been reviewed Active Medications Acetaminophen (Acetaminophen Tab 325 Mg Tab) 650 mg PO Q6HR PRN PRN Reason: Mild Pain or Fever > 100.5 Last Admin: 10/08/20 19:57 Dose: 650 mg Documented by: Albuterol Sulfate (Albuterol Hfa Inhaler) 2 puff INHALATION RT-Q2H PRN PRN Reason: Shortness Of Breath Apixaban (Apixaban 5 Mg Tab) 5 mg PO BID [facility] Atorvastatin Calcium (Atorvastatin 10 Mg Tab) 10 mg PO HS [facility] Last Admin: 10/09/20 20:43 Dose: 10 mg Documented by: Calcitriol (Calcitriol 0.25 Mcg Cap) 0.25 mcg PO Fr@0900 [facility] Cholecalciferol (Cholecalciferol 25 Mcg (1000 Iu) Tablet) 25 mcg PO DAILY [facility] Last Admin: 10/10/20 09:23 Dose: 25 mcg Documented by: Famotidine (Famotidine 20 Mg Tab) 20 mg PO DAILY [facility] Last Admin: 10/10/20 09:23 Dose: 20 mg Documented by: Sodium Chloride (Saline 0.9%) 1,000 mls @ 100 mls/hr IV .Q10H [facility] Last Admin: 10/10/20 04:58 Dose: 100 mls/hr Documented by: Ceftriaxone Sodium 1 gm/ (Sodium Chloride) 50 mls @ 100 mls/hr IVPB Q24HR [facility] Last Admin: 10/09/20 09:17 Dose: 100 mls/hr Documented by: Metoprolol Tartrate (Metoprolol Tartrate 50 Mg Tab) 100 mg PO BID [facility] Naloxone HCl (Naloxone 0.4 Mg/Ml 1 Ml Vial) 0.2 mg IV Q2M PRN PRN Reason: Opioid Reversal Ondansetron HCl (Ondansetron 4 Mg/2 Ml Vial) 4 mg IVP Q8HR PRN PRN Reason: Nausea And Vomiting Objective - Vital Signs Vital signs: Vital Signs Temp 97.9 F 10/10/20 12:00 Pulse 68 10/10/20 12:53 Resp 16 10/10/20 12:53 BP 136/76 10/10/20 12:00 Pulse Ox 95 10/10/20 12:00 Intake & Output 10/09/20 10/10/20 10/10/20 18:59 06:59 18:59 Intake Total 120 600 Output Total 500 Balance 120 100 Weight 105.5 kg Intake: Oral 120 600 Output: Urine 500 Other: Voiding Method Toilet Toilet # Voids 2 1 # Bowel Movements 1 - Exam Gen: This is a 74-year-old female awake, alert and oriented 3, well-developed, well-nourished, obese. Temp is 97.8F, pulse is 74, respirations are 16, blood pressure is 142/83, oxygen saturation is 96% on room air. HEENT: Head is atraumatic, normocephalic. Pupils equal, round. Sclerae is anicteric. NECK: Supple. No JVD. No lymphadenopathy. No thyromegaly. LUNGS: Diminished breath sounds at the bases with some scattered rhonchi and crackles noted. No intercostal retractions. HEART: S1, S2 are muffled ABDOMEN: Soft. Bowel sounds are present. No masses. No tenderness. EXTREMITIES: No pedal edema. No calf tenderness. NEUROLOGICAL: Patient is awake, alert and oriented x3. Cranial nerves 2 through 12 are grossly intact. - Labs CBC & Chem 7: 10/10/20 06:57 10/10/20 06:57 Labs: Abnormal Lab Results - Last 24 Hours (Table) 10/10/20 10/10/20 Range/Units 06:57 06:57 RBC 3.63 L (3.80-5.40) m/uL Hgb 10.2 L (11.4-16.0) gm/dL Hct 31.9 L (34.0-46.0) % Chloride 108 H (98-107) mmol/L BUN 18 H (7-17) mg/dL Creatinine 1.42 H (0.52-1.04) mg/dL Glucose 100 H (74-99) mg/dL Microbiology - Last 24 Hours (Table) 10/07/20 13:03 Blood Culture - Preliminary Blood No Growth after 72 hours 10/08/20 06:23 Blood Culture - Preliminary Blood No Growth after 48 hours Assessment and Plan Assessment: Acute urinary tract infection with E. coli sepsis Atrial fibrillation with fast ventricular rate Chronic kidney disease, stage III Paroxysmal atrial flutter/fibrillation Chronic intermittent mild bronchial asthma Obesity with body mass index of 42.5 Acute hypoxic respiratory failure Increased white count Anemia, normocytic Mild acute renal failure, present on admission Full code Recommendations and discussion: Recommend to continue with current medications, management, and symptomatic treatment. Multiple medical consultations following including pulmonary, cardiology, and infectious disease. Patient is maintained on IV ceftriaxone and we'll transition to oral antibiotics upon discharge. Urine cultures have been negative and most recent blood cultures have been negative as well with original culture showing E. coli. IV Cardizem has been discontinued and patient is maintained on metoprolol along with anticoagulant Eliquis and currently in sinus rhythm. TSH is 2.5 and troponin been negative. Magnesium is 2.0. She instructed to continue using incentive spirometer at least 10 times every hour while awake. Due to multiple complex medical issues, prognosis is guarded. Further recommendations to follow. Possible discharge in 24 hours.
[2020-10-10] MEDS: APIXABAN 5 MG TAB PO SCH (19:49)
[2020-10-10] MEDS: ATORVASTATIN 10 MG TAB PO SCH (19:49)
--- NOTE | 2020-10-10 23:18 | PN ---
PROGRESS NOTE DATE OF SERVICE: 10/10/2020 REASON FOR FOLLOWUP: E coli UTI and bacteremia. INTERVAL HISTORY: The patient is currently afebrile. The patient is breathing comfortably. Denies having any chest pain, shortness of breath or cough. No nausea, no vomiting, no abdominal pain or diarrhea. PHYSICAL EXAMINATION: Blood pressure 150/83, pulse of 69, temperature 98.1. She is 95% on room air. General description is an elderly female up in the chair in no distress. RESPIRATORY SYSTEM: Unlabored breathing. Clear to auscultation anteriorly. HEART: S1, S2. Regular rate and rhythm. ABDOMEN: Soft. No tenderness. LABS: Hemoglobin is 10.2, white count 9.2, BUN of 18, creatinine 1.42. Blood culture repeat has been negative. DIAGNOSTIC IMPRESSION AND PLAN: Patient with Escherichia coli urinary tract infection and bacteremia, clinically responding to Rocephin; that will continue while inpatient and finish therapy with oral antibiotic on discharge. Continue with supportive care. MMODL / IJN: [id number] /
[2020-10-11] MEDS: APIXABAN 5 MG TAB PO SCH (07:06)
[2020-10-11] MEDS: CHOLECALCIFEROL 25 MCG (1000 IU) TABLET PO SCH (07:06)
[2020-10-11] MEDS: METOPROLOL TARTRATE 50 MG TAB PO SCH (07:08)
[2020-10-11] MEDS: FAMOTIDINE 20 MG TAB PO SCH (07:09)
[2020-10-11 08:19] LABS: Basophils # (A) 0.1 k/uL (0-0.2); Basophils % (A) 1 %; Eosinophils # (A) 0.4 k/uL (0-0.7); Eosinophils % (A) 4 %; HCT 33.4 % (34.0-46.0); HGB 11.1 gm/dL (11.4-16.0); Lymphocytes # (A) 1.8 k/uL (1.0-4.8); Lymphocytes % (A) 20 %; MCH 29.1 pg (25.0-35.0); MCHC 33.2 g/dL (31.0-37.0); MCV 87.4 fL (80.0-100.0); Mean Platelet Volume 7.8; Monocytes # (A) 0.4 k/uL (0-1.0); Monocytes % (A) 4 %; Neutrophils # (A) 6.5 k/uL (1.3-7.7); Neutrophils % (A) 70 %; Platelet Count 267 k/uL (150-450); RBC 3.82 m/uL (3.80-5.40); RDW 13.2 % (11.5-15.5); WBC 9.2 k/uL (3.8-10.6)
[2020-10-11 08:43] LABS: Potassium 4.3 mmol/L (3.5-5.1)
[2020-10-11 08:47] VITALS: BP 147/52; PULSE 59; RESP 18; TEMP 98.1
--- NOTE | 2020-10-11 10:45 | P.PN ---
Subjective Progress Note Date: 10/11/20 Principal diagnosis: Acute hypoxic respiratory failure secondary to acute left lower lobe pneumonia, community-acquired This is a very pleasant 74-year-old female patient with a known history of hypertension, hyperlipidemia, paroxysmal atrial flutter, anticoagulated with Eliquis, chronic kidney disease stage III suspect nephrosclerosis. She also has a history of mild regimen chronic bronchial asthma and follows with Dr. Gaytan in our office for the same. She is maintained on Qvar and albuterol. Earlier this week on 10/03/2020 she received her first CoVID 19 vaccine by [facility] approximate 4:00. Later that same night she developed chills and shaking the next day she had diarrhea and urinary frequency and incontinence, the following day she also developed nausea vomiting and febrile illness. She presented here to the emergency room yesterday for the same. Chest x-ray revealed a small left pleural effusion with adjacent atelectasis/infiltrate. Urinalysis did reveal large blood, moderate leukocytes, 39 WBCs. Marie virus by PCR not detected. Influenza screen negative. White count 15.7. Hemoglobin 9.9. Neutrophils 11.6. Sodium 144. Potassium 3.8. Creatinine 1.7. Lactic acid 1.2. She did present with a T-max of 104. Currently afebrile. She is seen today in consultation on the regular medical floor. She is currently sitting up at the bedside. Awake and alert in no acute distress. Feeling a bit better today compared to yesterday. She does have some generalized fatigue and weakness. Shortness of breath with exertion. She is maintaining O2 saturations in the mid 90s on 2 L/m per nasal cannula. Hemodynamically stable. She's been initiated on ceftriaxone and azithromycin. 0.9 normal saline at 100 ML's per hour. Remains on Eliquis. The patient is seen today 10/08/2020 in follow-up on the regular medical floor. She is currently sitting up in a chair at the bedside. Awake and alert in no acute distress. Doing quite a bit better today compared to yesterday. Currently on room air. O2 saturation in the 90s. Temperature 99.0. H emodynamically stable. Blood cultures positive for gram-negative bacilli. Urine culture pending. She remains on ceftriaxone and azithromycin. Continued on bronchodilators. Anticoagulated with Eliquis. On today's evaluation of 10/09, the patient is doing well. The patient is bacteremic with E. coli. This is likely secondary to underlying urine checked infection. Blood culture was positive for E. coli and the patient on Rocephin. Subsequent blood cultures came back negative from 10/08/2020. She is hemodynamically stable on no pressors. She is having a white cell count of 10.1 which is lower compared to yesterday and the highest white cell count was at 17.9. Electrolytes are all within normal limits. Creatinine is at 1.3 which is lower compared to 1.7 from yesterday. The urine analysis was abnormal consistent with UTI. The chest x-ray showed some atelectatic changes and small effusion the lung bases bilaterally. Underlying left lower lobe pneumonia cannot be completely excluded. Currently she is on oxygen at 2 L with a pulse is 93%. She is tachycardic and she has been persistently tachycardic since 8:30 this morning and heart rate is around 150. She has previous history of atrial flutter and she is on Eliquis. She was given metoprolol 5 mg IV push and she is also on Cardizem 30 mg by mouth 3 times a day and her maintenance and she was also started on metoprolol 50 mg by mouth twice a day. On today's evaluation of 10/10/2020 I'm seeing the patient for a follow-up. As mentioned earlier, the patient had an E. coli sepsis and the patient remains on Rocephin for now and she is hemodynamically stable and she is on room air oxygen. Blood work from today showed improvement in the white cell count which is down to 9.2 with a hemoglobin of 10.2. Renal function is stable with a creatinine of 1.4 and a serum bicarb is 27. Her troponins were negative and the TSH is at 2.5. Note that these were checked as the patient went into a A. fib/flutter rhythm yesterday. Cardiology is also on the case and the patient is currently on a combination of Cardizem 30 mg by mouth 3 times a day and metoprolol 25 mg 50 mg by mouth twice a day. Her current rhythm is sinus and the patient has limited also on long-term anticoagulation with Eliquis. Her current heart rate is between 50 and 57.. No new complaints. She is using incentive spirometer. No nausea. No vomiting. No diarrhea. No abdominal pain. The patient is seen today 10/11/2020 up on the regular medical floor. She is currently sitting up in a chair in the bedside. Up in her room and showered today. Feeling back to her baseline. She is maintaining O2 saturations in the 90s on room air. She remains afebrile. Hemodynamically stable. Follow-up blood cultures revealed no growth. Urine culture no growth. White count 9.2. Hemoglobin 11.1. Sodium 141. Potassium 4.3. Creatinine 1.33. She remains on ceftriaxone. Anticoagulated with Eliquis. Objective - Vital Signs Vital signs: Vital Signs Temp 98.1 F 10/11/20 08:00 Pulse 59 L 10/11/20 08:00 Resp 18 10/11/20 08:00 BP 147/52 10/11/20 08:00 Pulse Ox 96 10/11/20 08:00 Intake & Output 10/10/20 10/11/20 10/11/20 18:59 06:59 18:59 Intake Total 1440 500 Output Total 1000 200 Balance 440 300 Weight 105.2 kg Intake: Oral 1440 500 Output: Urine 1000 200 Other: Voiding Method Toilet Toilet Toilet # Voids 1 1 # Bowel Movements 1 - Exam GENERAL EXAM: Alert, pleasant, morbidly obese 74-year-old female patient, on room air, comfortable in no apparent distress. HEAD: Normocephalic. EYES: Normal reaction of pupils, equal size. NOSE: Clear with pink turbinates. THROAT: No erythema or exudates. NECK: No masses, no JVD. CHEST: No chest wall deformity. LUNGS: Equal air entry with crackles in the left base. CVS: S1 and S2 normal with no audible murmur, regular rhythm. ABDOMEN: No hepatosplenomegaly, normal bowel sounds, no guarding or rigidity. SPINE: No scoliosis or deformity SKIN: No rashes CENTRAL NERVOUS SYSTEM: No focal deficits, tone is normal in all 4 extremities. EXTREMITIES: There is no peripheral edema. No clubbing, no cyanosis. P eripheral pulses are intact. - Labs CBC & Chem 7: 10/11/20 08:00 10/11/20 08:00 Labs: Abnormal Lab Results - Last 24 Hours (Table) 10/11/20 10/11/20 Range/Units 08:00 08:00 Hgb 11.1 L (11.4-16.0) gm/dL Hct 33.4 L (34.0-46.0) % BUN 21 H (7-17) mg/dL Creatinine 1.33 H (0.52-1.04) mg/dL Glucose 146 H (74-99) mg/dL Microbiology - Last 24 Hours (Table) 10/08/20 06:23 Blood Culture - Preliminary Blood No Growth after 72 hours 10/07/20 13:03 Blood Culture - Preliminary Blood No Growth after 72 hours Assessment and Plan Assessment: 1 Acute hypoxic respiratory failure secondary to an acute left lower lobe pneumonia, community-acquired. Recovered and on room air. 2 Acute urinary tract infection 3 Bacteremia secondary to E. coli 4 Febrile illness secondary to above, recovered 5 Leukocytosis secondary to above, recovered 6 Acute on chronic kidney disease 7 Morbid obesity 8 Mild intermittent chronic bronchial asthma 9 Hypertension 10 History of paroxysmal atrial flutter, anticoagulated with Eliquis 11 Hyperlipidemia Plan: The patient was seen and evaluated by Dr. Briseno Cleared for discharge from the pulmonary standpoint Antibiotics per ID services Follow up with Dr. Gaytan in our office in 1-2 weeks We will repeat a chest x-ray then I, the cosigning physician, performed a history & physical examination of the patient. Lungs sounds with crackles in the left lung base. Maintaining good O2 saturations in the 90s on room air. I discussed the assessment and plan of care with my nurse practitioner, Heidy Aleman. I attest to the above note as dictated by her.
--- NOTE | 2020-10-11 10:51 | P.PN ---
Subjective Progress Note Date: 10/11/20 Principal diagnosis: Paroxysmal atrial fibrillation This is a pleasant 74-year-old female patient with paroxysmal atrial fibrillation as well as hypertension and dyslipidemia was admitted to the hospital was atrial fibrillation with RVR. The patient was seen today beach she has been maintaining normal sinus mechanism. She denies any chest pain or chest discomfort or shortness of breath. She is on oral anticoagulation. Objective - Vital Signs Vital signs: Vital Signs Temp 98.1 F 10/11/20 08:00 Pulse 59 L 10/11/20 08:00 Resp 18 10/11/20 08:00 BP 147/52 10/11/20 08:00 Pulse Ox 96 10/11/20 08:00 Intake & Output 10/10/20 10/11/20 10/11/20 18:59 06:59 18:59 Intake Total 1440 500 Output Total 1000 200 Balance 440 300 Weight 105.2 kg Intake: Oral 1440 500 Output: Urine 1000 200 Other: Voiding Method Toilet Toilet Toilet # Voids 1 1 # Bowel Movements 1 - Constitutional General appearance: Present: no acute distress - Respiratory Respiratory: bilateral: CTA - Cardiovascular Rhythm: regular Heart sounds: normal: S1, S2 - Labs CBC & Chem 7: 10/11/20 08:00 10/11/20 08:00 Labs: Abnormal Lab Results - Last 24 Hours (Table) 10/11/20 10/11/20 Range/Units 08:00 08:00 Hgb 11.1 L (11.4-16.0) gm/dL Hct 33.4 L (34.0-46.0) % BUN 21 H (7-17) mg/dL Creatinine 1.33 H (0.52-1.04) mg/dL Glucose 146 H (74-99) mg/dL Microbiology - Last 24 Hours (Table) 10/08/20 06:23 Blood Culture - Preliminary Blood No Growth after 72 hours 10/07/20 13:03 Blood Culture - Preliminary Blood No Growth after 72 hours Assessment and Plan Assessment: Assessment #1 urinary tract infection #2 pneumonia #3 atrial fibrillation with rapid ventricular response #4 known paroxysmal atrial fibrillation #5 multiple comorbid conditions Plan #1 continue oral anticoagulation #2 continue oral anticoagulation #3 follow-up with the patient on when necessary case
--- NOTE | 2020-10-11 13:57 | PN ---
PROGRESS NOTE DATE OF SERVICE: 10/11/2020 REASON FOR FOLLOWUP: E coli bacteremia secondary to urinary source. INTERVAL HISTORY: The patient is currently afebrile. Patient is breathing comfortably. The patient denies having any chest pain, shortness of breath or cough. No nausea, no vomiting. No abdominal pain or diarrhea. PHYSICAL EXAMINATION: Blood pressure 147/52 with a pulse of 59, temperature 98.1. She is 96% on room air. General description is an elderly female up in the chair in no distress. RESPIRATORY SYSTEM: Unlabored breathing, clear to auscultation anteriorly. HEART: S1, S2. Regular rate and rhythm. ABDOMEN: Soft, no tenderness. LABS: Hemoglobin 11.1, white count 9.2, BUN of 21, creatinine 1.33. DIAGNOSTIC IMPRESSION AND PLAN: Patient with Escherichia coli bacteremia secondary to urinary source. Follow-up blood culture has been negative. The patient did have ultrasound did not show any significant abnormality. Plan is finish therapy with oral Ceftin for 10 days and close outpatient followup. MMODL / IJN: [id number] /
--- NOTE | 2020-10-12 09:19 | P.DS ---
Providers Date of admission: 10/06/20 20:52 Expected date of discharge: 10/11/20 Attending physician: Anton Austin MD Consults: 10/08/20 11:34 Consult Physician Routine Consulting Provider: Bonilla Carreno Consult Reason/Comments: Bacteremia Do you want consulting provider notified?: Yes Primary care physician: Fredy Prater Hospital Course: Final Diagnosis Acute urinary tract infection with E. coli sepsis Bacteremia with E. coli on culture finalization, most recent blood cultures have been negative Atrial fibrillation with fast ventricular rate Chronic kidney disease, stage III Paroxysmal atrial flutter/fibrillation Chronic intermittent mild bronchial asthma Obesity with body mass index of 42.5 Acute hypoxic respiratory failure Increased white count Anemia, normocytic Mild acute renal failure, present on admission Full code Discharge disposition Patient is being discharged in a stable condition with guarded prognosis to home. Patient will follow-up with Dr. Prater in the outpatient setting upon discharge. Patient is also instructed to follow-up with pulmonary, cardiology, and infectious disease in the outpatient setting. She will continue on oral antibiotics in the form of Ceftin 500 mg twice daily for the next 5 days to complete the course. Total time taken is greater than 35 minutes. Hospital course This is a 74-year-old female who was recently admitted with sepsis and possible acute urinary tract infection also had E. coli bacteremia and was being closely monitored. Infectious disease along with cardiology following closely. Patient had some positive blood culture showing E. coli with most recent repeat blood cultures being negative. Patient was on IV ceftriaxone and responded well and will continue Ceftin 500 mg twice daily for the next 5 days to complete the course. Patient was also seen by cardiology as she had brief episodes of atrial fibrillation with fast ventricular rate and was initiated on Cardizem and medication adjustments to her metoprolol were made. Patient states she feels much better and is currently on room air and is asking to go home. Currently no reports of chest pain, shortness of breath, or palpitations. Patient is afebrile. No reports of nausea or vomiting and patient is tolerating diet. Patient is asking to go home today. Patient will be discharged home today. On exam vital signs are stable. Cardio S1, S2 are muffled. Respiratory system shows diminished breath sounds at the bases with no wheezing or rhonchi noted. Abdomen is soft and nontender. Nervous system shows no focal deficits. Please refer to medication reconciliation sheet for a list of medications. Patient Condition at Discharge: Stable Plan - Discharge Summary Discharge Rx Participant: No New Discharge Prescriptions: New Metoprolol Tartrate [Lopressor] 100 mg PO BID 30 Days #120 tab Acetaminophen Tab [Tylenol] 650 mg PO Q6HR PRN tab PRN Reason: Mild Pain Or Fever > 100.5 Continue amLODIPine [Norvasc] 10 mg PO DAILY Atorvastatin [Lipitor] 10 mg PO HS Albuterol Sulfate [Ventolin HFA] 2 puff INHALATION RT-Q4H PRN PRN Reason: Shortness Of Breath Beclomethasone Dip 80 Mcg/Puff [Qvar 80 mcg] 2 puff INHALATION RT-BID Apixaban [Eliquis] 5 mg PO BID #60 tab Cholecalciferol [Vitamin D3 (25 Mcg = 1000 Iu)] 25 mcg PO DAILY Calcitriol [Rocaltrol] 0.25 mcg PO FR Cefuroxime Axetil [Ceftin] 500 mg PO BID 7 Days #14 tab Discharge Medication List Albuterol Sulfate [Ventolin HFA] 2 puff INHALATION RT-Q4H PRN 05/17/19 [History] Atorvastatin [Lipitor] 10 mg PO HS 05/17/19 [History] Beclomethasone Dip 80 Mcg/Puff [Qvar 80 mcg] 2 puff INHALATION RT-BID 05/17/19 [History] amLODIPine [Norvasc] 10 mg PO DAILY 05/17/19 [History] Apixaban [Eliquis] 5 mg PO BID #60 tab 08/16/19 [Rx] Calcitriol [Rocaltrol] 0.25 mcg PO FR 10/06/20 [History] Cholecalciferol [Vitamin D3 (25 Mcg = 1000 Iu)] 25 mcg PO DAILY 10/06/20 [History] Acetaminophen Tab [Tylenol] 650 mg PO Q6HR PRN tab 10/11/20 [Rx] Cefuroxime Axetil [Ceftin] 500 mg PO BID 7 Days #14 tab 10/11/20 [Rx] Metoprolol Tartrate [Lopressor] 100 mg PO BID 30 Days #120 tab 10/11/20 [Rx] Follow up Appointment(s)/Referral(s): Fredy Prater MD [Primary Care Provider] - 10/24/20 9:20 am Bonilla Carreno MD [STAFF PHYSICIAN] - 1 Week Denilson Bravo MD [STAFF PHYSICIAN] - 10/25/20 3:00 pm Daniel Briseno MD [STAFF PHYSICIAN] - 10/30/20 3:00 pm Patient Instructions/Handouts: Pneumonitis (DC), Urinary Tract Infection in Women (DC) Discharge Disposition: HOME SELF-CARE
== END 2020-10-11 14:42 | disposition home or self-care (01) | DRG 871 ==
LOC: EC 18:55 → 4SSUR 20:52 → 3SCARD 10-09 13:40 → 4SSUR 10-11 01:25
PROVIDERS: ADMIT Internal Medicine; ATTEND Internal Medicine
DX: A41.51 Sepsis due to Escherichia coli [E. coli] (principal); J18.9 Pneumonia, unspecified organism; J96.01 Acute respiratory failure with hypoxia; N17.9 Acute kidney failure, unspecified; J44.0 Chronic obstructive pulmonary disease with (acute) lower respiratory infection; I48.92 Unspecified atrial flutter; N39.0 Urinary tract infection, site not specified; Z68.41 Body mass index [BMI] 40.0-44.9, adult; J98.11 Atelectasis; D63.1 Anemia in chronic kidney disease; I48.0 Paroxysmal atrial fibrillation; E66.01 Morbid (severe) obesity due to excess calories; R65.20 Severe sepsis without septic shock; N18.30 Chronic kidney disease, stage 3 unspecified; Z20.822 Contact with and (suspected) exposure to COVID-19; I12.9 Hypertensive chronic kidney disease with stage 1 through stage 4 chronic kidney disease, or unspecified chronic kidney disease; J45.20 Mild intermittent asthma, uncomplicated; E78.5 Hyperlipidemia, unspecified; R32 Unspecified urinary incontinence; T50.B95A Adverse effect of other viral vaccines, initial encounter; Z79.01 Long term (current) use of anticoagulants; Z79.899 Other long term (current) drug therapy; Z87.442 Personal history of urinary calculi; Z98.890 Other specified postprocedural states
CPT/HCPCS: 36415; 71045; 76770; 80048; 80053; 81001; 83605; 83735; 84443; 84484; 85025; 85027; 85610; 85730; 87040; 87077; 87086; 87186; 87502; 87635; 93005; 93306; 94640; 96365; 96367; 99285

== ENCOUNTER 2021-01-16 10:16 | Inpatient (IN) | payer MEDICARE ==
[2021-01-16] MEDS ORDERED: SODIUM CHLORIDE 0.9% 1,000 ML IV STA (10:21)
[2021-01-16] MEDS ORDERED: ACETAMINOPHEN TAB 500 MG TAB PO STA (10:36)
--- NOTE | 2021-01-16 10:37 | ED ---
General Adult HPI - General Chief complaint: Weakness Stated complaint: weakness Time Seen by Provider: 01/16/21 10:20 Source: patient Mode of arrival: EMS Limitations: no limitations - History of Present Illness Initial comments: Dictation was produced using [email or web address] dictation software. please excuse any grammatical, word or spelling errors. Chief Complaint: 75-year-old female with history of sepsis presents emergency department for 2 days of cough, runny nose, dysuria. History of Present Illness: This 75-year-old female she is had 2 days of feeling generalized weakness. She feels like she is having a recurrent episode of sepsi s. Back in September. Patient was admitted to the hospital for sepsis. She states her sepsis was from UTI, pneumonia. She states that for the last 2 days she's been having worsening symptoms. She states she does have some mild suprapubic pain, burning on urination, cough, runny nose, nasal congestion. EMS was called patient had an elevated temperature. She over has normal blood pressure. Takes any coagulation medications for reported A. fib. She denies any history of immunosuppression or cancer. The ROS documented in this emergency department record has been reviewed and confirmed by me. Those systems with pertinent positive or negative responses have been documented in the HPI. All other systems are other negative and/or noncontributory. PHYSICAL EXAM: General Impression: Alert and oriented x3, not in acute distress HEENT: Normocephalic atraumatic, extra-ocular movements intact, pupils equal and reactive to light bilaterally, mucous membranes moist. Cardiovascular: Heart regular rate and rhythm Chest: Able to complete full sentences, no retractions, no tachypnea Abdomen: abdomen soft mild tenderness to the suprapubic area, non-distended, no organomegaly Musculoskeletal: Pulses present and equal in all extremities, no peripheral edema Motor: no focal deficits noted Neurological: CN II-XII grossly intact, no focal motor or sensory deficits noted Skin: Intact with no visualized rashes Psych: Normal affect and mood ED course: 75-year-old well-appearing female presents to the emergency department for generalized weakness and fever. Vital signs upon arrival shows temperature 102, rest of vital signs within acceptable limits. Laboratory evaluation obtained mild leukocytosis of 14.3. Metabolic panel is unremarkable. Urinalysis shows UTI. X-ray shows bibasilar atelectasis versus early infiltrate. Patient given ceftriaxone. Patient not having any signifi cant respiratory symptoms. I believe that most of patient's symptoms are secondary to urinary tract infection. She is not hypoxic minimally tachycardic and not hypotensive. Patient's well-appearing at bedside upon reevaluation at 11:45 AM. Patient be admitted for medical monitoring. She is given antibiotics. Patient is agreeable with plan. Case discussed with Dr. Zaman. EKG interpretation: Ventricular rate 85, normal sinus rhythm, AR interval 146, QRS 82, QTC 426. No AR prolongation, no QTC prolongation, no ST or T-wave changes noted. EKG compared to 10/06/2020 showing no changes. Overall, this EKG is unremarkable - Related Data Home Medications Medication Instructions Recorded Confirmed Albuterol Sulfate [Ventolin HFA] 2 puff INHALATION RT-Q4H PRN 05/17/19 01/16/21 Atorvastatin [Lipitor] 10 mg PO HS 05/17/19 01/16/21 amLODIPine [Norvasc] 10 mg PO DAILY 05/17/19 01/16/21 Cholecalciferol [Vitamin D3 (25 25 mcg PO DAILY 10/06/20 01/16/21 Mcg = 1000 Iu)] calcitrioL [Rocaltrol] 0.25 mcg PO FR 10/06/20 01/16/21 Ipratropium-Albuterol Nebulize 3 ml INHALATION RT-QID 01/16/21 01/16/21 [Duoneb 0.5 mg-3 mg/3 ml Soln] Metoprolol Tartrate 25 mg PO BID 01/16/21 01/16/21 Mometasone Furoate [Asmanex] 2 puff INHALATION RT-BID 01/16/21 01/16/21 Previous Rx's Medication Instructions Recorded Apixaban [Eliquis] 5 mg PO BID #60 tab 08/16/19 Acetaminophen Tab [Tylenol] 650 mg PO Q6HR PRN tab 10/11/20 Allergies Allergy/AdvReac Type Severity Reaction Status Date / Time No Known Allergies Allergy Verified 01/16/21 11:31 Review of Systems ROS Statement: Those systems with pertinent positive or pertinent negative responses have been documented in the HPI. ROS Other: All systems not noted in ROS Statement are negative. Past Medical History Past Medical History: COPD, Hypertension Additional Past Medical History / Comment(s): stage 3 kidney disease, kidney stones History of Any Multi-Drug Resistant Organisms: None Reported Past Surgical History: No Surgical Hx Reported, Tonsillectomy Past Anesthesia/Blood Transfusion Reactions: No Reported Reaction Past Psychological History: No Psychological Hx Reported Smoking Status: Never smoker Past Alcohol Use History: Rare Past Drug Use History: None Reported General Exam Limitations: no limitations Course Vital Signs 01/16/21 10:21 Temperature 102 F H Pulse Rate 86 Respiratory 18 Rate Blood Pressure 157/76 O2 Sat by Pulse 95 Oximetry Medical Decision Making - Lab Data Result diagrams: 01/16/21 10:41 01/16/21 10:41 Lab Results 01/16/21 01/16/21 01/16/21 Range/Units 10:41 10:41 10:41 WBC 14.3 H (3.8-10.6) k/uL RBC 4.27 (3.80-5.40) m/uL Hgb 12.4 (11.4-16.0) gm/dL Hct 37.4 (34.0-46.0) % MCV 87.6 (80.0-100.0) fL MCH 29.2 (25.0-35.0) pg MCHC 33.3 (31.0-37.0) g/dL RDW 13.6 (11.5-15.5) % Plt Count 219 (150-450) k/uL MPV 7.9 Neutrophils % 86 % Lymphocytes % 4 % Monocytes % 8 % Eosinophils % 1 % Basophils % 0 % Neutrophils # 12.3 H (1.3-7.7) k/uL Lymphocytes # 0.5 L (1.0-4.8) k/uL Monocytes # 1.2 H (0-1.0) k/uL Eosinophils # 0.1 (0-0.7) k/uL Basophils # 0.1 (0-0.2) k/uL Sodium 142 (137-145) mmol/L Potassium 4.6 (3.5-5.1) mmol/L Chloride 107 (98-107) mmol/L Carbon Dioxide 27 (22-30) mmol/L Anion Gap 8 mmol/L BUN 22 H (7-17) mg/dL Creatinine 1.44 H (0.52-1.04) mg/dL Est GFR (CKD-EPI)AfAm 41 (>60 ml/min/1.73 sqM) Est GFR (CKD-EPI)NonAf 36 (>60 ml/min/1.73 sqM) Glucose 134 H (74-99) mg/dL Plasma Lactic Acid Michael 2.0 (0.7-2.0) mmol/L Calcium 9.3 (8.4-10.2) mg/dL C-Reactive Protein 7.1 H (<1.0) mg/dL Urine Color Urine Appearance (Clear) Urine pH (5.0-8.0) Ur Specific [place] (1.001-1.035) Urine Protein (Negative) Urine Glucose (UA) (Negative) Urine Ketones (Negative) Urine Blood (Negative) Urine Nitrite (Negative) Urine Bilirubin (Negative) Urine Urobilinogen (<2.0) mg/dL Ur Leukocyte Esterase (Negative) Urine RBC (0-5) /hpf Urine WBC (0-5) /hpf Ur Squamous Epith Cells (0-4) /hpf Urine Bacteria (None) /hpf Urine Mucus (None) /hpf 01/16/21 Range/Units 10:41 WBC (3.8-10.6) k/uL RBC (3.80-5.40) m/uL Hgb (11.4-16.0) gm/dL Hct (34.0-46.0) % MCV (80.0-100.0) fL MCH (25.0-35.0) pg MCHC (31.0-37.0) g/dL RDW (11.5-15.5) % Plt Count (150-450) k/uL MPV Neutrophils % % Lymphocytes % % Monocytes % % Eosinophils % % Basophils % % Neutrophils # (1.3-7.7) k/uL Lymphocytes # (1.0-4.8) k/uL Monocytes # (0-1.0) k/uL Eosinophils # (0-0.7) k/uL Basophils # (0-0.2) k/uL Sodium (137-145) mmol/L Potassium (3.5-5.1) mmol/L Chloride (98-107) mmol/L Carbon Dioxide (22-30) mmol/L Anion Gap mmol/L BUN (7-17) mg/dL Creatinine (0.52-1.04) mg/dL Est GFR (CKD-EPI)AfAm (>60 ml/min/1.73 sqM) Est GFR (CKD-EPI)NonAf (>60 ml/min/1.73 sqM) Glucose (74-99) mg/dL Plasma Lactic Acid Michael (0.7-2.0) mmol/L Calcium (8.4-10.2) mg/dL C-Reactive Protein (<1.0) mg/dL Urine Color Yellow Urine Appearance Cloudy H (Clear) Urine pH 5.5 (5.0-8.0) Ur Specific [place] 1.014 (1.001-1.035) Urine Protein 1+ H (Negative) Urine Glucose (UA) Negative (Negative) Urine Ketones Negative (Negative) Urine Blood Large H (Negative) Urine Nitrite Negative (Negative) Urine Bilirubin Negative (Negative) Urine Urobilinogen <2.0 (<2.0) mg/dL Ur Leukocyte Esterase Large H (Negative) Urine RBC >182 H (0-5) /hpf Urine WBC 114 H (0-5) /hpf Ur Squamous Epith Cells <1 (0-4) /hpf Urine Bacteria Occasional H (None) /hpf Urine Mucus Rare H (None) /hpf Disposition Clinical Impression: UTI (urinary tract infection) Disposition: ADMITTED IP TO THIS HOSP Condition: Fair Referrals: Fredy Prater MD [Primary Care Provider] - 1-2 days
[2021-01-16 10:55] LABS: Basophils # (A) 0.1 k/uL (0-0.2); Basophils % (A) 0 %; Eosinophils # (A) 0.1 k/uL (0-0.7); Eosinophils % (A) 1 %; HCT 37.4 % (34.0-46.0); HGB 12.4 gm/dL (11.4-16.0); Lymphocytes # (A) 0.5 k/uL (1.0-4.8); Lymphocytes % (A) 4 %; MCH 29.2 pg (25.0-35.0); MCHC 33.3 g/dL (31.0-37.0); MCV 87.6 fL (80.0-100.0); Mean Platelet Volume 7.9; Monocytes # (A) 1.2 k/uL (0-1.0); Monocytes % (A) 8 %; Neutrophils # (A) 12.3 k/uL (1.3-7.7); Neutrophils % (A) 86 %; Platelet Count 219 k/uL (150-450); RBC 4.27 m/uL (3.80-5.40); RDW 13.6 % (11.5-15.5); WBC 14.3 k/uL (3.8-10.6)
--- NOTE | 2021-01-16 11:00 | XR ---
EXAMINATION TYPE: XR chest 1V portable DATE OF EXAM: 01/16/2021 COMPARISON: 10/09/2020 HISTORY: Fever TECHNIQUE: Single frontal view of the chest is obtained. FINDINGS: Heart is enlarged and there is bilateral subsegmental consolidation. No pneumothorax. Arth ropathy of the shoulders. Biapical pleural thickening. Hypertrophic change of the spine. IMPRESSION: 1. Cardiomegaly with by basilar atelectasis or early infiltrate.
[2021-01-16 11:07] LABS: Appearance,Urine Cloudy (Clear); Bacteria,Urine Occasional /hpf; Bilirubin,Urine Negative (Negative); Blood,Urine Large (Negative); Color,Urine Yellow; Glucose,Urine (UA) Negative (Negative); Ketones,Urine Negative (Negative); Leukocyte Esterase,Urine Large (Negative); Mucus,Urine Rare /hpf; Nitrite,Urine Negative (Negative); PH, Urine 5.5 (5.0-8.0); Protein,Urine 1+ (Negative); RBC,Urine >182 /hpf (0-5); Specific Gravity,Urine 1.014 (1.001-1.035); Squamous Epithelial Cell,Urine <1 /hpf (0-4); Urobilinogen,Urine <2.0 mg/dL (<2.0); WBC,Urine 114 /hpf (0-5)
[2021-01-16 11:13] LABS: C Reactive Protein 7.1 mg/dL (<1.0); Calcium 9.3 mg/dL (8.4-10.2); Potassium 4.6 mmol/L (3.5-5.1)
[2021-01-16] MEDS ORDERED: cefTRIAXone IN SWFI 1,000 MG/10 ML SYRINGE IVP STA (11:23)
[2021-01-16] MEDS ORDERED: NALOXONE 0.4 MG/ML 1 ML VIAL IV PRN (11:45)
[2021-01-16] MEDS: IPRATROPIUM-ALBUTEROL 3 ML NEB INHALATION SCH ×2 (12:58→18:59)
[2021-01-16] MEDS: ACETAMINOPHEN TAB 325 MG TAB PO PRN ×2 (15:24→21:59)
[2021-01-16] MEDS ORDERED: ALBUTEROL NEBULIZED 2.5 MG/3 ML INHALATION PRN (15:44)
[2021-01-16] MEDS ORDERED: ACETAMINOPHEN TAB 325 MG TAB PO PRN (15:44)
[2021-01-16] MEDS: FLUTICASONE 220 MCG INHALER INHALATION SCH (18:59)
[2021-01-16] MEDS ORDERED: ONDANSETRON 4 MG/2 ML VIAL IVP PRN (21:46)
[2021-01-16] MEDS: ATORVASTATIN 10 MG TAB PO SCH (21:50)
[2021-01-16] MEDS: METOPROLOL TARTRATE 25 MG TAB PO SCH (21:50)
[2021-01-16] MEDS: APIXABAN 5 MG TAB PO SCH (21:50)
[2021-01-16] MEDS: SODIUM CHLORIDE 0.9% 1,000 ML IV SCH ×2 (21:50)
--- NOTE | 2021-01-16 23:01 | P.HPIM ---
History of Present Illness H&P Date: 01/16/21 Chief Complaint: Generalized weakness Patient is a 75-year-old female with a known history of hypertension, COPD, paroxysmal atrial fibrillation on anticoagulation with Eliquis and a previous history of E. coli urinary tract infection and E. coli bacteremia presents to ER with complaints of not feeling well and generalized weakness for the past 2 days. Patient states that she recently had UTI and sepsis in September 2020. She was also having increased urinary frequency and lower abdominal discomfort. Denies any dysuria or hematuria. No cough or sputum production. No nausea vomiting or abdominal pain or diarrhea. Patient was brought to the hospital by EMS. On admission patient was febrile with T-max 102 F and pulse 86 and saturating at 95% on room air. Chest x-ray showed cardiomegaly with bibasilar atelectasis or early infiltrate. EKG showed normal sinus rhythm Laboratory showed WBC 14.3 hemoglobin 12.4 neutrophils 12.3 BUN 2020 creatinine 1.44 and CRP 7.1 urinalysis showed cloudy with large leukocyte Estrace and greater than 182 RBCs and 114 WBCs. Coronavirus PCR not detected. Review of Systems Constitutional: Patient does have fever and chills and generalized weakness.. Abdomen: Patient denied nausea vomiting and diarrhea and abdominal pain. Cardiovascular: Patient denies any chest pain or short of breath no palpita tions. Respiratory: patient denied any cough or sputum production. No shortness of breath Neurologic: Patient denied any numbness or tingling headache. Musculoskeletal: Patient denies any complaints of joint swelling or deformity. Skin: Negative Psychiatric: Negative Endocrine: No heat or cold intolerance. No recent weight gain. Genitourinary: No dysuria or hematuria.Increased urinary frequency. All other 14 point ROS negative except the above Past Medical History Past Medical History: COPD, Hypertension Additional Past Medical History / Comment(s): stage 3 kidney disease, kidney stones History of Any Multi-Drug Resistant Organisms: None Reported Past Surgical History: No Surgical Hx Reported, Tonsillectomy Past Anesthesia/Blood Transfusion Reactions: No Reported Reaction Past Psychological History: No Psychological Hx Reported Smoking Status: Never smoker Past Alcohol Use History: Rare Past Drug Use History: None Reported - Past Family History Father Additional Family Medical History / Comment(s): at age 39 due to heart condition Mother Additional Family Medical History / Comment(s): Possible TB. Heart Condition Medications and Allergies Home Medications Medication Instructions Recorded Confirmed Type Albuterol Sulfate [Ventolin HFA] 2 puff INHALATION RT-Q4H PRN 05/17/19 01/16/21 History Atorvastatin [Lipitor] 10 mg PO HS 05/17/19 01/16/21 History amLODIPine [Norvasc] 10 mg PO DAILY 05/17/19 01/16/21 History Apixaban [Eliquis] 5 mg PO BID #60 tab 08/16/19 01/16/21 Rx Cholecalciferol [Vitamin D3 (25 25 mcg PO DAILY 10/06/20 01/16/21 History Mcg = 1000 Iu)] calcitrioL [Rocaltrol] 0.25 mcg PO FR 10/06/20 01/16/21 History Acetaminophen Tab [Tylenol] 650 mg PO Q6HR PRN tab 10/11/20 01/16/21 Rx Ipratropium-Albuterol Nebulize 3 ml INHALATION RT-QID 01/16/21 01/16/21 History [Duoneb 0.5 mg-3 mg/3 ml Soln] Metoprolol Tartrate 25 mg PO BID 01/16/21 01/16/21 History Mometasone Furoate [Asmanex] 2 puff INHALATION RT-BID 01/16/21 01/16/21 History Allergies Allergy/AdvReac Type Severity Reaction Status Date / Time No Known Allergies Allergy Verified 01/16/21 11:31 Physical Exam Vitals: Vital Signs Temp Pulse Resp BP Pulse Ox 01/16/21 15:21 99.7 F H 76 16 161/63 99 01/16/21 14:02 98.0 F 90 16 136/65 99 01/16/21 11:47 100.4 F H 78 16 141/80 97 01/16/21 10:21 102 F H 86 18 157/76 95 Intake and Output 01/16/21 01/16/21 01/16/21 06:59 14:59 22:59 Other: Weight 104.326 kg PHYSICAL EXAMINATION: Patient is lying in the bed comfortably, no acute distress, awake alert and oriented.. HEENT: Normocephalic. Neck is supple. Pupils reactive. Nostrils clear. Oral cavity is moist. Ears reveal no drainage. Neck reveals no JVD, carotid bruits, or thyromegaly. CHEST EXAMINATION: Trachea is central. Symmetrical expansion. Lung gerber clear to auscultation and percussion. CARDIAC: Normal S1, S2 with no gallops. No murmurs ABDOMEN: Soft. Bowel sounds normal. No organomegaly. No abdominal bruits. Extremities: reveal no edema. No clubbing or cyanosis Neurologically awake, alert, oriented x3 with well-coordinated movements. No focal deficits noted Skin: No rash or skin lesions. Psychiatric: Coperative. Nonsuicidal Musculoskeletal: No joint swelling or deformity. Normal range of motion. Results CBC & Chem 7: 01/16/21 10:41 01/16/21 10:41 Labs: Abnormal Lab Results - Last 24 Hours (Table) 01/16/21 01/16/21 01/16/21 Range/Units 10:41 10:41 10:41 WBC 14.3 H (3.8-10.6) k/uL Neutrophils # 12.3 H (1.3-7.7) k/uL Lymphocytes # 0.5 L (1.0-4.8) k/uL Monocytes # 1.2 H (0-1.0) k/uL BUN 22 H (7-17) mg/dL Creatinine 1.44 H (0.52-1.04) mg/dL Glucose 134 H (74-99) mg/dL C-Reactive Protein 7.1 H (<1.0) mg/dL Urine Appearance Cloudy H (Clear) Urine Protein 1+ H (Negative) Urine Blood Large H (Negative) Ur Leukocyte Esterase Large H (Negative) Urine RBC >182 H (0-5) /hpf Urine WBC 114 H (0-5) /hpf Urine Bacteria Occasional H (None) /hpf Urine Mucus Rare H (None) /hpf Microbiology - Last 24 Hours (Table) 01/16/21 10:41 Urine Culture - Preliminary Urine,Voided Assessment and Plan Assessment: Acute urinary tract infection. Sepsis secondary to urinary tract infection. Possible early pneumonia as per chest x-ray. History of E. coli urinary tract infection and bacteremia. Hypertension Paroxysmal atrial fibrillation on anticoagulation with Eliquis COPD not in exacerbation. DVT prophylaxis patient is already Eliquis. Plan: Patient will be continued on antibiotics in the form of ceftriaxone and will add azithromycin. Continue with IV hydration and follow-up culture reports. Continue with home medications and further recommendations based on the clinical course. Time with Patient: Greater than 30
[2021-01-16] MEDS: AZITHROMYCIN 500 MG TAB PO SCH (23:55)
[2021-01-17 06:52] LABS: Glucose,Whole Blood 113 mg/dL (75-99)
[2021-01-17] MEDS: IPRATROPIUM-ALBUTEROL 3 ML NEB INHALATION SCH ×4 (07:13→20:45)
[2021-01-17] MEDS: FLUTICASONE 220 MCG INHALER INHALATION SCH ×2 (07:48→20:45)
[2021-01-17] MEDS: METOPROLOL TARTRATE 25 MG TAB PO SCH ×2 (08:21→20:30)
[2021-01-17] MEDS: CHOLECALCIFEROL 25 MCG (1000 IU) TABLET PO SCH (08:21)
[2021-01-17] MEDS: APIXABAN 5 MG TAB PO SCH ×2 (08:21→20:29)
--- NOTE | 2021-01-17 11:15 | US ---
EXAMINATION TYPE: US kidneys/renal and bladder DATE OF EXAM: 01/17/2021 COMPARISON: 10/09/2020 CLINICAL HISTORY: r/o hydronephrosis. Pain EXAM MEASUREMENTS: Right Kidney: 10.5 x 4.0 x4.2 cm Left Kidney: 9.8 x 4.5 x 4.5 cm Right Kidney: small parapelvic hypoechoic nodule measuring 0.8 x 0.6 x 0.6cm. No hydronephrosis or ne phrolithiasis. The Left Kidney: mild hydronephrosis with no definite nephrolithiasis. Bladder: wnl IMPRESSION: 1. Mild left hydronephrosis. 2. Tiny hypoechoic nodule in the right kidney too small to characterize statistically most likely rel ated to a simple cyst
[2021-01-17] MEDS: SODIUM CHLORIDE 0.9% 1,000 ML IV SCH ×2 (11:21)
[2021-01-17 11:53] LABS: Basophils # (A) 0.03 X 10*3/uL (0.00-0.10); Basophils % (A) 0.3 %; Eosinophils # (A) 0.05 X 10*3/uL (0.04-0.35); Eosinophils % (A) 0.4 %; HCT 35.2 % (37.2-46.3); HGB 10.7 g/dL (12.0-15.0); Lymphocytes # (A) 1.36 X 10*3/uL (0.90-5.00); Lymphocytes % (A) 11.7 %; MCH 28.3 pg (27.0-32.0); MCHC 30.4 g/dL (32.0-37.0); MCV 93.1 fL (80.0-97.0); Mean Platelet Volume 11.1 fL (9.5-12.2); Monocytes # (A) 1.74 X 10*3/uL (0.20-1.00); Neutrophils # (A) 8.36 X 10*3/uL (1.80-7.70); Platelet Count 197 X 10*3/uL (140-440); RBC 3.78 X 10*6/uL (4.10-5.20); RDW 13.6 % (11.5-14.5); WBC 11.61 X 10*3/uL (4.50-10.00)
--- NOTE | 2021-01-17 12:19 | P.PN ---
Subjective Progress Note Date: 01/17/21 Patient is a 75-year-old female with a known history of hypertension, COPD, paroxysmal atrial fibrillation on anticoagulation with Eliquis and a previous history of E. coli urinary tract infection and E. coli bacteremia presents to ER with complaints of not feeling well and generalized weakness for the past 2 days. Patient states that she recently had UTI and sepsis in September 2020. She was also having increased urinary frequency and lower abdominal discomfort. Denies any dysuria or hematuria. No cough or sputum production. No nausea vomiting or abdominal pain or diarrhea. Patient was brought to the hospital by EMS. On admission patient was febrile with T-max 102 F and pulse 86 and saturating at 95% on room air. Chest x-ray showed cardiomegaly with bibasilar atelectasis or early infiltrate. EKG showed normal sinus rhythm Laboratory showed WBC 14.3 hemoglobin 12.4 neutrophils 12.3 BUN 2020 creatinine 1.44 and CRP 7.1 urinalysis showed cloudy with large leukocyte Estrace and greater than 182 RBCs and 114 WBCs. Coronavirus PCR not detected. 01/17/2021 Patient is seen and evaluated in follow-up this morning with no acute overnight issues. Patient continues on IV ceftriaxone along with oral Zithromax and will continue at this time. Urine cultures continue to be pending and awaiting for finalization to determine discharge antibiotics. BMP has been ordered and drawn for this morning and continue to be pending at this time. White blood count trending down at 11.61. Patient had intermittent low-grade 99.0, early this morning and urology is currently afebrile. Patient does use breathing inhalational treatments at home and will continue. Patient denies any nausea or vomiting and is tolerating diet. Patient is up and using the bathroom and did have a bowel movement today and denies any worsening urinary symptoms of dysuria or retention. Review of systems: Constitutional: No reports of fatigue, fever, or chills Cardiovascular: No reports of chest pain or palpitations Respiratory: No reports of shortness of breath or cough GI: No reports of nausea, vomiting, or diarrhea : No reports of dysuria or retention Neurovascular: No reports of weakness or numbness All medications have been reviewed Objective - Vital Signs Vital signs: Vital Signs Temp 98.3 F 01/17/21 07:04 Pulse 70 01/17/21 07:13 Resp 18 01/17/21 07:04 BP 126/77 01/17/21 07:04 Pulse Ox 95 01/17/21 07:04 Intake & Output 01/16/21 01/17/21 01/17/21 18:59 06:59 18:59 Weight 104.326 kg 104.326 kg Other: Voiding Method Toilet # Voids 2 - Exam Patient is sitting up in the chair comfortably, no acute distress, awake alert and oriented, well-developed, well-nourished, obese. HEENT: Normocephalic. Neck is supple. Pupils reactive. Nostrils clear. Oral cavity is moist. Ears reveal no drainage. Neck reveals no JVD, carotid bruits, or thyromegaly. CHEST EXAMINATION: Trachea is central. Symmetrical expansion. Lung gerber clear to auscultation and percussion. CARDIAC: Normal S1, S2 with no gallops. No murmurs ABDOMEN: Soft. Bowel sounds normal. No organomegaly. No abdominal bruits. Extremities: reveal no edema. No clubbing or cyanosis Neurologically awake, alert, oriented x3 with well-coordinated movements. No focal deficits noted Skin: No rash or skin lesions. Psychiatric: Cooperative. Non-suicidal Musculoskeletal: No joint swelling or deformity. Normal range of motion. - Labs CBC & Chem 7: 01/17/21 07:25 01/16/21 10:41 Labs: Abnormal Lab Results - Last 24 Hours (Table) 01/16/21 01/17/21 Range/Units 19:19 07:25 WBC 11.61 H (4.50-10.00) X 10*3/uL RBC 3.78 L (4.10-5.20) X 10*6/uL Hgb 10.7 L (12.0-15.0) g/dL Hct 35.2 L (37.2-46.3) % MCHC 30.4 L (32.0-37.0) g/dL Immature Gran # 0.07 H (0.00-0.04) X 10*3/uL Neutrophils # 8.36 H (1.80-7.70) X 10*3/uL Monocytes # 1.74 H (0.20-1.00) X 10*3/uL POC Glucose (mg/dL) 113 H (75-99) mg/dL Microbiology - Last 24 Hours (Table) 01/16/21 10:41 Urine Culture - Preliminary Urine,Voided Assessment and Plan Assessment: Acute urinary tract infection. Sepsis secondary to urinary tract infection. Possible early pneumonia as per chest x-ray. History of E. coli urinary tract infection and bacteremia. Hypertension Paroxysmal atrial fibrillation on anticoagulation with Eliquis COPD not in exacerbation. DVT prophylaxis patient is already Eliquis. Plan: Patient will be continued on antibiotics in the form of IV ceftriaxone and oral azithromycin. Continue with IV hydration this morning's BMP currently pending. Urine cultures pending as well and awaiting finalization. Patient continues with breathing inhalational treatments and will continue. Instructed the patien t to increase activity as tolerated. Continue with home medications and further recommendations based on the clinical course. White blood count trending down at 11.61 hemoglobin is stable at 10.7 with no active bleeding noted. Will continue to monitor closely.
[2021-01-17 14:26] LABS: African American GFR (CKD) 42.5 (60.0-200.0); BUN/Creat Ratio 16.43 Ratio (12.00-20.00); Calcium 8.6 mg/dL (8.7-10.3); Non-African American GFR(CKD) 36.7 (60.0-200.0); Potassium 4.3 mmol/L (3.5-5.5)
[2021-01-17] MEDS: ACETAMINOPHEN TAB 325 MG TAB PO PRN (20:29)
[2021-01-17] MEDS: AZITHROMYCIN 500 MG TAB PO SCH (20:30)
[2021-01-17] MEDS: ATORVASTATIN 10 MG TAB PO SCH (20:30)
[2021-01-18] MEDS: SODIUM CHLORIDE 0.9% 1,000 ML IV SCH (00:51)
[2021-01-18 08:02] VITALS: BP 121/73; RESP 14; TEMP 98.2
[2021-01-18] MEDS: CHOLECALCIFEROL 25 MCG (1000 IU) TABLET PO SCH (08:17)
[2021-01-18] MEDS: APIXABAN 5 MG TAB PO SCH (08:17)
[2021-01-18] MEDS: METOPROLOL TARTRATE 25 MG TAB PO SCH (08:17)
[2021-01-18] MEDS: FLUTICASONE 220 MCG INHALER INHALATION SCH (09:06)
[2021-01-18] MEDS: IPRATROPIUM-ALBUTEROL 3 ML NEB INHALATION SCH ×2 (09:06→12:20)
[2021-01-18 11:00] LABS: Basophils % (A) 0 %; Eosinophils # (A) 0.3 k/uL (0-0.7); Eosinophils % (A) 3 %; HCT 34.8 % (34.0-46.0); HGB 11.3 gm/dL (11.4-16.0); Lymphocytes # (A) 1.6 k/uL (1.0-4.8); Lymphocytes % (A) 17 %; MCH 29.1 pg (25.0-35.0); MCHC 32.5 g/dL (31.0-37.0); MCV 89.5 fL (80.0-100.0); Mean Platelet Volume 8.1; Monocytes # (A) 1.1 k/uL (0-1.0); Monocytes % (A) 11 %; Neutrophils # (A) 6.2 k/uL (1.3-7.7); Neutrophils % (A) 65 %; Platelet Count 185 k/uL (150-450); RBC 3.89 m/uL (3.80-5.40); RDW 13.6 % (11.5-15.5); WBC 9.4 k/uL (3.8-10.6)
[2021-01-18 11:46] LABS: African American GFR (CKD) 48 (>60 ml/min/1.73 sqM); Anion Gap 5 mmol/L; Blood Urea Nitrogen 19 mg/dL (7-17); Carbon Dioxide 25 mmol/L (22-30); Chloride 112 mmol/L (98-107); Glucose 110 mg/dL (74-99); Non-African American GFR(CKD) 42 (>60 ml/min/1.73 sqM); Potassium 4.5 mmol/L (3.5-5.1); Sodium 142 mmol/L (137-145)
[2021-01-18 11:48] LABS: Calcium 8.6 mg/dL (8.4-10.2)
[2021-01-18 12:29] VITALS: PULSE 78
--- NOTE | 2021-01-18 16:37 | P.DS ---
Providers Date of admission: 01/17/21 10:23 Expected date of discharge: 01/18/21 Attending physician: Joe Zaman Primary care physician: Fredy Prater Hospital Course: Final diagnosis Acute urinary tract infection with E. coli Sepsis secondary to urinary tract infection. Possible early pneumonia as per chest x-ray. History of E. coli urinary tract infection and bacteremia. Hypertension Paroxysmal atrial fibrillation on anticoagulation with Eliquis COPD not in exacerbation. DVT prophylaxis patient is already Eliquis. Discharge disposition Patient is being discharged in a stable condition with guarded prognosis to home. Patient will follow-up with Dr. Prater in the outpatient setting upon discharge. Patient is also to follow-up with urology outpatient in one week. Patient will continue on oral antibiotic in the form of Cipro 500 mg twice daily for the next 1 week. Total time taken is greater than 35 minutes. Hospital course Patient is a 75-year-old female with a known history of hypertension, COPD, paroxysmal atrial fibrillation on anticoagulation with Eliquis and a previous history of E. coli urinary tract infection and E. coli bacteremia presents to ER with complaints of not feeling well and generalized weakness for the past 2 days. Patient states that she recently had UTI and sepsis in September 2020. She was also having increased urinary frequency and lower abdominal discomfort. Denies any dysuria or hematuria. No cough or sputum production. No nausea vomiting or abdominal pain or diarrhea. Patient was brought to the hospital by EMS. On admission patient was febrile with T-max 102 F and pulse 86 and saturating at 95% on room air. Chest x-ray showed cardiomegaly with bibasilar atelectasis or early infiltrate. EKG showed normal sinus rhythm Laboratory showed WBC 14.3 hemoglobin 12.4 neutrophils 12.3 BUN 2020 creatinine 1.44 and CRP 7.1 urinalysis showed cloudy with large leukocyte Estrace and greater than 182 RBCs and 114 WBCs. Coronavirus PCR not detected. 01/17/2021 Patient is seen and evaluated in follow-up this morning with no acute overnight issues. Patient continues on IV ceftriaxone along with oral Zithromax and will continue at this time. Urine cultures continue to be pending and awaiting for finalization to determine discharge antibiotics. BMP has been ordered and drawn for this morning and continue to be pending at this time. White blood count trending down at 11.61. Patient had intermittent low-grade 99.0, early this morning and urology is currently afebrile. Patient does use breathing inhalational treatments at home and will continue. Patient denies any nausea or vomiting and is tolerating diet. Patient is up and using the bathroom and did have a bowel movement today and denies any worsening urinary symptoms of dysuria or retention. 01/18/2021 Patient is seen and evaluated in follow-up this morning with no acute overnight issues. Urine cultures finalized showing E. coli and will continue with oral antibiotics in the form of Cipro 500 mg twice daily for the next 1 week and finished a course of Zithromax as well. Patient instructed to follow-up with primary care provider upon discharge and recommend repeat labs to continue to monitor electrolytes along with CBC and kidney functions. During hospitalization patient underwent ultrasound of the abdomen and bladder showing a small parapelvic hypoechoic nodule measuring 0.8 x 0.6 x 0.6 cm with no hydronephrosis or nephrolithiasis of the right kidney and the left kidney showed mild hydronephrosis with no definite nephrolithiasis and bladder was within normal limits. Patient is urinating with no difficulties and recommending urology follow-up with possible repeat ultrasound. Current creatinine is improving and is 1.2 and prescriptions provided and recommend repeat labs to closely monitor kidney functions. White blood count also improved at 9.4 and hemoglobin is stable at 11.3. Discussed with the patient at length about the importance of wiping from front to the back to prevent bacteria exposure and decrease risks of urinary tract infections. Encourage fluids as well. Currently no reports of chest pain, worsening shortness of breath, or palpitations. Patient is afebrile. No reports of nausea or vomiting noted. Patient will be discharged home today. On exam vital signs are stable. Cardio S1, S2 are muffled. Respiratory system shows diminished breath sounds at the bases with no wheezing or rhonchi noted. Abdomen is soft , obese, and nontender. Nervous system shows no focal deficits. Please refer to medication reconciliation sheet for a list of medications. Patient Condition at Discharge: Fair Plan - Discharge Summary Discharge Rx Participant: No New Discharge Prescriptions: New Ciprofloxacin HCl [Cipro] 500 mg PO BID 7 Days #14 tab Budesonide [Pulmicort] 0.25 mg INHALATION BID 30 Days #30 neb Azithromycin [Zithromax] 500 mg PO HS 3 Days #3 tab Continue amLODIPine [Norvasc] 10 mg PO DAILY Atorvastatin [Lipitor] 10 mg PO HS Albuterol Sulfate [Ventolin HFA] 2 puff INHALATION RT-Q4H PRN PRN Reason: Shortness Of Breath Apixaban [Eliquis] 5 mg PO BID #60 tab Cholecalciferol [Vitamin D3 (25 Mcg = 1000 Iu)] 25 mcg PO DAILY calcitrioL [Rocaltrol] 0.25 mcg PO FR Acetaminophen Tab [Tylenol] 650 mg PO Q6HR PRN tab PRN Reason: Mild Pain Or Fever > 100.5 Metoprolol Tartrate 25 mg PO BID Ipratropium-Albuterol Nebulize [Duoneb 0.5 mg-3 mg/3 ml Soln] 3 ml INHALATION RT-QID 30 Days #90 neb Discontinued Mometasone Furoate [Asmanex] 2 puff INHALATION RT-BID Discharge Medication List Albuterol Sulfate [Ventolin HFA] 2 puff INHALATION RT-Q4H PRN 05/17/19 [History] Atorvastatin [Lipitor] 10 mg PO HS 05/17/19 [History] amLODIPine [Norvasc] 10 mg PO DAILY 05/17/19 [History] Apixaban [Eliquis] 5 mg PO BID #60 tab 08/16/19 [Rx] Cholecalciferol [Vitamin D3 (25 Mcg = 1000 Iu)] 25 mcg PO DAILY 10/06/20 [History] calcitrioL [Rocaltrol] 0.25 mcg PO FR 10/06/20 [History] Acetaminophen Tab [Tylenol] 650 mg PO Q6HR PRN tab 10/11/20 [Rx] Metoprolol Tartrate 25 mg PO BID 01/16/21 [History] Azithromycin [Zithromax] 500 mg PO HS 3 Days #3 tab 01/18/21 [Rx] Budesonide [Pulmicort] 0.25 mg INHALATION BID 30 Days #30 neb 01/18/21 [Rx] Ciprofloxacin HCl [Cipro] 500 mg PO BID 7 Days #14 tab 01/18/21 [Rx] Ipratropium-Albuterol Nebulize [Duoneb 0.5 mg-3 mg/3 ml Soln] 3 ml INHALATION RT-QID 30 Days #90 neb 01/18/21 [Rx] Follow up Appointment(s)/Referral(s): Fredy Prater MD [Primary Care Provider] - 01/22/21 3:00 pm Giuseppe Moreau MD [STAFF PHYSICIAN] - 1 Week (Office will call you with your appointment date and time. Thank you.) Ambulatory/Diagnostic Orders: Complete Blood Count w/diff [LAB.AMB] Time Frame: 2 Days, Location: None Selected Patient Instructions/Handouts: Urinary Tract Infection in Women (DC) Activity/Diet/Wound Care/Special Instructions: Activity Limited until follow-up Continue with antibiotics until finished Follow-up with primary care provider upon discharge Repeat labs in 2-3 days follow up with urology outpatient in one week related to mild hydronephrosis on the left Follow-up repeat ultrasound of the kidneys with urology outpatient Continue current diet Encourage fluids wipe from the front to the back when using the bathroom Discharge Disposition: HOME SELF-CARE
== END 2021-01-18 13:49 | disposition home or self-care (01) | DRG 871 ==
LOC: EC 10:16 → INTOOBSV 11:52 → 4SSUR 11:52 → OBSVTOIN 01-17 10:23
PROVIDERS: ADMIT Internal Medicine; ATTEND Internal Medicine
DX: A41.51 Sepsis due to Escherichia coli [E. coli] (principal); J18.9 Pneumonia, unspecified organism; N39.0 Urinary tract infection, site not specified; J44.0 Chronic obstructive pulmonary disease with (acute) lower respiratory infection; Z68.41 Body mass index [BMI] 40.0-44.9, adult; R35.0 Frequency of micturition; I12.9 Hypertensive chronic kidney disease with stage 1 through stage 4 chronic kidney disease, or unspecified chronic kidney disease; N18.30 Chronic kidney disease, stage 3 unspecified; R00.0 Tachycardia, unspecified; E66.9 Obesity, unspecified; I48.0 Paroxysmal atrial fibrillation; Z20.822 Contact with and (suspected) exposure to COVID-19; Z79.01 Long term (current) use of anticoagulants; Z87.440 Personal history of urinary (tract) infections; Z87.442 Personal history of urinary calculi; Z79.899 Other long term (current) drug therapy; Z79.51 Long term (current) use of inhaled steroids; Z87.19 Personal history of other diseases of the digestive system
CPT/HCPCS: 36415; 71045; 76770; 80048; 81001; 83605; 85025; 86140; 87040; 87077; 87086; 87186; 87635; 93005; 94640; 96361; 96374; 99285

== ENCOUNTER 2021-04-04 11:59 | Emergency (ER) | payer MEDICARE ==
[2021-04-04 12:08] VITALS: BP 141/84; PULSE 64; RESP 18; TEMP 97.9
--- NOTE | 2021-04-04 13:03 | ED ---
Female Urogenital HPI - General Chief complaint: Urogenital Stated complaint: Urogenital Time Seen by Provider: 04/04/21 12:40 Source: patient Mode of arrival: ambulatory Limitations: no limitations - History of Present Illness Initial comments: Tara is a 75-year-old female with a history of chronic kidney disease and recurrent urinary tract infections. Patient presents to the emergency Department today with 3 days of dysuria and a subjective fever. Patient reports her last antibiotics were in December of this year. She's had no nausea vomiting abdominal pain or flank pain today. She states that she was worried she had a urinary tract infection did not want to wait until she was sick enough to be hospitalized so she came in today. - Related Data Home Medications Medication Instructions Recorded Confirmed Albuterol Sulfate [Ventolin HFA] 2 puff INHALATION RT-Q4H PRN 05/17/19 04/04/21 Atorvastatin [Lipitor] 10 mg PO HS 05/17/19 04/04/21 amLODIPine [Norvasc] 10 mg PO DAILY 05/17/19 04/04/21 Cholecalciferol [Vitamin D3 (25 25 mcg PO DAILY 10/06/20 04/04/21 Mcg = 1000 Iu)] calcitrioL [Rocaltrol] 0.25 mcg PO FR 10/06/20 04/04/21 Metoprolol Tartrate 25 mg PO BID 01/16/21 04/04/21 Budesonide [Pulmicort] 0.25 mg INHALATION RT-BID 04/04/21 04/04/21 Previous Rx's Medication Instructions Recorded Apixaban [Eliquis] 5 mg PO BID #60 tab 08/16/19 Acetaminophen Tab [Tylenol] 650 mg PO Q6HR PRN tab 10/11/20 Ipratropium-Albuterol Nebulize 3 ml INHALATION RT-QID 30 Days #90 01/18/21 [Duoneb 0.5 mg-3 mg/3 ml Soln] neb Nitrofurantoin Monohyd/M-Cryst 100 mg PO Q12HR 3 Days #6 cap 04/04/21 [Macrobid] Allergies Allergy/AdvReac Type Severity Reaction Status Date / Time No Known Allergies Allergy Verified 04/04/21 13:48 Review of Systems ROS Statement: Those systems with pertinent positive or pertinent negative responses have been documented in the HPI. ROS Other: All systems not noted in ROS Statement are negative. Past Medical History Past Medical History: COPD, Hypertension Additional Past Medical History / Comment(s): stage 3 kidney disease, kidney stones History of Any Multi-Drug Resistant Organisms: None Reported Past Surgical History: No Surgical Hx Reported, Tonsillectomy Past Anesthesia/Blood Transfusion Reactions: No Reported Reaction Past Psychological History: No Psychological Hx Reported Smoking Status: Never smoker Past Alcohol Use History: Rare Past Drug Use History: None Reported - Past Family History Father Additional Family Medical History / Comment(s): at age 39 due to heart condition Mother Additional Family Medical History / Comment(s): Possible TB. Heart Condition General Exam - General Exam Comments Initial Comments: Physical Exam GENERAL: Patient is well-developed and well-nourished. Patient is nontoxic and well- hydrated and is in no distress. HENT: Normocephalic, Atraumatic. EYES: PERRL, EOMI PULMONARY: Unlabored respirations. No audible rales rhonchi or wheezing was noted. CARDIOVASCULAR: There is a regular rate and rhythm without any murmurs gallops or rubs. ABDOMEN: Soft and nontender with normal bowel sounds. No flank pain SKIN: Skin is clear with no lesions or rashes and otherwise unremarkable. : Deferred NEUROLOGIC: Patient is alert and oriented x3. Moving all extremities spontaneously MUSCULOSKELETAL: Normal extremities with adequate strength and full range of motion. No lower extremity swelling or edema. No calf tenderness. PSYCHIATRIC: Normal psychiatric evaluation. Limitations: no limitations Course Vital Signs 04/04/21 12:04 Temperature 97.9 F Pulse Rate 64 Respiratory 18 Rate Blood Pressure 141/84 O2 Sat by Pulse 99 Oximetry Medical Decision Making - Medical Decision Making She was seen and evaluated history is obtained from the patient very well- appearing 75-year-old female no Sirs criteria presenting with dysuria. Urine was obtained and is consistent with a urinary tract infection. Microbiology of urine over the past one year was reviewed patient E. coli martin susceptible to antibiotics. Patient be treated with Macrobid. Patient agreeable this. Prescription was provided patient was discharged home in stable condition. - Lab Data Lab Results 04/04/21 Range/Units 12:39 Urine Color Dark Brown Urine Appearance Turbid H (Clear) Urine pH 5.5 (5.0-8.0) Ur Specific [place] 1.021 (1.001-1.035) Urine Protein 2+ H (Negative) Urine Glucose (UA) Negative (Negative) Urine Ketones Negative (Negative) Urine Blood Large H (Negative) Urine Nitrite Negative (Negative) Urine Bilirubin Negative (Negative) Urine Urobilinogen <2.0 (<2.0) mg/dL Ur Leukocyte Esterase Moderate H (Negative) Urine RBC >182 H (0-5) /hpf Urine WBC 6 H (0-5) /hpf Ur Squamous Epith Cells 5 H (0-4) /hpf Urine Mucus Moderate H (None) /hpf Urine Yeast (Budding) Many H (None) /hpf Disposition Clinical Impression: UTI (urinary tract infection) Disposition: HOME SELF-CARE Condition: Stable Instructions (If sedation given, give patient instructions): Urinary Tract Infection in Women (ED) Prescriptions: Nitrofurantoin Monohyd/M-Cryst [Macrobid] 100 mg PO Q12HR 3 Days #6 cap Is patient prescribed a controlled substance at d/c from ED?: No Referrals: Fredy Prater MD [Primary Care Provider] - 1-2 days
[2021-04-04 13:20] LABS: Appearance,Urine Turbid (Clear); Bilirubin,Urine Negative (Negative); Blood,Urine Large (Negative); Budding Yeast,Urine Many /hpf; Color,Urine Dark Brown; Glucose,Urine (UA) Negative (Negative); Ketones,Urine Negative (Negative); Leukocyte Esterase,Urine Moderate (Negative); Mucus,Urine Moderate /hpf; Nitrite,Urine Negative (Negative); PH, Urine 5.5 (5.0-8.0); Protein,Urine 2+ (Negative); RBC,Urine >182 /hpf (0-5); Specific Gravity,Urine 1.021 (1.001-1.035); Squamous Epithelial Cell,Urine 5 /hpf (0-4); Urobilinogen,Urine <2.0 mg/dL (<2.0); WBC,Urine 6 /hpf (0-5)
== END 2021-04-04 13:56 | disposition home or self-care (01) ==
LOC: EC 11:59
DX: N39.0 Urinary tract infection, site not specified (principal); I12.9 Hypertensive chronic kidney disease with stage 1 through stage 4 chronic kidney disease, or unspecified chronic kidney disease; N18.9 Chronic kidney disease, unspecified; J44.9 Chronic obstructive pulmonary disease, unspecified; Z79.51 Long term (current) use of inhaled steroids; Z79.899 Other long term (current) drug therapy
CPT/HCPCS: 81001; 99283

== ENCOUNTER → 2022-03-11 | Outpatient (CLI) | payer MEDICARE ==
--- NOTE | 2022-03-11 18:20 | US ---
EXAMINATION TYPE: US kidneys/renal and bladder DATE OF EXAM: 03/11/2022 COMPARISON: 01/17/2021 CLINICAL HISTORY: 76-year-old female N18.32 CHRONIC KIDNEY DISEASE STAGE 3B. TECHNIQUE: Multiple sonographic images of the kidneys and bladder are obtained. FINDINGS: EXAM MEASUREMENTS: Right Kidney: 9.1 x 3.9 x 4.2 cm Left Kidney: 9.9 x 4.7 x 4.5 cm [employer] Spinner notes: Limited by large pt body habitus Right Kidney: Cortical thinning. No hydronephrosis. Left Kidney: Cortical thinning. Unchanged central fullness of the renal collecting system versus unde rlying parapelvic cysts, largest= 1.6 x 1.2 x 1.8 cm Bladder: Underdistention limits evaluation. Bilateral Jets seen: No IMPRESSION: Unchanged fullness of the left renal collecting system could reflect mild hydronephrosis versus under lying parapelvic cysts, largest measuring 1.8 cm. Consider more definitive assessment with a contrast -enhanced CT of the abdomen.
== END | disposition home or self-care (01) ==
LOC: RADUSWWP 14:12
PROVIDERS: ATTEND Internal Medicine
DX: N18.32 Chronic kidney disease, stage 3b (principal)
CPT/HCPCS: 76770

== ENCOUNTER 2023-07-29 14:35 | Inpatient (IN) | payer MEDICARE ==
--- NOTE | 2023-07-29 15:08 | XR ---
EXAMINATION TYPE: XR chest 2V DATE OF EXAM: 07/29/2023 COMPARISON: NONE TECHNIQUE: PA and lateral views submitted. HISTORY: Cough FINDINGS: The lungs are clear and there is no pneumothorax, pleural effusion, or focal pneumonia. Heart size normal and no overt failure. Osseous structures demonstrate hypertrophic and degenerative changes of the spine. Mild cardiomegaly with subsegmental changes in the left perihilar region. Diffuse osteopen ia with AC joint arthropathy. IMPRESSION: 1. No left-sided scarring or atelectasis.
[2023-07-29] MEDS ORDERED: AZITHROMYCIN 500 MG in SODIUM CHLORIDE 0.9% 250 ML IVPB STA (16:04)
[2023-07-29] MEDS ORDERED: IPRATROPIUM-ALBUTEROL 3 ML NEB INHALATION STA (16:04)
[2023-07-29] MEDS ORDERED: methylPREDNISolone SOD SUCCI 125 MG/2 ML VIAL IV STA (16:04)
[2023-07-29] MEDS ORDERED: SODIUM CHLORIDE 0.9% 500 ML IV STA (16:20)
[2023-07-29] MEDS ORDERED: SODIUM CHLORIDE 0.9% 1,000 ML IV STA (16:20)
--- NOTE | 2023-07-29 17:37 | ED ---
SOB HPI - General Chief Complaint: Shortness of Breath Stated Complaint: SOB Time Seen by Provider: 07/29/23 15:58 Source: patient Mode of arrival: ambulatory Limitations: no limitations - History of Present Illness Initial Comments: This 77-year-old female presents with a complaint of shortness of breath. This been present over the past couple of days. She has had a significant cough with whitish production. She states that she had a fever of 103 yesterday. She has had some moderate to significant chills as well. He denies any chest pain. Th ere is no leg pain or swelling. She does relate a history of COPD. She utilizes nebulized breathing treatments at home but is not on oxygen regularly. She states that she has severe exertional dyspnea and cannot even walk across the room. She states that she used her rescue inhaler for the first time and a urinary half yesterday. No other complaints or modifying factors. - Related Data Home Medications Medication Instructions Recorded Confirmed amLODIPine [Norvasc] 10 mg PO DAILY 05/17/19 07/29/23 calcitrioL [Rocaltrol] 0.25 mcg PO SUTUTHSA 10/06/20 07/29/23 Metoprolol Tartrate 25 mg PO BID 01/16/21 07/29/23 Budesonide [Pulmicort] 0.25 mg INHALATION RT-QID 04/04/21 07/29/23 Apixaban [Eliquis] 5 mg PO DIRECTED 07/29/23 07/29/23 Atorvastatin [Lipitor] 20 mg PO DAILY 07/29/23 07/29/23 Cholecalciferol [Vitamin D3 (125 125 mcg PO DAILY 07/29/23 07/29/23 Mcg = 5000 Iu)] Formoterol Fumarate [Perforomist] 20 mcg INHALATION RT-QID 07/29/23 07/29/23 Montelukast [Singulair] 10 mg PO DIRECTED 07/29/23 07/29/23 Previous Rx's Medication Instructions Recorded Ipratropium-Albuterol Nebulize 3 ml INHALATION RT-QID 30 Days #90 01/18/21 [Duoneb 0.5 mg-3 mg/3 ml Soln] neb Allergies Allergy/AdvReac Type Severity Reaction Status Date / Time No Known Allergies Allergy Verified 07/29/23 18:55 Review of Systems ROS Statement: Those systems with pertinent positive or pertinent negative responses have been documented in the HPI. ROS Other: All systems not noted in ROS Statement are negative. Past Medical History Past Medical History: COPD, Hypertension Additional Past Medical History / Comment(s): stage 3 kidney disease, kidney stones History of Any Multi-Drug Resistant Organisms: None Reported Past Surgical History: No Surgical Hx Reported, Tonsillectomy Past Anesthesia/Blood Transfusion Reactions: No Reported Reaction Past Psychological History: No Psychological Hx Reported Smoking Status: Never smoker Past Alcohol Use History: Rare Past Drug Use History: None Reported - Past Family History Father Additional Family Medical History / Comment(s): at age 39 due to heart condition Mother Additional Family Medical History / Comment(s): Possible TB. Heart Condition General Exam - General Exam Comments Initial Comments: GENERAL: The patient is well nourished and well hydrated. VITAL SIGNS: Heart rate, blood pressure, respiratory rate reviewed as recorded in nurse's notes. EYES: Pupils are round and reactive. Extraocular movements are intact. No conjunctival / lid redness or swelling. ENT: No external evidence of injury, swelling, or ecchymosis. Airway is patent. Throat is clear. NECK: Nontender. No swelling or evidence of injury. No subcutaneous emphysema. Trachea is midline. No thyroid mass. HEART: Regular rate and rhythm. Good peripheral pulses. LUNGS/CHEST: Wheezing is noted bilaterally, no acute respiratory distress, no subcutaneous emphysema, or tenderness. ABDOMEN: Abdomen soft without tenderness. No palpable masses or organomegaly. No peritoneal signs. No abdominal wall swelling or ecchymosis. EXTREMITIES: No extremity tenderness. Normal muscle tone and function. No thoracolumbar tenderness. NEUROLOGIC: Sensation is grossly intact. Cranial nerve exam reveals face is symmetrical, tongue is midline, speech is clear. SKIN: No abrasions or ecchymosis is noted. No induration or masses noted. PSYCHIATRIC: Alert and oriented. Appropriate behavior and judgment. Limitations: no limitations Course Vital Signs 07/29/23 07/29/23 07/29/23 14:36 17:47 17:56 Temperature 98 F Pulse Rate 100 88 90 Respiratory 20 18 18 Rate Blood Pressure 153/68 O2 Sat by Pulse 94 L Oximetry Medical Decision Making - Medical Decision Making The patient was seen and examined. All diagnostics are reviewed. An IV is established she is placed on the surveillance system monitor. No ectopy is identified. Viral studies are negative. Chest x-ray does not show any evidence of infiltrate or acute process per my interpretation. Patient does receive a DuoNeb breathing treatment 2 as well as Solu-Medrol intravenously. It is felt as though her symptomatology likely is related to COPD exacerbation and bronchitis. It is felt as though she would require admission to hospital for further treatment. Case is discussed with internal medicine and they're agreeable with admission. IV antibiotics are initiated. The laboratory does show mild renal insufficiency which she does relate a history of renal disease. It is felt as though she has exacerbation of COPD as well as bronchitis. She does have chills currently and Tylenol also is ordered. She is feeling improved on recheck after breathing treatments. It is felt as though she would require admission for further treatment inpatient. Patient is agreeable. Case is discussed with internal medicine and they're agreeable with admission. She does see Dr. Gaytan from pulmonology and he will be consulted. - Lab Data Result diagrams: 07/29/23 16:45 07/29/23 16:45 Lab Results 07/29/23 07/29/23 07/29/23 Range/Units 14:42 16:45 16:45 WBC 8.5 (3.8-10.6) k/uL RBC 4.63 (3.80-5.40) m/uL Hgb 13.6 (11.4-16.0) gm/dL Hct 41.6 (34.0-46.0) % MCV 89.7 (80.0-100.0) fL MCH 29.4 (25.0-35.0) pg MCHC 32.8 (31.0-37.0) g/dL RDW 13.4 (11.5-15.5) % Plt Count 244 (150-450) k/uL MPV 8.0 Neutrophils % 76 % Lymphocytes % 11 % Monocytes % 8 % Eosinophils % 3 % Basophils % 1 % Neutrophils # 6.4 (1.3-7.7) k/uL Lymphocytes # 0.9 L (1.0-4.8) k/uL Monocytes # 0.7 (0-1.0) k/uL Eosinophils # 0.2 (0-0.7) k/uL Basophils # 0.1 (0-0.2) k/uL PT 10.6 (10.0-12.5) sec INR 1.0 (<1.2) APTT 25.8 (22.0-30.0) sec D-Dimer 0.27 (<0.60) mg/L FEU Sodium (137-145) mmol/L Potassium (3.5-5.1) mmol/L Chloride (98-107) mmol/L Carbon Dioxide (22-30) mmol/L Anion Gap mmol/L BUN (7-17) mg/dL Creatinine (0.52-1.04) mg/dL Est GFR (CKD-EPI)AfAm (>60 ml/min/1.73 sqM) Est GFR (CKD-EPI)NonAf (>60 ml/min/1.73 sqM) Glucose (74-99) mg/dL Calcium (8.4-10.2) mg/dL Total Bilirubin (0.2-1.3) mg/dL AST (14-36) U/L ALT (4-34) U/L Alkaline Phosphatase (38-126) U/L Troponin I (0.000-0.034) ng/mL NT-Pro-B Natriuret Pep pg/mL Total Protein (6.3-8.2) g/dL Albumin (3.5-5.0) g/dL Influenza Type A (PCR) Not Detected (Not Detectd) Influenza Type B (PCR) Not Detected (Not Detectd) RSV (PCR) Not Detected (Not Detectd) SARS-CoV-2 (PCR) Not Detected (Not Detectd) 07/29/23 07/29/23 Range/Units 16:45 16:45 WBC (3.8-10.6) k/uL RBC (3.80-5.40) m/uL Hgb (11.4-16.0) gm/dL Hct (34.0-46.0) % MCV (80.0-100.0) fL MCH (25.0-35.0) pg MCHC (31.0-37.0) g/dL RDW (11.5-15.5) % Plt Count (150-450) k/uL MPV Neutrophils % % Lymphocytes % % Monocytes % % Eosinophils % % Basophils % % Neutrophils # (1.3-7.7) k/uL Lymphocytes # (1.0-4.8) k/uL Monocytes # (0-1.0) k/uL Eosinophils # (0-0.7) k/uL Basophils # (0-0.2) k/uL PT (10.0-12.5) sec INR (<1.2) APTT (22.0-30.0) sec D-Dimer (<0.60) mg/L FEU Sodium 139 (137-145) mmol/L Potassium 4.5 (3.5-5.1) mmol/L Chloride 105 (98-107) mmol/L Carbon Dioxide 22 (22-30) mmol/L Anion Gap 12 mmol/L BUN 20 H (7-17) mg/dL Creatinine 1.53 H (0.52-1.04) mg/dL Est GFR (CKD-EPI)AfAm 38 (>60 ml/min/1.73 sqM) Est GFR (CKD-EPI)NonAf 33 (>60 ml/min/1.73 sqM) Glucose 120 H (74-99) mg/dL Calcium 9.3 (8.4-10.2) mg/dL Total Bilirubin 0.7 (0.2-1.3) mg/dL AST 27 (14-36) U/L ALT 23 (4-34) U/L Alkaline Phosphatase 122 (38-126) U/L Troponin I <0.012 (0.000-0.034) ng/mL NT-Pro-B Natriuret Pep 453 pg/mL Total Protein 7.2 (6.3-8.2) g/dL Albumin 4.1 (3.5-5.0) g/dL Influenza Type A (PCR) (Not Detectd) Influenza Type B (PCR) (Not Detectd) RSV (PCR) (Not Detectd) SARS-CoV-2 (PCR) (Not Detectd) Disposition Clinical Impression: Acute exacerbation of chronic obstructive pulmonary disease, Bronchitis, Bronchospasm, Renal insufficiency Disposition: ADMITTED IP TO THIS HOSP Condition: Fair Is patient prescribed a controlled substance at d/c from ED?: No Referrals: Fredy Prater MD [Primary Care Provider] - 1-2 days Time of Disposition: 17:36 Decision Date: 07/29/23 Decision Time: 17:36
[2023-07-29 17:59] LABS: Basophils # (A) 0.1 k/uL (0-0.2); Basophils % (A) 1 %; Eosinophils # (A) 0.2 k/uL (0-0.7); Eosinophils % (A) 3 %; HCT 41.6 % (34.0-46.0); HGB 13.6 gm/dL (11.4-16.0); Lymphocytes # (A) 0.9 k/uL (1.0-4.8); Lymphocytes % (A) 11 %; MCH 29.4 pg (25.0-35.0); MCHC 32.8 g/dL (31.0-37.0); MCV 89.7 fL (80.0-100.0); Monocytes # (A) 0.7 k/uL (0-1.0); Monocytes % (A) 8 %; Neutrophils # (A) 6.4 k/uL (1.3-7.7); Neutrophils % (A) 76 %; Platelet Count 244 k/uL (150-450); RBC 4.63 m/uL (3.80-5.40); RDW 13.4 % (11.5-15.5); WBC 8.5 k/uL (3.8-10.6)
[2023-07-29 18:14] LABS: ALT 23 U/L (4-34); AST 27 U/L (14-36); African American GFR (CKD) 38 (>60 ml/min/1.73 sqM); Albumin 4.1 g/dL (3.5-5.0); Alkaline Phosphatase 122 U/L (38-126); Anion Gap 12 mmol/L; Blood Urea Nitrogen 20 mg/dL (7-17); Calcium 9.3 mg/dL (8.4-10.2); Carbon Dioxide 22 mmol/L (22-30); Chloride 105 mmol/L (98-107); Glucose 120 mg/dL (74-99); Non-African American GFR(CKD) 33 (>60 ml/min/1.73 sqM); Potassium 4.5 mmol/L (3.5-5.1); Sodium 139 mmol/L (137-145); Total Bilirubin 0.7 mg/dL (0.2-1.3); Total Protein 7.2 g/dL (6.3-8.2)
[2023-07-29 18:22] LABS: NT-Pro-B-Type Natriuretic Pept 453 pg/mL
[2023-07-29 18:38] LABS: Partial Thromboplastin Time 25.8 sec (22.0-30.0); Prothrombin Time 10.6 sec (10.0-12.5)
[2023-07-29] MEDS ORDERED: ONDANSETRON 4 MG/2 ML VIAL IVP PRN (19:20)
[2023-07-29] MEDS ORDERED: ACETAMINOPHEN TAB 500 MG TAB PO STA (19:24)
[2023-07-29] MEDS: METOPROLOL TARTRATE 25 MG TAB PO SCH (20:48)
[2023-07-29] MEDS: APIXABAN 5 MG TAB PO SCH (20:48)
[2023-07-29] MEDS: FORMOTEROL FUMARATE 20 MCG/2 ML NEBU INHALATION SCH (21:12)
[2023-07-29] MEDS: BUDESONIDE 0.25 MG/2 ML NEBU INHALATION SCH (21:12)
[2023-07-29] MEDS: methylPREDNISolone SOD SUCCI 125 MG/2 ML VIAL IV SCH (23:04)
[2023-07-30] MEDS: IPRATROPIUM-ALBUTEROL 3 ML NEB INHALATION PRN (04:49)
[2023-07-30] MEDS: PANTOPRAZOLE 40 MG TABLET PO SCH (06:06)
--- NOTE | 2023-07-30 06:37 | P.CNPUL ---
History of Present Illness Consult date: 07/30/23 Requesting physician: Gil Champagne Reason for consult: asthma Chief complaint: Shortness of breath History of present illness: I am seeing this patient in consultation today 07/30/2023 patient presented yesterday afternoon complaining of progressively worsening shortness of breath over the last 6 days. Patient is a 77-year-old white female with past medical history significant for asthma, atrial fibrillation, hypertension, hyperlipidemia, chronic kidney disease. She does not smoke. Patient does follow in the pulmonary office with Dr. Gaytan for management of her moderate persistent bronchial asthma. She uses a combination of primatine inhaler, DuoNeb's, budesonide inhalation, and formoterol inhalation while at home. She states that over the last 6 days she has had increasing work of breathing. She had a cough that was initially productive with white phlegm and is now dry and persistent.. She states that she had a fever of 103F 2-3 days ago. She's had chest tightness and she feels like she can get a full breath. Chest x-ray on arrival shows subsegmental changes and left perihilar region, possibly atelectasis or scarring. CBC on arrival was unremarkable. No leukocytosis. CMP shows sodium 139, chloride 105, potassium 4.5, serum bicarb 22, BUN 20, creatinine 01.53, glucose 120. Troponins are not elevated. NT proBNP also not particularly elevated for age. Negative for influenza, RSV, COVID-19. Patient empirically covered on a combination of azithromycin and Rocephin. Also receiving DuoNeb's [id number], formoterol, budesonide, and IV Solu-Medrol. She is still very bronchospastic. She is on 2 L nasal cannula. Currently afebrile. Vital signs are stable. She is being monitored on the general medical floor. Review of Systems REVIEW OF SYSTEMS: CONSTITUTIONAL: Denies any recent significant weight loss or weight gain. EYES: Denies change in vision. EARS, NOSE, MOUTH, THROAT: Denies headaches, denies sore throat. CARDIOVASCULAR: Denies chest pain, palpitations or syncopal episodes. RESPIRATORY: See HPI. GASTROINTESTINAL: Denies change in appetite, abdominal pain, nausea and vomiting, or diarrhea GENITOURINARY: Denies hematuria, denies infections. MUSKULOSKELETAL: Denies pain, denies swelling. INTEGUMENTARY: Denies rash, denies eczema. NEUROLOGICAL: Denies recent memory loss, no recent seizure activity. PSYCHIATRIC: Denies anxiety, denies depression. HEMATOLOGIC/LYMPHATIC: Denies anemia, denies enlarged lymph node Past Medical History Past Medical History: COPD, Hypertension Additional Past Medical History / Comment(s): stage 3 kidney disease, kidney stones History of Any Multi-Drug Resistant Organisms: None Reported Past Surgical History: No Surgical Hx Reported, Tonsillectomy Past Anesthesia/Blood Transfusion Reactions: No Reported Reaction Past Psychological History: No Psychological Hx Reported Smoking Status: Never smoker Past Alcohol Use History: Rare Additional Past Alcohol Use History / Comment(s): "Maybe once a month I'll have a arianna" Past Drug Use History: None Reported - Past Family History Father Additional Family Medical History / Comment(s): at age 39 due to heart condition Mother Additional Family Medical History / Comment(s): Possible TB. Heart Condition Medications and Allergies Home Medications Medication Instructions Recorded Confirmed Type amLODIPine [Norvasc] 10 mg PO DAILY 05/17/19 07/29/23 History calcitrioL [Rocaltrol] 0.25 mcg PO SUTUTHSA 10/06/20 07/29/23 History Metoprolol Tartrate 25 mg PO BID 01/16/21 07/29/23 History Ipratropium-Albuterol Nebulize 3 ml INHALATION RT-QID 30 Days #90 01/18/2107/11 Rx [Duoneb 0.5 mg-3 mg/3 ml Soln] neb Budesonide [Pulmicort] 0.25 mg INHALATION RT-QID 04/04/21 07/29/23 History Apixaban [Eliquis] 5 mg PO DIRECTED 07/29/23 07/29/23 History Atorvastatin [Lipitor] 20 mg PO DAILY 07/29/23 07/29/23 History Cholecalciferol [Vitamin D3 (125 125 mcg PO DAILY 07/29/23 07/29/23 History Mcg = 5000 Iu)] Formoterol Fumarate [Perforomist] 20 mcg INHALATION RT-QID 07/29/23 07/29/23 History Montelukast [Singulair] 10 mg PO DIRECTED 07/29/23 07/29/23 History Allergies Allergy/AdvReac Type Severity Reaction Status Date / Time No Known Allergies Allergy Verified 07/29/23 18:55 Physical Exam Vitals: Vital Signs Temp Pulse Pulse Resp BP BP Pulse Ox 07/30/23 05:02 92 07/30/23 04:49 96 07/30/23 02:00 97.6 F 75 18 127/70 94 L 07/29/23 21:54 97.7 F 82 20 153/67 96 07/29/23 21:24 92 07/29/23 21:19 92 07/29/23 21:13 90 07/29/23 17:56 90 18 07/29/23 17:47 88 18 07/29/23 14:36 98 F 100 20 153/68 94 L Intake and Output 07/29/23 07/29/23 07/30/23 14:59 22:59 06:59 Other: Voiding Method Toilet # Voids 1 Weight 104.326 kg 104.326 kg GENERAL EXAM: Alert, 77-year-old obese white female, sitting up in the chair, comfortable in no apparent distress. HEAD: Normocephalic and atraumatic EYES: Normal reaction of pupils, equal size. NOSE: Clear with pink turbinates. THROAT: No erythema or exudates. NECK: No masses, no JVD. CHEST: No chest wall deformity. LUNGS: Equal air entry with diffuse wheezes and rhonchi throughout. On 2 L were minute nasal cannula. There is a persistent dry cough. No conversational dyspnea or accessory muscle use.. CVS: S1 and S2 normal with no audible murmur, regular rhythm. No extra heart sounds ABDOMEN: No hepatosplenomegaly, active bowel sounds, no guarding or rigidity. SPINE: No scoliosis or deformity SKIN: No rashes CENTRAL NERVOUS SYSTEM: No focal deficits, tone is normal in all 4 extremities. EXTREMITIES: There is no peripheral edema, clubbing, or cyanosis. Peripheral pulses are intact. Results - Laboratory Findings CBC and BMP: 07/29/23 16:45 07/29/23 16:45 PT/INR, D-dimer PT 10.6 sec (10.0-12.5) 07/29/23 16:45 INR 1.0 (<1.2) 07/29/23 16:45 D-Dimer 0.27 mg/L FEU (<0.60) 07/29/23 16:45 Abnormal lab findings: Abnormal Labs 07/29/23 07/29/23 16:45 16:45 Lymphocytes # 0.9 L BUN 20 H Creatinine 1.53 H Glucose 120 H - Diagnostic Findings Chest x-ray: image reviewed Assessment and Plan Assessment: Acute hypoxemic respiratory failure, on 2 L/m nasal cannula, secondary to an exacerbation of the patient's moderate persistent bronchial asthma and possible underlying tracheobronchitis. Chest x-ray demonstrates left-sided scarring or atelectasis. No obvious focal infiltrate or evidence of pneumonia. Negative for influenza, RSV, COVID-19. History of paroxysmal atrial fibrillation, currently sinus mechanism, anticoagulated on Eliquis Hypertension Hyperlipidemia Chronic kidney disease stage III Morbid obesity, with a BMI of 42.1 kg/m Plan: Patient's medications, labs, chest x-ray reviewed. Continue supplemental oxygen. Continue empiric antibiotics. Check procalcitonin level. Patient has been started on a combination of DuoNeb's, budesonide inhalation, formoterol inh alation, and IV Solu-Medrol. She is still quite symptomatic and bronchospastic. We will continue to follow, and further recommendations are forthcoming. I have personally seen and examined the patient, performed the documentation and the assessment and plan as written. Number of minutes spent on the visit:20 Time with Patient: Greater than 30
[2023-07-30] MEDS ORDERED: BUDESONIDE 0.25 MG/2 ML NEBU INHALATION SCH (08:15)
[2023-07-30] MEDS: IPRATROPIUM-ALBUTEROL 3 ML NEB INHALATION SCH ×4 (08:59→22:31)
[2023-07-30] MEDS: FORMOTEROL FUMARATE 20 MCG/2 ML NEBU INHALATION SCH ×2 (08:59→22:31)
[2023-07-30] MEDS: BUDESONIDE 1 MG/2 ML NEBU INHALATION SCH ×2 (09:00→22:31)
[2023-07-30] MEDS: BUDESONIDE 0.25 MG/2 ML NEBU INHALATION SCH (09:09)
[2023-07-30] MEDS: CHOLECALCIFEROL 125 MCG (5000 IU) TABLET PO SCH (09:43)
[2023-07-30] MEDS: amLODIPine 10 MG TAB PO SCH (09:43)
[2023-07-30] MEDS: MONTELUKAST 10 MG TAB PO SCH (09:44)
[2023-07-30] MEDS: METOPROLOL TARTRATE 25 MG TAB PO SCH ×2 (09:44→20:09)
[2023-07-30] MEDS: APIXABAN 5 MG TAB PO SCH ×2 (09:44→20:10)
[2023-07-30] MEDS: ATORVASTATIN 20 MG TAB PO SCH (09:44)
[2023-07-30] MEDS: methylPREDNISolone SOD SUCCI 125 MG/2 ML VIAL IV SCH ×4 (09:44→22:56)
[2023-07-30] MEDS: AZITHROMYCIN 500 MG in SODIUM CHLORIDE 0.9% 250 ML IVPB SCH (19:05)
[2023-07-30] MEDS ORDERED: ACETAMINOPHEN TAB 325 MG TAB PO STA (19:12)
--- NOTE | 2023-07-30 21:16 | P.HPIM ---
History of Present Illness H&P Date: 07/30/23 Chief Complaint: Difficulty in breathing Patient is a 77-year-old female with a past medical history of hypertension, moderate persistent asthma, paroxysmal atrial fibrillation on anticoagulation with Eliquis presents to ER with complaints of shortness of breath. Patient has been having worsening shortness of breath for about 5 to 6 days. She was also having cough without much sputum production. Initially was having whitish sputum. Patient also states that she was having fever with Tmax 103 F at home along with chills.. She was having tightness in her chest. Denies any chest pain. No nausea vomiting abdominal pain or diarrhea. Patient is states that she became more dyspneic and unable to walk across the room and presented to ER. On admission patient was afebrile. Requiring 2 L oxygen via nasal cannula. Chest x-ray showed no left-sided scarring atelectasis. EKG showed sinus tachycardia with heart rate 105 Laboratory data showed WBC 8.5 hemoglobin 13.6 and platelets 244 D-dimer 0.27 BUN 20 and creatinine 1.53 baseline creatinine 1.2 Troponin x 3 negative. proBNP 453 Influenza, RSV and COVID-19 PCR not detected. Review of Systems Constitutional: Patient denies any fever or chills . no Generalized weakness. Abdomen: Patient denied any nausea or vomiting or abd. pain Cardiovascular: Patient denies any chest pain patient does have chest tightness and short of breath no palpitations. No leg swelling Respiratory: patient does have cough with whitish sputum production. Positive for shortness of breath and exertional dyspnea Neurologic: Patient denied any numbness or tingling or headache. Musculoskeletal: Patient denies any complaints of joint swelling or deformity. Skin: Negative Psychiatric: Negative Endocrine: No heat or cold intolerance. No recent weight gain. Genitourinary: No dysuria or hematuria. All other 14 point ROS negative except the above Past Medical History Past Medical History: COPD, Hypertension Additional Past Medical History / Comment(s): stage 3 kidney disease, kidney stones History of Any Multi-Drug Resistant Organisms: None Reported Past Surgical History: No Surgical Hx Reported, Tonsillectomy Past Anesthesia/Blood Transfusion Reactions: No Reported Reaction Past Psychological History: No Psychological Hx Reported Smoking Status: Never smoker Past Alcohol Use History: Rare Additional Past Alcohol Use History / Comment(s): "Maybe once a month I'll have a arianna" Past Drug Use History: None Reported - Past Family History Father Additional Family Medical History / Comment(s): at age 39 due to heart condition Mother Additional Family Medical History / Comment(s): Possible TB. Heart Condition Medications and Allergies Home Medications Medication Instructions Recorded Confirmed Type amLODIPine [Norvasc] 10 mg PO DAILY 05/17/19 07/29/23 History calcitrioL [Rocaltrol] 0.25 mcg PO SUTUTHSA 10/06/20 07/29/23 History Metoprolol Tartrate 25 mg PO BID 01/16/21 07/29/23 History Ipratropium-Albuterol Nebulize 3 ml INHALATION RT-QID 30 Days #90 01/18/21 Rx [Duoneb 0.5 mg-3 mg/3 ml Soln] neb Budesonide [Pulmicort] 0.25 mg INHALATION RT-QID 04/04/21 07/29/23 History Apixaban [Eliquis] 5 mg PO BID 07/29/23 07/30/23 History Atorvastatin [Lipitor] 20 mg PO DAILY 07/29/23 07/29/23 History Cholecalciferol [Vitamin D3 (125 125 mcg PO DAILY 07/29/23 07/29/23 History Mcg = 5000 Iu)] Formoterol Fumarate [Perforomist] 20 mcg INHALATION RT-QID 07/29/23 07/29/23 History Montelukast [Singulair] 10 mg PO DAILY 07/29/23 07/30/23 History Allergies Allergy/AdvReac Type Severity Reaction Status Date / Time No Known Allergies Allergy Verified 07/29/23 18:55 Physical Exam Vitals: Vital Signs Temp Pulse Pulse Resp BP BP Pulse Ox 07/30/23 12:49 92 07/30/23 12:38 92 07/30/23 09:25 88 07/30/23 09:15 88 07/30/23 09:14 88 07/30/23 09:00 88 07/30/23 07:00 97.8 F 80 16 140/74 95 07/30/23 05:02 92 07/30/23 04:49 96 07/30/23 02:00 97.6 F 75 18 127/70 94 L 07/29/23 21:54 97.7 F 82 20 153/67 96 07/29/23 21:24 92 07/29/23 21:19 92 07/29/23 21:13 90 07/29/23 17:56 90 18 07/29/23 17:47 88 18 07/29/23 14:36 98 F 100 20 153/68 94 L Intake and Output 07/29/23 07/30/23 07/30/23 22:59 06:59 14:59 Intake Total 240 Balance 240 Intake: Oral 240 Other: Voiding Method Toilet # Voids 1 2 Weight 104.326 kg PHYSICAL EXAMINATION: Patient is lying in the bed comfortably, no acute distress, awake alert and oriented. Morbidly obese.. HEENT: Normocephalic. Neck is supple. Pupils reactive. Nostrils clear. Oral cavity is moist. Neck reveals no JVD, carotid bruits, or thyromegaly. CHEST EXAMINATION: Trachea is central. Symmetrical expansion. Bilateral diminished air entry and diffuse wheezing. Nonlabored breathing.. CARDIAC: Normal S1, S2 with no gallops. No murmurs ABDOMEN: Soft. Bowel sounds present. Nontender. No organomegaly. No abdominal bruits. Extremities: reveal no edema. No clubbing or cyanosis Neurologically awake, alert, oriented x3 with well-coordinated movements. No focal deficits noted Skin: No rash or skin lesions. Psychiatric: Coperative. Nonsuicidal, Musculoskeletal: No joint swelling or deformity. Normal range of motion. Results CBC & Chem 7: 07/29/23 16:45 07/29/23 16:45 Labs: Abnormal Lab Results - Last 24 Hours (Table) 07/29/23 07/29/23 07/30/23 Range/Units 16:45 16:45 05:53 Lymphocytes # 0.9 L (1.0-4.8) k/uL BUN 20 H (7-17) mg/dL Creatinine 1.53 H (0.52-1.04) mg/dL Glucose 120 H (74-99) mg/dL Procalcitonin 0.10 H (0.02-0.09) ng/mL Thrombosis Risk Factor Assmnt - DVT/VTE Prophylaxis DVT/VTE Prophylaxis: Pharmacologic Prophylaxis ordered - Choose All That Apply Any of the Below Risk Factors Present?: Yes Each Factor Represents 1 point: Abnormal pulmonary function (COPD), Obesity (BMI >25) Other Risk Factors: Yes Each Risk Factor Represents 3 Points: Age 75 years or older Other congenital or acquired thrombophilia - If yes, enter type in comment: No Thrombosis Risk Factor Assessment Total Risk Factor Score: 5 Thrombosis Risk Factor Assessment Level: High Risk Assessment and Plan Assessment: Acute asthma exacerbation with acute hypoxic respiratory failure requiring 2 L oxygen via nasal cannula Moderate persistent asthma Acute tracheobronchitis Hypertension Hyperlipidemia Paroxysmal atrial fibrillation on anticoagulation with Eliquis Acute on chronic kidney disease stage III. Baseline creatinine 1.2 History of renal stones GI prophylaxis with Pepcid Plan: Patient will be continued on Solu-Medrol 60 mg every 6 hourly and oxygen car pplementation. Continue with DuoNebs and Singulair. Patient is also on Perforomist. Pulmonary is on board. Continue with antibiotics ceftriaxone and azithromycin follow-up procalcitonin level. Follow-up culture report. Time with Patient: Greater than 30
[2023-07-31] MEDS: PANTOPRAZOLE 40 MG TABLET PO SCH (06:51)
[2023-07-31] MEDS: amLODIPine 10 MG TAB PO SCH (08:24)
[2023-07-31] MEDS: CHOLECALCIFEROL 125 MCG (5000 IU) TABLET PO SCH (08:24)
[2023-07-31] MEDS: ATORVASTATIN 20 MG TAB PO SCH (08:24)
[2023-07-31] MEDS: MONTELUKAST 10 MG TAB PO SCH (08:24)
[2023-07-31] MEDS: FAMOTIDINE 20 MG TAB PO SCH (08:24)
[2023-07-31] MEDS: APIXABAN 5 MG TAB PO SCH ×2 (08:24→19:51)
[2023-07-31] MEDS: METOPROLOL TARTRATE 25 MG TAB PO SCH ×2 (08:24→19:51)
[2023-07-31 08:36] LABS: BUN/Creat Ratio 17.72 Ratio (12.00-20.00); Blood Urea Nitrogen 31.9 mg/dL (9.0-27.0); Calcium 9.4 mg/dL (8.7-10.3); Carbon Dioxide 17.5 mmol/L (21.6-31.8); Chloride 106 mmol/L (96-109); Glucose 261 mg/dL (70-110); Potassium 4.7 mmol/L (3.5-5.5); Sodium 138 mmol/L (135-145)
[2023-07-31 08:38] LABS: Basophils # (A) 0.02 X 10*3/uL (0.00-0.10); Basophils % (A) 0.1 %; Eosinophils # (A) 0 X 10*3/uL (0.04-0.35); Eosinophils % (A) 0 %; HCT 38.2 % (37.2-46.3); Lymphocytes # (A) 1.23 X 10*3/uL (0.90-5.00); Lymphocytes % (A) 6.7 %; MCH 28.7 pg (27.0-32.0); MCHC 31.4 g/dL (32.0-37.0); MCV 91.4 FL (80.0-97.0); Monocytes # (A) 0.54 X 10*3/uL (0.20-1.00); Monocytes % (A) 2.9 %; NRBC Per 100 WBC 0 X 10*3/uL (0.00-0.01); Neutrophils # (A) 16.39 X 10*3/uL (1.80-7.70); Neutrophils % (A) 89.6 %; Platelet Count 242 X 10*3/uL (140-440); RBC 4.18 X 10*6/uL (4.10-5.20); RDW 13.3 % (11.5-14.5); WBC 18.31 X 10*3/uL (4.50-10.00)
[2023-07-31] MEDS: IPRATROPIUM-ALBUTEROL 3 ML NEB INHALATION SCH ×4 (09:01→18:30)
[2023-07-31] MEDS: FORMOTEROL FUMARATE 20 MCG/2 ML NEBU INHALATION SCH ×2 (09:01→18:30)
[2023-07-31] MEDS: BUDESONIDE 1 MG/2 ML NEBU INHALATION SCH ×2 (09:02→18:31)
[2023-07-31] MEDS: methylPREDNISolone SOD SUCCI 40 MG/ML 1 ML VIAL IV SCH ×3 (09:49→23:41)
--- NOTE | 2023-07-31 13:07 | P.PN ---
Subjective Progress Note Date: 07/31/23 I am seeing this patient in consultation today 07/30/2023 patient presented yesterday afternoon complaining of progressively worsening shortness of breath over the last 6 days. Patient is a 77-year-old white female with past medical history significant for asthma, atrial fibrillation, hypertension, hyper lipidemia, chronic kidney disease. She does not smoke. Patient does follow in the pulmonary office with Dr. Gaytan for management of her moderate persistent bronchial asthma. She uses a combination of primatine inhaler, DuoNeb's, budesonide inhalation, and formoterol inhalation while at home. She states that over the last 6 days she has had increasing work of breathing. She had a cough that was initially productive with white phlegm and is now dry and persistent.. She states that she had a fever of 103F 2-3 days ago. She's had chest tightness and she feels like she can get a full breath. Chest x-ray on arrival shows subsegmental changes and left perihilar region, possibly atelectasis or scarring. CBC on arrival was unremarkable. No leukocytosis. CMP shows sodium 139, chloride 105, potassium 4.5, serum bicarb 22, BUN 20, creatinine 01.53, glucose 120. Troponins are not elevated. NT proBNP also not particularly elevated for age. Negative for influenza, RSV, COVID-19. Patient empirically covered on a combination of azithromycin and Rocephin. Also receiving DuoNeb's [id number], formoterol, budesonide, and IV Solu-Medrol. She is still very bronchospastic. She is on 2 L nasal cannula. Currently afebrile. Vital signs are stable. She is being monitored on the general medical floor. The patient is seen today 07/31/2023 in follow-up on the regular medical floor. She is currently sitting up in a chair at the bedside. Awake and alert in no acute distress. She is maintaining O2 saturations in the 90s on 2 L/m per nasal cannula. She is complaining of a sore throat. She is still dyspneic with minimal exertion. Blood cultures reveal no growth. White count 18.3. Humulin 12.0. Platelets 242. Sodium 138. Potassium 4.7. Bicarb 18. BUN 32. Creatinine 1.8. Glucose 261. Pro-calcitonin was 0.10. She is continued on DuoNeb inhalations, Pulmicort and Perforomist inhalations, Solu-Medrol and Singulair. Anticoagulated with Eliquis. Antibiotics in the form of ceftriaxone and azithromycin. Objective - Vital Signs Vital signs: Vital Signs Temp 98.6 F 07/31/23 07:00 Pulse 86 07/31/23 12:17 Resp 16 07/31/23 08:00 BP 141/75 07/31/23 07:00 Pulse Ox 93 L 07/31/23 09:07 FiO2 Intake & Output 07/30/23 07/31/23 07/31/23 18:59 06:59 18:59 Intake Total 598 Balance 598 Intake: Oral 598 Other: Voiding Method Toilet Toilet # Voids 3 2 - Exam GENERAL EXAM: Alert, 77-year-old obese female, up in the chair, comfortable in no apparent distress. HEAD: Normocephalic and atraumatic EYES: Normal reaction of pupils, equal size. NOSE: Clear with pink turbinates. THROAT: No erythema or exudates. NECK: No masses, no JVD. CHEST: No chest wall deformity. LUNGS: Equal air entry with diffuse wheezes and rhonchi throughout. On 2 L minute nasal cannula. Persistent dry cough. CVS: S1 and S2 normal with no audible murmur, regular rhythm. No extra heart sounds ABDOMEN: No hepatosplenomegaly, active bowel sounds, no guarding or rigidity. SPINE: No scoliosis or deformity SKIN: No rashes CENTRAL NERVOUS SYSTEM: No focal deficits, tone is normal in all 4 extremities. EXTREMITIES: There is no peripheral edema, clubbing, or cyanosis. Peripheral pulses are intact. - Labs CBC & Chem 7: 07/31/23 05:54 07/31/23 05:54 Labs: Abnormal Lab Results - Last 24 Hours (Table) 07/31/23 07/31/23 Range/Units 05:54 05:54 WBC 18.31 H (4.50-10.00) X 10*3/uL MCHC 31.4 L (32.0-37.0) g/dL Immature Gran # 0.13 H (0.00-0.04) X 10*3/uL Neutrophils # 16.39 H (1.80-7.70) X 10*3/uL Eosinophils # 0 L (0.04-0.35) X 10*3/uL Carbon Dioxide 17.5 L (21.6-31.8) mmol/L Anion Gap 14.50 H (4.00-12.00) mmol/L BUN 31.9 H (9.0-27.0) mg/dL Creatinine 1.8 H (0.6-1.5) mg/dL Est GFR (CKD-EPI) 29 L (>=60) Glucose 261 H (70-110) mg/dL Microbiology - Last 24 Hours (Table) 07/29/23 17:20 Blood Culture - Preliminary Blood 07/29/23 16:45 Blood Culture - Preliminary Blood Assessment and Plan Assessment: Acute hypoxemic respiratory failure, on 2 L/m nasal cannula, secondary to an exacerbation of the patient's moderate persistent bronchial asthma and possible underlying tracheobronchitis. Chest x-ray demonstrates left-sided scarring or atelectasis. No obvious focal infiltrate or evidence of pneumonia. Negative for influenza, RSV, COVID-19. Pro-calcitonin 0.10. Remains on ceftriaxone and azithromycin History of paroxysmal atrial fibrillation, currently sinus mechanism, anticoagulated on Eliquis Hypertension Hyperlipidemia Chronic kidney disease stage III Morbid obesity, with a BMI of 42.1 kg/m Plan: The patient was seen and evaluated Labs and medications reviewed Continue bronchodilators, steroids Continue antibiotics Titrate down the FiO2 as tolerated Increase her activity as tolerated Not quite ready for discharge We will continue to follow This patient was seen independently by the nurse practitioner I have personally seen and examined the patient, performed the documentation and the assessment and plan as written. Number of minutes spent on the visit: 24.
[2023-07-31] MEDS ORDERED: SENNOSIDES 8.6 MG TAB PO PRN (16:06)
[2023-07-31] MEDS: AZITHROMYCIN 500 MG in SODIUM CHLORIDE 0.9% 250 ML IVPB SCH (17:21)
[2023-07-31] MEDS ORDERED: SODIUM CHLORIDE 0.9% 1,000 ML IV SCH (19:00)
--- NOTE | 2023-07-31 19:01 | P.PN ---
Subjective Progress Note Date: 07/31/23 Patient is a 77-year-old female with a past medical history of hypertension, moderate persistent asthma, paroxysmal atrial fibrillation on anticoagulation with Eliquis presents to ER with complaints of shortness of breath. Patient has been having worsening shortness of breath for about 5 to 6 days. She was also having cough without much sputum production. Initially was having whitish sputum. Patient also states that she was having fever with Tmax 103 F at home along with chills.. She was having tightness in her chest. Denies any chest pain. No nausea vomiting abdominal pain or diarrhea. Patient is states that she became more dyspneic and unable to walk across the room and presented to ER. On admission patient was afebrile. Requiring 2 L oxygen via nasal cannula. Chest x-ray showed no left-sided scarring atelectasis. EKG showed sinus tachycardia with heart rate 105 Laboratory data showed WBC 8.5 hemoglobin 13.6 and platelets 244 D-dimer 0.27 BUN 20 and creatinine 1.53 baseline creatinine 1.2 Troponin x 3 negative. proBNP 453 Influenza, RSV and COVID-19 PCR not detected. 07/31/2023 Patient is seen and evaluated in follow-up today with pulmonary following maintained on breathing inhalational treatments along with IV steroids for COPD exacerbation with tracheobronchitis. Patient also continues on ceftriaxone along with Zithromax. Pro-calcitonin was 0.10 and virology studies were negative. The patient reports to feeling somewhat constipated and will add Senokot and encouraged to increase activity as tolerated. patient currently maintained on 2-3 L via nasal cannula and reports does not wear oxygen outpatient. Recommend weaning FiO2 as tolerated. patient also reporting a continued cough and will add Robitussin as needed. Review of systems: Constitutional: No reports of fatigue, fever, or chills Cardiovascular: No reports of chest pain or palpitations Respiratory: reports of shortness of breath and continued cough GI: No reports of nausea, vomiting, or diarrhea, reports feeling somewhat constipated : No reports of dysuria or retention Neurovascular: No reports of weakness or numbness All medications have been reviewed PHYSICAL EXAMINATION: Patient is sitting up in the chair comfortably, no acute distress, awake alert and oriented. Morbidly obese.. HEENT: Normocephalic. Neck is supple. Pupils reactive. Nostrils clear. Oral cavity is moist. Neck reveals no JVD, carotid bruits, or thyromegaly. CHEST EXAMINATION: Trachea is central. Symmetrical expansion. Bilateral diminished air entry and diffuse wheezing. bronchospastic on exam. Nonlabored breathing.. CARDIAC: Normal S1, S2 with no gallops. No murmurs ABDOMEN: Soft. obese.Bowel sounds present. Nontender. No organomegaly. No abdominal bruits. Extremities: reveal no edema. No clubbing or cyanosis Neurologically awake, alert, oriented x3 with well-coordinated movements. No focal deficits noted Skin: No rash or skin lesions. Psychiatric: Cooperative. Non-suicidal, Musculoskeletal: No joint swelling or deformity. Normal range of motion. Assessment: Acute asthma exacerbation with acute hypoxic respiratory failure requiring 2 L oxygen via nasal cannula Moderate persistent asthma Acute tracheobronchitis Hypertension Hyperlipidemia Paroxysmal atrial fibrillation on anticoagulation with Eliquis Acute on chronic kidney disease stage III. Baseline creatinine 1.2 History of renal stones morbid obesity with a BMI of 42.1 GI prophylaxis with Pepcid DVT prophylaxis Full code Plan: Patient will be continued on Solu-Medrol and has been transitioned to 40 mg every 8 hours per pulmonary. patient to continue oxygen supplementation and wean as tolerated as patient does not wear oxygen outpatient. Continue with DuoNebs and Singulair. Patient is also on Perforomist. Pulmonary is following. Robitussin added as needed for cough Encouraged increased activity as tolerated Patient reporting some constipation and will add Senokot Continue with antibiotics ceftriaxone and azithromycin . Procalcitonon is 0.10. Patient not quite back to baseline. Monitor for the need for home 02. Possible discharge planning in 24-48 hours The impression and plan of care has been dictated by Haleigh Quiñones, Nurse Practitioner as directed. Dr. Junie MD I have performed a history and examination and MDM of this patient, discussed the same with the dictator, and agree with the dictator's assessment and plan as written ,documented as a scribe. Based on total visit time, I have performed more than 50% of the visit. Objective - Vital Signs Vital signs: Vital Signs Temp 97.9 F 07/31/23 13:47 Pulse 87 07/31/23 14:00 Resp 16 07/31/23 14:00 BP 125/70 07/31/23 13:47 Pulse Ox 95 07/31/23 13:47 FiO2 Intake & Output 07/30/23 07/31/23 07/31/23 18:59 06:59 18:59 Intake Total 598 118 Balance 598 118 Intake: Oral 598 118 Other: Voiding Method Toilet Toilet # Voids 3 2 3 - Labs CBC & Chem 7: 07/31/23 05:54 07/31/23 05:54 Labs: Abnormal Lab Results - Last 24 Hours (Table) 07/31/23 07/31/23 Range/Units 05:54 05:54 WBC 18.31 H (4.50-10.00) X 10*3/uL MCHC 31.4 L (32.0-37.0) g/dL Immature Gran # 0.13 H (0.00-0.04) X 10*3/uL Neutrophils # 16.39 H (1.80-7.70) X 10*3/uL Eosinophils # 0 L (0.04-0.35) X 10*3/uL Carbon Dioxide 17.5 L (21.6-31.8) mmol/L Anion Gap 14.50 H (4.00-12.00) mmol/L BUN 31.9 H (9.0-27.0) mg/dL Creatinine 1.8 H (0.6-1.5) mg/dL Est GFR (CKD-EPI) 29 L (>=60) Glucose 261 H (70-110) mg/dL Microbiology - Last 24 Hours (Table) 07/29/23 16:45 Blood Culture - Preliminary Blood 07/29/23 17:20 Blood Culture - Preliminary Blood
[2023-07-31] MEDS: guaiFENesin SYRUP 100MG/5ML 200 MG/10 ML CUP PO PRN (19:55)
[2023-08-01] MEDS: IPRATROPIUM-ALBUTEROL 3 ML NEB INHALATION SCH ×4 (08:05→20:48)
[2023-08-01] MEDS: FORMOTEROL FUMARATE 20 MCG/2 ML NEBU INHALATION SCH ×2 (08:05→20:48)
[2023-08-01] MEDS: BUDESONIDE 1 MG/2 ML NEBU INHALATION SCH ×2 (08:05→20:48)
[2023-08-01 08:57] LABS: BUN/Creat Ratio 23.18 Ratio (12.00-20.00); Blood Urea Nitrogen 39.4 mg/dL (9.0-27.0); Calcium 9.2 mg/dL (8.7-10.3); Carbon Dioxide 21.7 mmol/L (21.6-31.8); Chloride 109 mmol/L (96-109); Glucose 217 mg/dL (70-110); Magnesium 2.3 mg/dL (1.5-2.4); Potassium 5.6 mmol/L (3.5-5.5); Sodium 143 mmol/L (135-145)
[2023-08-01] MEDS: PANTOPRAZOLE 40 MG TABLET PO SCH (09:28)
[2023-08-01] MEDS: APIXABAN 5 MG TAB PO SCH ×2 (09:28→20:11)
[2023-08-01] MEDS: ATORVASTATIN 20 MG TAB PO SCH (09:28)
[2023-08-01] MEDS: MONTELUKAST 10 MG TAB PO SCH (09:28)
[2023-08-01] MEDS: METOPROLOL TARTRATE 25 MG TAB PO SCH ×2 (09:28→20:11)
[2023-08-01] MEDS: amLODIPine 10 MG TAB PO SCH (09:28)
[2023-08-01] MEDS: CHOLECALCIFEROL 125 MCG (5000 IU) TABLET PO SCH (09:28)
[2023-08-01] MEDS: FAMOTIDINE 20 MG TAB PO SCH (09:29)
[2023-08-01] MEDS: methylPREDNISolone SOD SUCCI 40 MG/ML 1 ML VIAL IV SCH ×2 (09:29→16:14)
--- NOTE | 2023-08-01 13:13 | P.PN ---
Subjective Progress Note Date: 08/01/23 I am seeing this patient in consultation today 07/30/2023 patient presented yesterday afternoon complaining of progressively worsening shortness of breath over the last 6 days. Patient is a 77-year-old white female with past medical history significant for asthma, atrial fibrillation, hypertension, hyper lipidemia, chronic kidney disease. She does not smoke. Patient does follow in the pulmonary office with Dr. Gaytan for management of her moderate persistent bronchial asthma. She uses a combination of primatine inhaler, DuoNeb's, budesonide inhalation, and formoterol inhalation while at home. She states that over the last 6 days she has had increasing work of breathing. She had a cough that was initially productive with white phlegm and is now dry and persistent.. She states that she had a fever of 103F 2-3 days ago. She's had chest tightness and she feels like she can get a full breath. Chest x-ray on arrival shows subsegmental changes and left perihilar region, possibly atelectasis or scarring. CBC on arrival was unremarkable. No leukocytosis. CMP shows sodium 139, chloride 105, potassium 4.5, serum bicarb 22, BUN 20, creatinine 01.53, glucose 120. Troponins are not elevated. NT proBNP also not particularly elevated for age. Negative for influenza, RSV, COVID-19. Patient empirically covered on a combination of azithromycin and Rocephin. Also receiving DuoNeb's [id number], formoterol, budesonide, and IV Solu-Medrol. She is still very bronchospastic. She is on 2 L nasal cannula. Currently afebrile. Vital signs are stable. She is being monitored on the general medical floor. The patient is seen today 07/31/2023 in follow-up on the regular medical floor. She is currently sitting up in a chair at the bedside. Awake and alert in no acute distress. She is maintaining O2 saturations in the 90s on 2 L/m per nasal cannula. She is complaining of a sore throat. She is still dyspneic with minimal exertion. Blood cultures reveal no growth. White count 18.3. Humulin 12.0. Platelets 242. Sodium 138. Potassium 4.7. Bicarb 18. BUN 32. Creatinine 1.8. Glucose 261. Pro-calcitonin was 0.10. She is continued on DuoNeb inhalations, Pulmicort and Perforomist inhalations, Solu-Medrol and Singulair. Anticoagulated with Eliquis. Antibiotics in the form of ceftriaxone and azithromycin. The patient is seen today 08/01/2023 in follow-up on the regular medical floor. She is sitting up in a chair. Awake and alert in no acute distress. Doing a bit better today compared to yesterday. Still not quite back to her baseline. Still with some wheezing. She is maintaining O2 saturations in the 90s on 2 L/m per nasal cannula. She has normal saline at 75 ML's per hour. She is continued on DuoNeb inhalations, Pulmicort and Perforomist inhalations, Solu-Medrol and Singulair. Anticoagulated with Eliquis. Antibiotics in the form of ceftriaxon e. Completed azithromycin. Sodium 143. Potassium 5.6. Bicarb 22. BUN 39. Creatinine 1.7. Glucose 217. Objective - Vital Signs Vital signs: Vital Signs Temp 98.2 F 08/01/23 07:00 Pulse 76 08/01/23 11:53 Resp 19 08/01/23 07:00 BP 152/78 08/01/23 07:00 Pulse Ox 92 L 08/01/23 11:53 FiO2 21 08/01/23 08:05 Intake & Output 07/31/23 08/01/23 08/01/23 18:59 06:59 18:59 Intake Total 118 240 Balance 118 240 Intake: Oral 118 240 Other: Voiding Method Toilet Toilet # Voids 3 1 - Exam GENERAL EXAM: Alert, pleasant 77-year-old female, up in the chair, on 2 L nasal cannula, in no apparent distress. HEAD: Normocephalic and atraumatic EYES: Normal reaction of pupils, equal size. NOSE: Clear with pink turbinates. THROAT: No erythema or exudates. NECK: No masses, no JVD. CHEST: No chest wall deformity. LUNGS: Equal air entry with wheezes and rhonchi throughout. CVS: S1 and S2 normal with no audible murmur, regular rhythm. No extra heart sounds ABDOMEN: No hepatosplenomegaly, active bowel sounds, no guarding or rigidity. SPINE: No scoliosis or deformity SKIN: No rashes CENTRAL NERVOUS SYSTEM: No focal deficits, tone is normal in all 4 extremities. EXTREMITIES: There is no peripheral edema, clubbing, or cyanosis. Peripheral pulses are intact. - Labs CBC & Chem 7: 07/31/23 05:54 08/01/23 06:09 Labs: Abnormal Lab Results - Last 24 Hours (Table) 08/01/23 Range/Units 06:09 Potassium 5.6 H (3.5-5.5) mmol/L Anion Gap 12.30 H (4.00-12.00) mmol/L BUN 39.4 H (9.0-27.0) mg/dL Creatinine 1.7 H (0.6-1.5) mg/dL Est GFR (CKD-EPI) 31 L (>=60) BUN/Creatinine Ratio 23.18 H (12.00-20.00) Ratio Glucose 217 H (70-110) mg/dL Microbiology - Last 24 Hours (Table) 07/29/23 17:20 Blood Culture - Preliminary Blood 07/29/23 16:45 Blood Culture Gram Stain - Preliminary Blood Blood Culture - Preliminary Assessment and Plan Assessment: Acute hypoxemic respiratory failure, on 2 L/m nasal cannula, secondary to an exacerbation of the patient's moderate persistent bronchial asthma and possible underlying tracheobronchitis. Chest x-ray demonstrates left-sided scarring or atelectasis. No obvious focal infiltrate or evidence of pneumonia. Negative for influenza, RSV, COVID-19. Pro-calcitonin 0.10. Remains on ceftriaxone and completed azithromycin History of paroxysmal atrial fibrillation, currently sinus mechanism, anticoagulated on Eliquis Hypertension Hyperlipidemia Chronic kidney disease stage III Morbid obesity, with a BMI of 42.1 kg/m Plan: The patient was seen and evaluated Labs and medications reviewed Continue the current treatment plan Titrate down the FiO2 as tolerated Increase her activity as tolerated We will continue to follow This patient was seen independently by the nurse practitioner I have personally seen and examined the patient, performed the documentation and the assessment and plan as written. Number of minutes spent on the visit: 22.
--- NOTE | 2023-08-01 14:19 | P.PN ---
Subjective Progress Note Date: 08/01/23 Patient is a 77-year-old female with a past medical history of hypertension, moderate persistent asthma, paroxysmal atrial fibrillation on anticoagulation with Eliquis presents to ER with complaints of shortness of breath. Patient has been having worsening shortness of breath for about 5 to 6 days. She was also having cough without much sputum production. Initially was having whitish sputum. Patient also states that she was having fever with Tmax 103 F at home along with chills.. She was having tightness in her chest. Denies any chest pain. No nausea vomiting abdominal pain or diarrhea. Patient is states that she became more dyspneic and unable to walk across the room and presented to ER. On admission patient was afebrile. Requiring 2 L oxygen via nasal cannula. Chest x-ray showed no left-sided scarring atelectasis. EKG showed sinus tachycardia with heart rate 105 Laboratory data showed WBC 8.5 hemoglobin 13.6 and platelets 244 D-dimer 0.27 BUN 20 and creatinine 1.53 baseline creatinine 1.2 Troponin x 3 negative. proBNP 453 Influenza, RSV and COVID-19 PCR not detected. 07/31/2023 Patient is seen and evaluated in follow-up today with pulmonary following maintained on breathing inhalational treatments along with IV steroids for COPD exacerbation with tracheobronchitis. Patient also continues on ceftriaxone along with Zithromax. Pro-calcitonin was 0.10 and virology studies were negative. The patient reports to feeling somewhat constipated and will add Senokot and encouraged to increase activity as tolerated. patient currently maintained on 2-3 L via nasal cannula and reports does not wear oxygen outpatient. Recommend weaning FiO2 as tolerated. patient also reporting a continued cough and will add Robitussin as needed. 08/01/2023 Patient is seen in follow-up today with pulmonary following maintained on IV steroids along with breathing inhalational treatments. Patient continues to have significantly wheezing and bronchospastic on exam. Patient has been up and walking and becomes severely dyspneic on exertion not quite ready for discharge. Patient underwent home O2 evaluation and will likely require oxygen on discharge. Case management/also worked following and has a prescription to accommodate home oxygen on discharge to manage her COPD. Encouraged increase activity as tolerated. Potassium slightly elevated at 5.6 today and will give a dose of lokelma and also continue with low potassium diet. Patient is currently afebrile and kidney functions about baseline at 1.7. We'll discontinue normal saline as sodium is 143. Review of systems: Constitutional: No reports of fatigue, fever, or chills Cardiovascular: No reports of chest pain or palpitations Respiratory: reports of shortness of breath and continued cough GI: No reports of nausea, vomiting, or diarrhea, reports feeling somewhat constipated : No reports of dysuria or retention Neurovascular: No reports of weakness or numbness All medications have been reviewed PHYSICAL EXAMINATION: Patient is sitting up in the chair comfortably, no acute distress, awake alert and oriented. Morbidly obese.. HEENT: Normocephalic. Neck is supple. Pupils reactive. Nostrils clear. Oral c avity is moist. Neck reveals no JVD, carotid bruits, or thyromegaly. CHEST EXAMINATION: Trachea is central. Symmetrical expansion. Bilateral diminished air entry and diffuse wheezing. bronchospastic on exam. Nonlabored breathing.. CARDIAC: Normal S1, S2 with no gallops. No murmurs ABDOMEN: Soft. obese.Bowel sounds present. Nontender. No organomegaly. No abdominal bruits. Extremities: reveal no edema. No clubbing or cyanosis Neurologically awake, alert, oriented x3 with well-coordinated movements. No focal deficits noted Skin: No rash or skin lesions. Psychiatric: Cooperative. Non-suicidal, Musculoskeletal: No joint swelling or deformity. Normal range of motion. Assessment: Acute asthma exacerbation with acute hypoxic respiratory failure requiring 2 L oxygen via nasal cannula Moderate persistent asthma Acute tracheobronchitis Hyperkalemia Hypertension Hyperlipidemia Paroxysmal atrial fibrillation on anticoagulation with Eliquis Acute on chronic kidney disease stage III. Baseline creatinine 1.2 History of renal stones morbid obesity with a BMI of 42.1 GI prophylaxis with Pepcid DVT prophylaxis Full code Plan: Patient will be continued on Solu-Medrol and has been transitioned to 40 mg every 8 hours per pulmonary. patient to continue oxygen supplementation and wean as tolerated as patient does not wear oxygen outpatient. Continue with DuoNebs and Singulair. Patient is also on Perforomist. Pulmonary is following. Robitussin added as needed for cough Encouraged increased activity as tolerated Potassium mildly elevated today at 5.6 and will give a dose of low, and follow- up with repeat labs. Recommend low potassium diet. Patient reporting some constipation and will continue Senokot Continue with antibiotics ceftriaxone and azithromycin . Procalcitonon is 0.10. Patient not quite back to baseline. Patient have home O2 evaluation done with concerns of requiring oxygen and oxygen saturation with exertion did drop to 87% on room air and will require oxygen on discharge to manage COPD. Case management provided prescription and working on discharge planning. Possible discharge planning in 24-48 hours once cleared by pulmonary The impression and plan of care has been dictated by Haleigh Quiñones, Nurse Practitioner as directed. Dr. Junie MD I have performed a history and examination and MDM of this patient, discussed the same with the dictator, and agree with the dictator's assessment and plan as written ,documented as a scribe. Based on total visit time, I have performed more than 50% of the visit. Objective - Vital Signs Vital signs: Vital Signs Temp 98.2 F 08/01/23 07:00 Pulse 76 08/01/23 11:53 Resp 19 08/01/23 07:00 BP 152/78 08/01/23 07:00 Pulse Ox 92 L 08/01/23 11:53 FiO2 21 08/01/23 08:05 Intake & Output 07/31/23 08/01/23 08/01/23 18:59 06:59 18:59 Intake Total 118 240 Balance 118 240 Intake: Oral 118 240 Other: Voiding Method Toilet Toilet # Voids 3 1 - Labs CBC & Chem 7: 07/31/23 05:54 08/01/23 06:09 Labs: Abnormal Lab Results - Last 24 Hours (Table) 08/01/23 Range/Units 06:09 Potassium 5.6 H (3.5-5.5) mmol/L Anion Gap 12.30 H (4.00-12.00) mmol/L BUN 39.4 H (9.0-27.0) mg/dL Creatinine 1.7 H (0.6-1.5) mg/dL Est GFR (CKD-EPI) 31 L (>=60) BUN/Creatinine Ratio 23.18 H (12.00-20.00) Ratio Glucose 217 H (70-110) mg/dL Microbiology - Last 24 Hours (Table) 07/29/23 17:20 Blood Culture - Preliminary Blood 07/29/23 16:45 Blood Culture Gram Stain - Preliminary Blood Blood Culture - Preliminary
[2023-08-01] MEDS ORDERED: SODIUM ZIRCONIUM CYCLOSILICATE 10 GM PACKET PO ONE (14:45)
[2023-08-01] MEDS: guaiFENesin SYRUP 100MG/5ML 200 MG/10 ML CUP PO PRN (20:35)
[2023-08-02] MEDS: methylPREDNISolone SOD SUCCI 40 MG/ML 1 ML VIAL IV SCH ×4 (00:03→23:06)
[2023-08-02] MEDS: ACETAMINOPHEN TAB 325 MG TAB PO PRN ×2 (02:05→20:49)
[2023-08-02] MEDS: PANTOPRAZOLE 40 MG TABLET PO SCH (06:21)
--- NOTE | 2023-08-02 08:16 | P.PN ---
Subjective Progress Note Date: 08/02/23 I am seeing this patient in consultation today 07/30/2023 patient presented yesterday afternoon complaining of progressively worsening shortness of breath over the last 6 days. Patient is a 77-year-old white female with past medical history significant for asthma, atrial fibrillation, hypertension, hyper lipidemia, chronic kidney disease. She does not smoke. Patient does follow in the pulmonary office with Dr. Gaytan for management of her moderate persistent bronchial asthma. She uses a combination of primatine inhaler, DuoNeb's, budesonide inhalation, and formoterol inhalation while at home. She states that over the last 6 days she has had increasing work of breathing. She had a cough that was initially productive with white phlegm and is now dry and persistent.. She states that she had a fever of 103F 2-3 days ago. She's had chest tightness and she feels like she can get a full breath. Chest x-ray on arrival shows subsegmental changes and left perihilar region, possibly atelectasis or scarring. CBC on arrival was unremarkable. No leukocytosis. CMP shows sodium 139, chloride 105, potassium 4.5, serum bicarb 22, BUN 20, creatinine 01.53, glucose 120. Troponins are not elevated. NT proBNP also not particularly elevated for age. Negative for influenza, RSV, COVID-19. Patient empirically covered on a combination of azithromycin and Rocephin. Also receiving DuoNeb's [id number], formoterol, budesonide, and IV Solu-Medrol. She is still very bronchospastic. She is on 2 L nasal cannula. Currently afebrile. Vital signs are stable. She is being monitored on the general medical floor. The patient is seen today 07/31/2023 in follow-up on the regular medical floor. She is currently sitting up in a chair at the bedside. Awake and alert in no acute distress. She is maintaining O2 saturations in the 90s on 2 L/m per nasal cannula. She is complaining of a sore throat. She is still dyspneic with minimal exertion. Blood cultures reveal no growth. White count 18.3. Humulin 12.0. Platelets 242. Sodium 138. Potassium 4.7. Bicarb 18. BUN 32. Creatinine 1.8. Glucose 261. Pro-calcitonin was 0.10. She is continued on DuoNeb inhalations, Pulmicort and Perforomist inhalations, Solu-Medrol and Singulair. Anticoagulated with Eliquis. Antibiotics in the form of ceftriaxone and azithromycin. The patient is seen today 08/01/2023 in follow-up on the regular medical floor. She is sitting up in a chair. Awake and alert in no acute distress. Doing a bit better today compared to yesterday. Still not quite back to her baseline. Still with some wheezing. She is maintaining O2 saturations in the 90s on 2 L/m per nasal cannula. She has normal saline at 75 ML's per hour. She is continued on DuoNeb inhalations, Pulmicort and Perforomist inhalations, Solu-Medrol and Singulair. Anticoagulated with Eliquis. Antibiotics in the form of ceftriaxon e. Completed azithromycin. Sodium 143. Potassium 5.6. Bicarb 22. BUN 39. Creatinine 1.7. Glucose 217. The patient is seen today 08/02/2023 in follow-up on the regular medical floor. She is awake and alert in no acute distress. Feeling a bit better today compared to yesterday. Not quite back to her baseline. She is sitting up in a chair. She is maintaining good O2 saturations in the mid 90s on 2 L/m per nasal cannula. She's been afebrile. Hemodynamically stable. She is continued on DuoNeb inhalations, Pulmicort and Perforomist inhalations, Solu-Medrol and Singulair. She is anticoagulated with Eliquis. She is continued on antibiotics in the form of ceftriaxone. Completed azithromycin. Follow-up labs are pending. Objective - Vital Signs Vital signs: Vital Signs Temp 97.5 F L 08/02/23 06:55 Pulse 83 08/02/23 06:55 Resp 15 08/02/23 06:55 BP 162/79 08/02/23 06:55 Pulse Ox 95 08/02/23 06:55 FiO2 21 08/01/23 08:05 Intake & Output 08/01/23 08/02/23 08/02/23 18:59 06:59 18:59 Intake Total 598 Balance 598 Intake: Oral 598 Other: Voiding Method Toilet Toilet # Voids 4 1 - Exam GENERAL EXAM: Alert, oriented 3 77-year-old female, on 2 L nasal cannula, in no apparent distress. HEAD: Normocephalic and atraumatic EYES: Normal reaction of pupils, equal size. NOSE: Clear with pink turbinates. THROAT: No erythema or exudates. NECK: No masses, no JVD. CHEST: No chest wall deformity. LUNGS: Equal air entry with wheezes and rhonchi throughout. CVS: S1 and S2 normal with no audible murmur, regular rhythm. No extra heart sounds ABDOMEN: No hepatosplenomegaly, active bowel sounds, no guarding or rigidity. SPINE: No scoliosis or deformity SKIN: No rashes CENTRAL NERVOUS SYSTEM: No focal deficits, tone is normal in all 4 extremities. EXTREMITIES: There is no peripheral edema, clubbing, or cyanosis. Peripheral pulses are intact. - Labs CBC & Chem 7: 07/31/23 05:54 08/01/23 06:09 Labs: Abnormal Lab Results - Last 24 Hours (Table) 08/01/23 Range/Units 06:09 Potassium 5.6 H (3.5-5.5) mmol/L Anion Gap 12.30 H (4.00-12.00) mmol/L BUN 39.4 H (9.0-27.0) mg/dL Creatinine 1.7 H (0.6-1.5) mg/dL Est GFR (CKD-EPI) 31 L (>=60) BUN/Creatinine Ratio 23.18 H (12.00-20.00) Ratio Glucose 217 H (70-110) mg/dL Microbiology - Last 24 Hours (Table) 07/29/23 17:20 Blood Culture - Preliminary Blood Assessment and Plan Assessment: Acute hypoxemic respiratory failure, on 2 L/m nasal cannula, secondary to an exacerbation of the patient's moderate persistent bronchial asthma and possible underlying tracheobronchitis. Chest x-ray demonstrates left-sided scarring or atelectasis. No obvious focal infiltrate or evidence of pneumonia. Negative for influenza, RSV, COVID-19. Pro-calcitonin 0.10. Remains on ceftriaxone and completed azithromycin History of paroxysmal atrial fibrillation, currently sinus mechanism, an ticoagulated on Eliquis Hypertension Hyperlipidemia Chronic kidney disease stage III Morbid obesity, with a BMI of 42.1 kg/m Plan: The patient was seen and evaluated Medications reviewed Remains on bronchodilators and steroids Continued on antibiotics Titrate down the FiO2 as tolerated Increase her activity as tolerated Not quite back to her baseline Probable discharge in the a.m. This patient was seen independently by the nurse practitioner I have personally seen and examined the patient, performed the documentation and the assessment and plan as written. Number of minutes spent on the visit: 24.
[2023-08-02] MEDS: IPRATROPIUM-ALBUTEROL 3 ML NEB INHALATION SCH ×4 (08:57→20:29)
[2023-08-02] MEDS: BUDESONIDE 1 MG/2 ML NEBU INHALATION SCH ×2 (08:57→20:29)
[2023-08-02] MEDS: FORMOTEROL FUMARATE 20 MCG/2 ML NEBU INHALATION SCH ×2 (08:57→20:29)
[2023-08-02] MEDS: APIXABAN 5 MG TAB PO SCH ×2 (09:07→20:22)
[2023-08-02] MEDS: CHOLECALCIFEROL 125 MCG (5000 IU) TABLET PO SCH (09:07)
[2023-08-02] MEDS: ATORVASTATIN 20 MG TAB PO SCH (09:07)
[2023-08-02] MEDS: METOPROLOL TARTRATE 25 MG TAB PO SCH ×2 (09:07→20:22)
[2023-08-02] MEDS: MONTELUKAST 10 MG TAB PO SCH (09:08)
[2023-08-02] MEDS: FAMOTIDINE 20 MG TAB PO SCH (09:08)
[2023-08-02] MEDS: amLODIPine 10 MG TAB PO SCH (09:08)
[2023-08-02 09:21] LABS: African American GFR (CKD) 38 (>60 ml/min/1.73 sqM); Anion Gap 13 mmol/L; Blood Urea Nitrogen 39 mg/dL (7-17); Calcium 9.2 mg/dL (8.4-10.2); Carbon Dioxide 22 mmol/L (22-30); Chloride 106 mmol/L (98-107); Glucose 207 mg/dL (74-99); Non-African American GFR(CKD) 33 (>60 ml/min/1.73 sqM); Potassium 4.5 mmol/L (3.5-5.1); Sodium 141 mmol/L (137-145)
[2023-08-02] MEDS: guaiFENesin SYRUP 100MG/5ML 200 MG/10 ML CUP PO PRN (20:49)
--- NOTE | 2023-08-02 21:50 | PN ---
PROGRESS NOTE DATE OF SERVICE: 08/02/2023 SUBJECTIVE: This 77-year-old woman was admitted with asthma acute exacerbation, acute respiratory failure, is improving significantly. No chest pain, no palpitations, no fever. OBJECTIVE: VITAL SIGNS: Pulse 77, blood pressure 130/76, respirations 16. CHEST: Few scattered rhonchi and crackles, expiratory wheezing. ABDOMEN: Soft. NERVOUS SYSTEM: No focal deficit. LABORATORY DATA: Creatinine 1.5. The original chest x-ray reviewed. ASSESSMENT: 1. Acute asthma exacerbation with acute hypoxic respiratory failure, requiring 2 L nasal cannula. 2. Moderate persistent asthma. 3. Acute tracheobronchitis. 4. Hypertension. 5. Hyperkalemia. 6. Multiple medical issues. RECOMMENDATIONS: Recommended to continue current management and continue symptomatic treatment, otherwise continue with tapering steroids, bronchodilators. We will check labs tomorrow, possible discharge in the next 24 hours. Further recommendations to follow. MMODL / IJN: [id number] /
[2023-08-03] MEDS: IPRATROPIUM-ALBUTEROL 3 ML NEB INHALATION PRN (02:43)
[2023-08-03] MEDS: PANTOPRAZOLE 40 MG TABLET PO SCH (06:38)
[2023-08-03] MEDS: IPRATROPIUM-ALBUTEROL 3 ML NEB INHALATION SCH ×2 (07:28→11:18)
[2023-08-03] MEDS: FORMOTEROL FUMARATE 20 MCG/2 ML NEBU INHALATION SCH (07:28)
[2023-08-03] MEDS ORDERED: SODIUM CHLORIDE 0.65% NASAL SPRAY 44 ML BTL NASAL PRN (07:28)
[2023-08-03] MEDS: BUDESONIDE 1 MG/2 ML NEBU INHALATION SCH (07:28)
[2023-08-03 07:56] VITALS: BP 168/72; RESP 18; TEMP 97.6
[2023-08-03] MEDS: methylPREDNISolone SOD SUCCI 40 MG/ML 1 ML VIAL IV SCH (08:20)
[2023-08-03] MEDS: ATORVASTATIN 20 MG TAB PO SCH (08:20)
[2023-08-03] MEDS: APIXABAN 5 MG TAB PO SCH (08:20)
[2023-08-03] MEDS: amLODIPine 10 MG TAB PO SCH (08:20)
[2023-08-03] MEDS: FAMOTIDINE 20 MG TAB PO SCH (08:20)
[2023-08-03] MEDS: MONTELUKAST 10 MG TAB PO SCH (08:20)
[2023-08-03] MEDS: METOPROLOL TARTRATE 25 MG TAB PO SCH (08:20)
[2023-08-03] MEDS: CHOLECALCIFEROL 125 MCG (5000 IU) TABLET PO SCH (08:20)
--- NOTE | 2023-08-03 10:21 | P.PN ---
Subjective Progress Note Date: 08/03/23 I am seeing this patient in consultation today 07/30/2023 patient presented yesterday afternoon complaining of progressively worsening shortness of breath over the last 6 days. Patient is a 77-year-old white female with past medical history significant for asthma, atrial fibrillation, hypertension, hyper lipidemia, chronic kidney disease. She does not smoke. Patient does follow in the pulmonary office with Dr. Gaytan for management of her moderate persistent bronchial asthma. She uses a combination of primatine inhaler, DuoNeb's, budesonide inhalation, and formoterol inhalation while at home. She states that over the last 6 days she has had increasing work of breathing. She had a cough that was initially productive with white phlegm and is now dry and persistent.. She states that she had a fever of 103F 2-3 days ago. She's had chest tightness and she feels like she can get a full breath. Chest x-ray on arrival shows subsegmental changes and left perihilar region, possibly atelectasis or scarring. CBC on arrival was unremarkable. No leukocytosis. CMP shows sodium 139, chloride 105, potassium 4.5, serum bicarb 22, BUN 20, creatinine 01.53, glucose 120. Troponins are not elevated. NT proBNP also not particularly elevated for age. Negative for influenza, RSV, COVID-19. Patient empirically covered on a combination of azithromycin and Rocephin. Also receiving DuoNeb's [id number], formoterol, budesonide, and IV Solu-Medrol. She is still very bronchospastic. She is on 2 L nasal cannula. Currently afebrile. Vital signs are stable. She is being monitored on the general medical floor. The patient is seen today 07/31/2023 in follow-up on the regular medical floor. She is currently sitting up in a chair at the bedside. Awake and alert in no acute distress. She is maintaining O2 saturations in the 90s on 2 L/m per nasal cannula. She is complaining of a sore throat. She is still dyspneic with minimal exertion. Blood cultures reveal no growth. White count 18.3. Humulin 12.0. Platelets 242. Sodium 138. Potassium 4.7. Bicarb 18. BUN 32. Creatinine 1.8. Glucose 261. Pro-calcitonin was 0.10. She is continued on DuoNeb inhalations, Pulmicort and Perforomist inhalations, Solu-Medrol and Singulair. Anticoagulated with Eliquis. Antibiotics in the form of ceftriaxone and azithromycin. The patient is seen today 08/01/2023 in follow-up on the regular medical floor. She is sitting up in a chair. Awake and alert in no acute distress. Doing a bit better today compared to yesterday. Still not quite back to her baseline. Still with some wheezing. She is maintaining O2 saturations in the 90s on 2 L/m per nasal cannula. She has normal saline at 75 ML's per hour. She is continued on DuoNeb inhalations, Pulmicort and Perforomist inhalations, Solu-Medrol and Singulair. Anticoagulated with Eliquis. Antibiotics in the form of ceftriaxon e. Completed azithromycin. Sodium 143. Potassium 5.6. Bicarb 22. BUN 39. Creatinine 1.7. Glucose 217. The patient is seen today 08/02/2023 in follow-up on the regular medical floor. She is awake and alert in no acute distress. Feeling a bit better today compared to yesterday. Not quite back to her baseline. She is sitting up in a chair. She is maintaining good O2 saturations in the mid 90s on 2 L/m per nasal cannula. She's been afebrile. Hemodynamically stable. She is continued on DuoNeb inhalations, Pulmicort and Perforomist inhalations, Solu-Medrol and Singulair. She is anticoagulated with Eliquis. She is continued on antibiotics in the form of ceftriaxone. Completed azithromycin. Follow-up labs are pending. The patient is seen today 08/03/2023 in follow-up on the regular medical floor. She is sitting up in a chair. Awake and alert in no acute distress. Maintain ing O2 saturations in the 90s on 2 L/m per nasal cannula. She's afebrile. Hemodynamically stable. She denies any worsening shortness of breath, cough or congestion. Her only complaint is of a dry mouth. No evidence of Mayra. Blood culture revealed no growth. Sodium 141 potassium 4.5. Bicarb 22. BUN 39. Creatinine 1.52. Glucose 207. She is continued on DuoNeb inhalations, Pulmicort and Perforomist inhalations, Solu-Medrol and Singulair. Antibiotics in the form of ceftriaxone. Completed azithromycin. She is anticoagulated with Eliquis. Objective - Vital Signs Vital signs: Vital Signs Temp 97.6 F 08/03/23 07:33 Pulse 84 08/03/23 07:56 Resp 18 08/03/23 07:33 BP 168/72 08/03/23 07:33 Pulse Ox 94 L 08/03/23 07:33 FiO2 21 08/01/23 08:05 Intake & Output 08/02/23 08/03/23 08/03/23 18:59 06:59 18:59 Intake Total 594 240 Balance 594 240 Intake: Oral 594 240 Other: Voiding Method Toilet Toilet Toilet # Voids 3 1 - Exam GENERAL EXAM: Alert, obese 77-year-old female, up in a chair, on 2 L nasal cannula, in no apparent distress. HEAD: Normocephalic and atraumatic EYES: Normal reaction of pupils, equal size. NOSE: Clear with pink turbinates. THROAT: No erythema or exudates. NECK: No masses, no JVD. CHEST: No chest wall deformity. LUNGS: Equal air entry with wheezes and rhonchi throughout. CVS: S1 and S2 normal with no audible murmur, regular rhythm. No extra heart sounds ABDOMEN: No hepatosplenomegaly, active bowel sounds, no guarding or rigidity. SPINE: No scoliosis or deformity SKIN: No rashes CENTRAL NERVOUS SYSTEM: No focal deficits, tone is normal in all 4 extremities. EXTREMITIES: There is no peripheral edema, clubbing, or cyanosis. Peripheral pulses are intact. - Labs CBC & Chem 7: 07/31/23 05:54 08/02/23 06:53 Labs: Microbiology - Last 24 Hours (Table) 07/29/23 16:45 Blood Culture Gram Stain - Final Blood Blood Culture - Final Coagulase Negative Staph Assessment and Plan Assessment: Acute hypoxemic respiratory failure, on 2 L/m nasal cannula, secondary to an ex acerbation of the patient's moderate persistent bronchial asthma and possible underlying tracheobronchitis. Chest x-ray demonstrates left-sided scarring or atelectasis. No obvious focal infiltrate or evidence of pneumonia. Negative for influenza, RSV, COVID-19. Pro-calcitonin 0.10. Remains on ceftriaxone and completed azithromycin History of paroxysmal atrial fibrillation, currently sinus mechanism, anticoagulated on Eliquis Hypertension Hyperlipidemia Chronic kidney disease stage III Morbid obesity, with a BMI of 42.1 kg/m Plan: The patient was seen and evaluated Medications and labsreviewed Discontinue Solu-Medrol Initiated prednisone taper Discontinue Pulmicort and Perforomist inhalations Initiate Symbicort Robitussin for her cough Saline for dry nasal passages Complete a course of antibiotics in the form of Ceftin Follow-up in our office in 1 week post discharge This patient was seen independently by the nurse practitioner I have personally seen and examined the patient, performed the documentation and the assessment and plan as written. Number of minutes spent on the visit: 22.
[2023-08-03 10:25] LABS: Basophils # (A) 0.03 X 10*3/uL (0.00-0.10); Basophils % (A) 0.2 %; Eosinophils # (A) 0 X 10*3/uL (0.04-0.35); Eosinophils % (A) 0 %; HGB 11.4 g/dL (12.0-15.0); Lymphocytes # (A) 0.76 X 10*3/uL (0.90-5.00); Lymphocytes % (A) 5.5 %; MCH 28.6 pg (27.0-32.0); MCHC 31.7 g/dL (32.0-37.0); MCV 90.5 FL (80.0-97.0); Mean Platelet Volume 10.8 FL (9.5-12.2); Monocytes % (A) 2.9 %; NRBC Per 100 WBC 0 X 10*3/uL (0.00-0.01); Neutrophils # (A) 12.32 X 10*3/uL (1.80-7.70); Neutrophils % (A) 89.7 %; Platelet Count 230 X 10*3/uL (140-440); RBC 3.98 X 10*6/uL (4.10-5.20); RDW 13.2 % (11.5-14.5); WBC 13.75 X 10*3/uL (4.50-10.00)
[2023-08-03 10:56] LABS: BUN/Creat Ratio 21.56 Ratio (12.00-20.00); Blood Urea Nitrogen 34.5 mg/dL (9.0-27.0); Calcium 9.1 mg/dL (8.7-10.3); Carbon Dioxide 22.9 mmol/L (21.6-31.8); Chloride 110 mmol/L (96-109); Glucose 246 mg/dL (70-110); Potassium 4.6 mmol/L (3.5-5.5); Sodium 145 mmol/L (135-145)
--- NOTE | 2023-08-03 11:41 | DS ---
DISCHARGE SUMMARY FINAL DIAGNOSES: 1. Acute asthma exacerbation, acute hypoxic respiratory failure requiring 2 L oxygen nasal cannula. 2. Moderate persistent asthma. 3. Acute tracheobronchitis. 4. Hypertension. 5. Hyperkalemia. 6. Multiple medical issues. DISCHARGE DISPOSITION: The patient will be discharged in stable condition. Guarded prognosis home oxygen p.r.n. HISTORY: This is a 77-year-old woman with a past medical history of multiple medical problems, admitted with asthma, acute exacerbation, multiple medical problems as mentioned, treated with intensive bronchodilators, steroids. Patient improved significantly. Pulmonary cleared for discharge. PHYSICAL EXAMINATION: VITALS: Stable. CARDIOVASCULAR: S1, S2. RESPIRATIONS: Few scattered rhonchi. ABDOMEN: Soft. The patient will be discharged in stable condition with following discharge medications, continue the home medications, 1. Ceftin 500 mg p.o. b.i.d. for 3 days. 2. Prednisone taper. 3. Symbicort 1 b.i.d. 4. Robitussin p.r.n. Follow up with Dr. Prater. Follow up with Pulmonary as recommended. MMODL / IJN: [id number] / [place]
[2023-08-03 11:48] VITALS: PULSE 82
== END 2023-08-03 14:32 | disposition home or self-care (01) | DRG 202 ==
LOC: EC 14:35 → 6NMEDSUR 19:26 → OBSVTOIN 07-31 11:12
PROVIDERS: ADMIT Hospitalist; ATTEND Hospitalist
DX: J45.41 Moderate persistent asthma with (acute) exacerbation (principal); J96.01 Acute respiratory failure with hypoxia; J44.0 Chronic obstructive pulmonary disease with (acute) lower respiratory infection; Z68.41 Body mass index [BMI] 40.0-44.9, adult; N17.9 Acute kidney failure, unspecified; J20.9 Acute bronchitis, unspecified; E66.01 Morbid (severe) obesity due to excess calories; N18.30 Chronic kidney disease, stage 3 unspecified; K59.00 Constipation, unspecified; I48.0 Paroxysmal atrial fibrillation; I12.9 Hypertensive chronic kidney disease with stage 1 through stage 4 chronic kidney disease, or unspecified chronic kidney disease; E87.5 Hyperkalemia; E78.5 Hyperlipidemia, unspecified; Z11.52 Encounter for screening for COVID-19; Z79.899 Other long term (current) drug therapy; Z79.01 Long term (current) use of anticoagulants; Z79.51 Long term (current) use of inhaled steroids
CPT/HCPCS: 36415; 71046; 80048; 80053; 83735; 83880; 84145; 84484; 85025; 85379; 85610; 85730; 87040; 87636; 93005; 94640; 94760; 96365; 96366; 96367; 96375; 99285

== ENCOUNTER → 2023-10-09 | Day surgery (SDC) | payer MEDICARE ==
--- NOTE | 2023-10-09 13:32 | USB ---
Reason for Exam: Additional evaluation requested from abnormal screening. Risk Values: Dottie 5 year model risk: 1.1%. NCI Lifetime model risk: 2.2%. Technique: Method: Whole Breast Handheld. Findings: The whole breast of the right breast, the axilla of the right breast and the retroareolar of the right breast were scanned. A complete US of all four quadrants of the breast , axilla, and retro-areolar region were reviewed. There is an irregular, hypoechoic mass measuring up to 2.9 cm located at 11:00 position, 5 cm from the nipple. This is angular margins and echogenic halo. No other solid cystic lesion or axillary lymphadenopathy. Overall Assessment: Highly suggestive of malignancy, BI-RAD 5 Management: Ultrasound Core Biopsy of the right breast. BI-RADS 5 mass. Electronically signed and approved by: Yony Richardson M.D. Radiologist
--- NOTE | 2023-10-15 09:06 | MM ---
Reason for Exam: Post Procedure Mammogram. Risk Values: Dottie 5 year model risk: 1.1%. NCI Lifetime model risk: 2.2%. Tissue Density: Right: The breasts are heterogeneously dense, which may obscure small masses. Pathology Description: Location: 11 o'clock. Marker Left Behind. Needle Type: Celero Cores: 1 Gauge: 12 Complications: Excessive bleeding The procedure of ultrasound guided core biopsy was explained to the patient. Benefits, alternatives, and risks were discussed. An informed consent was then obtained. The patient was placed in supine positioning for imaging and for the procedure. The overlying skin was prepped and draped in usual sterile fashion. Lidocaine was used as anesthetic into the skin followed by lidocaine/epinephrine into the subcutaneous tissue up to area of concern in the 11:00 central right breast. Under ultrasound guidance, a 13-gauge vacuum-assisted mammotome Elite biopsy gun was placed but attempts at sampling were unsuccessful with only blood retrieved in the sample chamber. We immediately switched to a 12-gauge Celero vacuum assisted biopsy device and obtained 1 core specimen which was placed in formalin solution. Following this, a butterfly clip was left in lesion. There was prominent bleeding though the patient reports stopping her Eliquis 3 days ago. Bleeding was <50 mL. Hemostasis was obtained after 5 minutes of firm directed pressure. The patient tolerated the procedure well without any immediate complication. The patient was kept in the radiology department for short stay after the procedure and then discharged home in stable condition. Postprocedure mammogram: The patient was transferred to mammography for physician ordered post procedure mammogram for clip placement verification. Post procedure mammogram shows butterfly clip centered within the centrally located, nearly 3 cm mass. IMPRESSION: Successful, uncomplicated ultrasound guided core biopsy of the nearly 3 cm, BI-RADS 5 mass, 11:00 central right breast. Only one 12-gauge core due to prominent bleeding during the procedure. Full pathology results to follow. Pathology Results: Result: Malignant, Invasive ductal carcinoma. RIGHT BREAST, ELEVEN O'CLOCK, ULTRASOUND GUIDED CORE BIOPSY: Invasive moderately differentiated carcinoma (grade 2). See Surgical Pathology Cancer Case Summary. Overall Assessment: Malignant Assessment: MG diagnostic mammo RT wo CAD - Right: Known biopsy proven malignancy, BI-RAD 6. Management: Surgical Consultation of the right breast. Electronically signed and approved by: Yony Richardson M.D. Radiologist
== END ==
LOC: RADUSWWP 10:08
PROVIDERS: ATTEND Surgery
DX: C50.411 Malignant neoplasm of upper-outer quadrant of right female breast (principal); Z17.0 Estrogen receptor positive status [ER+]
CPT/HCPCS: 88305; 77065; 19083; 76641; A4648

== ENCOUNTER → 2023-10-10 | Outpatient (CLI) | payer MEDICARE ==
--- NOTE | 2023-10-10 15:51 | US ---
EXAMINATION TYPE: US kidneys/renal and bladder DATE OF EXAM: 10/10/2023 COMPARISON: NONE CLINICAL INDICATION: Female, 77 years old with history of N18.32 CHRONIC KIDNEY DISEASE, STAGE 3B; CK D, no symptoms, large habitus EXAM MEASUREMENTS: Right Kidney: 8.4 x 3.5 x 4.1 cm Left Kidney: 8.7 x 4.0 x 4.5 cm Right Kidney: No hydronephrosis or masses seen, cortical thinning, smaller in size Left Kidney: No hydronephrosis or masses seen, cortical thinning, smaller in size Bladder: not fully distended IMPRESSION: 1. No acute ultrasound abnormality bilateral kidneys. Some thinning of the cortex may be present sugg esting some chronic renal failure.
== END | disposition home or self-care (01) ==
LOC: RADUSWWP 14:09
PROVIDERS: ATTEND Internal Medicine Nephrology
DX: N18.32 Chronic kidney disease, stage 3b (principal)
CPT/HCPCS: 76770

== ENCOUNTER → 2023-10-31 | Outpatient (CLI) | payer MEDICARE ==
[2023-10-31 13:08] VITALS: BP 108/63; PULSE 60; RESP 17; TEMP 98.3
--- NOTE | 2023-10-31 13:20 | P.GSHP ---
History of Present Illness H&P Date: 10/31/23 Chief Complaint: Biopsy-proven right breast invasive ductal carcinoma Tara is a 77-year-old white female seen in consultation for Dr. Prater regarding a biopsy-proven right breast invasive ductal carcinoma. She underwent a bilateral mammogram on 09-26-2023 which revealed a 3.8 cm lesion in the right breast in the central portion. An ultrasound was performed of this lesion and ultrasound core biopsy was recommended. No axillary adenopathy was identified. Left breast did not show any lesions of concern. Ultrasound revealed a grade 2 invasive moderately differentiated carcinoma ER/IA positive HER2 negative. The patient can feel a spot in her right breast for about 4 months. It is not painful. It has decreased in size after the biopsy. The patient has never had surgery on her breast in the past. She is not complaining of any trauma or infection in the breast. Caffeine: 1 can pop/week; 1/2 cup/day nicotine: none chocolate: daily BCP: none Family History: brother: throat, nonsmoker brother: colon brother: skin/melanoma paternal neice: skin cancer Hormonal History: menarche: 11 , age at first : 21, breat fed: no menopause: 46 hormones: none Surgical HIstory: finger Medical HIstory: COPD Atrial fibrillation; Eliquis but has been off it for several weeks close to stage 4 kidney disease decreased hearing Social History: nicotine: none alcohol: occasional drugs: none - Constitutional Constitutional: Denies chills, Denies fever - EENT Eyes: bilateral blurred vision ( when over tired) Ears: bilateral: decreased hearing Ears, nose, mouth and throat: Denies headache, Denies sore throat - Breasts Breasts: bilateral: as per HPI - Cardiovascular Cardiovascular: Reports as per HPI, Reports shortness of breath - Respiratory Respiratory: Denies cough, Denies 7 - Genitourinary (Female) Genitourinary: Denies dysuria, Denies hematuria - Menstruation Menstruation: Reports postmenopausal - Musculoskeletal Musculoskeletal: Reports myalgias - Integumentary Integumentary: Denies pruritus, Denies rash - Neurological Neurological: Denies numbness, Denies weakness - Psychiatric Psychiatric: Denies anxiety, Denies depression - Endocrine Endocrine: Reports fatigue - Hematologic/Lymphatic Comment: patient is on Eloquis, stopped in September secondary to insurance - Allergic/Immunologic Allergic/Immunologic: Reports as per HPI Past Medical History Past Medical History: COPD, Hyperlipidemia, Hypertension Additional Past Medical History / Comment(s): stage 3 kidney disease, kidney stones History of Any Multi-Drug Resistant Organisms: None Reported Past Surgical History: Tonsillectomy Past Anesthesia/Blood Transfusion Reactions: No Reported Reaction Past Psychological History: No Psychological Hx Reported Smoking Status: Never smoker Past Alcohol Use History: Rare Additional Past Alcohol Use History / Comment(s): "Maybe once a month I'll have a arianna" Past Drug Use History: None Reported - Past Family History Father Additional Family Medical History / Comment(s): at age 39 due to heart condition Mother Additional Family Medical History / Comment(s): Possible TB. Heart Condition Medications and Allergies Home Medications Medication Instructions Recorded Confirmed Type amLODIPine [Norvasc] 10 mg PO DAILY 05/17/19 10/31/23 History calcitrioL [Rocaltrol] 0.25 mcg PO SUTUTHSA 10/06/20 10/31/23 History Metoprolol Tartrate 25 mg PO BID 01/16/21 10/31/23 History Ipratropium-Albuterol Nebulize 3 ml INHALATION RT-QID 30 Days #90 01/18/21 10/31/23 Rx [Duoneb 0.5 mg-3 mg/3 ml Soln] neb Apixaban [Eliquis] 5 mg PO BID 07/29/23 10/31/23 History Atorvastatin [Lipitor] 20 mg PO DAILY 07/29/23 10/31/23 History Cholecalciferol [Vitamin D3 (125 125 mcg PO DAILY 07/29/23 10/31/23 History Mcg = 5000 Iu)] Formoterol Fumarate [Perforomist] 20 mcg INHALATION RT-QID 07/29/23 10/31/23 H istory Montelukast [Singulair] 10 mg PO DAILY 07/29/23 10/31/23 History Allergies Allergy/AdvReac Type Severity Reaction Status Date / Time No Known Allergies Allergy Verified 10/31/23 12:54 Surgical - Exam - General no distress - Eyes normal ocular movement - ENT decreased hearing - Neck trachea midline - Respiratory normal respiratory effort - Cardiovascular Heart Sounds: normal: S1, S2 - Integumentary normal turgor - Neurologic no disoriented, no combative - Musculoskeletal slow gait - Psychiatric oriented to time, oriented to person, oriented to place, speech is normal, memory intact Breast Exam: BRA: 44B inspection: right nipple inversion, ecchymosis related to recent right breast biopsy Palpation: Right breast: Multi positional exam fullness approximately 4 cm x 4 cm in the 12 o'clock position of the right breast, right nipple inversion the lesion is not fixed to the chest wall Right axilla: No adenopathy of concern Left breast: Multi positional exam no dominant masses or nodules of concern Left axilla: No adenopathy of concern Results Bilateral mammogram results from [facility] from 09-26-2023 revealed a 3.8 cm lesion in the right breast no lesions of concern noted in the left breast Ultrasound was performed of the area and ultrasound core biopsy was performed on 10-09-2023 this revealed an invasive moderately differentiated ductal carcinoma ER/IA positive HER2 negative Post ultrasound mammogram reveals the clip to be in the vicinity of the lesion. Assessment and Plan Assessment: Impression: T2 N0 M0 G2 ER positive IA positive HER2 negative invasive ductal right breast cancer Atrial fibrillation normally takes Eliquis Chronic kidney failure/stage III near stage IV Bilateral ankle swelling right greater than the left Plan: Presentation of case at tumor board Will discuss the treatment options with the patient and her daughter and the patient will decide which she would like to have done CC: Dr. Prater
== END ==
LOC: WWCWWP 11:48
PROVIDERS: ATTEND Surgery
DX: C50.911 Malignant neoplasm of unspecified site of right female breast (principal); N18.4 Chronic kidney disease, stage 4 (severe); N18.30 Chronic kidney disease, stage 3 unspecified; I48.91 Unspecified atrial fibrillation; Z17.0 Estrogen receptor positive status [ER+]

== ENCOUNTER → 2023-11-27 | Outpatient (CLI) | payer MEDICARE ==
--- NOTE | 2023-11-27 13:46 | P.PN ---
Subjective Progress Note Date: 11/27/23 11-27-23 Chief Complaint: Biopsy-proven right breast invasive ductal carcinoma Tara is a 77-year-old white female seen in consultation for Dr. Prater regarding a biopsy-proven right breast invasive ductal carcinoma. She underwent a bilateral mammogram on 09-26-2023 which revealed a 3.8 cm lesion in the right breast in the central portion. An ultrasound was performed of this lesion and ultrasound core biopsy was recommended. No axillary adenopathy was identified. Left breast did not show any lesions of concern. Ultrasound revealed a grade 2 invasive moderately differentiated carcinoma ER/PA positive HER2 negative. The patient could feel a spot in her right breast for about 4 months. It was not painful. It decreased in size after the biopsy. The patient had never had surgery on her breast in the past. She was not complaining of any trauma or infection in the breast. Discussed at tumor board on 11-04-2023. Patient is scheduled for right mastectomy with sentinel node biopsy on December 16, 2023. medical clearance: Dr. Moi Perdomo kidney Dr. Gaytan; high risk Dr. Bravo cardiology The patient would like to have a mastectomy without reconstruction. We have discussed sentinel node biopsy/possible axillary node dissection, secondary to the fact the patient is over than 77 we have discussed choosing wisely criteria. The patient would like to have the sentinel node sampled secondary to the fact that we will be there with a mastectomy and she would like to know the tiffany status as of the node were positive it may add radiation therapy to the treatment. Caffeine: 1 can pop/week; 1/2 cup/day nicotine: none chocolate: daily BCP: none Family History: brother: throat, nonsmoker brother: colon brother: skin/melanoma paternal neice: skin cancer Hormonal History: menarche: 11 , age at first : 21, breat fed: no menopause: 46 hormones: none Surgical HIstory: finger Medical HIstory: COPD Atrial fibrillation; Eliquis but has been off it for several weeks close to stage 4 kidney disease decreased hearing Social History: nicotine: none alcohol: occasional drugs: none - Constitutional Constitutional: Denies chills, Denies fever - EENT Eyes: bilateral blurred vision ( when over tired) Ears: bilateral: decreased hearing Ears, nose, mouth and throat: Denies headache, Denies sore throat - Breasts Breasts: bilateral: as per HPI - Cardiovascular Cardiovascular: Reports as per HPI, Reports shortness of breath - Respiratory Respiratory: Denies cough - Genitourinary (Female) Genitourinary: Denies dysuria, Denies hematuria - Menstruation Menstruation: Reports postmenopausal - Musculoskeletal Musculoskeletal: Reports myalgias - Integumentary Integumentary: Denies pruritus, Denies rash - Neurological Neurological: Denies numbness, Denies weakness - Psychiatric Psychiatric: Denies anxiety, Denies depression - Endocrine Endocrine: Reports fatigue - Hematologic/Lymphatic Comment: patient is on Eloquis, stopped in September secondary to insurance - Allergic/Immunologic Allergic/Immunologic: Reports as per HPI Past Medical History Past Medical History: COPD, Hyperlipidemia, Hypertension Additional Past Medical History / Comment(s): stage 3 kidney disease, kidney stones History of Any Multi-Drug Resistant Organisms: None Reported Past Surgical History: Tonsillectomy Past Anesthesia/Blood Transfusion Reactions: No Reported Reaction Past Psychological History: No Psychological Hx Reported Smoking Status: Never smoker Past Alcohol Use History: Rare Additional Past Alcohol Use History / Comment(s): "Maybe once a month I'll have a arianna" Past Drug Use History: None Reported - Past Family History Father Additional Family Medical History / Comment(s): at age 39 due to heart condition Mother Additional Family Medical History / Comment(s): Possible TB. Heart Condition Medications and Allergies Home Medications Medication Instructions Recorded Confirmed Type amLODIPine [Norvasc] 10 mg PO DAILY 05/17/19 10/31/23 History calcitrioL [Rocaltrol] 0.25 mcg PO SUTUTHSA 10/06/20 10/31/23 History Metoprolol Tartrate 25 mg PO BID 01/16/21 10/31/23 History Ipratropium-Albuterol Nebulize 3 ml INHALATION RT-QID 30 Days #90 01/18/21 10/31/23 Rx [Duoneb 0.5 mg-3 mg/3 ml Soln] neb Apixaban [Eliquis] 5 mg PO BID 07/29/23 10/31/23 History Atorvastatin [Lipitor] 20 mg PO DAILY 07/29/23 10/31/23 History Cholecalciferol [Vitamin D3 (125 125 mcg PO DAILY 07/29/23 10/31/23 History Mcg = 5000 Iu)] Formoterol Fumarate [Perforomist] 20 mcg INHALATION RT-QID 07/29/23 10/31/23 History Montelukast [Singulair] 10 mg PO DAILY 07/29/23 10/31/23 History Allergies Allergy/AdvReac Type Severity Reaction Status Date / Time No Known Allergies Allergy Verified 10/31/23 12:54 Objective - Constitutional General appearance: Present: cooperative - EENT Eyes: Present: EOMI ENT: Present: hearing grossly normal - Neck Neck: Present: normal ROM - Respiratory Respiratory: bilateral: CTA - Cardiovascular Heart sounds: normal: S1, S2 - Integumentary Integumentary: Present: normal turgor - Psychiatric Psychiatric: Present: A&O x's 3, appropriate affect, intact judgment & insight - Additional findings Additional findings: Breast Exam: BRA: 44B inspection: right nipple inversion, ecchymosis related to recent right breast biopsy Palpation: Right breast: Multi positional exam fullness approximately 4 cm x 4 cm in the 12 o'clock position of the right breast, right nipple inversion the lesion is not fixed to the chest wall Right axilla: No adenopathy of concern Left breast: Multi positional exam no dominant masses or nodules of concern Left axilla: No adenopathy of concern Assessment and Plan Assessment: Impression: T2 N0 M0 G2 ER positive PA positive HER2 negative invasive ductal right breast cancer Atrial fibrillation normally takes Eliquis Chronic kidney failure/stage III near stage IV Bilateral ankle swelling right greater than the left Plan: Presentation of case at tumor board/ done on 11-04-23 Right mastectomy, right sentinel node injection, right sentinel node biopsy, possible right axillary node dissection The patient would like to have a right breast mastectomy without reconstruction. We have discussed sentinel node biopsy/possible axillary node dissection, secondary to the fact the patient is over than 77 we have discussed choosing wisely criteria. The patient would like to have the sentinel node sampled secondary to the fact that we will be there with a mastectomy and she would like to know the tiffany status as of the node were positive it may add radiation therapy to the treatment. CC: Dr. Prater
[2023-11-27 14:24] VITALS: BP 165/85; PULSE 71; RESP 17; TEMP 97.8
== END ==
LOC: WWCWWP 13:15
PROVIDERS: ATTEND Surgery
DX: R92.8 Other abnormal and inconclusive findings on diagnostic imaging of breast (principal); C50.911 Malignant neoplasm of unspecified site of right female breast; I48.91 Unspecified atrial fibrillation; I12.9 Hypertensive chronic kidney disease with stage 1 through stage 4 chronic kidney disease, or unspecified chronic kidney disease; N18.4 Chronic kidney disease, stage 4 (severe); M25.471 Effusion, right ankle; M25.472 Effusion, left ankle; Z79.01 Long term (current) use of anticoagulants; Z17.0 Estrogen receptor positive status [ER+]; Z79.899 Other long term (current) drug therapy

== ENCOUNTER 2023-12-16 07:45 | Day surgery (SDC) | payer MEDICARE ==
[~2023-12-16 07:45] MED LIST: HYDROmorphone 0.5 MG/0.5 ML SYRINGE IVP PRN
[2023-12-16] MEDS: LACTATED RINGERS 1,000 ML IV SCH (08:22)
[2023-12-16] MEDS: HEPARIN SODIUM,PORCINE 5,000 UNIT/ML 1 ML VIAL SQ PRN (09:09)
[2023-12-16] MEDS: DEXAMETHASONE SOD PHOSPHATE 4 MG/ML 1 ML VIAL IV ONE (09:09)
[2023-12-16] MEDS: ONDANSETRON 4 MG/2 ML VIAL IVP ONE (09:09)
[2023-12-16] MEDS: ACETAMINOPHEN TAB 500 MG TAB PO PRN (09:09)
[2023-12-16 09:19] LABS: ALT 17 U/L (4-34); African American GFR (CKD) 38 (>60 ml/min/1.73 sqM); Albumin 3.6 g/dL (3.5-5.0); Anion Gap 7 mmol/L; Blood Urea Nitrogen 27 mg/dL (7-17); Calcium 9.2 mg/dL (8.4-10.2); Carbon Dioxide 22 mmol/L (22-30); Chloride 111 mmol/L (98-107); Glucose 116 mg/dL (74-99); Non-African American GFR(CKD) 33 (>60 ml/min/1.73 sqM); Sodium 140 mmol/L (137-145); Total Bilirubin 0.9 mg/dL (0.2-1.3); Total Protein 6.4 g/dL (6.3-8.2)
[2023-12-16 09:24] LABS: AST 24 U/L (14-36); Alkaline Phosphatase 108 U/L (38-126); Potassium 4.7 mmol/L (3.5-5.1)
[2023-12-16 09:48] LABS: Basophils # (A) 0.1 k/uL (0-0.2); Basophils % (A) 0 %; Eosinophils # (A) 0.4 k/uL (0-0.7); Eosinophils % (A) 3 %; HCT 37.4 % (34.0-46.0); HGB 12.4 gm/dL (11.4-16.0); Lymphocytes # (A) 1.8 k/uL (1.0-4.8); Lymphocytes % (A) 13 %; MCHC 33.2 g/dL (31.0-37.0); MCV 90.3 fL (80.0-100.0); Mean Platelet Volume 8.7; Monocytes % (A) 7 %; Neutrophils # (A) 10.6 k/uL (1.3-7.7); Neutrophils % (A) 76 %; Platelet Count 237 k/uL (150-450); RBC 4.14 m/uL (3.80-5.40); RDW 13.1 % (11.5-15.5)
--- NOTE | 2023-12-16 10:44 | P.NAPBC ---
NAPBC Queries - NAPBC Queries Was patient's case review presented at [facility] tumor board? If no, comment.: Yes Was patient's pathology reviewed at [facility]? If no, comment.: Yes Was breast conservation surgery offered? If no, comment.: Yes Was sentinel node biopsy offered? If no, comment.: Yes Was diagnosis confirmed by percutaneous core biopsy? If no, comment.: Yes Is patient mastectomy patient?: Yes Was a preop referral to reconstructive surgeon offered?: Yes Clinical Stage: invasive ductal canacer right breast [id number]
[2023-12-16] MEDS ORDERED: PHENYLEPHRINE-0.9% NACL SYG 1,000 MCG/10 ML SYRINGE ONE (11:04)
[2023-12-16] MEDS ORDERED: fentaNYL (PF) 50 MCG/ML 2 ML AMP ONE (11:04)
[2023-12-16] MEDS ORDERED: MIDAZOLAM 2 MG/2 ML VIAL ONE (11:04)
[2023-12-16] MEDS ORDERED: SUCCINYLCHOLINE CHLORIDE 200 MG/10 ML VIAL IV ONE (11:04)
[2023-12-16] MEDS ORDERED: LIDOCAINE 1% INJ 10MG/ML (20 ML MDV) ONE (11:04)
[2023-12-16] MEDS ORDERED: HYDROmorphone (PF) 1 MG/ML ONE (11:04)
[2023-12-16] MEDS ORDERED: PROPOFOL 10 MG/ML 20 ML VIAL IV ONE (11:04)
--- NOTE | 2023-12-16 12:23 | NM ---
EXAMINATION TYPE: NM sentinel node injection DATE OF EXAM: 12/16/2023 COMPARISON: NONE CLINICAL INDICATION: Female, 77 years old with history of RIGHT BREAST CA; TECHNIQUE AND FINDINGS: The procedure of sentinel lymph node injection was explained to the patient. The benefits, alternatives, and risks were discussed. An informed consent was then obtained. Overlying skin is cleaned with sterile alcohol. Following this, 499 uCi Tc99m Tilmanocept was inject ed in the upper outer aspect of the right nipple intradermally. The patient tolerated the procedure well without any immediate complication. The patient was kept in the radiology department for short stay after the procedure and then taken to surgery for surgical p rocedure what is presumed intraoperative gamma probe will be used for sentinel lymph node detection. IMPRESSION: Right breast radiotracer injection for sentinel node localization as above.
[2023-12-16] MEDS ORDERED: MORPHINE SULFATE 4 MG/ML SYRINGE IVP PRN (13:07)
[2023-12-16] MEDS ORDERED: NALOXONE 0.4 MG/ML 1 ML VIAL IV PRN (13:07)
[2023-12-16] MEDS ORDERED: ONDANSETRON 4 MG/2 ML VIAL IVP PRN (13:07)
--- NOTE | 2023-12-16 13:07 | P.BCAON ---
Date of Procedure: 12/16/23 Preoperative Diagnosis: Right breast invasive ductal carcinoma Postoperative Diagnosis: Same Procedure(s) Performed: Right mastectomy, right sentinel node biopsy, right axillary node resection, Anesthesia: LATOSHAA Surgeon: Patricia Miller IV fluids (ml): 20 Pathology: other (Right breast, right axillary tissue/lymph nodes) Condition: stable Disposition: floor Indications for Procedure: Biopsy-proven right breast invasive ductal carcinoma Operative Findings: Fibrofatty breast tissue Description of Procedure: The patient was first seen by the radiologist and periareolar radiotracer was injected. She was brought to the operative suite. Following induction of anesthesia the neoprobe was used to interrogate the axilla. Radioactivity was identified in the axilla. The right breast and axilla were then prepped and draped in a sterile fashion. Skin markings were placed for the mastectomy. A superior skin flap was developed and carried down to the pectoralis muscle. An inferior skin flap was developed and carried down to the pectoralis muscle. The breast was brought from medial to lateral off the pectoralis muscle being careful to maintain hemostasis using the electrocautery device. The harmonic scalpel was also utilized. At the area of the axilla the tissue was resected. Using the neoprobe a radioactive lymph node was identified. The 10-second count on the radioactive lymph node 2464. The background count was 16. Several palpable nodes were identified and these were resected. These were minimally radioactive. The wound was well irrigated. 2 LASHONDA drains were placed 1 in the axilla and one under the flaps. After we are sure that hemostasis was attained Surgicel in powder form was placed. The skin edges were trimmed to assure that the flap would be flatter to the chest wall. Following this the subcutaneous tissue was closed using interrupted Vicryl sutures. This was then run with 3-0 Vicryl sutures. The drains were secured using 3-0 nylon sutures. The subcuticular tissue was closed using 4-0 Monocryl. 10 cc of 1% lidocaine were used to anesthetize the area of the incision. The patient tolerated the procedure in stable condition. All instrument and sponge counts were correct at the end of the case. - Sentinal Node Biopsy Operation performed with curative intent: Yes Tracer(s) used in upfront surgery (non-neoadjuvant): radioactive tracer Tracer(s) used in the neoadjuvant setting: N/A All nodes present at end of dye-filled channel removed: N/A All significantly radioactive nodes were removed: Yes All palpably suspicious nodes were removed: Yes
[2023-12-16] MEDS: HEPARIN SODIUM,PORCINE 5,000 UNIT/ML 1 ML VIAL SQ SCH (16:15)
[2023-12-16] MEDS: DEXTROSE 5%-0.45% NACL 1,000 ML IV SCH (16:15)
[2023-12-16] MEDS: ACETAMINOPHEN TAB 325 MG TAB PO PRN (20:15)
[2023-12-17 08:17] VITALS: BP 112/69; PULSE 73; RESP 16; TEMP 97.8
--- NOTE | 2023-12-17 08:54 | P.PN ---
Subjective Progress Note Date: 12/17/23 Principal diagnosis: Postop day #1 right mastectomy with sentinel node sampling Postoperatively the patient is doing well. She has minimal output from her LASHONDA drains. Her pain is controlled. Objective - Vital Signs Vital signs: Vital Signs Temp 97.8 F 12/17/23 07:30 Pulse 73 12/17/23 07:30 Resp 16 12/17/23 07:30 BP 112/69 12/17/23 07:30 Pulse Ox 99 12/17/23 07:30 FiO2 Intake & Output 12/16/23 12/17/23 12/17/23 18:59 06:59 18:59 Intake Total 550 600 Output Total 280 575 Balance 270 25 Weight 106.7 kg Intake: IV 550 Oral 600 Output: Drainage 20 25 Right Lower Chest 10 25 Right Upper Chest 10 Urine 250 550 Estimated Blood Loss 10 - Constitutional General appearance: Present: cooperative - EENT Eyes: Present: EOMI ENT: Present: hearing grossly normal - Neck Neck: Present: normal ROM - Respiratory Respiratory: bilateral: CTA - Cardiovascular Heart sounds: normal: S1, S2 - Integumentary Integumentary Comment(s): incision clean and dry, no evidence of hematoma or seroma - Psychiatric Psychiatric: Present: A&O x's 3, appropriate affect, intact judgment & insight - Labs CBC & Chem 7: 12/16/23 08:50 12/16/23 08:50 Labs: Abnormal Lab Results - Last 24 Hours (Table) 12/16/23 12/16/23 Range/Units 08:50 08:50 WBC 14.0 H (3.8-10.6) k/uL Neutrophils # 10.6 H (1.3-7.7) k/uL Chloride 111 H (98-107) mmol/L BUN 27 H (7-17) mg/dL Creatinine 1.53 H (0.52-1.04) mg/dL Glucose 116 H (74-99) mg/dL Assessment and Plan Assessment: Impression: Patient doing well postop day #1 Await CBC Await medical consult Plan: 1. Patient is stable from a surgical standpoint for discharge 2. Patient states that she does not have Eliquis at home and consult for cardiology is placed to help her with that as she states they were changing her to Coumadin 3. Await medical clearance prior to discharge 4. Teach patient and family drain care 5. Follow-up with Dr. Bojorquez on Friday02-18-24
--- NOTE | 2023-12-17 08:57 | P.DS ---
Providers Expected date of discharge: 12/16/23 Attending physician: Patricia Miller Consults: 12/16/23 13:10 Consult Physician Routine Consulting Provider: Maxime Rm Consult Reason/Comments: medical managment Do you want consulting provider notified?: Yes Primary care physician: Fredy Prater [facility] Course: Tara underwent a right mastectomy and sentinel node sampling on 12-16-2023. Postoperatively she is doing well. She is ready for discharge from a surgical standpoint on postop day #1. We are awaiting laboratory studies and medical clearance. We have recommended consultation with cardiology secondary to the fact that she has no more Eliquis and she states that cardiology stated they were changing her to Coumadin. Plan - Discharge Summary Discharge Rx Participant: No New Discharge Prescriptions: New oxyCODONE HCL [Oxaydo] 5 mg PO Q6H PRN 3 Days #10 tab PRN Reason: pain No Action amLODIPine [Norvasc] 10 mg PO DAILY calcitrioL [Rocaltrol] 0.25 mcg PO SUTUTHSA Cholecalciferol [Vitamin D3 (125 Mcg = 5000 Iu)] 125 mcg PO DAILY Montelukast [Singulair] 10 mg PO DAILY Apixaban [Eliquis] 5 mg PO BID Atorvastatin [Lipitor] 20 mg PO DAILY Albuterol Inhaler [Ventolin Hfa Inhaler] 1 - 2 puff INHALATION Q6H PRN PRN Reason: Shortness Of Breath Budesonide 0.5 mg INHALATION QID Metoprolol Tartrate 25 mg PO BID Ipratropium-Albuterol Nebulize [Duoneb 0.5 mg-3 mg/3 ml Soln] 3 ml INHALATION RT-QID 30 Days #90 neb Formoterol Fumarate [Perforomist] 20 mcg INHALATION RT-QID Discharge Medication List amLODIPine [Norvasc] 10 mg PO DAILY 05/17/19 [History] calcitrioL [Rocaltrol] 0.25 mcg PO SUTUTHSA 10/06/20 [History] Metoprolol Tartrate 25 mg PO BID 01/16/21 [History] Ipratropium-Albuterol Nebulize [Duoneb 0.5 mg-3 mg/3 ml Soln] 3 ml INHALATION RT-QID 30 Days #90 neb 01/18/21 [Rx] Apixaban [Eliquis] 5 mg PO BID 12/19/23 [History] Atorvastatin [Lipitor] 20 mg PO DAILY 07/29/23 [History] Cholecalciferol [Vitamin D3 (125 Mcg = 5000 Iu)] 125 mcg PO DAILY 07/29/23 [History] Formoterol Fumarate [Perforomist] 20 mcg INHALATION RT-QID 07/29/23 [History] Montelukast [Singulair] 10 mg PO DAILY 07/29/23 [History] Albuterol Inhaler [Ventolin Hfa Inhaler] 1 - 2 puff INHALATION Q6H PRN 12/11/23 [History] Budesonide 0.5 mg INHALATION QID 12/11/23 [History] oxyCODONE HCL [Oxaydo] 5 mg PO Q6H PRN 3 Days #10 tab 12/16/23 [Rx] Follow up Appointment(s)/Referral(s): Patricia Miller MD [STAFF PHYSICIAN] - 12/25/23 9:20 am [facility], [NON-STAFF] - 1 Week Activity/Diet/Wound Care/Special Instructions: Do not drive until seen by Dr. Bojorquez May shower after 48 hours Teach drain care Discharge Disposition: HOME SELF-CARE
[2023-12-17 09:35] LABS: Basophils % (A) 0 %; Eosinophils # (A) 0.2 k/uL (0-0.7); Eosinophils % (A) 1 %; HCT 37.8 % (34.0-46.0); HGB 12.2 gm/dL (11.4-16.0); Lymphocytes # (A) 1.2 k/uL (1.0-4.8); Lymphocytes % (A) 6 %; MCHC 32.2 g/dL (31.0-37.0); MCV 93.1 fL (80.0-100.0); Mean Platelet Volume 9.2; Monocytes # (A) 0.8 k/uL (0-1.0); Monocytes % (A) 4 %; Neutrophils # (A) 16.9 k/uL (1.3-7.7); Neutrophils % (A) 88 %; Platelet Count 246 k/uL (150-450); RBC 4.06 m/uL (3.80-5.40); WBC 19.2 k/uL (3.8-10.6)
--- NOTE | 2023-12-17 13:10 | P.CRDCN ---
History of Present Illness History of present illness: HISTORY OF PRESENT ILLNESS: This is a 77-year-old female with a past medical history significant for coronary artery disease, paroxysmal atrial fibrillation, hypertension, and hyperlipidemia. Patient follows in the office with Dr. Bravo. We have been asked to see the patient in consultation for medication review. Patient examined at the bedside. Patient is status post right mastectomy and sentinel node sampling on 12/16/[address] Reno Noble. Patient is prescribed Eliquis on an outpatient basis. Apparently the patient's Eliquis is not covered by her insurance and she states that Dr. Bravo was going to switch her to Coumadin. She states that she has no more Eliquis left at [facility]. It is noted that the patient underwent Lexiscan stress test on November 20, 2023 which was negative for ischemia. Most recent echocardiogram performed in the office in March 2023 revealed ejection fraction 55%, mild MR, mild TR, mildly increased pulmonary artery systolic pressure REVIEW OF SYSTEMS: At the time of my exam: CONSTITUTIONAL: Denies fever or chills. HEENT: Denies blurred vision, vision changes, or eye pain. Denies hemoptysis CARDIOVASCULAR: Denies chest pain. Denies orthopnea. Denies PND. Denies palpitations RESPIRATORY: Denies shortness of breath. GASTROINTESTINAL: Denies abdominal pain. Denies nausea or vomiting. HEMATOLOGIC: Denies bleeding disorders. GENITOURINARY: Denies any blood in urine. SKIN: Denies pruitis. Denies rash. PHYSICAL EXAM: VITAL SIGNS: Reviewed. GENERAL: Well-developed in no acute distress. HEENT: Head is normocephalic. Pupils are equal, round. Sclerae anicteric. Mucous membranes of the mouth are moist. Neck supple. No JVD or thyromegaly LUNGS: Respirations even and unlabored. Lungs essentially clear to auscultation bilaterally. HEART: Regular rate and rhythm. S1 and S2 heard. ABDOMEN: Soft. Nondistended. Nontender. EXTREMITIES: Normal range of motion. No clubbing or cyanosis. Peripheral pulses intact. No lower extremity edema NEUROLOGIC: Awake and alert. Oriented x 3. ASSESSMENT: Status post right mastectomy with sentinel node sampling Coronary artery disease Paroxysmal atrial fibrillation Hypertension Hyperlipidemia PLAN: Stop Eliquis Patient to start on Coumadin 4mg daily starting tomorrow, 12/18/2023 Patient to have INR check at [facility] in 1 week. No appointment is necessary Patient cleared for discharge from cardiology standpoint Nurse practitioner note has been reviewed by physician. Signing provider agrees with the documented findings, assessment, and plan of care documented by PACKING ROOM WORKER as a scribe. Past Medical History Past Medical History: Atrial Fibrillation, Asthma, Cancer, COPD, Hyperlipidemia, Hypertension, Osteoarthritis (OA), Renal Disease Additional Past Medical History / Comment(s): stage 3 kidney disease, kidney stones, right breast cancer 2023, uses 2L oxygen at home prn History of Any Multi-Drug Resistant Organisms: None Reported Past Surgical History: Tonsillectomy Additional Past Surgical History / Comment(s): benign lump removed off right index finger, malignant core biopsy right breast 10/09/23 Past Anesthesia/Blood Transfusion Reactions: No Reported Reaction Past Psychological History: No Psychological Hx Reported Smoking Status: Never smoker Past Alcohol Use History: Rare Additional Past Alcohol Use History / Comment(s): "Maybe once a month I'll have a arianna or a glass of wine" Past Drug Use History: None Reported - Past Family History Father Additional Family Medical History / Comment(s): at age 39 due to heart condition Mother Additional Family Medical History / Comment(s): Possible TB. Heart Condition Medications and Allergies Home Medications Medication Instructions Recorded Confirmed Type amLODIPine [Norvasc] 10 mg PO DAILY 05/17/19 12/16/23 History calcitrioL [Rocaltrol] 0.25 mcg PO SUTUTHSA 10/06/20 12/16/23 History Metoprolol Tartrate 25 mg PO BID 01/16/21 12/16/23 History Ipratropium-Albuterol Nebulize 3 ml INHALATION RT-QID 30 Days #90 01/18/21 12/16/23 Rx [Duoneb 0.5 mg-3 mg/3 ml Soln] neb Atorvastatin [Lipitor] 20 mg PO DAILY 07/29/23 12/16/23 History Cholecalciferol [Vitamin D3 (125 125 mcg PO DAILY 07/29/23 12/16/23 History Mcg = 5000 Iu)] Formoterol Fumarate [Perforomist] 20 mcg INHALATION RT-QID 07/29/23 12/16/23 History Montelukast [Singulair] 10 mg PO DAILY 07/29/23 12/16/23 History Albuterol Inhaler [Ventolin Hfa 1 - 2 puff INHALATION Q6H PRN 12/11/23 12/16/23 History Inhaler] Budesonide 0.5 mg INHALATION QID 12/11/23 12/16/23 History oxyCODONE HCL [Oxaydo] 5 mg PO Q6H PRN 3 Days #10 tab 12/16/23 Rx Warfarin [Coumadin] 4 mg PO DAILY #60 tab 12/17/23 Rx Allergies Allergy/AdvReac Type Severity Reaction Status Date / Time No Known Allergies Allergy Verified 12/16/23 08:26 Physical Exam Vitals: Vital Signs Temp Pulse Resp BP Pulse Ox 12/17/23 07:30 97.8 F 73 16 112/69 99 12/17/23 00:00 98 F 76 18 125/74 96 12/16/23 17:45 98.1 F 70 15 135/75 12/16/23 17:15 71 14 121/77 12/16/23 16:45 74 15 144/71 12/16/23 16:30 68 14 135/81 12/16/23 16:15 65 14 135/83 12/16/23 16:00 98.3 F 69 15 135/78 12/16/23 15:36 69 16 148/67 93 L 12/16/23 15:21 67 16 151/69 93 L 12/16/23 15:00 68 16 148/67 93 L 12/16/23 14:41 65 16 131/60 93 L 12/16/23 14:26 67 16 134/61 93 L 12/16/23 14:11 68 16 126/58 93 L 12/16/23 13:56 69 16 129/59 92 L 12/16/23 13:41 97.5 F L 75 16 132/60 94 L Intake and Output 12/16/23 12/17/23 12/17/23 22:59 06:59 14:59 Intake Total 600 Output Total 270 575 6 Balance 330 -575 -6 Intake: Oral 600 Output: Drainage 20 25 6 Right Lower Chest 10 25 3 Right Upper Chest 10 3 Urine 250 550 Other: Weight 106.7 kg Results 12/17/23 09:07 12/16/23 08:50 CBC 12/17/23 Range/Units 09:07 WBC 19.2 H (3.8-10.6) k/uL RBC 4.06 (3.80-5.40) m/uL Hgb 12.2 (11.4-16.0) gm/dL Hct 37.8 (34.0-46.0) % Plt Count 246 (150-450) k/uL Current Medications Generic Name Dose Route Start Last Admin Trade Name Freq PRN Reason Stop Dose Admin Acetaminophen 650 mg 12/16/23 13:07 12/17/23 05:20 Acetaminophen Tab 325 Mg Tab PO 01/15/24 13:08 650 mg Q6HR PRN Administration Mild Pain or Fever > 100.5 Heparin Sodium (Porcine) 5,000 unit 12/16/23 16:00 12/17/23 09:07 Heparin Sodium,Porcine 5,000 Unit/Ml 1 Ml Vial SQ 01/15/24 16:01 5,000 unit Q8HR ELIDA Administration Dextrose/Sodium Chloride 1,000 mls @ 75 mls/hr 12/16/23 13:15 12/17/23 05:20 Dextrose 5%-1/2ns Iv Soln IV 01/15/24 13:16 75 mls/hr .[id number] ELIDA Administration Morphine Sulfate 4 mg 12/16/23 13:07 Morphine Sulfate 4 Mg/Ml Syringe IVP 01/15/24 13:08 Q4HR PRN Severe Pain (Scale 7 to 10) Naloxone HCl 0.2 mg 12/16/23 13:07 Naloxone 0.4 Mg/Ml 1 Ml Vial IV 01/15/24 13:08 Q2M PRN Opioid Reversal Ondansetron HCl 4 mg 12/16/23 13:07 Ondansetron 4 Mg/2 Ml Vial IVP 01/15/24 13:08 Q8HR PRN Nausea And Vomiting Intake and Output 12/16/23 12/17/23 12/17/23 22:59 06:59 14:59 Intake Total 600 Output Total 270 575 6 Balance 330 -575 -6 Intake: Oral 600 Output: Drainage 20 25 6 Right Lower Chest 10 25 3 Right Upper Chest 10 3 Urine 250 550 Other: Weight 106.7 kg 12/17/23 09:07 12/16/23 08:50
--- NOTE | 2023-12-24 11:56 | P.CONS ---
History of Present Illness - Reason for Consult Consult date: 12/17/23 Medical management - Chief Complaint Right breast malignancy - History of Present Illness Patient is a 77-year-old female with a past medical history of hypertension, hyperlipidemia, COPD, right breast malignancy, CKD stage III, paroxysmal atrial fibrillation on anticoagulation with Eliquis was admitted to the hospital for right mastectomy and sentinel node sampling. Patient discharged postprocedure on 12/16/2023. Currently pain is controlled. No complaints of nausea or vomiting. No headache or dizziness or lightheadedness. No fever no chills. No cough or sputum production. Laboratory data showed WBC 14.0 on admission and increased to 19.2 today. Hemoglobin 12.4 and platelets 237 Sodium 140 potassium 4.7 chloride 109 bicarb is 22 BUN 27 creatinine 1.53 and blood sugar 116 liver exams are not elevated. Postoperatively blood pressure was 151/69 pulse 67 respiration 16 pulse ox 93% on 3 L per nasal cannula. Past Medical History Past Medical History: Atrial Fibrillation, Asthma, Cancer, COPD, Hyperlipidemia, Hypertension, Osteoarthritis (OA), Renal Disease Additional Past Medical History / Comment(s): stage 3 kidney disease, kidney stones, right breast cancer 2023, uses 2L oxygen at home prn History of Any Multi-Drug Resistant Organisms: None Reported Past Surgical History: Tonsillectomy Additional Past Surgical History / Comment(s): benign lump removed off right index finger, malignant core biopsy right breast 10/09/23 Past Anesthesia/Blood Transfusion Reactions: No Reported Reaction Past Psychological History: No Psychological Hx Reported Smoking Status: Never smoker Past Alcohol Use History: Rare Additional Past Alcohol Use History / Comment(s): "Maybe once a month I'll have a arianna or a glass of wine" Past Drug Use History: None Reported - Past Family History Father Additional Family Medical History / Comment(s): at age 39 due to heart condition Mother Additional Family Medical History / Comment(s): Possible TB. Heart Condition Medications and Allergies Home Medications Medication Instructions Recorded Confirmed Type amLODIPine [Norvasc] 10 mg PO DAILY 05/17/19 12/16/23 History calcitrioL [Rocaltrol] 0.25 mcg PO SUTUTHSA 10/06/20 12/16/23 History Metoprolol Tartrate 25 mg PO BID 01/16/21 12/16/23 History Ipratropium-Albuterol Nebulize 3 ml INHALATION RT-QID 30 Days #90 01/18/21 12/16/23 Rx [Duoneb 0.5 mg-3 mg/3 ml Soln] neb Atorvastatin [Lipitor] 20 mg PO DAILY 07/29/23 12/16/23 History Cholecalciferol [Vitamin D3 (125 125 mcg PO DAILY 07/29/23 12/16/23 History Mcg = 5000 Iu)] Formoterol Fumarate [Perforomist] 20 mcg INHALATION RT-QID 07/29/23 12/16/23 History Montelukast [Singulair] 10 mg PO DAILY 07/29/23 12/16/23 History Albuterol Inhaler [Ventolin Hfa 1 - 2 puff INHALATION Q6H PRN 12/11/23 12/16/23 History Inhaler] Budesonide 0.5 mg INHALATION QID 12/11/23 12/16/23 History oxyCODONE HCL [Oxaydo] 5 mg PO Q6H PRN 3 Days #10 tab 12/16/23 Rx Warfarin [Coumadin] 4 mg PO DAILY #60 tab 12/17/23 Rx Allergies Allergy/AdvReac Type Severity Reaction Status Date / Time No Known Allergies Allergy Verified 12/16/23 08:26 Physical Exam Vitals: Vital Signs Temp Pulse Resp BP Pulse Ox 12/17/23 07:30 97.8 F 73 16 112/69 99 12/17/23 00:00 98 F 76 18 125/74 96 12/16/23 17:45 98.1 F 70 15 135/75 12/16/23 17:15 71 14 121/77 12/16/23 16:45 74 15 144/71 12/16/23 16:30 68 14 135/81 12/16/23 16:15 65 14 135/83 12/16/23 16:00 98.3 F 69 15 135/78 12/16/23 15:36 69 16 148/67 93 L 12/16/23 15:21 67 16 151/69 93 L 12/16/23 15:00 68 16 148/67 93 L 12/16/23 14:41 65 16 131/60 93 L 12/16/23 14:26 67 16 134/61 93 L 12/16/23 14:11 68 16 126/58 93 L 12/16/23 13:56 69 16 129/59 92 L 12/16/23 13:41 97.5 F L 75 16 132/60 94 L Intake and Output 12/16/23 12/17/23 12/17/23 22:59 06:59 14:59 Intake Total 600 Output Total 270 575 6 Balance 330 -575 -6 Intake: Oral 600 Output: Drainage 20 25 6 Right Lower Chest 10 25 3 Right Upper Chest 10 3 Urine 250 550 Other: Weight 106.7 kg PHYSICAL EXAMINATION: Patient is lying in the bed comfortably, no acute distress, awake alert and oriented.. HEENT: Normocephalic. Neck is supple. Pupils reactive. Nostrils clear. Oral cavity is moist. Neck reveals no JVD, carotid bruits, or thyromegaly. CHEST EXAMINATION: Trachea is central. Symmetrical expansion. Right breast surgical site bandaged. Lung gerber clear to auscultation and percussion. CARDIAC: Normal S1, S2 with no gallops. No murmurs ABDOMEN: Soft. Bowel sounds normal. No organomegaly. No abdominal bruits. Extremities: reveal no edema. No clubbing or cyanosis Neurologically awake, alert, oriented x3 with well-coordinated movements. No focal deficits noted Skin: No rash or skin lesions. Psychiatric: Coperative. Nonsuicidal Musculoskeletal: No joint swelling or deformity. Normal range of motion. Results CBC & Chem 7: 12/17/23 09:07 12/16/23 08:50 Labs: Abnormal Lab Results - Last 24 Hours (Table) 12/17/23 Range/Units 09:07 WBC 19.2 H (3.8-10.6) k/uL Neutrophils # 16.9 H (1.3-7.7) k/uL Assessment and Plan Assessment: Status post right mastectomy and sentinel node lymph biopsy postoperative day 1 Leukocytosis likely postsurgical inflammation Paroxysmal atrial fibrillation on anticoagulation with Eliquis. Hypertension fairly controlled. Hyperlipidemia Osteoarthritis Chronic kidney disease stage III with baseline creatinine level at around 1.6 Asthma/COPD on home oxygen at 2 L as needed at home. DVT prophylaxis as per primary team Plan: Patient will be continued on pain management, bowel regimen and encourage incentive spirometry. Patient is currently taking Eliquis at home. Eliquis is not being covered by insulin scale at this time and will be changed to Coumadin as per cardiology recommendations. Follow-up with cardiology in the clinic for repeat INR level and further dose adjustment. Continue with DuoNebs and Singulair and also cardiac medications including metoprolol. Continue with Norvasc. Will continue to follow and further recommendations based on the clinical course. Thank you kindly for your consult. Time with Patient: Greater than 30
== END 2023-12-17 14:15 | disposition home or self-care (01) ==
LOC: OR 07:45 → 4FBP 13:25 → OR 12-17 14:15
PROVIDERS: ATTEND Surgery
DX: C50.411 Malignant neoplasm of upper-outer quadrant of right female breast (principal); Z79.01 Long term (current) use of anticoagulants; Z79.899 Other long term (current) drug therapy; Z90.11 Acquired absence of right breast and nipple; E78.5 Hyperlipidemia, unspecified; I12.9 Hypertensive chronic kidney disease with stage 1 through stage 4 chronic kidney disease, or unspecified chronic kidney disease; N18.30 Chronic kidney disease, stage 3 unspecified; M19.90 Unspecified osteoarthritis, unspecified site; J44.89 Other specified chronic obstructive pulmonary disease; I48.0 Paroxysmal atrial fibrillation; Z99.81 Dependence on supplemental oxygen
CPT/HCPCS: 80053; 85025 ×2; 88342; 88307; 88309; 88341; 38792; 19303; 38500; A9520; J2250; J0330; J1644 ×2; J1100; J0690; J2405; J2001; J3010; J1170; J2704; J2371

== ENCOUNTER → 2023-12-25 | Outpatient (CLI) | payer MEDICARE ==
--- NOTE | 2023-12-25 09:45 | P.BCPO ---
Progress Note - Text Progress Note Date: 12/25/23 Tara is a 77 year old female status post right mastectomy on 12-16-23. 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 All margins (-). Ten nodes removed all (-). [id number]. She has multiple medical co-morbidities including CKD sgtage III and atrial fibrillation. She is doing well postoperatively. Her LASHONDA drain continues to have greater than 40 cc/day. Physical examination: lungs: clear heart: S1 S2 incision: clean and dry JPs in place, the more lateral LASHONDA has minimal drainage and the other LASHONDA has just over 40 cc/day Impression: Patient doing very well postoperatively Plan: Remove lateral LASHONDA drain Follow-up medical oncology Follow-up radiation oncology Follow-up 1 week for drain removal Post Op Education - Post Op Education Post Op Education Provided Date: 12/25/23 - Functional Assessment Performed?: Yes (arm abduction passed) Path Report - Was patient given path report? Path Report Date Given: 12/25/23
[2023-12-25 10:13] VITALS: BP 165/77; PULSE 79; RESP 17; TEMP 97.9
== END ==
LOC: WWCWWP 09:12
PROVIDERS: ATTEND Surgery
DX: C50.911 Malignant neoplasm of unspecified site of right female breast (principal); I48.91 Unspecified atrial fibrillation; N18.30 Chronic kidney disease, stage 3 unspecified; Z90.11 Acquired absence of right breast and nipple; Z17.0 Estrogen receptor positive status [ER+]; Z79.01 Long term (current) use of anticoagulants

== ENCOUNTER → 2023-12-31 | Outpatient (CLI) | payer MEDICARE ==
--- NOTE | 2023-12-31 16:05 | P.CON ---
Consult Note - . Consult date: 12/31/23 Assessment/Plan:: Progress Note - Text Progress Note Date: 12-31-23 Tara is a 77 year old female status post right mastectomy on 12-16-23. 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 All margins (-). Ten nodes removed all (-). [id number]. She has multiple medical co-morbidities including CKD sgtage III and atrial fibrillation. She is doing well postoperatively. Her LASHONDA drain continues to have about 40 cc/day. She met with medical oncology and is back on eloquis They are awaiting oncotype results Physical examination: lungs: clear heart: S1 S2 incision: clean and dry LASHONDA in place, will wait on removal until Friday01-01-24 Impression: Patient doing very well postoperatively Plan: Follow-up medical oncology; will cntinue to follow with them Follow-up radiation oncology Follow-up 3 days
[2023-12-31 16:25] VITALS: BP 127/70; PULSE 76; RESP 17; TEMP 97.7
== END ==
LOC: WWCWWP 14:08
PROVIDERS: ATTEND Surgery
DX: C50.911 Malignant neoplasm of unspecified site of right female breast (principal); I48.91 Unspecified atrial fibrillation; N18.30 Chronic kidney disease, stage 3 unspecified; Z17.0 Estrogen receptor positive status [ER+]; Z90.11 Acquired absence of right breast and nipple; Z79.01 Long term (current) use of anticoagulants

== ENCOUNTER → 2024-01-02 | Outpatient (CLI) | payer MEDICARE ==
--- NOTE | 2024-01-02 08:34 | P.CON ---
Consult Note - . Consult date: 01/02/24 Assessment/Plan:: 01-02-24 Tara is a 78 year old female status post right mastectomy on 12-16-23. 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 All margins (-). Ten nodes removed all (-). [id number]. She has multiple medical co-morbidities including CKD sgtage III and atrial fibrillation. She is doing well postoperatively. Her LASHONDA drain output has decreased. She met with medical oncology and is back on eloquis They are awaiting oncotype results Physical examination: lungs: clear heart: S1 S2 incision: clean and dry LASHONDA removal Impression: Patient doing very well postoperatively Plan: Follow-up medical oncology; will continue to follow with them Follow-up radiation oncology Follow-up 2 weeks CC: Dr. Prater
[2024-01-02 09:05] VITALS: BP 148/69; PULSE 78; RESP 17; TEMP 98.1
== END ==
LOC: WWCWWP 08:00
PROVIDERS: ATTEND Surgery
DX: C50.911 Malignant neoplasm of unspecified site of right female breast (principal); I48.91 Unspecified atrial fibrillation; N18.30 Chronic kidney disease, stage 3 unspecified; Z90.11 Acquired absence of right breast and nipple; Z79.01 Long term (current) use of anticoagulants; Z17.0 Estrogen receptor positive status [ER+]

== ENCOUNTER → 2024-01-21 | Outpatient (CLI) | payer MEDICARE ==
[2024-01-21 08:49] VITALS: BP 90/69; PULSE 79; RESP 18; TEMP 98.1
--- NOTE | 2024-01-21 09:09 | P.PN ---
Subjective Progress Note Date: 01/21/24 History of Present Illness H&P Date: 10/31/23 Chief Complaint: Biopsy-proven right breast invasive ductal carcinoma Tara is a 77-year-old white female seen in consultation for Dr. Prater regarding a biopsy-proven right breast invasive ductal carcinoma. She underwent a bilateral mammogram on 09-26-2023 which revealed a 3.8 cm lesion in the right breast in the central portion. An ultrasound was performed of this lesion and ultrasound core biopsy was recommended. No axillary adenopathy was identified. Left breast did not show any lesions of concern. Ultrasound revealed a grade 2 invasive moderately differentiated carcinoma ER/FL positive HER2 negative. The patient can feel a spot in her right breast for about 4 months. It is not painful. It has decreased in size after the biopsy. The patient had never had surgery on her breast in the past. She was not complaining of any trauma or infection in the breast. Case presented at tumor board on 11-04-2023. Patient scheduled for right mastectomy with sentinel node biopsy on December 16, 2023. I discussed this with the patient's daughter the patient did not answer her phone the daughter was going to let her know and she call us if she has any questions. 12-16-23 right mastectomy and SNB done; 3 cm grade 2 invasive ductal cancer all margins (-) ten nodes all (-). post op visit on 01-02-24 patient was doing well to follow medical and radiation oncology; radiation oncology and was told she did not need any radiation therapy, she was also seen by medical oncology and will continue to follow with them she will most likely have antihormone therapy patient complained of swelling in the mastectomy site and is seen for evaluation Caffeine: 1 can pop/week; 1/2 cup/day nicotine: none chocolate: daily BCP: none Family History: brother: throat, nonsmoker brother: colon brother: skin/melanoma paternal neice: skin cancer Hormonal History: menarche: 11 , age at first : 21, breat fed: no menopause: 46 hormones: none Surgical HIstory: finger Medical HIstory: COPD Atrial fibrillation; Eliquis but has been off it for several weeks close to stage 4 kidney disease decreased hearing Social History: nicotine: none alcohol: occasional drugs: none - Constitutional Constitutional: Denies chills, Denies fever - EENT Eyes: bilateral blurred vision ( when over tired) Ears: bilateral: decreased hearing Ears, nose, mouth and throat: Denies headache, Denies sore throat - Breasts Breasts: bilateral: as per HPI - Cardiovascular Cardiovascular: Reports as per HPI, Reports shortness of breath - Respiratory Respiratory: Denies cough - Genitourinary (Female) Genitourinary: Denies dysuria, Denies hematuria - Menstruation Menstruation: Reports postmenopausal - Musculoskeletal Musculoskeletal: Reports myalgias - Integumentary Integumentary: Denies pruritus, Denies rash - Neurological Neurological: Denies numbness, Denies weakness - Psychiatric Psychiatric: Denies anxiety, Denies depression - Endocrine Endocrine: Reports fatigue - Hematologic/Lymphatic Comment: patient is on Eloquis, stopped in September secondary to insurance - Allergic/Immunologic Allergic/Immunologic: Reports as per HPI Past Medical History Past Medical History: COPD, Hyperlipidemia, Hypertension Additional Past Medical History / Comment(s): stage 3 kidney disease, kidney stones History of Any Multi-Drug Resistant Organisms: None Reported Past Surgical History: Tonsillectomy Past Anesthesia/Blood Transfusion Reactions: No Reported Reaction Past Psychological History: No Psychological Hx Reported Smoking Status: Never smoker Past Alcohol Use History: Rare Additional Past Alcohol Use History / Comment(s): "Maybe once a month I'll have a arianna" Past Drug Use History: None Reported - Past Family History Father Additional Family Medical History / Comment(s): at age 39 due to heart condition Mother Additional Family Medical History / Comment(s): Possible TB. Heart Condition Medications and Allergies Home Medications Medication Instructions Recorded Confirmed Type amLODIPine [Norvasc] 10 mg PO DAILY 05/17/19 10/31/23 History calcitrioL [Rocaltrol] 0.25 mcg PO SUTUTHSA 10/06/20 10/31/23 History Metoprolol Tartrate 25 mg PO BID 01/16/21 10/31/23 History Ipratropium-Albuterol Nebulize 3 ml INHALATION RT-QID 30 Days #90 01/18/21 10/31/23 Rx [Duoneb 0.5 mg-3 mg/3 ml Soln] neb Apixaban [Eliquis] 5 mg PO BID 07/29/23 10/31/23 History Atorvastatin [Lipitor] 20 mg PO DAILY 07/29/23 10/31/23 History Cholecalciferol [Vitamin D3 (125 125 mcg PO DAILY 07/29/23 10/31/23 History Mcg = 5000 Iu)] Formoterol Fumarate [Perforomist] 20 mcg INHALATION RT-QID 07/29/23 10/31/23 History Montelukast [Singulair] 10 mg PO DAILY 07/29/23 10/31/23 History Allergies Allergy/AdvReac Type Severity Reaction Status Date / Time No Known Allergies Allergy Verified 10/31/23 12:54 Objective - Vital Signs Vital signs: Vital Signs Temp 98.1 F 01/21/24 08:47 Pulse 79 01/21/24 08:47 Resp 18 01/21/24 08:47 BP 90/69 01/21/24 08:47 Pulse Ox 99 01/21/24 08:47 FiO2 Intake & Output 01/20/24 01/21/24 01/21/24 18:59 06:59 18:59 Weight 104.326 kg - Constitutional General appearance: Present: cooperative - EENT Eyes: Present: EOMI ENT: Present: hearing grossly normal - Neck Neck: Present: normal ROM - Respiratory Respiratory: bilateral: CTA - Cardiovascular Heart sounds: normal: S1, S2 - Gastrointestinal General gastrointestinal: Present: soft - Integumentary Integumentary: Present: normal turgor - Musculoskeletal Musculoskeletal: Present: gait normal - Psychiatric Psychiatric: Present: A&O x's 3, appropriate affect, intact judgment & insight - Additional findings Additional findings: Breast Exam: BRA: 44B inspection: right mastectomy incision clean and dry Palpation: Right breast: incision clean and dry; seroma right mastectomy site Right axilla: No adenopathy of concern Left breast: Multi positional exam no dominant masses or nodules of concern Left axilla: No adenopathy of concern Assessment and Plan Assessment: Impression: T2 N0 M0 G2 ER positive FL positive HER2 negative invasive ductal right breast cancer/right mastectomy with seroma at mastectomy site at this time Atrial fibrillation normally takes Eliquis Chronic kidney failure/stage III near stage IV Bilateral ankle swelling right greater than the left Plan: Following informed consent would recommend aspiration of seroma Patient is on Eliquis and there may be increased risk of hematoma The patient is quite concerned and as we were preparing to do the aspiration of seroma she began to shake and we decided to terminate the procedure. The pro cedure was therefore not performed. She does have a seroma it is mild in nature and will most likely resorb on its own. The patient will follow-up in 2 weeks to assure that this is resorbing. If she has any questions or concerns she will follow-up sooner. Will be necessary to drain the seroma I would recommend doing it with some sedation. CC: Dr. Prater Additional CC's: Fredy Prater
== END ==
LOC: WWCWWP 08:05
PROVIDERS: ATTEND Surgery
DX: C50.911 Malignant neoplasm of unspecified site of right female breast (principal); I48.91 Unspecified atrial fibrillation; I12.9 Hypertensive chronic kidney disease with stage 1 through stage 4 chronic kidney disease, or unspecified chronic kidney disease; N18.4 Chronic kidney disease, stage 4 (severe); M25.471 Effusion, right ankle; M25.472 Effusion, left ankle; N64.89 Other specified disorders of breast; Z17.0 Estrogen receptor positive status [ER+]; Z90.11 Acquired absence of right breast and nipple; Z79.01 Long term (current) use of anticoagulants; Z79.899 Other long term (current) drug therapy

== ENCOUNTER → 2024-02-10 | Outpatient (CLI) | payer MEDICARE ==
--- NOTE | 2024-02-10 13:44 | BD ---
EXAMINATION TYPE: Axial Bone Density DATE OF EXAM: 02/10/2024 CLINICAL HISTORY: 78 years old Female. ICD-10 CODE: M85.88 disorder of bone Height: 60 in Weight: 231 lbs FRAX RISK QUESTIONS: Family History (Parent hip fracture): yes mother Glucocorticoids (More than 3mos): yes budesonide 0.5 mg/2 ml (Ex: prednisone, prednisolone, methylprednisolone, dexamethasone, and hydrocortisone). History of Fracture in Adulthood: lt wrist age 73 RISK FACTORS HISTORY OF: History of Wrist Fracture: lt wrist age 73 EXAM MEASUREMENTS: Bone mineral densitometry was performed using the Beeline System. Bone mineral density as measured about the Lumbar spine is: ----- L1-L4(G/cm2): 1.023 T Score Values are as follows: ----- L1: -1.0 ----- L2: -2.1 ----- L3: -1.0 ----- L4: -1.3 ----- L1-L4: -1.3 Z Score Values are as follows: ----- L1: -0.4 ----- L2: -1.4 ----- L3: -0.3 ----- L4: -0.6 ----- L1-L4: -0.7 Bone mineral density baseline Bone mineral density about the R hip (g/cm2): 0.810 Bone mineral density about the L hip (g/cm2): 0.718 T Score values are as follows: -----R Neck: -2.4 -----L Neck: -2.8 -----R Total: -1.6 -----L Total: -2.3 Z Score values are as follows: -----R Neck: -1.1 -----L Neck: -1.5 -----R Total: -0.5 -----L Total: -1.2 Bone mineral density baseline FRAX%s: The graph provided illustrates a 58.8% chance for a major osteoporotic fx and a 45.0% chance for the hips probability for fx in 10 years time. IMPRESSION: Osteoporosis (T Score less than -2.5). There is increased fracture risk and therapy is usually indicated based on age. Re-Screen 1-2 years. NOTE: T-SCORE=SD OF THE YOUNG ADULT MEAN.
== END | disposition home or self-care (01) ==
LOC: RADBDWWP 12:23
PROVIDERS: ATTEND Internal Medicine
DX: M85.88 Other specified disorders of bone density and structure, other site (principal); C50.411 Malignant neoplasm of upper-outer quadrant of right female breast; D72.829 Elevated white blood cell count, unspecified; Z71.3 Dietary counseling and surveillance
CPT/HCPCS: 77080

== ENCOUNTER 2024-02-20 16:12 | Emergency (ER) | payer MEDICARE ==
[2024-02-20 16:20] VITALS: TEMP 98
--- NOTE | 2024-02-20 17:13 | ED ---
General Adult HPI - General Chief complaint: Weakness Stated complaint: Lethargy Time Seen by Provider: 02/20/24 16:14 Source: patient, RN notes reviewed, old records reviewed Mode of arrival: EMS Limitations: no limitations - History of Present Illness Initial comments: 88-year-old female history of breast cancer presenting for evaluation of lethargy, patient admits that she has been very tired for the past few weeks and just wants to sleep all the time. she states that this has been ongoing for 1 month.she denies additional complaint. She does not believe that she needs to be in the emergency department but was encouraged to seek evaluation from the outpatient setting. She denies headache. She denies chest pain. Denies fever. Denies nausea vomiting. - Related Data Home Medications Medication Instructions Recorded Confirmed amLODIPine [Norvasc] 10 mg PO DAILY 05/17/19 02/20/24 calcitrioL [Rocaltrol] 0.25 mcg PO SUTUTHSA 10/06/20 02/20/24 Metoprolol Tartrate 25 mg PO BID 01/16/21 02/20/24 Atorvastatin [Lipitor] 20 mg PO DAILY 07/29/23 02/20/24 Cholecalciferol [Vitamin D3 (125 125 mcg PO DAILY 07/29/23 02/20/24 Mcg = 5000 Iu)] Formoterol Fumarate [Perforomist] 20 mcg INHALATION RT-QID 07/29/23 02/20/24 Montelukast [Singulair] 10 mg PO DAILY 07/29/23 02/20/24 Albuterol Inhaler [Ventolin Hfa 1 - 2 puff INHALATION Q6H PRN 12/11/23 02/20/24 Inhaler] Budesonide 0.5 mg INHALATION QID 12/11/23 02/20/24 Previous Rx's Medication Instructions Recorded Ipratropium-Albuterol Nebulize 3 ml INHALATION RT-QID 30 Days #90 01/18/21 [Duoneb 0.5 mg-3 mg/3 ml Soln] neb oxyCODONE HCL [Oxaydo] 5 mg PO Q6H PRN 3 Days #10 tab 12/16/23 Warfarin [Coumadin] 4 mg PO DAILY #60 tab 12/17/23 Allergies Allergy/AdvReac Type Severity Reaction Status Date / Time No Known Allergies Allergy Verified 02/20/24 16:22 Review of Systems ROS Statement: Those systems with pertinent positive or pertinent negative responses have been documented in the HPI. ROS Other: All systems not noted in ROS Statement are negative. Past Medical History Past Medical History: Atrial Fibrillation, Asthma, Cancer, COPD, Hyperlipidemia, Hypertension, Osteoarthritis (OA), Renal Disease Additional Past Medical History / Comment(s): stage 3 kidney disease, kidney stones, right breast cancer 2023, uses 2L oxygen at home prn History of Any Multi-Drug Resistant Organisms: None Reported Past Surgical History: Tonsillectomy Additional Past Surgical History / Comment(s): benign lump removed off right index finger, malignant core biopsy right breast 10/09/23 Past Anesthesia/Blood Transfusion Reactions: No Reported Reaction Past Psychological History: No Psychological Hx Reported Smoking Status: Never smoker Past Alcohol Use History: Rare Past Drug Use History: None Reported - Past Family History Father Additional Family Medical History / Comment(s): at age 39 due to heart condition Mother Additional Family Medical History / Comment(s): Possible TB. Heart Condition General Exam Limitations: no limitations General appearance: alert, in no apparent distress Head exam: Present: atraumatic, normocephalic Eye exam: Present: normal appearance, PERRL Neck exam: Present: normal inspection. Absent: tenderness, meningismus Respiratory exam: Present: normal lung sounds bilaterally. Absent: respiratory distress, wheezes Cardiovascular Exam: Present: regular rate, normal rhythm GI/Abdominal exam: Present: soft. Absent: distended, tenderness, guarding Neurological exam: Present: alert, oriented X3, CN II-XII intact. Absent: motor sensory deficit Skin exam: Present: warm, dry, intact. Absent: cyanosis, diaphoretic Course Vital Signs 02/20/24 02/20/24 16:14 18:06 Temperature 98 F Pulse Rate 75 72 Respiratory 18 16 Rate Blood Pressure 152/71 130/61 O2 Sat by Pulse 98 99 Oximetry Medical Decision Making - Medical Decision Making Was pt. sent in by a medical professional or institution (, PA, CORRESPONDENCE RENEW CLERK, urgent care, hospital, or longterm...) When possible be specific @ -No Did you speak to anyone other than the patient for history (EMS, parent, family, police, friend...)? What history was obtained from this source @ -No Did you review nursing and triage notes (agree or disagree)? Why? @ -I reviewed and agree with nursing and triage notes Were old charts reviewed (outside hosp., previous admission, EMS record, old EKG, old radiological studies, urgent care reports/EKG's, longterm records)? Report findings @ -No old charts were reviewed Differential Weakness: Hypoglycemia, shock, sepsis, hyponatremia, anemia, infection, TX, ETOH, adverse medicine reaction, overdose, stroke, this is not meant to be an all-inclusive list. EKG interpreted by me (3pts min.). @ -Sinus rhythm rate of 64, NE interval 173, QRS duration 83, QTc [address] segment elevation X-rays interpreted by me (1pt min.). @ -None done CT interpreted by me (1pt min.). @ -None done U/S interpreted by me (1pt. min.). @ -None done What testing was considered but not performed or refused? (CT, X-rays, U/S, labs)? Why? @ -None What meds were considered but not given or refused? Why? @ -None Did you discuss the management of the patient with other professionals (professionals i.e. , PA, CORRESPONDENCE RENEW CLERK, lab, RT, psych nurse, social organization professor, trauma coordinator, teacher, division officer weapons department, case coordinator)? Give summary @ -No Was smoking cessation discussed for >3mins.? @ -No Was critical care preformed (if so, how long)? @ -No Were there social determinants of health that impacted care today? How? (Homelessness, low income, unemployed, alcoholism, drug addiction, transportation, low edu. Level, literacy, decrease access to med. care, intermediate, rehab)? @ -No Was there de-escalation of care discussed even if they declined (Discuss DNR or withdrawal of care, Hospice)? DNR status @ -No What co-morbidities impacted this encounter? (DM, HTN, Smoking, COPD, CAD, Cancer, CVA, ARF, Chemo, Hep., AIDS, mental health diagnosis, sleep apnea, morbid obesity)? @Breast cancer Was patient admitted / discharged? Hospital course, mention meds given and route, prescriptions, significant lab abnormalities, going to OR and other pertinent info. @ -[78-year-old female presenting with sleepiness, fatigue. Patient is reluctant to have evaluation in the emergency department but does agree to laboratory testing. She states that she is fine she believes this is related to the medication she is on. She has no complaints other than sleepiness. She is easily arousable and alert and able to give a detailed history. Vital signs are stable. The patient is in sinus rhythm. She has a mild leukocytosis which is chronic. She has mild chronic kidney disease which is at baseline. Venous gas is unremarkable. Patient states that she wishes to go home. She states she does have good follow-up with primary care as well as her oncologist. Undiagnosed new problem with uncertain prognosis? @ -No Drug Therapy requiring intensive monitoring for toxicity (Heparin, Nitro, Insulin, Cardizem)? @ -No Were any procedures done? @ -No Diagnosis/symptom? @ -Fatigue Acute, or Chronic, or Acute on Chronic? @Acute Uncomplicated (without systemic symptoms) or Complicated (systemic symptoms)? @ -Default Side effects of treatment? @ -No Exacerbation, Progression, or Severe Exacerbation? @ -No Poses a threat to life or bodily function? How? (Chest pain, [place], [place], pneumonia, PE, COPD, DKA, ARF, appy, cholecystitis, CVA, Diverticulitis, Homicidal, Suicidal, threat to staff... and all critical care pts) @ -No - Lab Data Result diagrams: 02/20/24 17:21 02/20/24 17:21 Lab Results 02/20/24 02/20/24 02/20/24 Range/Units 17:21 17:21 17:21 WBC 12.6 H (3.8-10.6) k/uL RBC 4.09 (3.80-5.40) m/uL Hgb 12.3 (11.4-16.0) gm/dL Hct 38.1 (34.0-46.0) % MCV 93.3 (80.0-100.0) fL MCH 30.1 (25.0-35.0) pg MCHC 32.3 (31.0-37.0) g/dL RDW 13.4 (11.5-15.5) % Plt Count 264 (150-450) k/uL MPV 8.2 Neutrophils % 71 % Lymphocytes % 16 % Monocytes % 7 % Eosinophils % 4 % Basophils % 0 % Neutrophils # 9.0 H (1.3-7.7) k/uL Lymphocytes # 2.1 (1.0-4.8) k/uL Monocytes # 0.8 (0-1.0) k/uL Eosinophils # 0.5 (0-0.7) k/uL Basophils # 0.1 (0-0.2) k/uL VBG pH 7.40 (7.31-7.41) VBG pCO2 38 (37-51) mmHg VBG HCO3 23 L (24-28) mmol/L Sodium 141 (137-145) mmol/L Potassium 4.7 (3.5-5.1) mmol/L Chloride 111 H (98-107) mmol/L Carbon Dioxide 24 (22-30) mmol/L Anion Gap 6 mmol/L BUN 31 H (7-17) mg/dL Creatinine 1.47 H (0.52-1.04) mg/dL Est GFR (CKD-EPI)AfAm 39 (>60 ml/min/1.73 sqM) Est GFR (CKD-EPI)NonAf 34 (>60 ml/min/1.73 sqM) Glucose 109 H (74-99) mg/dL Calcium 9.6 (8.4-10.2) mg/dL Magnesium 2.0 (1.6-2.3) mg/dL Total Bilirubin 0.7 (0.2-1.3) mg/dL AST 23 (14-36) U/L ALT 16 (4-34) U/L Alkaline Phosphatase 103 (38-126) U/L Total Protein 6.3 (6.3-8.2) g/dL Albumin 3.7 (3.5-5.0) g/dL Disposition Clinical Impression: Fatigue Disposition: HOME SELF-CARE Condition: Fair Instructions (If sedation given, give patient instructions): Fatigue (ED) Is patient prescribed a controlled substance at d/c from ED?: No Referrals: Fredy Prater MD [Primary Care Provider] - 1-2 days Time of Disposition: 17:55
[2024-02-20 17:27] LABS: VBG PH 7.4 (7.31-7.41)
[2024-02-20 17:38] LABS: Basophils # (A) 0.1 k/uL (0-0.2); Basophils % (A) 0 %; Eosinophils # (A) 0.5 k/uL (0-0.7); Eosinophils % (A) 4 %; HCT 38.1 % (34.0-46.0); HGB 12.3 gm/dL (11.4-16.0); Lymphocytes # (A) 2.1 k/uL (1.0-4.8); Lymphocytes % (A) 16 %; MCH 30.1 pg (25.0-35.0); MCHC 32.3 g/dL (31.0-37.0); MCV 93.3 fL (80.0-100.0); Mean Platelet Volume 8.2; Monocytes # (A) 0.8 k/uL (0-1.0); Monocytes % (A) 7 %; Neutrophils % (A) 71 %; Platelet Count 264 k/uL (150-450); RBC 4.09 m/uL (3.80-5.40); RDW 13.4 % (11.5-15.5); WBC 12.6 k/uL (3.8-10.6)
[2024-02-20 17:46] LABS: ALT 16 U/L (4-34); AST 23 U/L (14-36); African American GFR (CKD) 39 (>60 ml/min/1.73 sqM); Albumin 3.7 g/dL (3.5-5.0); Alkaline Phosphatase 103 U/L (38-126); Anion Gap 6 mmol/L; Blood Urea Nitrogen 31 mg/dL (7-17); Calcium 9.6 mg/dL (8.4-10.2); Carbon Dioxide 24 mmol/L (22-30); Chloride 111 mmol/L (98-107); Glucose 109 mg/dL (74-99); Non-African American GFR(CKD) 34 (>60 ml/min/1.73 sqM); Potassium 4.7 mmol/L (3.5-5.1); Sodium 141 mmol/L (137-145); Total Bilirubin 0.7 mg/dL (0.2-1.3); Total Protein 6.3 g/dL (6.3-8.2)
[2024-02-20 18:41] VITALS: BP 126/65; PULSE 66; RESP 18
== END 2024-02-20 18:41 | disposition home or self-care (01) ==
LOC: EC 16:12
DX: R53.83 Other fatigue (principal); I12.9 Hypertensive chronic kidney disease with stage 1 through stage 4 chronic kidney disease, or unspecified chronic kidney disease; N18.30 Chronic kidney disease, stage 3 unspecified; Z85.3 Personal history of malignant neoplasm of breast
CPT/HCPCS: 36415; 80053; 82803; 83735; 85025; 99285

== ENCOUNTER → 2024-02-20 | Outpatient (CLI) | payer MEDICARE ==
--- NOTE | 2024-02-20 13:57 | P.PN ---
Subjective Progress Note Date: 02/20/24 Tara is a 78-year-old white female who underwent a right mastectomy with sentinel node biopsy on December 16, 2023. 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 Postoperatively she did well but was noted to have a seroma at the right m astectomy site. An attempted aspiration of the seroma resulted in the patient becoming very agitated and almost passing out. Therefore the the procedure was aborted. She has been seen by radiation oncology and was told she did not need any radiation therapy She was seen by medical oncology and will continue to follow with them and most likely have hormone therapy. Patient presents today to reevaluate seroma right chest wall For the past week she has been feeling very fatigued. She went to physical therapy and was recommended to go to the emergency room which she declined. Any fever or chills. She is complaining of a cold sore last night. Caffeine: 1 can pop/week; 1/2 cup/day nicotine: none chocolate: daily BCP: none Family History: brother: throat, nonsmoker brother: colon brother: skin/melanoma paternal neice: skin cancer Hormonal History: menarche: 11 , age at first : 21, breat fed: no menopause: 46 hormones: none Surgical HIstory: finger Medical HIstory: COPD Atrial fibrillation; Eliquis but has been off it for several weeks close to stage 4 kidney disease decreased hearing Social History: nicotine: none alcohol: occasional drugs: none - Constitutional Constitutional: Denies chills, Denies fever - EENT Eyes: bilateral blurred vision ( when over tired) Ears: bilateral: decreased hearing Ears, nose, mouth and throat: Denies headache, Denies sore throat - Breasts Breasts: bilateral: as per HPI - Cardiovascular Cardiovascular: Reports as per HPI, Reports shortness of breath - Respiratory Respiratory: Denies cough - Genitourinary (Female) Genitourinary: Denies dysuria, Denies hematuria - Menstruation Menstruation: Reports postmenopausal - Musculoskeletal Musculoskeletal: Reports myalgias - Integumentary Integumentary: Denies pruritus, Denies rash - Neurological Neurological: Denies numbness, Denies weakness - Psychiatric Psychiatric: Denies anxiety, Denies depression - Endocrine Endocrine: Reports fatigue - Hematologic/Lymphatic Comment: patient is on Eloquis, stopped in September secondary to insurance - Allergic/Immunologic Allergic/Immunologic: Reports as per HPI Past Medical History Past Medical History: COPD, Hyperlipidemia, Hypertension Additional Past Medical History / Comment(s): stage 3 kidney disease, kidney stones History of Any Multi-Drug Resistant Organisms: None Reported Past Surgical History: Tonsillectomy Past Anesthesia/Blood Transfusion Reactions: No Reported Reaction Past Psychological History: No Psychological Hx Reported Smoking Status: Never smoker Past Alcohol Use History: Rare Additional Past Alcohol Use History / Comment(s): "Maybe once a month I'll have a arianna" Past Drug Use History: None Reported - Past Family History Father Additional Family Medical History / Comment(s): at age 39 due to heart condition Mother Additional Family Medical History / Comment(s): Possible TB. Heart Condition Medications and Allergies Home Medications Medication Instructions Recorded Confirmed Type amLODIPine [Norvasc] 10 mg PO DAILY 05/17/19 10/31/23 History calcitrioL [Rocaltrol] 0.25 mcg PO SUTUTHSA 10/06/20 10/31/23 History Metoprolol Tartrate 25 mg PO BID 01/16/21 10/31/23 History Ipratropium-Albuterol Nebulize 3 ml INHALATION RT-QID 30 Days #90 01/18/21 10/31/23 Rx [Duoneb 0.5 mg-3 mg/3 ml Soln] neb Apixaban [Eliquis] 5 mg PO BID 07/29/23 10/31/23 History Atorvastatin [Lipitor] 20 mg PO DAILY 07/29/23 10/31/23 History Cholecalciferol [Vitamin D3 (125 125 mcg PO DAILY 07/29/23 10/31/23 History Mcg = 5000 Iu)] Formoterol Fumarate [Perforomist] 20 mcg INHALATION RT-QID 07/29/23 10/31/23 History Montelukast [Singulair] 10 mg PO DAILY 07/29/23 10/31/23 History Allergies Allergy/AdvReac Type Severity Reaction Status Date / Time No Known Allergies Allergy Verified 10/31/23 12:54 Objective - Constitutional General appearance: Present: cooperative - EENT Eyes: Present: EOMI ENT: Present: hearing grossly normal - Neck Neck: Present: normal ROM - Respiratory Respiratory: bilateral: CTA - Cardiovascular Heart sounds: normal: S1, S2 - Musculoskeletal Musculoskeletal: Present: gait normal - Psychiatric Psychiatric: Present: A&O x's 3, appropriate affect, intact judgment & insight - Additional findings Additional findings: Breast Exam: BRA: 44B inspection: right mastectomy incision clean and dry Palpation: Right breast: incision clean and dry; seroma right mastectomy site Right axilla: No adenopathy of concern left breast exam not repeated Assessment and Plan Assessment: Impression: T2 N0 M0 G2 ER positive NE positive HER2 negative invasive ductal right breast cancer/right mastectomy with seroma at mastectomy site at this time Atrial fibrillation normally takes Eliquis Chronic kidney failure/stage III near stage IV Bilateral ankle swelling right greater than the left seroma right chest wall fatigue/appears pale Plan: Patient sent to Dr. Prater office this afternoon secondary to fatigue consider aspiration of seroma after xanax appointment next week to aspirate seroma CC: Dr. Prater
[2024-02-20 14:00] VITALS: BP 169/76; PULSE 70; RESP 16; TEMP 98.2
== END ==
LOC: WWCWWP 12:42
PROVIDERS: ATTEND Surgery
DX: N64.89 Other specified disorders of breast (principal); I48.91 Unspecified atrial fibrillation; M25.471 Effusion, right ankle; M25.472 Effusion, left ankle; I12.9 Hypertensive chronic kidney disease with stage 1 through stage 4 chronic kidney disease, or unspecified chronic kidney disease; N18.4 Chronic kidney disease, stage 4 (severe); Z79.01 Long term (current) use of anticoagulants; Z90.11 Acquired absence of right breast and nipple; Z85.3 Personal history of malignant neoplasm of breast; Z79.899 Other long term (current) drug therapy

== ENCOUNTER → 2024-02-26 | Outpatient (CLI) | payer MEDICARE ==
[2024-02-26 11:28] VITALS: BP 138/72; PULSE 86; RESP 16; TEMP 98.1
--- NOTE | 2024-02-26 11:33 | P.PN ---
Subjective Progress Note Date: 02/26/24 02/20/24 Tara is a 78-year-old white female who underwent a right mastectomy with sentinel node biopsy on December 16, 2023. 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 Postoperatively she did well but was noted to have a seroma at the right mastectomy site. An attempted aspiration of the seroma resulted in the patient becoming very agitated and almost passing out. Therefore the the procedure was aborted. She has been seen by radiation oncology and was told she did not need any radiation therapy She was seen by medical oncology and will continue to follow with them and most likely have hormone therapy. Patient presents today to reevaluate seroma right chest wall For the past week she has been feeling very fatigued. She went to physical therapy and was recommended to go to the emergency room which she declined. Any fever or chills. She is complaining of a cold sore last night. after being seen last week she was sent to ER and nothing was found of concern Today prior to coming in she took Xanax in anticipation of seroma aspiration Caffeine: 1 can pop/week; 1/2 cup/day nicotine: none chocolate: daily BCP: none Family History: brother: throat, nonsmoker brother: colon brother: skin/melanoma paternal neice: skin cancer Hormonal History: menarche: 11 , age at first : 21, breat fed: no menopause: 46 hormones: none Surgical HIstory: finger Medical HIstory: COPD Atrial fibrillation; Eliquis but has been off it for several weeks close to stage 4 kidney disease decreased hearing Social History: nicotine: none alcohol: occasional drugs: none - Constitutional Constitutional: Denies chills, Denies fever - EENT Eyes: bilateral blurred vision ( when over tired) Ears: bilateral: decreased hearing Ears, nose, mouth and throat: Denies headache, Denies sore throat - Breasts Breasts: bilateral: as per HPI - Cardiovascular Cardiovascular: Reports as per HPI, Reports shortness of breath - Respiratory Respiratory: Denies cough - Genitourinary (Female) Genitourinary: Denies dysuria, Denies hematuria - Menstruation Menstruation: Reports postmenopausal - Musculoskeletal Musculoskeletal: Reports myalgias - Integumentary Integumentary: Denies pruritus, Denies rash - Neurological Neurological: Denies numbness, Denies weakness - Psychiatric Psychiatric: Denies anxiety, Denies depression - Endocrine Endocrine: Reports fatigue - Hematologic/Lymphatic Comment: patient is on Eloquis, stopped in September secondary to insurance - Allergic/Immunologic Allergic/Immunologic: Reports as per HPI Past Medical History Past Medical History: COPD, Hyperlipidemia, Hypertension Additional Past Medical History / Comment(s): stage 3 kidney disease, kidney stones History of Any Multi-Drug Resistant Organisms: None Reported Past Surgical History: Tonsillectomy Past Anesthesia/Blood Transfusion Reactions: No Reported Reaction Past Psychological History: No Psychological Hx Reported Smoking Status: Never smoker Past Alcohol Use History: Rare Additional Past Alcohol Use History / Comment(s): "Maybe once a month I'll have a arianna" Past Drug Use History: None Reported - Past Family History Father Additional Family Medical History / Comment(s): at age 39 due to heart condition Mother Additional Family Medical History / Comment(s): Possible TB. Heart Condition Medications and Allergies Home Medications Medication Instructions Recorded Confirmed Type amLODIPine [Norvasc] 10 mg PO DAILY 05/17/19 10/31/23 History calcitrioL [Rocaltrol] 0.25 mcg PO SUTUTHSA 10/06/20 10/31/23 History Metoprolol Tartrate 25 mg PO BID 01/16/21 10/31/23 History Ipratropium-Albuterol Nebulize 3 ml INHALATION RT-QID 30 Days #90 01/18/21 10/31/23 Rx [Duoneb 0.5 mg-3 mg/3 ml Soln] neb Apixaban [Eliquis] 5 mg PO BID 07/29/23 10/31/23 History Atorvastatin [Lipitor] 20 mg PO DAILY 07/29/23 10/31/23 History Cholecalciferol [Vitamin D3 (125 125 mcg PO DAILY 07/29/23 10/31/23 History Mcg = 5000 Iu)] Formoterol Fumarate [Perforomist] 20 mcg INHALATION RT-QID 07/29/23 10/31/23 History Montelukast [Singulair] 10 mg PO DAILY 07/29/23 10/31/23 History Allergies Allergy/AdvReac Type Severity Reaction Status Date / Time No Known Allergies Allergy Verified 10/31/23 12:54 Objective - Constitutional General appearance: Present: cooperative - EENT Eyes: Present: EOMI ENT: Present: hearing grossly normal - Neck Neck: Present: normal ROM - Respiratory Respiratory: bilateral: CTA - Cardiovascular Heart sounds: normal: S1, S2 - Integumentary Integumentary: Present: normal turgor - Psychiatric Psychiatric: Present: A&O x's 3, appropriate affect, intact judgment & insight - Additional findings Additional findings: Breast Exam: BRA: 44B inspection: right mastectomy incision clean and dry Palpation: Right breast: incision clean and dry; seroma right mastectomy site Right axilla: No adenopathy of concern left breast exam not repeated Assessment and Plan Assessment: Impression: T2 N0 M0 G2 ER positive OR positive HER2 negative invasive ductal right breast cancer/right mastectomy with seroma at mastectomy site at this time Atrial fibrillation normally takes Eliquis Chronic kidney failure/stage III near stage IV Bilateral ankle swelling right greater than the left seroma right chest wall fatigue/appears pale Plan: consider aspiration of seroma after xanax c: Dr. Prater
== END ==
LOC: WWCWWP 10:57
PROVIDERS: ATTEND Surgery
DX: N64.89 Other specified disorders of breast (principal); R45.1 Restlessness and agitation; R55 Syncope and collapse; I12.9 Hypertensive chronic kidney disease with stage 1 through stage 4 chronic kidney disease, or unspecified chronic kidney disease; N18.4 Chronic kidney disease, stage 4 (severe); I48.91 Unspecified atrial fibrillation; M25.471 Effusion, right ankle; M25.472 Effusion, left ankle; Z48.817 Encounter for surgical aftercare following surgery on the skin and subcutaneous tissue; Z90.11 Acquired absence of right breast and nipple; Z79.01 Long term (current) use of anticoagulants; Z79.899 Other long term (current) drug therapy

== ENCOUNTER → 2024-05-14 | Outpatient (CLI) | payer MEDICARE ==
[2024-05-14 13:46] VITALS: BP 155/81; PULSE 79; RESP 18; TEMP 98.4
--- NOTE | 2024-05-14 13:52 | P.PN ---
Subjective Progress Note Date: 05/14/24 Principal diagnosis: right breast Subjective Progress Note Date: 05-14-24 Tara is a 78-year-old white female who underwent a right mastectomy with sentinel node biopsy on December 16, 2023. 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 Postoperatively she did well but was noted to have a seroma at the right mastectomy site. An attempted aspiration of the seroma resulted in the patient becoming very agitated and almost passing out. Therefore the the procedure was aborted. She has been seen by radiation oncology and was told she did not need any radiation therapy She was seen by medical oncology and will continue to follow with them and most likely have hormone therapy. Patient presented on 02-26-24 to reevaluate seroma right chest wall For the past week she has been feeling very fatigued. She went to physical therapy and was recommended to go to the emergency room which she declined. Any fever or chills. She is complaining of a cold sore last night. after being seen last week she was sent to ER and nothing was found of concern prior to coming in on 02-20-24 she took Xanax in anticipation of seroma aspiration Following informed consent the area of concern in the right breast was prepped using alcohol. An 18-gauge needle on a syringe was used to aspirate 300 cc of straw-colored fluid. The patient tolerated this in stable condition. This resulted in resolution of the seroma. The patient states that since March she has been having some discomfort in the right chest discomforit and noted that has been getting more swollen. She is not complaining of any lumps masses or nodules otherwise on the right chest wall or in the left breast. She saw Dr. Lisandro Wolff and she is on a aromatase inhibitor, she thinks it is annestrazole. She has not had any fever or chills. The right chest wall feels numb but at night it feels aching. Caffeine: 1 can pop/week; 1/2 cup/day nicotine: none chocolate: daily BCP: none Family History: brother: throat, nonsmoker brother: colon brother: skin/melanoma paternal neice: skin cancer Hormonal History: menarche: 11 , age at first : 21, breat fed: no menopause: 46 hormones: none Surgical HIstory: finger Medical HIstory: COPD Atrial fibrillation; Eliquis but has been off it for several weeks close to stage 4 kidney disease decreased hearing Social History: nicotine: none alcohol: occasional drugs: none - Constitutional Constitutional: Denies chills, Denies fever - EENT Eyes: bilateral blurred vision ( when over tired) Ears: bilateral: decreased hearing Ears, nose, mouth and throat: Denies headache, Denies sore throat - Breasts Breasts: bilateral: as per HPI - Cardiovascular Cardiovascular: Reports as per HPI, Reports shortness of breath - Respiratory Respiratory: Denies cough - Genitourinary (Female) Genitourinary: Denies dysuria, Denies hematuria - Menstruation Menstruation: Reports postmenopausal - Musculoskeletal Musculoskeletal: Reports myalgias - Integumentary Integumentary: Denies pruritus, Denies rash - Neurological Neurological: Denies numbness, Denies weakness - Psychiatric Psychiatric: Denies anxiety, Denies depression - Endocrine Endocrine: Reports fatigue - Hematologic/Lymphatic Comment: patient is on Eloquis, stopped in September secondary to insurance - Allergic/Immunologic Allergic/Immunologic: Reports as per HPI Past Medical History Past Medical History: COPD, Hyperlipidemia, Hypertension Additional Past Medical History / Comment(s): stage 3 kidney disease, kidney s tones History of Any Multi-Drug Resistant Organisms: None Reported Past Surgical History: Tonsillectomy Past Anesthesia/Blood Transfusion Reactions: No Reported Reaction Past Psychological History: No Psychological Hx Reported Smoking Status: Never smoker Past Alcohol Use History: Rare Additional Past Alcohol Use History / Comment(s): "Maybe once a month I'll have a arianna" Past Drug Use History: None Reported - Past Family History Father Additional Family Medical History / Comment(s): at age 39 due to heart condition Mother Additional Family Medical History / Comment(s): Possible TB. Heart Condition Medications and Allergies Home Medications Medication Instructions Recorded Confirmed Type amLODIPine [Norvasc] 10 mg PO DAILY 05/17/19 10/31/23 History calcitrioL [Rocaltrol] 0.25 mcg PO SUTUTHSA 10/06/20 10/31/23 History Metoprolol Tartrate 25 mg PO BID 01/16/21 10/31/23 History Ipratropium-Albuterol Nebulize 3 ml INHALATION RT-QID 30 Days #90 01/18/21 10/31/23 Rx [Duoneb 0.5 mg-3 mg/3 ml Soln] neb Apixaban [Eliquis] 5 mg PO BID 07/29/23 10/31/23 History Atorvastatin [Lipitor] 20 mg PO DAILY 07/29/23 10/31/23 History Cholecalciferol [Vitamin D3 (125 125 mcg PO DAILY 07/29/23 10/31/23 History Mcg = 5000 Iu)] Formoterol Fumarate [Perforomist] 20 mcg INHALATION RT-QID 07/29/23 10/31/23 History Montelukast [Singulair] 10 mg PO DAILY 07/29/23 10/31/23 History Allergies Allergy/AdvReac Type Severity Reaction Status Date / Time No Known Allergies Allergy Verified 10/31/23 12:54 Objective - Vital Signs Vital signs: Vital Signs Temp 98.4 F 05/14/24 13:27 Pulse 79 05/14/24 13:27 Resp 18 05/14/24 13:27 BP 155/81 05/14/24 13:27 Pulse Ox 97 05/14/24 13:27 FiO2 Intake & Output 05/13/24 05/14/24 05/14/24 18:59 06:59 18:59 Weight 104.326 kg - Constitutional General appearance: Present: cooperative - EENT Eyes: Present: EOMI - Neck Neck: Present: normal ROM - Respiratory Respiratory: bilateral: CTA - Cardiovascular Heart sounds: normal: S1, S2 - Integumentary Integumentary: Present: normal turgor - Psychiatric Psychiatric: Present: A&O x's 3, appropriate affect, intact judgment & insight - Additional findings Additional findings: Breast Exam: BRA: 44B inspection: right mastectomy incision clean and dry; seroma present Palpation: Right breast: incision clean and dry; seroma right mastectomy site Right axilla: No adenopathy of concern left breast: fibrocystic changes no dominate masses or nodules of concern left axilla: no adenopathy of concern Assessment and Plan Assessment: Impression: T2 N0 M0 G2 ER positive NV positive HER2 negative invasive ductal right breast cancer/right mastectomy with seroma at mastectomy site at this time Atrial fibrillation normally takes Eliquis Chronic kidney failure/stage III near stage IV Bilateral ankle swelling right greater than the left seroma right chest wall fatigue/appears pale Plan: seroma right chest wall consider aspiration of seroma after xanax (perscription for xanax) left breast mammogram 2024 follow up with medical oncology c: Dr. Prater
== END ==
LOC: WWCWWP 12:47
PROVIDERS: ATTEND Surgery
DX: Z85.3 Personal history of malignant neoplasm of breast

== ENCOUNTER → 2024-05-14 | Outpatient (CLI) | payer MEDICARE ==
[2024-05-14 20:20] LABS: HCT 37.1 % (37.2-46.3); HGB 11.7 g/dL (12.0-15.0); MCH 29.6 pg (27.0-32.0); MCHC 31.5 g/dL (32.0-37.0); MCV 93.9 FL (80.0-97.0); Mean Platelet Volume 10.8 FL (9.5-12.2); NRBC Per 100 WBC 0 X 10*3/uL (0.00-0.01); Platelet Count 309 X 10*3/uL (140-440); RBC 3.95 X 10*6/uL (4.10-5.20); RDW 13.2 % (11.5-14.5); WBC 12.02 X 10*3/uL (4.50-10.00)
[2024-05-14 21:06] LABS: % Iron Saturation 15.97 (12.00-45.00); ALT 13 U/L (8-44); AST 16 U/L (13-35); Albumin 3.9 g/dL (3.8-4.9); Alkaline Phosphatase 117 U/L (41-126); BUN/Creat Ratio 12.06 Ratio (12.00-20.00); Blood Urea Nitrogen 20.5 mg/dL (9.0-27.0); Calcium 9.3 mg/dL (8.7-10.3); Carbon Dioxide 23.2 mmol/L (21.6-31.8); Chloride 107 mmol/L (96-109); Globulin 2.6 g/dL (1.6-3.3); Glucose 114 mg/dL (70-110); Iron 46 UG/DL (50-170); Phosphorus 3.2 mg/dL (2.4-5.1); Potassium 4.5 mmol/L (3.5-5.5); Sodium 144 mmol/L (135-145); Total Bilirubin 0.4 mg/dL (0.3-1.2); Total Iron Binding Capacity 288 UG/DL (228-460); Total Protein 6.5 g/dL (6.2-8.2); Uric Acid 6.9 mg/dL (2.9-7.7)
[2024-05-14 22:31] LABS: Appearance,Urine Clear (Clear); Bilirubin,Urine Small (Negative); Blood,Urine Negative (Negative); Color,Urine Dark Yellow (Yellow); Ketones,Urine Trace (Negative); Nitrite,Urine Negative (Negative); PH, Urine 5.5; Specific Gravity,Urine 1.024 (1.001-1.030)
[2024-05-14 22:52] LABS: Bacteria,Urine None Seen (None Seen)
[2024-05-17 11:36] LABS: Free Kappa Lt Chain Qnt, Serum 3.03 mg/dL (0.33-1.94); Free Lambda Lt Chain Qnt, Seru 1.72 mg/dL (0.57-2.63)
== END | disposition home or self-care (01) ==
LOC: LABWHC1 14:13
PROVIDERS: ATTEND Internal Medicine
DX: N18.32 Chronic kidney disease, stage 3b
CPT/HCPCS: 36415; 80053; 81001; 82043; 82306; 82570; 82728; 83540; 83550; 83735; 83883; 83970; 84100; 84166; 84550; 85027; 86334

== ENCOUNTER → 2024-06-10 | Outpatient (CLI) | payer MEDICARE ==
[2024-06-10 09:20] VITALS: BP 116/70; PULSE 67; RESP 16; TEMP 98.7
--- NOTE | 2024-06-10 09:54 | P.PN ---
Subjective Progress Note Date: 06/10/24 Subjective Progress Note Date: 05-14-24 Tara is a 78-year-old white female who underwent a right mastectomy with sentinel node biopsy on December 16, 2023. 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 Postoperatively she did well but was noted to have a seroma at the right mastectomy site. An attempted aspiration of the seroma resulted in the patient becoming very agitated and almost passing out. Therefore the the procedure was aborted. She has been seen by radiation oncology and was told she did not need any radiation therapy She was seen by medical oncology and will continue to follow with them and most likely have hormone therapy. Patient presented on 02-26-24 to reevaluate seroma right chest wall For the past week she has been feeling very fatigued. She went to physical therapy and was recommended to go to the emergency room which she declined. Any fever or chills. She is complaining of a cold sore last night. after being seen last week she was sent to ER and nothing was found of concern prior to coming in on 02-20-24 she took Xanax in anticipation of seroma aspiration Following informed consent the area of concern in the right breast was prepped using alcohol. An 18-gauge needle on a syringe was used to aspirate 300 cc of straw-colored fluid. The patient tolerated this in stable condition. This resulted in resolution of the seroma. The patient states that since March she has been having some discomfort in the right chest discomforit and noted that has been getting more swollen. She is not complaining of any lumps masses or nodules otherwise on the right chest wall or in the left breast. She saw Dr. Lisandro Wolff and she is on a aromatase inhibitor, she thinks it is annestrazole. She has not had any fever or chills. The right chest wall feels numb but at night it feels aching. She has seen three [facility] since last visit and told she had a infection but they do not know where she will follow pilar Prater Caffeine: 1 can pop/week; 1/2 cup/day nicotine: none chocolate: daily BCP: none Family History: brother: throat, nonsmoker brother: colon brother: skin/melanoma paternal neice: skin cancer Hormonal History: menarche: 11 , age at first : 21, breat fed: no menopause: 46 hormones: none Surgical HIstory: finger Medical HIstory: COPD Atrial fibrillation; Eliquis but has been off it for several weeks close to stage 4 kidney disease decreased hearing Social History: nicotine: none alcohol: occasional drugs: none - Constitutional Constitutional: Denies chills, Denies fever - EENT Eyes: bilateral blurred vision ( when over tired) Ears: bilateral: decreased hearing Ears, nose, mouth and throat: Denies headache, Denies sore throat - Breasts Breasts: bilateral: as per HPI - Cardiovascular Cardiovascular: Reports as per HPI, Reports shortness of breath - Respiratory Respiratory: Denies cough - Genitourinary (Female) Genitourinary: Denies dysuria, Denies hematuria - Menstruation Menstruation: Reports postmenopausal - Musculoskeletal Musculoskeletal: Reports myalgias - Integumentary Integumentary: Denies pruritus, Denies rash - Neurological Neurological: Denies numbness, Denies weakness - Psychiatric Psychiatric: Denies anxiety, Denies depression - Endocrine Endocrine: Reports fatigue - Hematologic/Lymphatic Comment: patient is on Eloquis, stopped in September secondary to insurance - Allergic/Immunologic Allergic/Immunologic: Reports as per HPI Past Medical History Past Medical History: COPD, Hyperlipidemia, Hypertension Additional Past Medical History / Comment(s): stage 3 kidney disease, kidney stones History of Any Multi-Drug Resistant Organisms: None Reported Past Surgical History: Tonsillectomy Past Anesthesia/Blood Transfusion Reactions: No Reported Reaction Past Psychological History: No Psychological Hx Reported Smoking Status: Never smoker Past Alcohol Use History: Rare Additional Past Alcohol Use History / Comment(s): "Maybe once a month I'll have a arianna" Past Drug Use History: None Reported - Past Family History Father Additional Family Medical History / Comment(s): at age 39 due to heart condition Mother Additional Family Medical History / Comment(s): Possible TB. Heart Condition Medications and Allergies Home Medications Medication Instructions Recorded Confirmed Type amLODIPine [Norvasc] 10 mg PO DAILY 05/17/19 10/31/23 History calcitrioL [Rocaltrol] 0.25 mcg PO SUTUTHSA 10/06/20 10/31/23 History Metoprolol Tartrate 25 mg PO BID 01/16/21 10/31/23 History Ipratropium-Albuterol Nebulize 3 ml INHALATION RT-QID 30 Days #90 01/18/21 10/31/23 Rx [Duoneb 0.5 mg-3 mg/3 ml Soln] neb Apixaban [Eliquis] 5 mg PO BID 07/29/23 10/31/23 History Atorvastatin [Lipitor] 20 mg PO DAILY 07/29/23 10/31/23 History Cholecalciferol [Vitamin D3 (125 125 mcg PO DAILY 07/29/23 10/31/23 History Mcg = 5000 Iu)] Formoterol Fumarate [Perforomist] 20 mcg INHALATION RT-QID 07/29/23 10/31/23 History Montelukast [Singulair] 10 mg PO DAILY 07/29/23 10/31/23 History Allergies Allergy/AdvReac Type Severity Reaction Status Date / Time No Known Allergies Allergy Verified 10/31/23 12:54 Objective - Vital Signs Vital signs: Vital Signs Temp 98.7 F 06/10/24 09:18 Pulse 67 06/10/24 09:18 Resp 16 06/10/24 09:18 BP 116/70 06/10/24 09:18 Pulse Ox 97 06/10/24 09:18 FiO2 Intake & Output 06/09/24 06/10/24 06/10/24 18:59 06:59 18:59 Weight 104.326 kg - Constitutional General appearance: Present: cooperative - EENT Eyes: Present: EOMI ENT: Present: hearing grossly normal - Neck Neck: Present: normal ROM - Respiratory Respiratory: bilateral: CTA - Cardiovascular Heart sounds: normal: S1, S2 - Integumentary Integumentary: Present: normal turgor - Musculoskeletal Musculoskeletal: Present: gait normal - Psychiatric Psychiatric: Present: A&O x's 3, appropriate affect, intact judgment & insight - Additional findings Additional findings: Breast Exam: BRA: 44B inspection: right mastectomy incision clean and dry; seroma present Palpation: Right breast: incision clean and dry; seroma right mastectomy site Right axilla: No adenopathy of concern left breast: fibrocystic changes no dominate masses or nodules of concern left axilla: no adenopathy of concern Assessment and Plan Assessment: Impression: T2 N0 M0 G2 ER positive [place] positive HER2 negative invasive ductal right breast cancer/right mastectomy with seroma at mastectomy site at this time Atrial fibrillation normally takes Eliquis Chronic kidney failure/stage III near stage IV Bilateral ankle swelling right greater than the left seroma right chest wall fatigue/appears pale Plan: seroma right chest wall consider aspiration of seroma after xanax (perscription for xanax) left breast mammogram 2024 follow up with medical oncology c: Dr. Prater 06-10-24 Following Oral Xanax the area of concern in the right chest wall was recommended for aspiration. Following informed consent, the area of concern in the right chest wall was prepped using alcohol. 1% lidocaine was used to anesthetize the area of concern. An 18-gauge needle on a 20 cc syringe was used to aspirate 120 cc of red-tinged fluid. This resulted in resolution of the seroma. The patient tolerated the procedure in stable condition. She will follow-up in 1 month.
== END ==
LOC: WWCWWP 08:46
PROVIDERS: ATTEND Surgery
DX: C50.911 Malignant neoplasm of unspecified site of right female breast (principal); N64.89 Other specified disorders of breast; I12.9 Hypertensive chronic kidney disease with stage 1 through stage 4 chronic kidney disease, or unspecified chronic kidney disease; N18.4 Chronic kidney disease, stage 4 (severe); M25.471 Effusion, right ankle; M25.472 Effusion, left ankle; Z17.0 Estrogen receptor positive status [ER+]; Z90.11 Acquired absence of right breast and nipple; Z79.01 Long term (current) use of anticoagulants; Z79.899 Other long term (current) drug therapy

== ENCOUNTER → 2024-07-16 | Outpatient (CLI) | payer MEDICARE ==
[2024-07-16 14:00] VITALS: BP 140/76; PULSE 75; RESP 16; TEMP 97.9
--- NOTE | 2024-07-16 14:05 | P.PN ---
Subjective Progress Note Date: 07/16/24 Subjective Progress Note Date: 07-16-24 05-14-24 Tara is a 78-year-old white female who underwent a right mastectomy with sentinel node biopsy on December 16, 2023. 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 Postoperatively she did well but was noted to have a seroma at the right mastectomy site. An attempted aspiration of the seroma resulted in the patient becoming very agitated and almost passing out. Therefore the the procedure was aborted. She has been seen by radiation oncology and was told she did not need any radiation therapy She was seen by medical oncology and will continue to follow with them and most likely have hormone therapy. Patient presented on 02-26-24 to reevaluate seroma right chest wall For the past week she has been feeling very fatigued. She went to physical therapy and was recommended to go to the emergency room which she declined. Any fever or chills. She is complaining of a cold sore last night. after being seen last week she was sent to ER and nothing was found of concern 1. prior to coming in on 02-20-24 she took Xanax in anticipation of seroma aspiration Following informed consent the area of concern in the right breast was prepped using alcohol. An 18-gauge needle on a syringe was used to aspirate 300 cc of straw-colored fluid. The patient tolerated this in stable condition. This resulted in resolution of the seroma. The patient states that since March she has been having some discomfort in the right chest discomforit and noted that has been getting more swollen. She is not complaining of any lumps masses or nodules otherwise on the right chest wall or in the left breast. She saw Dr. Lisandro Wolff and she is on a aromatase inhibitor, she thinks it is annestrazole. She has not had any fever or chills. The right chest wall feels numb but at night it feels aching. She has seen three [facility] since last visit and told she had a infection but they do not know where she will follow pilar Prater 2. aspiration of seroma on 06-10-24 120 cc fluid 07-16-24 Patient presents for evaluation of seroma left chest wall. will be due for left breast mammogram in Sep 2024. Caffeine: 1 can pop/week; 1/2 cup/day nicotine: none chocolate: daily BCP: none Family History: brother: throat, nonsmoker brother: colon brother: skin/melanoma paternal neice: skin cancer Hormonal History: menarche: 11 , age at first : 21, breat fed: no menopause: 46 hormones: none Surgical HIstory: finger Medical HIstory: COPD Atrial fibrillation; Eliquis but has been off it for several weeks close to stage 4 kidney disease decreased hearing Social History: nicotine: none alcohol: occasional drugs: none - Constitutional Constitutional: Denies chills, Denies fever - EENT Eyes: bilateral blurred vision ( when over tired) Ears: bilateral: decreased hearing Ears, nose, mouth and throat: Denies headache, Denies sore throat - Breasts Breasts: bilateral: as per HPI - Cardiovascular Cardiovascular: Reports as per HPI, Reports shortness of breath - Respiratory Respiratory: Denies cough - Genitourinary (Female) Genitourinary: Denies dysuria, Denies hematuria - Menstruation Menstruation: Reports postmenopausal - Musculoskeletal Musculoskeletal: Reports myalgias - Integumentary Integumentary: Denies pruritus, Denies rash - Neurological Neurological: Denies numbness, Denies weakness - Psychiatric Psychiatric: Denies anxiety, Denies depression - Endocrine Endocrine: Reports fatigue - Hematologic/Lymphatic Comment: patient is on Eloquis, stopped in September secondary to insurance - Allergic/Immunologic Allergic/Immunologic: Reports as per HPI Past Medical History Past Medical History: COPD, Hyperlipidemia, Hypertension Additional Past Medical History / Comment(s): stage 3 kidney disease, kidney stones History of Any Multi-Drug Resistant Organisms: None Reported Past Surgical History: Tonsillectomy Past Anesthesia/Blood Transfusion Reactions: No Reported Reaction Past Psychological History: No Psychological Hx Reported Smoking Status: Never smoker Past Alcohol Use History: Rare Additional Past Alcohol Use History / Comment(s): "Maybe once a month I'll have a arianna" Past Drug Use History: None Reported - Past Family History Father Additional Family Medical History / Comment(s): at age 39 due to heart condition Mother Additional Family Medical History / Comment(s): Possible TB. Heart Condition Medications and Allergies Home Medications Medication Instructions Recorded Confirmed Type amLODIPine [Norvasc] 10 mg PO DAILY 05/17/19 10/31/23 History calcitrioL [Rocaltrol] 0.25 mcg PO SUTUTHSA 10/06/20 10/31/23 History Metoprolol Tartrate 25 mg PO BID 01/16/21 10/31/23 History Ipratropium-Albuterol Nebulize 3 ml INHALATION RT-QID 30 Days #90 01/18/21 10/31/23 Rx [Duoneb 0.5 mg-3 mg/3 ml Soln] neb Apixaban [Eliquis] 5 mg PO BID 07/29/23 10/31/23 History Atorvastatin [Lipitor] 20 mg PO DAILY 07/29/23 10/31/23 History Cholecalciferol [Vitamin D3 (125 125 mcg PO DAILY 07/29/23 10/31/23 History Mcg = 5000 Iu)] Formoterol Fumarate [Perforomist] 20 mcg INHALATION RT-QID 07/29/23 10/31/23 History Montelukast [Singulair] 10 mg PO DAILY 07/29/23 10/31/23 History Allergies Allergy/AdvReac Type Severity Reaction Status Date / Time No Known Allergies Allergy Verified 10/31/23 12:54 Objective - Constitutional General appearance: Present: cooperative - EENT Eyes: Present: EOMI ENT: Present: hearing grossly normal - Neck Neck: Present: normal ROM - Respiratory Respiratory: bilateral: CTA - Cardiovascular Rhythm: regular Heart sounds: normal: S1, S2 - Integumentary Integumentary Comment(s): Seroma right chest wall Integumentary: Present: normal turgor - Psychiatric Psychiatric: Present: A&O x's 3, appropriate affect, intact judgment & insight Assessment and Plan Assessment: Impression: T2 N0 M0 G2 ER positive [place] positive HER2 negative invasive ductal right breast cancer/right mastectomy with seroma at mastectomy site at this time Atrial fibrillation normally takes Eliquis Chronic kidney failure/stage III near stage IV Bilateral ankle swelling right greater than the left seroma right chest wall fatigue/appears pale Plan: seroma right chest wall appointment to consider aspiration of seroma after xanax (perscription for xanax) in August patient would prefer to wait until after [place] left breast mammogram 2024 with appointment to follow follow up with medical oncology
== END ==
LOC: WWCWWP 13:43
PROVIDERS: ATTEND Surgery
DX: C50.911 Malignant neoplasm of unspecified site of right female breast (principal); I12.9 Hypertensive chronic kidney disease with stage 1 through stage 4 chronic kidney disease, or unspecified chronic kidney disease; N18.4 Chronic kidney disease, stage 4 (severe); I48.91 Unspecified atrial fibrillation; R53.83 Other fatigue; N64.89 Other specified disorders of breast; R60.0 Localized edema; Z17.0 Estrogen receptor positive status [ER+]; Z17.21 Progesterone receptor positive status; Z85.3 Personal history of malignant neoplasm of breast; Z90.11 Acquired absence of right breast and nipple; Z79.01 Long term (current) use of anticoagulants

== ENCOUNTER → 2024-08-26 | Outpatient (CLI) | payer MEDICARE ==
[2024-08-26 14:31] VITALS: BP 127/81; PULSE 78; RESP 16; TEMP 97.5
--- NOTE | 2024-08-26 14:46 | P.PN ---
Subjective Progress Note Date: 08/26/24 07-16-24 05-14-24 Tara is a 78-year-old white female who underwent a right mastectomy with sentinel node biopsy on December 16, 2023. 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 Postoperatively she did well but was noted to have a seroma at the right mastectomy site. An attempted aspiration of the seroma resulted in the patient becoming very agitated and almost passing out. Therefore the the procedure was aborted. She has been seen by radiation oncology and was told she did not need any radiation therapy She was seen by medical oncology and will continue to follow with them and most likely have hormone therapy. Patient presented on 02-26-24 to reevaluate seroma right chest wall For the past week she has been feeling very fatigued. She went to physical therapy and was recommended to go to the emergency room which she declined. Any fever or chills. She is complaining of a cold sore last night. after being seen last week she was sent to ER and nothing was found of concern 1. prior to coming in on 02-20-24 she took Xanax in anticipation of seroma aspiration Following informed consent the area of concern in the right breast was prepped using alcohol. An 18-gauge needle on a syringe was used to aspirate 300 cc of straw-colored fluid. The patient tolerated this in stable condition. This resulted in resolution of the seroma. The patient states that since March she has been having some discomfort in the right chest discomforit and noted that has been getting more swollen. She is not complaining of any lumps masses or nodules otherwise on the right chest wall or in the left breast. She saw Dr. Lisandro Wolff and she is on a aromatase inhibitor, she thinks it is annestrazole. She has not had any fever or chills. The right chest wall feels numb but at night it feels aching. She has seen three UTIs since last visit and told she had a infection but they do not know where she will follow pilar Prater 2. aspiration of seroma on 06-10-24 120 cc fluid 07-16-24 Patient presents for evaluation of seroma right chest wall. will be due for left breast mammogram in Sep 2024. 08-26-24 Patient comes for evaluation of seroma right chest wall. Caffeine: 1 can pop/week; 1/2 cup/day nicotine: none chocolate: daily BCP: none Family History: brother: throat, nonsmoker brother: colon brother: skin/melanoma paternal neice: skin cancer Hormonal History: menarche: 11 , age at first : 21, breat fed: no menopause: 46 hormones: none Surgical HIstory: finger Medical HIstory: COPD Atrial fibrillation; Eliquis but has been off it for several weeks close to stage 4 kidney disease decreased hearing Social History: nicotine: none alcohol: occasional drugs: none - Constitutional Constitutional: Denies chills, Denies fever - EENT Eyes: bilateral blurred vision ( when over tired) Ears: bilateral: decreased hearing Ears, nose, mouth and throat: Denies headache, Denies sore throat - Breasts Breasts: bilateral: as per HPI - Cardiovascular Cardiovascular: Reports as per HPI, Reports shortness of breath - Respiratory Respiratory: Denies cough - Genitourinary (Female) Genitourinary: Denies dysuria, Denies hematuria - Menstruation Menstruation: Reports postmenopausal - Musculoskeletal Musculoskeletal: Reports myalgias - Integumentary Integumentary: Denies pruritus, Denies rash - Neurological Neurological: Denies numbness, Denies weakness - Psychiatric Psychiatric: Denies anxiety, Denies depression - Endocrine Endocrine: Reports fatigue - Hematologic/Lymphatic Comment: patient is on Eloquis, stopped in September secondary to insurance - Allergic/Immunologic Allergic/Immunologic: Reports as per HPI Past Medical History Past Medical History: COPD, Hyperlipidemia, Hypertension Additional Past Medical History / Comment(s): stage 3 kidney disease, kidney stones History of Any Multi-Drug Resistant Organisms: None Reported Past Surgical History: Tonsillectomy Past Anesthesia/Blood Transfusion Reactions: No Reported Reaction Past Psychological History: No Psychological Hx Reported Smoking Status: Never smoker Past Alcohol Use History: Rare Additional Past Alcohol Use History / Comment(s): "Maybe once a month I'll have a arianna" Past Drug Use History: None Reported - Past Family History Father Additional Family Medical History / Comment(s): at age 39 due to heart condition Mother Additional Family Medical History / Comment(s): Possible TB. Heart Condition Medications and Allergies Home Medications Medication Instructions Recorded Confirmed Type amLODIPine [Norvasc] 10 mg PO DAILY 05/17/19 10/31/23 History calcitrioL [Rocaltrol] 0.25 mcg PO SUTUTHSA 10/06/20 10/31/23 History Metoprolol Tartrate 25 mg PO BID 01/16/21 10/31/23 History Ipratropium-Albuterol Nebulize 3 ml INHALATION RT-QID 30 Days #90 01/18/21 10/31/23 Rx [Duoneb 0.5 mg-3 mg/3 ml Soln] neb Apixaban [Eliquis] 5 mg PO BID 07/29/23 10/31/23 History Atorvastatin [Lipitor] 20 mg PO DAILY 07/29/23 10/31/23 History Cholecalciferol [Vitamin D3 (125 125 mcg PO DAILY 07/29/23 10/31/23 History Mcg = 5000 Iu)] Formoterol Fumarate [Perforomist] 20 mcg INHALATION RT-QID 07/29/23 10/31/23 History Montelukast [Singulair] 10 mg PO DAILY 07/29/23 10/31/23 History Allergies Allergy/AdvReac Type Severity Reaction Status Date / Time No Known Allergies Allergy Verified 10/31/23 12:54 Objective - Vital Signs Vital signs: Vital Signs Temp 97.5 F L 08/26/24 14:28 Pulse 78 08/26/24 14:28 Resp 16 08/26/24 14:28 BP 127/81 08/26/24 14:28 Pulse Ox 100 08/26/24 14:28 FiO2 Intake & Output 08/25/24 08/26/24 08/26/24 18:59 06:59 18:59 Weight 104.326 kg - Constitutional General appearance: Present: cooperative - EENT Eyes: Present: EOMI ENT: Present: hearing grossly normal - Neck Neck: Present: normal ROM - Respiratory Respiratory: bilateral: CTA - Cardiovascular Rhythm: regular Heart sounds: normal: S1, S2 - Integumentary Integumentary: Present: normal turgor - Psychiatric Psychiatric: Present: A&O x's 3, appropriate affect, intact judgment & insight - Additional findings Additional findings: Breast Exam: T2 N0 M0 G2 ER + SD + HER2 - invasive ductal right breast cancer/right mastectomy with seroma at mastectomy site at this time Examination of right chest wall incision clean and dry well-healed question of a very small seroma Right axilla: No adenopathy of concern Left breast: No dominant masses or nodules of concern Left axilla: No adenopathy of concern Assessment and Plan Assessment: Impression: T2 N0 M0 G2 ER positive SD positive HER2 negative invasive ductal right breast cancer/right mastectomy with seroma at mastectomy site at this time Atrial fibrillation normally takes Eliquis Chronic kidney failure/stage III near stage IV Bilateral ankle swelling right greater than the left seroma right chest wall fatigue/appears pale Plan: ? of small seroma right chest wall After discussion with the patient we will attempt aspiration of the seroma. Following informed consent the area of concern on the right chest wall was prepped using alcohol. An 18-gauge needle and a 20 cc syringe was inserted into the area. This appears to be soft tissue and no seroma fluid was obtained. The patient tolerated the procedure in stable condition. left breast mammogram 2024 with appointment to follow follow up with medical oncology Additional CC's: Fredy Prater
== END ==
LOC: WWCWWP 13:58
PROVIDERS: ATTEND Surgery
DX: C50.911 Malignant neoplasm of unspecified site of right female breast (principal); I12.9 Hypertensive chronic kidney disease with stage 1 through stage 4 chronic kidney disease, or unspecified chronic kidney disease; N18.4 Chronic kidney disease, stage 4 (severe); I48.91 Unspecified atrial fibrillation; R53.83 Other fatigue; M79.81 Nontraumatic hematoma of soft tissue; N64.89 Other specified disorders of breast; R22.43 Localized swelling, mass and lump, lower limb, bilateral; Z17.21 Progesterone receptor positive status; Z17.0 Estrogen receptor positive status [ER+]

== ENCOUNTER → 2024-10-11 | Outpatient (CLI) | payer MEDICARE ==
--- NOTE | 2024-10-11 15:43 | MM ---
Reason for Exam: Hx of breast cancer, mastectomy. Patient History: Breast cancer, right, age 77. 12/16/2023, Mastectomy on the Right side. 10/09/2023, Malignant US biopsy breast VAD RT on the right side. Prior Study Comparison: 10/09/2023 Right MG diagnostic mammo RT wo CAD, [facility]. Tissue Density: Left: There are scattered areas of fibroglandular density. Findings: Analyzed By CAD. Benign vascular calcifications redemonstrated. No significant change from prior exams. Overall Assessment: Negative, BI-RAD 1 Management: Screening Mammogram of the left breast in 1 year. Results were given to the patient verbally at the time of exam. Patient should continue monthly self-breast exams. A clinical breast exam by your physician is recommended on an annual basis. This exam should not preclude additional follow-up of suspicious palpable abnormalities. [facility], , 10/11/2024 3:40 PM. Electronically signed and approved by: Yony Richardson M.D. Radiologist
== END | disposition home or self-care (01) ==
LOC: RADMAMWWP 14:45
PROVIDERS: ATTEND Surgery
DX: Z85.3 Personal history of malignant neoplasm of breast (principal); R92.322 Mammographic fibroglandular density, left breast; R92.1 Mammographic calcification found on diagnostic imaging of breast; Z90.11 Acquired absence of right breast and nipple
CPT/HCPCS: 77065; G0279; 77061